=== PATIENT | female | born 1970 | race African-American/Black ===

== ENCOUNTER 2016-10-13 11:09 | Inpatient (IN) | payer MEDICAID ==
[~2016-10-13] VITALS: Ht 165.1 cm; Wt 95.3 kg
[~2016-10-13 11:09] MED LIST: ASPIRIN EC81 M1 PO; ASPIRIN EC81 MG; COREG6.25 MG PO; CYCLOBENZAPRINE10 MG PO; GABAPENTIN100 MG PO; HYDROCODONE-APA1 TAB PO; K-TAB10 MEQ PO; LANTUS INSULIN10 ML SC; LANTUS SOL100 UNIT/1 SC; LASIX20 MG PO; LOPRESSOR50 MG PO; MICRO-K10 MEQ; MIRALAX17 GM PO; NORCO 7.5/325 T1 TA1 PO; OMEPRAZOLE20 M1 PO; PAROXETINE HCL10 MG PO; PREVACID15 MG; PREVACID15 MG PO; ZESTORETIC 20/21 TAB PO
[2016-10-13 11:44] LABS: APPEARANCE TURBID (CLEAR); BACTERIA MODERATE /hpf (NONE SEEN); BILIRUBIN NEGATIVE (NEGATIVE); COLOR YELLOW (YELLOW); GLUCOSE NEGATIVE (NEGATIVE); KETONE NEGATIVE (NEGATIVE); LEUKOCYTE ESTERASE 2+ (NEGATIVE); MUCUS <1+ /lpf (NONE SEEN); NITRITE NEGATIVE (NEGATIVE); PROTEIN TRACE mg/dL (NEGATIVE); SPECIFIC GRAVITY 1.025 (1.005-1.020); UROBILINOGEN NORMAL (NORMAL); WHITE CELLS - URINE >50 /hpf (0-5)
[2016-10-13 11:49] LABS: UDS - AMPHET NEGATIVE QUAL (NEGATIVE); UDS - BARB NEGATIVE QUAL (NEGATIVE); UDS - BENZO NEGATIVE QUAL (NEGATIVE); UDS - COCAINE POSITIVE QUAL (NEGATIVE); UDS - METH NEGATIVE QUAL (NEGATIVE); UDS - OPIATE NEGATIVE QUAL (NEGATIVE); UDS - PCP NEGATIVE QUAL (NEGATIVE); UDS - THC NEGATIVE QUAL (NEGATIVE)
[2016-10-13 12:38] LABS: BASOPHILS 0.2 % (0.0-2.0); EOSINOPHILS 1.1 % (0-7); HEMATOCRIT 38.1 % (36.0-48.0); HEMOGLOBIN 12.8 g/dL (12-16); IMMATURE GRANULOCYTES 0.2 % (0-5); LYMPHOCYTES 15.3 % (15-50); MCH 27.8 pg (26.0-34.0); MCHC 33.6 g/dL (31.0-37.0); MCV 82.8 fL (80.0-100.0); MEAN PLATELET VOLUME 11.3 fL (7.4-10.4); MONOCYTES 6.7 % (2-11); NEUTROPHILS 76.5 % (40-80); PLATELET COUNT 250 10x3/uL (130-400); RDW 14.1 % (11.5-14.5); WBC 16.3 10x3/uL (4.8-10.8)
[2016-10-13 12:57] LABS: ALBUMIN 3.4 g/dL (3.4-5.0); BILIRUBIN - TOTAL 1.13 mg/dL (0.2-1.3); CALCIUM 9.4 mg/dL (8.5-10.1); CREATININE - SERUM 2.2 mg/dL (0.6-1.3); PROTEIN - SERUM 7.1 g/dL (6.4-8.2)
[2016-10-13 14:33] LABS: HEMOGLOBIN A1C 8.3 % (4.8-6.0)
[2016-10-13 16:27] VITALS: BP 122/76
--- NOTE | 2016-10-13 17:21 | NUR ---
PATIENT HAS RECIEVED MEDICATION ORDERED. PT IS RESTLESS IN THE BED. UNABLE TO PROVIDE ANSWERS FOR ADMISSION HISTORY FORM, WILL MONITOR. NO FAMILY OR FRIENDS IN ROOM. PT HAS A BLUE KAYE DRESS AND A BLACK FLIP PHONE IN ROOM WITH HER. LINDA ALARM PLACED UNDER PT FOR PRECAUTIONS. WILL CONTINUE TO MONITOR PT. NO SIGNS OF DISTRESS NOTED.
[2016-10-13 17:46] VITALS: BP 122/76; BMI 35.0
--- NOTE | 2016-10-13 18:17 | NUR ---
PATIENT IS IN BED, MOVING AROUND IN THE BED. WHEN SPEAKING PATIENT PURSES LIPS AND BLOWS BETWEEN ALMOST EVERY WORD. PATIENT IS NOT ABLE TO LAY STILL. PATIENT IS MOVING AROUND INVOLUNTARILY. LINDA MAT ALARM ON. PATIENT STATED "I AM HUNGERY. I HAVEN'T ATE IN 3 DAYS BECAUSE THE FLOORS WHERE I LIVE HAVE WHITE STUFF ON THEM THAT I AM ALLERGIC TO. THAT IS WHAT MADE MY FACE SWELL." CALLED DIETARY ASKED FOR A TRAY.
[2016-10-13 19:00] VITALS: BP 131/70
--- NOTE | 2016-10-13 20:22 | NUR ---
recieved pt sitting up in bed eating, no acute distress noted, sr's up x2, cl in reach, door open for easy viewing, will monitor
--- NOTE | 2016-10-13 21:58 | NUR ---
12 UNITS INSULIN GIVEN PER SLIDIING SCALE FOR BS OF 465, WILL CONTACT PAULA CHOI IN REACH
--- NOTE | 2016-10-13 22:10 | NUR ---
ORDERS TO RECHECK IN AN HOUR, NO DISTRESS NOTED FROM PATIENT
--- NOTE | 2016-10-13 23:49 | NUR ---
BS 209, DOWN FROM 465, NO DISTRESS NOTED, WILL CONTINUE TO MONITOR, CL IN REACH
--- NOTE | 2016-10-14 01:15 | NUR ---
PATIENT REQUESTING FOOD, SUGAR FREE JELLO PROVIDED, NO DISTRESS NOTED, CL IN REACH
[2016-10-14 04:00] VITALS: BP 142/86
[2016-10-14 04:38] LABS: BASOPHILS 0.1 % (0.0-2.0); HEMATOCRIT 37.4 % (36.0-48.0); HEMOGLOBIN 12.2 g/dL (12-16); IMMATURE GRANULOCYTES 0.3 % (0-5); LYMPHOCYTES 14.5 % (15-50); MCHC 32.6 g/dL (31.0-37.0); MCV 82.7 fL (80.0-100.0); MEAN PLATELET VOLUME 10.7 fL (7.4-10.4); MONOCYTES 7.6 % (2-11); NEUTROPHILS 76.5 % (40-80); PLATELET COUNT 242 10x3/uL (130-400); RBC 4.52 10x6/uL (4.00-5.40); RDW 14.4 % (11.5-14.5); WBC 11.6 10x3/uL (4.8-10.8)
[2016-10-14 04:47] LABS: ANION GAP 10.3 mmol/L (8-16); CALCIUM 8.6 mg/dL (8.5-10.1); CARBON DIOXIDE 31.3 mmol/L (21.0-32.0)
[2016-10-14 04:56] LABS: CREATININE - SERUM 1.4 mg/dL (0.6-1.3); POTASSIUM - SERUM 3.6 mmol/L (3.5-5.1)
--- NOTE | 2016-10-14 09:00 | NUR ---
ASSESSMENT PER FLOW SHEET.PT WITHUT DISTRESS.CALL LIGHT IN REACH
[2016-10-14 10:20] VITALS: BP 149/89
[2016-10-14 13:50] VITALS: BP 132/88
[2016-10-14 14:22] VITALS: Ht 165.1 cm; Wt 95.3 kg
--- NOTE | 2016-10-14 16:19 | NUR ---
Patient Name: CAROLYN GALICIA Admission Status: ER Accout number: [id number] Admission Date: 10-13-2016 : 1970 Admission Diagnosis: Attending: DARRELL Current LOS: 1 Anticipated DC Date: 10-17-2016 Planned Disposition: Home Primary Insurance: MEDICAID [place] Discharge Planning Comments: CM MET WITH PATIENT REGARDING D/C NEEDS AND PLANS. PATIENT STATES SHE LIVES WITH HER BOYFRIEND (ANGEL ORTIZ) AND HE WILL DRIVE HER HOME AT DISCHARGE. PATIENT IS INDEPENDENT WITH HER CARE AND HAS A CANE AT HOME IF NEEDED. PATIENT GOES TO [place] AND USES [facility]AC[facility]. PATIENT STATED THERE ARE 2 STEPS W/O RAILS AND NO STAIRS INSIDE AT HER HOME. PATIENT DENIES HOME HEALTH. CM WILL CONTINUE TO FOLLOW PATIENT WITH D/C NEEDS AND PLANS. [facility] [phone] ANGEL ORTIZ (ARTEMFRIEND) [phone] Quality Control Operator: Drea Figueroa Is the patient Alert and Oriented? Yes 0 * How many steps to enter\exit or inside your home? 2 W/O RAIL 0 * PCP [facility] 0 * Pharmacy [facility] * Preadmission Environment Home with Family 0 * ADLs Independent 0 * Equipment Cane 0 * List name and contact numbers for known caregivers / representatives who currently or will assist patient after discharge: ANGEL ORTIZ (BOYFRIEND) [phone] 0 * Community resources currently utilized None 0 * Additional services required to return to the preadmission environment? Yes 0 * Can the patient safely return to the preadmission environment? Yes 0 * Has this patient been hospitalized within the prior 30 days at any hospital? No 0 Grand Total: 0
[2016-10-14 16:58] VITALS: BP 185/89
--- NOTE | 2016-10-14 20:18 | NUR ---
IV SITED TO RIGHT HAND X1 STICK USING ASEPTIC TECH.IV SITE VERY TENDER TO TOUCH,DCD CATH INATCT LEFT HAND.PT REMAINS WITHOUT CHANGE.CONT PLAN OF CARE
--- NOTE | 2016-10-14 20:20 | NUR ---
PT UP TO RESTROOM WITH NO DISTRESS, BED CHANGED DUE TO MENSTRATION BLOOD, ASSESSMENT COMPLETED, NO ACUTE DISTRESS NOTED, CL IN REACH
[2016-10-14 21:00] VITALS: BP 132/56
[2016-10-14 21:18] LABS: HCG URINE NEGATIVE (NEGATIVE)
--- NOTE | 2016-10-14 22:19 | NUR ---
MEDS GIVEN PER MAR, KERRI WELL, CL IN REACH, WILL MONITOR
--- NOTE | 2016-10-14 23:53 | NUR ---
RESTING WITH EYES CLOSED, RESP WITH EASE, NO DISTRESS NOTED, SR'S UP X2, CL IN REACH
[2016-10-15 01:00] VITALS: BP 133/62
[2016-10-15 05:00] VITALS: BP 151/96
[2016-10-15 06:31] LABS: BASOPHILS 0.1 % (0.0-2.0); EOSINOPHILS 2.4 % (0-7); HEMATOCRIT 36.8 % (36.0-48.0); HEMOGLOBIN 11.9 g/dL (12-16); IMMATURE GRANULOCYTES 0.3 % (0-5); LYMPHOCYTES 32.3 % (15-50); MCH 27.5 pg (26.0-34.0); MCHC 32.3 g/dL (31.0-37.0); MEAN PLATELET VOLUME 10.8 fL (7.4-10.4); MONOCYTES 10.6 % (2-11); NEUTROPHILS 54.3 % (40-80); PLATELET COUNT 261 10x3/uL (130-400); RBC 4.33 10x6/uL (4.00-5.40); RDW 14.7 % (11.5-14.5)
[2016-10-15 06:53] LABS: ANION GAP 7.2 mmol/L (8-16); CALCIUM 8.3 mg/dL (8.5-10.1); CARBON DIOXIDE 31.9 mmol/L (21.0-32.0); CREATININE - SERUM 1.4 mg/dL (0.6-1.3); POTASSIUM - SERUM 4.1 mmol/L (3.5-5.1)
[2016-10-15 08:22] VITALS: BP 144/88
--- NOTE | 2016-10-15 09:00 | NUR ---
assessment per flow sheet.pt without distress.call light in reach
[2016-10-15 11:47] VITALS: BP 124/72
--- NOTE | 2016-10-15 12:20 | NUR ---
LEFT FLOOR VIA WHEELCHAIR FOR TRANSPORT HOME.
[2016-10-15] MEDS ORDERED: HYDROCODONE-APA1 TAB PO (12:33)
[2016-10-15] MEDS ORDERED: LEVAQUIN750 MG PO (12:34)
--- NOTE | 2016-10-15 13:00 | NUR ---
iv dcd cath intact.
--- NOTE | 2016-10-15 13:27 | NUR ---
CM REASSESSMENT NOTE: PATIENT IS DISCHARGING HOME TODAY. DENIES ANY NEEDS FOR DISCHARGE.
--- NOTE | 2016-10-18 16:40 | EC ---
PATIENT:CRAOLYN GALICIA DATE OF SERVICE: 10/13/16 SEX: F MEDICAL RECORD: [id number] DATE OF : [birth year] LOCATION:D.[facility] AGE OF PATIENT: 46 ADMISSION DATE: 10/13/16 REFERRING PHYSICIAN: INTERPRETING PHYSICIAN: ENID FARLEY MD ECHOCARDIOGRAM REPORT ECHO CHARGES 4 ECHO COMPLETE CLINICAL DIAGNOSIS: DRUG USE/ ASSESS VALVES ECHOCARDIOGRAPHIC MEASUREMENTS (adult normal given) AC root (d.<3.7cm) 3.2 LV Septum d (<1.2 cm> 1.9 Valve Excursion 1.8 LV Septum (systole) 2.1 Left Atria (s.<4.0cm> 3.0 LVPW d(<1.2cm) 1.7 RV (d.<2.3cm) 3.6 LVPW (sytole) 1.9 LV diastole(<5.6CM) 4.6 MV E-F(>70mm/sec) LV systole 3.3 LVOT Diameter 1.9 MV exc.(>10mm) 0.8 Est.ejection fraction (50-75%) Pericardial Effusion N DOPPLER: LVIT A 65.0 E 111 LA RVSP 40 LVOT 111 AOP1/2T 774 Asc. Ao 153 RVOT 99 RA PA 134 AV Gradient Peak 9.41 AV Mean 5.16 AV Area 1.9 MV Gradient Peak 5.7 MV Mean 2.4 MV Area COMMENTS: Backpackers Manager: Fely BOGGS Leadership Intern:Uyen Farley TAPE# PACS DATE OF SERVICE: 10/15/2016 Echocardiogram FINDINGS: 1. Left ventricle chamber size is within normal limits. Left ventricular systolic function is normal. Overall ejection fraction estimated at 55%. 2. Left atrium is within normal limits at 3.0 cm. Right atrium and right ventricular chamber sizes are wjya-wi-ozryizbuev dilated. 3. Valvular structures have normal structure and motion. ECHOCARDIOGRAM REPORT [id number] CAROLYN GALICIA 4. Doppler interrogation reveals moderate aortic insufficiency, hrvx-[id number] mitral regurgitation, mild tricuspid regurgitation, and no other valvular insufficiency or stenosis. 5. Pulmonary systolic pressure is normal estimated at 40 mmHg. 6. No evidence of pericardial effusion or left ventricular thrombus. TRANSINT:[id number] Voice Confirmation ID: [id number] DOCUMENT ID: [id number] ENID FARLEY MD at 1640 CC: [id number] DICTATION DATE: 10/15/16 1201 ELECTRICAL APPRENTICE: 10/15/16 1221 DIS IN 10/15/16 [id number] [place] [address]
== END 2016-10-15 14:21 | disposition home or self-care (01) | DRG 690 ==
LOC: D.ER 11:09 → D.MS 13:23
PROVIDERS: Emergency Medicine; Family Medicine; Nurse Practitioner Family; ADMIT Family Medicine
DX: N10 Acute pyelonephritis (principal); I42.9 Cardiomyopathy, unspecified; N17.9 Acute kidney failure, unspecified; E87.6 Hypokalemia; F14.10 Cocaine abuse, uncomplicated; E11.9 Type 2 diabetes mellitus without complications; Z79.4 Long term (current) use of insulin; I11.0 Hypertensive heart disease with heart failure; I50.9 Heart failure, unspecified; I25.2 Old myocardial infarction; E78.5 Hyperlipidemia, unspecified

== ENCOUNTER 2016-11-22 02:27 | Emergency (ER) | payer MEDICAID ==
[2016-10-14 14:22] VITALS: BMI 34.9
[~2016-11-22 02:27] MED LIST changes: +LEVAQUIN750 MG PO
== END 2016-11-22 03:10 | disposition left against medical advice (07) ==
LOC: D.ER 02:27
DX: F14.10 Cocaine abuse, uncomplicated (principal); F41.9 Anxiety disorder, unspecified; F17.200 Nicotine dependence, unspecified, uncomplicated; I50.9 Heart failure, unspecified; K21.9 Gastro-esophageal reflux disease without esophagitis; I10 Essential (primary) hypertension; J44.9 Chronic obstructive pulmonary disease, unspecified

== ENCOUNTER 2016-11-22 03:58 | Emergency (ER) | payer MEDICAID ==
[2016-10-14 14:22] VITALS: BMI 34.9
[2016-11-22 05:16] LABS: APPEARANCE CLOUDY (CLEAR); BILIRUBIN 1+ (NEGATIVE); COLOR YELLOW (YELLOW); GLUCOSE NEGATIVE (NEGATIVE); KETONE NEGATIVE (NEGATIVE); LEUKOCYTE ESTERASE 2+ (NEGATIVE); NITRITE NEGATIVE (NEGATIVE); PH 5.5 (5.0-6.0); PROTEIN 1+ mg/dL (NEGATIVE); UDS - AMPHET NEGATIVE QUAL (NEGATIVE); UDS - BARB NEGATIVE QUAL (NEGATIVE); UDS - BENZO NEGATIVE QUAL (NEGATIVE); UDS - COCAINE POSITIVE QUAL (NEGATIVE); UDS - METH NEGATIVE QUAL (NEGATIVE); UDS - OPIATE NEGATIVE QUAL (NEGATIVE); UDS - PCP NEGATIVE QUAL (NEGATIVE); UDS - THC NEGATIVE QUAL (NEGATIVE)
[2016-11-22 05:18] LABS: BASOPHILS 0.1 % (0.0-2.0); EOSINOPHILS 0.7 % (0-7); HEMATOCRIT 38.4 % (36.0-48.0); HEMOGLOBIN 12.6 g/dL (12-16); IMMATURE GRANULOCYTES 0.4 % (0-5); LYMPHOCYTES 17.8 % (15-50); MCH 27.8 pg (26.0-34.0); MCHC 32.8 g/dL (31.0-37.0); MCV 84.6 fL (80.0-100.0); MEAN PLATELET VOLUME 10.7 fL (7.4-10.4); MONOCYTES 5.2 % (2-11); NEUTROPHILS 75.8 % (40-80); PLATELET COUNT 233 10x3/uL (130-400); RBC 4.54 10x6/uL (4.00-5.40); RDW 15.6 % (11.5-14.5); WBC 13.7 10x3/uL (4.8-10.8)
[2016-11-22 05:22] LABS: BACTERIA MANY /hpf (NONE SEEN); RED CELLS - URINE >50 /hpf (0-5); WHITE CELLS - URINE >50 /hpf (0-5)
[2016-11-22 05:23] LABS: HYALINE CAST OCC /lpf (NONE SEEN)
[2016-11-22 05:44] LABS: ALBUMIN 3.2 g/dL (3.4-5.0); ANION GAP 13.1 mmol/L (8-16); BILIRUBIN - TOTAL 0.53 mg/dL (0.2-1.3); CALCIUM 9.3 mg/dL (8.5-10.1); CARBON DIOXIDE 28.3 mmol/L (21.0-32.0); CREATININE - SERUM 1.1 mg/dL (0.6-1.3); POTASSIUM - SERUM 3.4 mmol/L (3.5-5.1); PROTEIN - SERUM 7.5 g/dL (6.4-8.2)
== END 2016-11-22 06:20 | disposition home or self-care (01) ==
LOC: D.ER 03:58
PROVIDERS: Emergency Medicine
DX: N39.0 Urinary tract infection, site not specified (principal); A59.01 Trichomonal vulvovaginitis; F19.10 Other psychoactive substance abuse, uncomplicated; I50.9 Heart failure, unspecified; J44.9 Chronic obstructive pulmonary disease, unspecified; K21.9 Gastro-esophageal reflux disease without esophagitis; I10 Essential (primary) hypertension; F17.200 Nicotine dependence, unspecified, uncomplicated

== ENCOUNTER 2017-01-07 10:02 | Emergency (ER) | payer MEDICAID ==
[2016-10-14 14:22] VITALS: BMI 34.9
[2017-01-07 11:18] LABS: UDS - AMPHET NEGATIVE QUAL (NEGATIVE); UDS - BARB NEGATIVE QUAL (NEGATIVE); UDS - BENZO NEGATIVE QUAL (NEGATIVE); UDS - COCAINE POSITIVE QUAL (NEGATIVE); UDS - METH NEGATIVE QUAL (NEGATIVE); UDS - OPIATE NEGATIVE QUAL (NEGATIVE); UDS - PCP NEGATIVE QUAL (NEGATIVE); UDS - THC NEGATIVE QUAL (NEGATIVE)
[2017-01-07 11:23] LABS: ALBUMIN 3.4 g/dL (3.4-5.0); ANION GAP 13.3 mmol/L (8-16); BILIRUBIN - TOTAL 0.54 mg/dL (0.2-1.3); CALCIUM 9.3 mg/dL (8.5-10.1); CARBON DIOXIDE 28.3 mmol/L (21.0-32.0); CREATININE - SERUM 2.9 mg/dL (0.6-1.3); POTASSIUM - SERUM 3.6 mmol/L (3.5-5.1); PROTEIN - SERUM 8.1 g/dL (6.4-8.2)
[2017-01-07 11:26] LABS: APPEARANCE TURBID (CLEAR); COLOR YELLOW (YELLOW); GLUCOSE NEGATIVE (NEGATIVE); KETONE NEGATIVE (NEGATIVE); LEUKOCYTE ESTERASE 2+ (NEGATIVE); NITRITE NEGATIVE (NEGATIVE); PROTEIN NEGATIVE (NEGATIVE); UROBILINOGEN NORMAL (NORMAL)
[2017-01-07 11:27] LABS: BACTERIA MODERATE /hpf (NONE SEEN); BILIRUBIN NEGATIVE (NEGATIVE); EPITHELIAL CELLS 25-50 /hpf (0-5); RED CELLS - URINE 0-5 /hpf (0-5); WHITE CELLS - URINE >50 /hpf (0-5)
[2017-01-07 11:30] LABS: HEMATOCRIT 42.6 % (36.0-48.0); HEMOGLOBIN 14.4 g/dL (12-16); LYMPHOCYTES 14.8 % (15-50); MCH 28.1 pg (26.0-34.0); MCHC 33.8 g/dL (31.0-37.0); MEAN PLATELET VOLUME 10.6 fL (7.4-10.4); NEUTROPHILS 77.1 % (40-80); PLATELET COUNT 226 10x3/uL (130-400); RBC 5.13 10x6/uL (4.00-5.40); RDW 14.4 % (11.5-14.5); WBC 15.1 10x3/uL (4.8-10.8)
== END 2017-01-07 13:26 | disposition home or self-care (01) ==
LOC: D.ER 10:02
PROVIDERS: Emergency Medicine
DX: F43.20 Adjustment disorder, unspecified (principal); F14.10 Cocaine abuse, uncomplicated; E11.65 Type 2 diabetes mellitus with hyperglycemia; Z79.4 Long term (current) use of insulin; N28.9 Disorder of kidney and ureter, unspecified; Z91.19 Patient's noncompliance with other medical treatment and regimen; E87.1 Hypo-osmolality and hyponatremia; I10 Essential (primary) hypertension; K21.9 Gastro-esophageal reflux disease without esophagitis

== ENCOUNTER 2017-01-13 22:14 | Emergency (ER) | payer MEDICAID ==
[2016-10-14 14:22] VITALS: BMI 34.9
[2017-01-14 01:29] LABS: UDS - AMPHET NEGATIVE QUAL (NEGATIVE); UDS - BARB NEGATIVE QUAL (NEGATIVE); UDS - BENZO NEGATIVE QUAL (NEGATIVE); UDS - COCAINE POSITIVE QUAL (NEGATIVE); UDS - METH NEGATIVE QUAL (NEGATIVE); UDS - OPIATE NEGATIVE QUAL (NEGATIVE); UDS - PCP NEGATIVE QUAL (NEGATIVE); UDS - THC NEGATIVE QUAL (NEGATIVE)
== END 2017-01-14 01:50 | disposition home or self-care (01) ==
LOC: D.ER 22:14
PROVIDERS: Physician Assistant Medical
DX: F32.9 Major depressive disorder, single episode, unspecified (principal); F15.10 Other stimulant abuse, uncomplicated; F14.10 Cocaine abuse, uncomplicated; I50.9 Heart failure, unspecified; J44.9 Chronic obstructive pulmonary disease, unspecified; K21.9 Gastro-esophageal reflux disease without esophagitis; I10 Essential (primary) hypertension; E11.9 Type 2 diabetes mellitus without complications; Z79.4 Long term (current) use of insulin; F17.200 Nicotine dependence, unspecified, uncomplicated

== ENCOUNTER 2017-10-27 11:45 | Inpatient (IN) | payer MEDICAID ==
[~2017-10-27] VITALS: Ht 170.2 cm; Wt 95.9 kg
[2017-10-27 12:20] LABS: APPEARANCE CLEAR (CLEAR); BILIRUBIN NEGATIVE (NEGATIVE); COLOR YELLOW (YELLOW); GLUCOSE NEGATIVE (NEGATIVE); KETONE NEGATIVE (NEGATIVE); NITRITE NEGATIVE (NEGATIVE); PROTEIN NEGATIVE (NEGATIVE); SPECIFIC GRAVITY 1.015 (1.005-1.020); UROBILINOGEN NORMAL (NORMAL)
[2017-10-27 12:23] LABS: BACTERIA MODERATE /hpf (NONE SEEN); HYALINE CAST 0-5 /lpf (NONE SEEN); MUCUS <1+ /lpf (NONE SEEN)
[2017-10-27 12:28] LABS: BASOPHILS 0.2 % (0-2); EOSINOPHILS 0.7 % (0-7); HEMATOCRIT 50.4 % (36.0-48.0); HEMOGLOBIN 16.9 g/dL (12-16); IMMATURE GRANULOCYTES 0.3 % (0-5); LYMPHOCYTES 23.2 % (15-50); MCH 28.4 pg (26.0-34.0); MCHC 33.5 g/dL (31.0-37.0); MCV 84.6 fL (80.0-100.0); MEAN PLATELET VOLUME 10.8 fL (7.4-10.4); MONOCYTES 8.2 % (2-11); NEUTROPHILS 67.4 % (40-80); PLATELET COUNT 246 10x3/uL (130-400); RBC 5.96 10x6/uL (4.00-5.40); RDW 14.6 % (11.5-14.5); WBC 10.2 10x3/uL (4.8-10.8)
[2017-10-27 12:40] LABS: ALBUMIN 3.3 g/dL (3.4-5.0); ALKALINE PHOSPHATASE 74 U/L (46-116); ALT (SGPT) 23 U/L (10-68); BILIRUBIN - TOTAL 0.22 mg/dL (0.2-1.3); CALC OSMOLALITY 282 mosm/kg (275-300); CALCIUM 9.2 mg/dL (8.5-10.1); CARBON DIOXIDE 26.5 mmol/L (21.0-32.0); CHLORIDE - SERUM 96 mmol/L (98-107); CREATININE - SERUM 2.4 mg/dL (0.6-1.3); GLUCOSE 190 mg/dL (74-106); POTASSIUM - SERUM 3.9 mmol/L (3.5-5.1); PROTEIN - SERUM 8.1 g/dL (6.4-8.2); SODIUM 135 mmol/L (136-145); UREA NITROGEN 36 mg/dL (7-18); eGFR NON AFRICAN AMERICAN 23 mL/min (90-120)
[2017-10-27 12:52] LABS: CKMB 0.6 U/L (0.0-3.6); CREATINE KINASE 60 UL (21-215); TROPONIN-I 0.018 ng/mL (0.000-0.060)
[2017-10-27 13:18] LABS: AMYLASE - SERUM 97 U/L (25-115); LIPASE 724 U/L (73-393)
[2017-10-27 14:29] LABS: CHOL - HDL RATIO 3.5 ratio (2.3-4.1); LDL-HDL RATIO 1.6 ratio (1.5-3.5)
[2017-10-28 17:25] LABS: BASOPHILS 0.1 % (0-2); EOSINOPHILS 0.9 % (0-7); HEMATOCRIT 44.3 % (36.0-48.0); HEMOGLOBIN 14.6 g/dL (12-16); IMMATURE GRANULOCYTES 0.2 % (0-5); LYMPHOCYTES 28.2 % (15-50); MCH 28.2 pg (26.0-34.0); MCV 85.7 fL (80.0-100.0); MEAN PLATELET VOLUME 10.6 fL (7.4-10.4); MONOCYTES 8.9 % (2-11); NEUTROPHILS 61.7 % (40-80); PLATELET COUNT 211 10x3/uL (130-400); RBC 5.17 10x6/uL (4.00-5.40); RDW 14.8 % (11.5-14.5); WBC 8.5 10x3/uL (4.8-10.8)
[2017-10-28 18:06] LABS: BILIRUBIN - TOTAL 0.3 mg/dL (0.2-1.3); CALCIUM 8.3 mg/dL (8.5-10.1); CARBON DIOXIDE 27.6 mmol/L (21.0-32.0); POTASSIUM - SERUM 3.6 mmol/L (3.5-5.1); PROTEIN - SERUM 6.4 g/dL (6.4-8.2)
[2017-10-29] VITALS: BP 120/64
[2017-10-29 03:16] VITALS: BP 120/64; Ht 170.2 cm; Wt 95.9 kg
[2017-10-29 04:00] VITALS: BP 130/72
[2017-10-29 06:00] LABS: BASOPHILS 0.2 % (0-2); EOSINOPHILS 1.5 % (0-7); HEMATOCRIT 40.6 % (36.0-48.0); IMMATURE GRANULOCYTES 0.2 % (0-5); LYMPHOCYTES 32.7 % (15-50); MCH 27.5 pg (26.0-34.0); MCV 85.8 fL (80.0-100.0); MONOCYTES 9.4 % (2-11); PLATELET COUNT 252 10x3/uL (130-400); RBC 4.73 10x6/uL (4.00-5.40); RDW 14.7 % (11.5-14.5); WBC 8.4 10x3/uL (4.8-10.8)
[2017-10-29 06:21] LABS: INR 1.04 (0.85-1.17); PROTIME 13.2 SECONDS (11.6-15.0)
[2017-10-29 06:26] LABS: ALBUMIN 2.5 g/dL (3.4-5.0); ANION GAP 11.6 mmol/L (8-16); BILIRUBIN - TOTAL 0.38 mg/dL (0.2-1.3); POTASSIUM - SERUM 3.6 mmol/L (3.5-5.1); PROTEIN - SERUM 6.2 g/dL (6.4-8.2)
[2017-10-29 06:27] LABS: CREATININE - SERUM 1.3 mg/dL (0.6-1.3)
[2017-10-29 11:01] VITALS: BP 122/76
[2017-10-29] MEDS ORDERED: LEVAQUIN250 MG PO (12:11)
[2017-10-29] MEDS ORDERED: FLAGYL500 MG PO (12:11)
[2017-10-29 13:41] VITALS: BP 133/71
== END 2017-10-29 14:53 | disposition home or self-care (01) | DRG 439 ==
LOC: D.ER 11:45 → D.SDCHOLD 17:01 → D.WS 10-28 16:48 → D.M2 10-28 21:50
PROVIDERS: Family Medicine; Internal Medicine Gastroenterology; Internal Medicine Nephrology; Physician Assistant
DX: K85.90 Acute pancreatitis without necrosis or infection, unspecified (principal); N17.9 Acute kidney failure, unspecified; I42.9 Cardiomyopathy, unspecified; I13.0 Hypertensive heart and chronic kidney disease with heart failure and stage 1 through stage 4 chronic kidney disease, or unspecified chronic kidney disease; A59.03 Trichomonal cystitis and urethritis; I50.9 Heart failure, unspecified; I25.10 Atherosclerotic heart disease of native coronary artery without angina pectoris; E78.5 Hyperlipidemia, unspecified; F14.10 Cocaine abuse, uncomplicated; E11.22 Type 2 diabetes mellitus with diabetic chronic kidney disease; N18.9 Chronic kidney disease, unspecified; E11.40 Type 2 diabetes mellitus with diabetic neuropathy, unspecified; Z72.0 Tobacco use

== ENCOUNTER 2017-11-05 00:04 | Emergency (ER) | payer MEDICAID ==
[2017-10-29 03:16] VITALS: BMI 33.1
[~2017-11-05 00:04] MED LIST changes: +FLAGYL500 MG PO; +LEVAQUIN250 MG PO
[2017-11-05 00:49] LABS: APPEARANCE HAZY (CLEAR); BILIRUBIN NEGATIVE (NEGATIVE); COLOR YELLOW (YELLOW); GLUCOSE NEGATIVE (NEGATIVE); KETONE NEGATIVE (NEGATIVE); NITRITE NEGATIVE (NEGATIVE); PROTEIN NEGATIVE (NEGATIVE); UROBILINOGEN NORMAL (NORMAL)
[2017-11-05 00:50] LABS: BACTERIA FEW /hpf (NONE SEEN); EPITHELIAL CELLS 0-5 /hpf (0-5); RED CELLS - URINE 0-5 /hpf (0-5); WHITE CELLS - URINE 0-5 /hpf (0-5)
[2017-11-05 01:10] LABS: BASOPHILS 0.2 % (0-2); EOSINOPHILS 0.9 % (0-7); HEMOGLOBIN 15.4 g/dL (12-16); IMMATURE GRANULOCYTES 0.4 % (0-5); LYMPHOCYTES 28.1 % (15-50); MCH 28.1 pg (26.0-34.0); MCHC 33.5 g/dL (31.0-37.0); MCV 83.9 fL (80.0-100.0); MEAN PLATELET VOLUME 10.6 fL (7.4-10.4); NEUTROPHILS 59.4 % (40-80); PLATELET COUNT 291 10x3/uL (130-400); RBC 5.48 10x6/uL (4.00-5.40); RDW 14.8 % (11.5-14.5); WBC 12.9 10x3/uL (4.8-10.8)
[2017-11-05 01:26] LABS: ALBUMIN 3.2 g/dL (3.4-5.0); ANION GAP 9.8 mmol/L (8-16); BILIRUBIN - TOTAL 0.22 mg/dL (0.2-1.3); CALCIUM 9.1 mg/dL (8.5-10.1); CARBON DIOXIDE 32.1 mmol/L (21.0-32.0); CREATININE - SERUM 1.7 mg/dL (0.6-1.3); POTASSIUM - SERUM 3.9 mmol/L (3.5-5.1); PROTEIN - SERUM 7.6 g/dL (6.4-8.2)
== END 2017-11-05 05:22 | disposition home or self-care (01) ==
LOC: D.ER 00:04
PROVIDERS: Family Medicine
DX: R10.9 Unspecified abdominal pain (principal); I50.9 Heart failure, unspecified; J44.9 Chronic obstructive pulmonary disease, unspecified; K21.9 Gastro-esophageal reflux disease without esophagitis; I10 Essential (primary) hypertension

== ENCOUNTER 2018-04-09 20:56 | Emergency (ER) | payer MEDICAID ==
[~2018-04-09] VITALS: Ht 170.2 cm; Wt 90.9 kg
[2018-04-09 21:03] VITALS: Ht 170.2 cm; Wt 90.9 kg
[2018-04-09 21:54] LABS: APPEARANCE CLEAR (CLEAR); COLOR YELLOW (YELLOW); NITRITE NEGATIVE (NEGATIVE); PROTEIN 1+ mg/dL (NEGATIVE); SPECIFIC GRAVITY 1.015 (1.005-1.020)
[2018-04-09 21:55] LABS: BILIRUBIN NEGATIVE (NEGATIVE); GLUCOSE NEGATIVE (NEGATIVE); KETONE NEGATIVE (NEGATIVE); UROBILINOGEN NORMAL (NORMAL)
[2018-04-09 21:58] LABS: BACTERIA FEW /hpf (NONE SEEN)
[2018-04-09 21:59] LABS: RED CELLS - URINE 0-5 /hpf (0-5)
[2018-04-09 22:04] LABS: UDS - AMPHET NEGATIVE QUAL (NEGATIVE); UDS - BARB NEGATIVE QUAL (NEGATIVE); UDS - BENZO NEGATIVE QUAL (NEGATIVE); UDS - COCAINE POSITIVE QUAL (NEGATIVE); UDS - OPIATE NEGATIVE QUAL (NEGATIVE); UDS - PCP NEGATIVE QUAL (NEGATIVE); UDS - THC NEGATIVE QUAL (NEGATIVE)
[2018-04-09 22:06] LABS: BASOPHILS 0.2 % (0-2); EOSINOPHILS 1.2 % (0-7); HEMATOCRIT 36.5 % (36.0-48.0); IMMATURE GRANULOCYTES 0.2 % (0-5); LYMPHOCYTES 24.5 % (15-50); MCHC 32.9 g/dL (31.0-37.0); MCV 85.3 fL (80.0-100.0); MEAN PLATELET VOLUME 10.4 fL (7.4-10.4); MONOCYTES 8.2 % (2-11); NEUTROPHILS 65.7 % (40-80); PLATELET COUNT 249 10x3/uL (130-400); RBC 4.28 10x6/uL (4.00-5.40); RDW 14.9 % (11.5-14.5); WBC 10.6 10x3/uL (4.8-10.8)
[2018-04-09 22:17] LABS: ALBUMIN 2.7 g/dL (3.4-5.0); ANION GAP 10.7 mmol/L (8-16); BILIRUBIN - TOTAL 0.57 mg/dL (0.2-1.3); CALCIUM 8.6 mg/dL (8.5-10.1); CARBON DIOXIDE 25.5 mmol/L (21.0-32.0); CREATININE - SERUM 1.3 mg/dL (0.6-1.3); POTASSIUM - SERUM 3.2 mmol/L (3.5-5.1); PROTEIN - SERUM 6.7 g/dL (6.4-8.2)
[2018-04-09] MEDS ORDERED: ZOFRAN4 MG PO (22:35)
[2018-04-09] MEDS ORDERED: MACROBID100 MG PO (22:35)
[2018-04-09 23:14] VITALS: BP 160/102
== END 2018-04-09 23:18 | disposition home or self-care (01) ==
LOC: D.ER 20:56
PROVIDERS: Family Medicine
DX: N39.0 Urinary tract infection, site not specified (principal); R11.0 Nausea; E11.9 Type 2 diabetes mellitus without complications; I10 Essential (primary) hypertension; Z86.79 Personal history of other diseases of the circulatory system

== ENCOUNTER 2018-04-23 19:30 | Emergency (ER) | payer MEDICAID ==
[~2018-04-23] VITALS: Ht 170.2 cm; Wt 104.5 kg
[~2018-04-23 19:30] MED LIST changes: +MACROBID100 MG PO; +ZOFRAN4 MG PO
[2018-04-23 19:38] VITALS: Ht 170.2 cm; Wt 104.5 kg
[2018-04-23 20:41] LABS: HCG SERUM NEGATIVE (NEGATIVE)
[2018-04-23 21:14] LABS: BASOPHILS 0.2 % (0-2); EOSINOPHILS 1.6 % (0-7); IMMATURE GRANULOCYTES 0.3 % (0-5); LYMPHOCYTES 19.8 % (15-50); MCH 28.7 pg (26.0-34.0); MCHC 32.7 g/dL (31.0-37.0); MCV 87.7 fL (80.0-100.0); MEAN PLATELET VOLUME 10.3 fL (7.4-10.4); MONOCYTES 7.9 % (2-11); NEUTROPHILS 70.2 % (40-80); RDW 17.6 % (11.5-14.5)
[2018-04-23 21:17] LABS: HEMATOCRIT 37.9 % (36.0-48.0); HEMOGLOBIN 12.4 g/dL (12-16); PLATELET COUNT 180 10x3/uL (130-400); RBC 4.32 10x6/uL (4.00-5.40); WBC 11.3 10x3/uL (4.8-10.8)
[2018-04-23 21:24] LABS: ALBUMIN 2.6 g/dL (3.4-5.0); ANION GAP 11.9 mmol/L (8-16); BILIRUBIN - TOTAL 0.49 mg/dL (0.2-1.3); CALCIUM 7.8 mg/dL (8.5-10.1); CARBON DIOXIDE 26.2 mmol/L (21.0-32.0); CREATININE - SERUM 1.1 mg/dL (0.6-1.3); POTASSIUM - SERUM 3.1 mmol/L (3.5-5.1); PROTEIN - SERUM 6.3 g/dL (6.4-8.2)
[2018-04-23 21:30] LABS: MAGNESIUM - SERUM 1.8 mg/dL (1.8-2.4)
[2018-04-23 22:43] LABS: UDS - AMPHET NEGATIVE QUAL (NEGATIVE); UDS - BARB NEGATIVE QUAL (NEGATIVE); UDS - BENZO NEGATIVE QUAL (NEGATIVE); UDS - COCAINE POSITIVE QUAL (NEGATIVE); UDS - OPIATE POSITIVE QUAL (NEGATIVE); UDS - PCP NEGATIVE QUAL (NEGATIVE); UDS - THC NEGATIVE QUAL (NEGATIVE)
[2018-04-23 22:46] LABS: APPEARANCE HAZY (CLEAR); BACTERIA MODERATE /hpf (NONE SEEN); BILIRUBIN NEGATIVE (NEGATIVE); COLOR DK YELLOW (YELLOW); GLUCOSE NEGATIVE (NEGATIVE); KETONE NEGATIVE (NEGATIVE); NITRITE NEGATIVE (NEGATIVE); PROTEIN 2+ mg/dL (NEGATIVE); SPECIFIC GRAVITY 1.015 (1.005-1.020); UROBILINOGEN NORMAL (NORMAL); WHITE CELLS - URINE 25-50 /hpf (0-5)
[2018-04-23 22:52] LABS: YEAST RARE /hpf (NONE SEEN)
[2018-04-23] MEDS ORDERED: FUROSEMIDE20 MG PO (23:27)
[2018-04-23] MEDS ORDERED: KLOR-CON M2020 MEQ PO (23:27)
[2018-04-23 23:47] VITALS: BP 165/100
== END 2018-04-23 23:48 | disposition home or self-care (01) ==
LOC: D.ER 19:30
PROVIDERS: Emergency Medicine
DX: R10.9 Unspecified abdominal pain (principal); D64.9 Anemia, unspecified; E10.9 Type 1 diabetes mellitus without complications; Z79.4 Long term (current) use of insulin; I10 Essential (primary) hypertension; Z86.79 Personal history of other diseases of the circulatory system; F17.200 Nicotine dependence, unspecified, uncomplicated

== ENCOUNTER 2018-04-24 18:33 | Inpatient (IN) | payer MEDICAID ==
[~2018-04-24] VITALS: Ht 170.2 cm; Wt 99.3 kg
--- NOTE | ~2018-04-24 | EC ---
PATIENT:CAROLYN GALICIA DATE OF SERVICE: 04/24/18 SEX: F MEDICAL RECORD: [id number] DATE OF : [birth year] LOCATION:D. D.212 AGE OF PATIENT: 47 ADMISSION DATE: 04/24/18 REFERRING PHYSICIAN: INTERPRETING PHYSICIAN: ABDULKADIR NAZARIO MD ECHOCARDIOGRAM REPORT ECHO CHARGES 4 ECHO COMPLETE Date: 04/26 CLINICAL DIAGNOSIS: CHF ECHOCARDIOGRAPHIC MEASUREMENTS (adult normal given) AC root (d.<3.7cm) 2.7 cm LV Septum d (<1.2 cm> 1.2 cm Valve Excursion 1.8 cm LV Septum (systole) 1.7 cm Left Atria (s.<4.0cm> 3.7 cm LVPW d(<1.2cm) 1.1 cm RV (d.<2.3cm) 3.0 cm LVPW (sytole) 1.7 cm LV diastole(<5.6CM) 5.6 cm MV E-F(>70mm/sec) cm LV systole 4.2 cm LVOT Diameter 1.7 cm MV exc.(>10mm) cm Est.ejection fraction (50-75%) % DOPPLER: LVIT cm/sec A 80.0 cm/sec E 135 cm/sec LA cm/sec RVSP 57.0 mmHg LVOT 84.0 cm/sec AOP1/2T 400.0m/s Asc. Ao 209 cm/sec RVOT 62.0 cm/sec RA cm/sec PA 101 cm/sec AV Gradient Peak 18.0 mmHg AV Mean 8.3 mmHg AV Area 0.8 cm MV Gradient Peak 7.2 mmHg MV Mean 2.6 mmHg MV Area cm COMMENTS: Blow Moulding Machine Operator: Uyen OVIEDOOE Mainspring Torque Tester: 4 Dr. Nazario TAPE# PACS Pericardial Effusion N DATE OF SERVICE: FINDINGS: 1. The left ventricle is enlarged. There is global mild hypokinesis with more significant hypokinesis in the anterior wall. Overall, ejection fraction is 35% to 40%. 2. The left atrium is dilated. 3. The aortic valve shows normal structure; however, there is moderate to severe aortic insufficiency. There is no evidence of aortic stenosis. 4. The mitral valve has severe mitral regurgitation. ECHOCARDIOGRAM REPORT [id number] CAROLYN GALICIA 5. Tricuspid valve has severe tricuspid regurgitation, RVSP of 60 mmHg. 6. The right ventricle is dilated. 7. The right atrium is dilated. 8. The pericardium is normal. CONCLUSION: The patient has multi-valvular abnormalities and evidence of cardiomyopathy with ejection fraction that is moderately reduced at 35% to 40%. TRANSINT:[id number] Voice Confirmation ID: [id number] DOCUMENT ID: [id number] ABDULKADIR NAZARIO MD at 1702 CC: [id number] DICTATION DATE: 04/27/18 0754 C IRON WORKER: 04/27/18 1202 DIS IN 04/27/18 [facility] [address] [id number]
[~2018-04-24 18:33] MED LIST changes: +FUROSEMIDE20 MG PO; +KLOR-CON M2020 MEQ PO
[2018-04-24 20:03] LABS: BASOPHILS 0.2 % (0-2); EOSINOPHILS 1.7 % (0-7); HEMATOCRIT 40.1 % (36.0-48.0); HEMOGLOBIN 12.9 g/dL (12-16); IMMATURE GRANULOCYTES 0.2 % (0-5); LYMPHOCYTES 23.1 % (15-50); MCH 28.8 pg (26.0-34.0); MCHC 32.2 g/dL (31.0-37.0); MCV 89.5 fL (80.0-100.0); MEAN PLATELET VOLUME 10.6 fL (7.4-10.4); MONOCYTES 7.9 % (2-11); NEUTROPHILS 66.9 % (40-80); PLATELET COUNT 181 10x3/uL (130-400); RBC 4.48 10x6/uL (4.00-5.40); RDW 17.8 % (11.5-14.5); WBC 10.2 10x3/uL (4.8-10.8)
[2018-04-24 20:52] LABS: ALBUMIN 2.8 g/dL (3.4-5.0); ALKALINE PHOSPHATASE 95 U/L (46-116); ALT (SGPT) 122 U/L (10-68); BILIRUBIN - TOTAL 0.48 mg/dL (0.2-1.3); CALC OSMOLALITY 281 mosm/kg (275-300); CALCIUM 8.3 mg/dL (8.5-10.1); CARBON DIOXIDE 27.7 mmol/L (21.0-32.0); CHLORIDE - SERUM 103 mmol/L (98-107); CREATININE - SERUM 1.1 mg/dL (0.6-1.3); GLUCOSE 215 mg/dL (74-106); PROTEIN - SERUM 6.2 g/dL (6.4-8.2); SODIUM 138 mmol/L (136-145); UREA NITROGEN 13 mg/dL (7-18); eGFR NON AFRICAN AMERICAN 57 mL/min (90-120)
[2018-04-24 20:57] LABS: POTASSIUM - SERUM 3.9 mmol/L (3.5-5.1)
[2018-04-24 21:05] LABS: AMYLASE - SERUM 47 U/L (25-115); LIPASE 74 U/L (73-393)
[2018-04-24 21:29] LABS: CKMB 0.9 U/L (0.0-3.6); CREATINE KINASE 56 UL (21-215); PRO BNP 8802 pg/mL (0-125); TROPONIN-I 0.031 ng/mL (0.000-0.060)
[2018-04-24 21:36] VITALS: BP 165/99
[2018-04-24 23:45] LABS: CKMB 0.7 U/L (0.0-3.6); CREATINE KINASE 61 UL (21-215); TROPONIN-I 0.025 ng/mL (0.000-0.060)
[2018-04-25] VITALS: BP 169/102
[2018-04-25 04:00] VITALS: BP 156/87
[2018-04-25 04:07] VITALS: BP 169/102; BMI 36.9
[2018-04-25 05:47] LABS: BASOPHILS 0.2 % (0-2); EOSINOPHILS 1.8 % (0-7); HEMATOCRIT 39.1 % (36.0-48.0); HEMOGLOBIN 12.6 g/dL (12-16); IMMATURE GRANULOCYTES 0.3 % (0-5); LYMPHOCYTES 25.7 % (15-50); MCH 28.4 pg (26.0-34.0); MCHC 32.2 g/dL (31.0-37.0); MCV 88.3 fL (80.0-100.0); MEAN PLATELET VOLUME 10.7 fL (7.4-10.4); MONOCYTES 11.5 % (2-11); NEUTROPHILS 60.5 % (40-80); PLATELET COUNT 189 10x3/uL (130-400); RBC 4.43 10x6/uL (4.00-5.40); RDW 17.7 % (11.5-14.5); WBC 10.7 10x3/uL (4.8-10.8)
[2018-04-25 06:20] LABS: CALCIUM 8.6 mg/dL (8.5-10.1); CARBON DIOXIDE 30.5 mmol/L (21.0-32.0); CHLORIDE - SERUM 102 mmol/L (98-107); CREATINE KINASE 49 UL (21-215); CREATININE - SERUM 1.1 mg/dL (0.6-1.3); SODIUM 138 mmol/L (136-145); TROPONIN-I 0.042 ng/mL (0.000-0.060); UREA NITROGEN 11 mg/dL (7-18); eGFR NON AFRICAN AMERICAN 57 mL/min (90-120)
[2018-04-25 06:23] LABS: CALC OSMOLALITY 277 mosm/kg (275-300); GLUCOSE 154 mg/dL (74-106); POTASSIUM - SERUM 3.3 mmol/L (3.5-5.1)
[2018-04-25 08:00] VITALS: BP 123/76
[2018-04-25 12:32] VITALS: BP 173/109
[2018-04-25 14:38] VITALS: Ht 170.2 cm; Wt 99.3 kg
[2018-04-25 15:21] LABS: UDS - AMPHET NEGATIVE QUAL (NEGATIVE); UDS - BARB NEGATIVE QUAL (NEGATIVE); UDS - BENZO NEGATIVE QUAL (NEGATIVE); UDS - COCAINE POSITIVE QUAL (NEGATIVE); UDS - OPIATE POSITIVE QUAL (NEGATIVE); UDS - PCP NEGATIVE QUAL (NEGATIVE); UDS - THC NEGATIVE QUAL (NEGATIVE)
[2018-04-25 16:09] VITALS: BP 158/99
[2018-04-26 04:00] VITALS: BP 136/91
[2018-04-26 06:25] LABS: BASOPHILS 0.3 % (0-2); EOSINOPHILS 2.3 % (0-7); HEMATOCRIT 40.4 % (36.0-48.0); HEMOGLOBIN 12.8 g/dL (12-16); IMMATURE GRANULOCYTES 0.3 % (0-5); LYMPHOCYTES 16.3 % (15-50); MCH 28.3 pg (26.0-34.0); MCHC 31.7 g/dL (31.0-37.0); MCV 89.2 fL (80.0-100.0); MEAN PLATELET VOLUME 10.7 fL (7.4-10.4); MONOCYTES 9.9 % (2-11); NEUTROPHILS 70.9 % (40-80); PLATELET COUNT 189 10x3/uL (130-400); RBC 4.53 10x6/uL (4.00-5.40); RDW 17.4 % (11.5-14.5); WBC 11.9 10x3/uL (4.8-10.8)
[2018-04-26 07:01] LABS: ALBUMIN 2.5 g/dL (3.4-5.0); ANION GAP 4.5 mmol/L (8-16); BILIRUBIN - TOTAL 0.43 mg/dL (0.2-1.3); CALCIUM 8.2 mg/dL (8.5-10.1); CARBON DIOXIDE 37.4 mmol/L (21.0-32.0); CREATININE - SERUM 1.3 mg/dL (0.6-1.3); PROTEIN - SERUM 6.5 g/dL (6.4-8.2)
[2018-04-26 07:02] LABS: POTASSIUM - SERUM 3.9 mmol/L (3.5-5.1)
[2018-04-26 09:24] VITALS: BP 151/101
[2018-04-26 12:40] VITALS: BP 158/96
[2018-04-26 20:00] VITALS: BP 140/86
[2018-04-27] VITALS: BP 138/87
[2018-04-27 04:00] VITALS: BP 113/76; BP 130/79
[2018-04-27 04:40] LABS: BASOPHILS 0.2 % (0-2); EOSINOPHILS 2.5 % (0-7); HEMATOCRIT 40.9 % (36.0-48.0); HEMOGLOBIN 12.8 g/dL (12-16); IMMATURE GRANULOCYTES 0.2 % (0-5); LYMPHOCYTES 17.4 % (15-50); MCH 28.4 pg (26.0-34.0); MCHC 31.3 g/dL (31.0-37.0); MCV 90.7 fL (80.0-100.0); MEAN PLATELET VOLUME 10.9 fL (7.4-10.4); MONOCYTES 9.4 % (2-11); NEUTROPHILS 70.3 % (40-80); PLATELET COUNT 195 10x3/uL (130-400); RBC 4.51 10x6/uL (4.00-5.40); RDW 17.3 % (11.5-14.5)
[2018-04-27 05:08] LABS: ALBUMIN 2.5 g/dL (3.4-5.0); ANION GAP 4.6 mmol/L (8-16); BILIRUBIN - TOTAL 0.38 mg/dL (0.2-1.3); CALCIUM 8.6 mg/dL (8.5-10.1); CREATININE - SERUM 1.4 mg/dL (0.6-1.3); PROTEIN - SERUM 6.5 g/dL (6.4-8.2)
[2018-04-27 05:12] LABS: CARBON DIOXIDE 42.4 mmol/L (21.0-32.0)
[2018-04-27 08:55] VITALS: BP 145/95
[2018-04-27 12:26] VITALS: BP 147/92
[2018-04-27] MEDS ORDERED: LEVAQUIN500 MG PO (12:43)
[2018-04-27] MEDS ORDERED: K-DUR20 MEQ PO (12:44)
== END 2018-04-27 16:21 | disposition home or self-care (01) | DRG 292 ==
LOC: OBSVTIME → D.ER 18:33 → D.M2 22:13 → D.EDHOLD 22:21 → D.M2 22:21 → D.ER 22:21 → OBSVTIME 22:21 → D.EDHOLD 22:47 → D.M2 22:47
PROVIDERS: Family Medicine
DX: I50.33 Acute on chronic diastolic (congestive) heart failure (principal); N39.0 Urinary tract infection, site not specified; N17.9 Acute kidney failure, unspecified; E11.65 Type 2 diabetes mellitus with hyperglycemia; E11.40 Type 2 diabetes mellitus with diabetic neuropathy, unspecified; F32.9 Major depressive disorder, single episode, unspecified; I34.0 Nonrheumatic mitral (valve) insufficiency; K59.00 Constipation, unspecified; Z87.891 Personal history of nicotine dependence; F14.10 Cocaine abuse, uncomplicated; A59.9 Trichomoniasis, unspecified

== ENCOUNTER 2018-05-07 12:44 | Emergency (ER) | payer MEDICAID ==
[~2018-05-07] VITALS: Ht 170.2 cm; Wt 90.9 kg
[~2018-05-07 12:44] MED LIST changes: +K-DUR20 MEQ PO; +LEVAQUIN500 MG PO
[2018-05-07 12:48] VITALS: Ht 170.2 cm; Wt 90.9 kg
[2018-05-07 13:59] LABS: ALBUMIN 2.8 g/dL (3.4-5.0); ANION GAP 14.2 mmol/L (8-16); BILIRUBIN - TOTAL 0.57 mg/dL (0.2-1.3); CALCIUM 8.4 mg/dL (8.5-10.1); CARBON DIOXIDE 25.6 mmol/L (21.0-32.0); CREATININE - SERUM 1.3 mg/dL (0.6-1.3); POTASSIUM - SERUM 3.8 mmol/L (3.5-5.1); PROTEIN - SERUM 6.4 g/dL (6.4-8.2)
[2018-05-07 14:05] LABS: TROPONIN-I 0.039 ng/mL (0.000-0.060)
[2018-05-07 14:12] LABS: BASOPHILS 0.4 % (0-2); EOSINOPHILS 1.4 % (0-7); HEMATOCRIT 40.5 % (36.0-48.0); HEMOGLOBIN 13.2 g/dL (12-16); IMMATURE GRANULOCYTES 0.4 % (0-5); LYMPHOCYTES 20.6 % (15-50); MCH 28.3 pg (26.0-34.0); MCHC 32.6 g/dL (31.0-37.0); MCV 86.7 fL (80.0-100.0); MEAN PLATELET VOLUME 11.3 fL (7.4-10.4); MONOCYTES 6.7 % (2-11); NEUTROPHILS 70.5 % (40-80); RBC 4.67 10x6/uL (4.00-5.40); RDW 16.7 % (11.5-14.5); WBC 9.3 10x3/uL (4.8-10.8)
[2018-05-07 14:16] LABS: PLATELET COUNT 254 10x3/uL (130-400)
[2018-05-07] MEDS ORDERED: ZOFRAN ODT4 MG/UDTAB PO (16:55)
[2018-05-07 17:59] VITALS: BP 140/93
== END 2018-05-07 17:38 | disposition home or self-care (01) ==
LOC: D.ER 12:44
PROVIDERS: Family Medicine
DX: R11.2 Nausea with vomiting, unspecified (principal); R79.89 Other specified abnormal findings of blood chemistry; E11.9 Type 2 diabetes mellitus without complications; Z79.4 Long term (current) use of insulin; I50.9 Heart failure, unspecified; F17.200 Nicotine dependence, unspecified, uncomplicated

== ENCOUNTER 2018-05-21 01:49 | Inpatient (IN) | payer MEDICAID ==
[~2018-05-21] VITALS: Ht 170.2 cm; Wt 92.0 kg
--- NOTE | ~2018-05-21 | EC ---
PATIENT:CAROLYN GALICIA DATE OF SERVICE: 05/21/18 SEX: F MEDICAL RECORD: [id number] DATE OF : [birth year] LOCATION:D. D.211 AGE OF PATIENT: 47 ADMISSION DATE: 05/22/18 REFERRING PHYSICIAN: INTERPRETING PHYSICIAN: ENID KISER MD ECHOCARDIOGRAM REPORT ECHO CHARGES 4 ECHO COMPLETE Date: 05/21 CLINICAL DIAGNOSIS: CHF ECHOCARDIOGRAPHIC MEASUREMENTS (adult normal given) AC root (d.<3.7cm) 3.1 cm LV Septum d (<1.2 cm> 1.1 cm Valve Excursion 1.4 cm LV Septum (systole) 1.2 cm Left Atria (s.<4.0cm> 3.4 cm LVPW d(<1.2cm) 1.1 cm RV (d.<2.3cm) 3.0 cm LVPW (sytole) 1.8 cm LV diastole(<5.6CM) 5.4 cm MV E-F(>70mm/sec) cm LV systole 4.7 cm LVOT Diameter 1.9 cm MV exc.(>10mm) cm Est.ejection fraction (50-75%) % DOPPLER: LVIT cm/sec A 64 cm/sec E 91 cm/sec LA cm/sec RVSP 61.2 mmHg LVOT 137 cm/sec AOP1/2T m/s Asc. Ao 185 cm/sec RVOT 84 cm/sec RA cm/sec PA 78 cm/sec AV Gradient Peak 13.8 mmHg AV Mean 7.9 mmHg AV Area 2.2 cm MV Gradient Peak 18.6 mmHg MV Mean 9.0 mmHg MV Area cm COMMENTS: Patent Searcher: Axel ACOSTA Manager Gas: Bernice Oden TAPE# PACS Pericardial Effusion N DATE OF SERVICE: 05/21/2018 PROCEDURE: Echocardiogram. FINDINGS: 1. Left ventricular chamber size is mildly dilated. Left ventricular systolic function is moderately reduced, overall ejection fraction equals 30%. 2. Left atrium is within normal limits. Right atrium and right ventricular chamber sizes are mildly dilated. 3. Valvular structures have normal structure and motion. ECHOCARDIOGRAM REPORT [id number] CAROLYN GALICIA 4. Doppler interrogation reveals moderate aortic insufficiency, moderate mitral regurgitation, mild tricuspid regurgitation, no other valvular insufficiency or stenosis. Pulmonary systolic pressure is estimated 61 mmHg. 5. No evidence of pericardial effusion or left ventricular thrombus. TRANSINT:[id number] Voice Confirmation ID: [id number] DOCUMENT ID: [id number] ENID KISER MD at 1806 CC: [id number] DICTATION DATE: 05/22/18 1354 MEDICAL ORDERLY: 05/22/18 1412 DIS IN 05/23/18 [id number] [place] [id number]
[~2018-05-21 01:49] MED LIST changes: +ZOFRAN ODT4 MG/UDTAB PO
[2018-05-21 02:20] LABS: BASOPHILS 0.2 % (0-2); EOSINOPHILS 0.6 % (0-7); HEMATOCRIT 42.1 % (36.0-48.0); HEMOGLOBIN 14.1 g/dL (12-16); IMMATURE GRANULOCYTES 0.2 % (0-5); LYMPHOCYTES 21.2 % (15-50); MCHC 33.5 g/dL (31.0-37.0); MCV 86.6 fL (80.0-100.0); MEAN PLATELET VOLUME 11.1 fL (7.4-10.4); MONOCYTES 6.9 % (2-11); NEUTROPHILS 70.9 % (40-80); RBC 4.86 10x6/uL (4.00-5.40); RDW 16.1 % (11.5-14.5); WBC 12.6 10x3/uL (4.8-10.8)
[2018-05-21 02:22] LABS: PLATELET COUNT 185 10x3/uL (130-400)
[2018-05-21 02:28] LABS: INR 1.27 (0.85-1.17); PROTIME 15.4 SECONDS (11.6-15.0)
[2018-05-21 02:29] LABS: D-DIMER-QUANTITATIVE 2.42 ug/mLFEU (0.20-0.54)
[2018-05-21 02:32] LABS: ALBUMIN 2.8 g/dL (3.4-5.0); ALKALINE PHOSPHATASE 83 U/L (46-116); ALT (SGPT) 47 U/L (10-68); BILIRUBIN - TOTAL 1.36 mg/dL (0.2-1.3); CALC OSMOLALITY 285 mosm/kg (275-300); CALCIUM 8.3 mg/dL (8.5-10.1); CARBON DIOXIDE 28.3 mmol/L (21.0-32.0); CHLORIDE - SERUM 103 mmol/L (98-107); CREATININE - SERUM 1.5 mg/dL (0.6-1.3); GLUCOSE 170 mg/dL (74-106); POTASSIUM - SERUM 3.6 mmol/L (3.5-5.1); PROTEIN - SERUM 6.7 g/dL (6.4-8.2); SODIUM 139 mmol/L (136-145); UREA NITROGEN 23 mg/dL (7-18); eGFR NON AFRICAN AMERICAN 40 mL/min (90-120)
[2018-05-21 02:44] LABS: CKMB 0.6 U/L (0.0-3.6); CREATINE KINASE 62 UL (21-215); PRO BNP 7354 pg/mL (0-125); TROPONIN-I 0.038 ng/mL (0.000-0.060)
[2018-05-21 03:55] LABS: UDS - AMPHET NEGATIVE QUAL (NEGATIVE); UDS - BARB NEGATIVE QUAL (NEGATIVE); UDS - BENZO NEGATIVE QUAL (NEGATIVE); UDS - COCAINE POSITIVE QUAL (NEGATIVE); UDS - OPIATE NEGATIVE QUAL (NEGATIVE); UDS - PCP NEGATIVE QUAL (NEGATIVE); UDS - THC NEGATIVE QUAL (NEGATIVE)
[2018-05-21 03:56] LABS: APPEARANCE CLOUDY (CLEAR); BILIRUBIN NEGATIVE (NEGATIVE); COLOR YELLOW (YELLOW); GLUCOSE NEGATIVE (NEGATIVE); KETONE NEGATIVE (NEGATIVE); NITRITE NEGATIVE (NEGATIVE); PROTEIN 3+ mg/dL (NEGATIVE); SPECIFIC GRAVITY 1.015 (1.005-1.020)
[2018-05-21 03:57] LABS: BACTERIA MODERATE /hpf (NONE SEEN); EPITHELIAL CELLS 0-5 /hpf (0-5); MUCUS <1+ /lpf (NONE SEEN); RED CELLS - URINE 0-5 /hpf (0-5); WHITE CELLS - URINE 0-5 /hpf (0-5)
[2018-05-21 08:42] LABS: CKMB 1.1 U/L (0.0-3.6); CREATINE KINASE 88 UL (21-215); TROPONIN-I 0.032 ng/mL (0.000-0.060)
[2018-05-21 11:40] VITALS: BP 179/109
[2018-05-21 14:36] VITALS: BP 179/80; BMI 28.2
[2018-05-21 14:36] LABS: CKMB 1.1 U/L (0.0-3.6); CREATINE KINASE 59 UL (21-215); TROPONIN-I 0.047 ng/mL (0.000-0.060)
[2018-05-21 15:21] VITALS: BP 149/86
[2018-05-21 20:00] VITALS: BP 137/86
[2018-05-21 21:23] LABS: CKMB 0.9 U/L (0.0-3.6); CREATINE KINASE 44 UL (21-215); TROPONIN-I 0.032 ng/mL (0.000-0.060)
[2018-05-22] VITALS: BP 127/96
[2018-05-22 02:41] LABS: BASOPHILS 0.4 % (0-2); EOSINOPHILS 1.8 % (0-7); HEMATOCRIT 41.8 % (36.0-48.0); HEMOGLOBIN 13.7 g/dL (12-16); IMMATURE GRANULOCYTES 0.1 % (0-5); LYMPHOCYTES 20.5 % (15-50); MCH 28.6 pg (26.0-34.0); MCHC 32.8 g/dL (31.0-37.0); MCV 87.3 fL (80.0-100.0); MEAN PLATELET VOLUME 10.5 fL (7.4-10.4); MONOCYTES 10.1 % (2-11); NEUTROPHILS 67.1 % (40-80); PLATELET COUNT 192 10x3/uL (130-400); RBC 4.79 10x6/uL (4.00-5.40); WBC 10.5 10x3/uL (4.8-10.8)
[2018-05-22 03:06] LABS: ALBUMIN 2.5 g/dL (3.4-5.0); ALKALINE PHOSPHATASE 91 U/L (46-116); ALT (SGPT) 42 U/L (10-68); BILIRUBIN - TOTAL 0.56 mg/dL (0.2-1.3); CALC OSMOLALITY 287 mosm/kg (275-300); CALCIUM 7.9 mg/dL (8.5-10.1); CHLORIDE - SERUM 102 mmol/L (98-107); CKMB 0.9 U/L (0.0-3.6); CREATINE KINASE 45 UL (21-215); CREATININE - SERUM 1.8 mg/dL (0.6-1.3); GLUCOSE 214 mg/dL (74-106); MAGNESIUM - SERUM 1.5 mg/dL (1.8-2.4); POTASSIUM - SERUM 3.7 mmol/L (3.5-5.1); PROTEIN - SERUM 6.4 g/dL (6.4-8.2); SODIUM 139 mmol/L (136-145); UREA NITROGEN 25 mg/dL (7-18); eGFR NON AFRICAN AMERICAN 32 mL/min (90-120)
[2018-05-22 04:00] VITALS: BP 136/88
[2018-05-22 08:11] VITALS: BP 157/93
[2018-05-22 11:31] VITALS: BP 149/87
[2018-05-22 13:00] VITALS: Ht 170.2 cm; Wt 92.0 kg
[2018-05-22 15:29] VITALS: BP 148/87
[2018-05-22 20:00] VITALS: BP 146/88
[2018-05-23] VITALS: BP 151/91
[2018-05-23 04:00] VITALS: BP 141/74
[2018-05-23 04:09] LABS: BASOPHILS 0.2 % (0-2); EOSINOPHILS 1.4 % (0-7); HEMATOCRIT 41.1 % (36.0-48.0); HEMOGLOBIN 13.5 g/dL (12-16); IMMATURE GRANULOCYTES 0.2 % (0-5); LYMPHOCYTES 20.7 % (15-50); MCH 28.7 pg (26.0-34.0); MCHC 32.8 g/dL (31.0-37.0); MCV 87.3 fL (80.0-100.0); MEAN PLATELET VOLUME 10.4 fL (7.4-10.4); MONOCYTES 8.6 % (2-11); NEUTROPHILS 68.9 % (40-80); PLATELET COUNT 173 10x3/uL (130-400); RBC 4.71 10x6/uL (4.00-5.40); RDW 15.9 % (11.5-14.5); WBC 12.5 10x3/uL (4.8-10.8)
[2018-05-23 04:24] LABS: ALBUMIN 2.4 g/dL (3.4-5.0); ANION GAP 5.1 mmol/L (8-16); BILIRUBIN - TOTAL 0.45 mg/dL (0.2-1.3); CALCIUM 7.9 mg/dL (8.5-10.1); CARBON DIOXIDE 35.5 mmol/L (21.0-32.0); CREATININE - SERUM 1.6 mg/dL (0.6-1.3); MAGNESIUM - SERUM 1.4 mg/dL (1.8-2.4); POTASSIUM - SERUM 3.6 mmol/L (3.5-5.1); PROTEIN - SERUM 6.3 g/dL (6.4-8.2)
[2018-05-23 08:58] VITALS: BP 150/74
[2018-05-23] MEDS ORDERED: ENTRESTO 24 MG1 EACH PO (10:48)
== END 2018-05-23 16:45 | disposition home or self-care (01) | DRG 292 ==
LOC: D.ER 01:49 → D.EDHOLD 09:38 → OBSVTIME 09:38 → D.M2 09:38
PROVIDERS: Family Medicine; Internal Medicine Cardiovascular Disease
PROC: 05HC33Z Insertion of Infusion Device into Left Basilic Vein, Percutaneous Approach (ICD-10-PCS; principal; 2018-05-21)
PROC: B54NZZA Ultrasonography of Left Upper Extremity Veins, Guidance (ICD-10-PCS; 2018-05-21)
DX: I11.0 Hypertensive heart disease with heart failure (principal); N17.9 Acute kidney failure, unspecified; I50.23 Acute on chronic systolic (congestive) heart failure; E11.65 Type 2 diabetes mellitus with hyperglycemia; E11.40 Type 2 diabetes mellitus with diabetic neuropathy, unspecified; I43 Cardiomyopathy in diseases classified elsewhere; F32.9 Major depressive disorder, single episode, unspecified; R79.89 Other specified abnormal findings of blood chemistry; F14.10 Cocaine abuse, uncomplicated

== ENCOUNTER 2018-06-19 21:18 | Emergency (ER) | payer MEDICAID ==
[~2018-06-19] VITALS: Ht 170.2 cm; Wt 90.9 kg
[~2018-06-19 21:18] MED LIST changes: +ENTRESTO 24 MG1 EACH PO
[2018-06-19 21:19] VITALS: Ht 170.2 cm; Wt 90.9 kg
[2018-06-19 21:48] LABS: BASOPHILS 0.2 % (0-2); EOSINOPHILS 0.9 % (0-7); HEMATOCRIT 45.4 % (36.0-48.0); HEMOGLOBIN 15.2 g/dL (12-16); IMMATURE GRANULOCYTES 0.3 % (0-5); LYMPHOCYTES 23.7 % (15-50); MCHC 33.5 g/dL (31.0-37.0); MCV 83.6 fL (80.0-100.0); MEAN PLATELET VOLUME 11.3 fL (7.4-10.4); MONOCYTES 7.7 % (2-11); NEUTROPHILS 67.2 % (40-80); PLATELET COUNT 142 10x3/uL (130-400); RBC 5.43 10x6/uL (4.00-5.40); RDW 14.8 % (11.5-14.5); WBC 11.1 10x3/uL (4.8-10.8)
[2018-06-19 22:06] LABS: ALBUMIN 2.5 g/dL (3.4-5.0); ANION GAP 13.4 mmol/L (8-16); BILIRUBIN - TOTAL 1.04 mg/dL (0.2-1.3); CALCIUM 8.4 mg/dL (8.5-10.1); CREATININE - SERUM 1.6 mg/dL (0.6-1.3); POTASSIUM - SERUM 4.4 mmol/L (3.5-5.1); PROTEIN - SERUM 6.4 g/dL (6.4-8.2)
[2018-06-19 22:08] LABS: APPEARANCE HAZY (CLEAR); COLOR DK YELLOW (YELLOW)
[2018-06-19 22:09] LABS: BILIRUBIN 1+ (NEGATIVE); GLUCOSE NEGATIVE (NEGATIVE); KETONE NEGATIVE (NEGATIVE); NITRITE NEGATIVE (NEGATIVE); PROTEIN 2+ mg/dL (NEGATIVE)
[2018-06-19 22:15] LABS: BACTERIA MODERATE /hpf (NONE SEEN); EPITHELIAL CELLS 0-5 /hpf (0-5)
[2018-06-19 22:23] LABS: TROPONIN-I 0.077 ng/mL (0.000-0.060)
[2018-06-19 22:31] LABS: UDS - AMPHET NEGATIVE QUAL (NEGATIVE); UDS - BARB NEGATIVE QUAL (NEGATIVE); UDS - BENZO NEGATIVE QUAL (NEGATIVE); UDS - COCAINE POSITIVE QUAL (NEGATIVE); UDS - OPIATE NEGATIVE QUAL (NEGATIVE); UDS - PCP NEGATIVE QUAL (NEGATIVE); UDS - THC NEGATIVE QUAL (NEGATIVE)
[2018-06-20 01:34] VITALS: BP 132/102
== END 2018-06-20 01:35 | disposition home or self-care (01) ==
LOC: D.ER 21:18
PROVIDERS: Family Medicine
DX: R07.9 Chest pain, unspecified (principal); F14.10 Cocaine abuse, uncomplicated; E11.9 Type 2 diabetes mellitus without complications; I50.9 Heart failure, unspecified

== ENCOUNTER 2018-06-26 14:26 | Emergency (ER) | payer MEDICAID ==
[~2018-06-26] VITALS: Ht 170.2 cm; Wt 88.6 kg
[2018-06-26 14:27] VITALS: Ht 170.2 cm; Wt 88.6 kg
[2018-06-26 14:53] LABS: BASOPHILS 0.3 % (0-2); EOSINOPHILS 0.8 % (0-7); HEMATOCRIT 42.4 % (36.0-48.0); HEMOGLOBIN 14.2 g/dL (12-16); IMMATURE GRANULOCYTES 0.3 % (0-5); LYMPHOCYTES 21.6 % (15-50); MCHC 33.5 g/dL (31.0-37.0); MCV 83.5 fL (80.0-100.0); MEAN PLATELET VOLUME 11.2 fL (7.4-10.4); MONOCYTES 8.2 % (2-11); NEUTROPHILS 68.8 % (40-80); PLATELET COUNT 168 10x3/uL (130-400); RBC 5.08 10x6/uL (4.00-5.40); RDW 14.9 % (11.5-14.5); WBC 10.6 10x3/uL (4.8-10.8)
[2018-06-26 15:05] VITALS: BP 136/88
[2018-06-26 15:07] LABS: ALBUMIN 2.6 g/dL (3.4-5.0); ANION GAP 14.1 mmol/L (8-16); BILIRUBIN - TOTAL 0.49 mg/dL (0.2-1.3); CALCIUM 8.4 mg/dL (8.5-10.1); CARBON DIOXIDE 23.4 mmol/L (21.0-32.0); CREATININE - SERUM 1.5 mg/dL (0.6-1.3); POTASSIUM - SERUM 3.5 mmol/L (3.5-5.1); PROTEIN - SERUM 6.6 g/dL (6.4-8.2)
[2018-06-26 15:29] LABS: APPEARANCE CLEAR (CLEAR); BILIRUBIN NEGATIVE (NEGATIVE); COLOR YELLOW (YELLOW); GLUCOSE NEGATIVE (NEGATIVE); HCG URINE NEGATIVE (NEGATIVE); KETONE NEGATIVE (NEGATIVE); NITRITE NEGATIVE (NEGATIVE); PROTEIN 1+ mg/dL (NEGATIVE); UROBILINOGEN NORMAL (NORMAL)
[2018-06-26 15:31] LABS: BACTERIA MODERATE /hpf (NONE SEEN); RED CELLS - URINE 0-5 /hpf (0-5); WHITE CELLS - URINE 0-5 /hpf (0-5)
[2018-06-26 15:33] LABS: YEAST >1+ /hpf (NONE SEEN)
[2018-06-26 17:19] LABS: UDS - AMPHET NEGATIVE QUAL (NEGATIVE); UDS - BARB NEGATIVE QUAL (NEGATIVE); UDS - BENZO NEGATIVE QUAL (NEGATIVE); UDS - COCAINE POSITIVE QUAL (NEGATIVE); UDS - OPIATE NEGATIVE QUAL (NEGATIVE); UDS - PCP NEGATIVE QUAL (NEGATIVE); UDS - THC NEGATIVE QUAL (NEGATIVE)
== END 2018-06-26 18:15 | disposition home or self-care (01) ==
LOC: D.ER 14:26
PROVIDERS: Family Medicine
DX: F14.10 Cocaine abuse, uncomplicated (principal); I12.9 Hypertensive chronic kidney disease with stage 1 through stage 4 chronic kidney disease, or unspecified chronic kidney disease; N18.9 Chronic kidney disease, unspecified; E11.9 Type 2 diabetes mellitus without complications; K21.9 Gastro-esophageal reflux disease without esophagitis

== ENCOUNTER → 2018-11-09 18:51 | Outpatient (CLI) | payer MEDICAID ==
[2018-06-26 14:27] VITALS: BMI 30.6
[2018-11-09 19:34] LABS: BASOPHILS 0.6 % (0-2); EOSINOPHILS 0.8 % (0-7); HEMATOCRIT 41.4 % (36.0-48.0); HEMOGLOBIN 13.5 g/dL (12-16); LYMPHOCYTES 28.9 % (15-50); MCH 25.4 pg (26.0-34.0); MCHC 32.6 g/dL (31.0-37.0); MONOCYTES 8.7 % (2-11); PLATELET COUNT 194 10x3/uL (130-400); RBC 5.31 10x6/uL (4.00-5.40); RDW 21.9 % (11.5-14.5); WBC 6.4 10x3/uL (4.8-10.8)
[2018-11-09 19:46] LABS: ANION GAP 15.7 mmol/L (8-16); CALCIUM 8.8 mg/dL (8.5-10.1); CARBON DIOXIDE 26.7 mmol/L (21.0-32.0); CREATININE - SERUM 1.5 mg/dL (0.6-1.3); POTASSIUM - SERUM 3.4 mmol/L (3.5-5.1)
== END | disposition home or self-care (01) ==
LOC: D.LABREF 18:51
PROVIDERS: Internal Medicine Cardiovascular Disease
DX: R06.02 Shortness of breath (principal); I25.10 Atherosclerotic heart disease of native coronary artery without angina pectoris

== ENCOUNTER 2020-05-02 00:23 | Inpatient (IN) | payer MEDICAID ==
[~2020-05-02] VITALS: Ht 165.1 cm; Wt 135.2 kg
--- NOTE | 2020-05-02 00:49 | NUR ---
NURSE AT BEDSWIDE TO CLEAN PATIENT. NO ACUTE DISTRESS NOTED, BED IN LOWEST POSITION, CALL LIGHT WITHIN REACH, WILL CONTINUE TO MONITOR.
--- NOTE | 2020-05-02 03:58 | NUR ---
PLACED A PURE WICK EXTERNAL VICENTE CATHETER. PT TOELRATED WELL.
[2020-05-02 04:00] VITALS: BP 111/71
[2020-05-02 05:15] VITALS: BP 189/93; BMI 49.6
[2020-05-02 09:07] VITALS: BP 148/88
[2020-05-02 09:30] LABS: BASOPHILS 0.2 % (0-2); EOSINOPHILS 0.8 % (0-7); HEMATOCRIT 38.8 % (36.0-48.0); HEMOGLOBIN 11.6 g/dL (12-16); IMMATURE GRANULOCYTES 0.2 % (0-5); LYMPHOCYTES 13.3 % (15-50); MCH 26.4 pg (26.0-34.0); MCHC 29.9 g/dL (31.0-37.0); MCV 88.2 fL (80.0-100.0); MEAN PLATELET VOLUME 10.7 fL (7.4-10.4); NEUTROPHILS 80.5 % (40-80); PLATELET COUNT 233 10x3/uL (130-400); RDW 15.5 % (11.5-14.5); WBC 9.1 10x3/uL (4.8-10.8)
[2020-05-02 10:02] LABS: BILIRUBIN - TOTAL 0.88 mg/dL (0.2-1.3); CALCIUM 9.1 mg/dL (8.5-10.1); CARBON DIOXIDE 34.9 mmol/L (21.0-32.0); CREATININE - SERUM 1.1 mg/dL (0.6-1.3); POTASSIUM - SERUM 3.9 mmol/L (3.5-5.1)
--- NOTE | 2020-05-02 10:40 | NUR ---
22 G IV TO THE LEFT ARM. SHE IS UP AND DOWN TO VOID, HAS SOB. THE CALL LIGHT IS WITHIN REACH.
[2020-05-02 12:42] VITALS: BP 156/88
[2020-05-02 16:12] VITALS: BP 153/94
--- NOTE | 2020-05-02 17:47 | NUR ---
OT NOTE: PT COMPLETED BATHING TASKS WITH MAX AX2. PT COMPLETED TOILETING TASKS WITH MAX AX2. PT COMPLETED BSC TSF WITH CGA. PT COMPLETED SIT TO STAND WITH CGA. PT IS EASILY FATIGUED AND SOB. [phone] THANK YOU,TOMAS HOGUE
--- NOTE | 2020-05-02 19:51 | NUR ---
REC'D. WALKING ROUNDS CHGE OF SHIFT SITTING IN BEDSIDE CHAIR DR ACEVEDO HERE.TALKING WITH PATIENT AT BEDSIDE. WILL CONTINUE TO MONITOR FOR ANY CHGES AND FOLLOW CURRENT PLAN OF CARE.
[2020-05-02 20:00] VITALS: BP 123/75
[2020-05-03] VITALS: BP 136/69
--- NOTE | 2020-05-03 03:52 | NUR ---
I have reviewed this patient and I concur with the Shift Assessment completed by the Licensed Practical Nurse today this shift.
[2020-05-03 04:00] VITALS: BP 155/88
[2020-05-03 06:18] LABS: BASOPHILS 0 % (0-2); EOSINOPHILS 0 % (0-7); HEMOGLOBIN 13.1 g/dL (12-16); IMMATURE GRANULOCYTES 0.3 % (0-5); LYMPHOCYTES 8.4 % (15-50); MCH 25.9 pg (26.0-34.0); MCHC 29.8 g/dL (31.0-37.0); MEAN PLATELET VOLUME 11.4 fL (7.4-10.4); MONOCYTES 4.2 % (2-11); NEUTROPHILS 87.1 % (40-80); PLATELET COUNT 260 10x3/uL (130-400); RBC 5.06 10x6/uL (4.00-5.40); RDW 15.5 % (11.5-14.5)
[2020-05-03 06:27] LABS: WBC 11.5 10x3/uL (4.8-10.8)
[2020-05-03 06:55] LABS: ANION GAP 9.9 mmol/L (8-16); BILIRUBIN - TOTAL 0.42 mg/dL (0.2-1.3); CALCIUM 9.2 mg/dL (8.5-10.1); CARBON DIOXIDE 33.6 mmol/L (21.0-32.0); CREATININE - SERUM 1.3 mg/dL (0.6-1.3); POTASSIUM - SERUM 3.5 mmol/L (3.5-5.1); PROTEIN - SERUM 8.2 g/dL (6.4-8.2); THYROID STIMULATING HORMONE 2.27 uIU/mL (0.36-3.74); TROPONIN-I 0.022 ng/mL (0.000-0.060)
[2020-05-03 09:10] VITALS: BP 184/92
--- NOTE | 2020-05-03 11:16 | NUR ---
UP IN CHAIR IN ROOM, NO DISTRESS NOTED, SPEECH UNCLEAR, 02 PER NC AT 2L, IV STARTED PER RFA, CONT TO MONITOR
[2020-05-03 12:53] VITALS: BP 152/64
--- NOTE | 2020-05-03 14:04 | NUR ---
OT NOTE: PRACTICED SIT TO STAND ACT FROM CHAIR LEVEL WITH MIN ASSIST. SIMPLE GROOMING TASKS WITH SET UP.. REMAINS SOB WITH MIN TO NO EXERTION.. REQURES EXT REST BREAKS DURING ALL MOVEMENT RENALDO LOZOYA, OTR/L [phone]
--- NOTE | 2020-05-03 14:16 | NUR ---
Rehab Prescreening Consult recieved and the chart has been reviewed. She is [employer] [place] which the [facility] is not contracted with. Recommend a referral be made to [facility] which is contracted with [place] [employer]. Message left for the CM Cathy Mcdonald RN. Deisi Barrios RN Clinical liaison, Rehab
--- NOTE | 2020-05-03 16:48 | NUR ---
OT NOTE: PT COMPLETED SIT TO STAND WITH CGA. PT COMPLETED IN ROOM ADL MOB WITH CGA. PT IS EASILY FATIGUED. PT COMPLETED TAHIR GOWN WITH MIN/MOD A. PT REQUIRED FREQUENT REST BREAKS. PT COMPLETED HAND/FACE HYGIENE WITH SETUP IN CHAIR. PT CUED ON PURSUE LIP BREATHING TECHNIQUES. PT EDUCATED ON SAFE SITTING TECHNIQUES. PT CUED TO FEEL CHAIR AT BACK OF LEGS WHILE REACHING BACK WITH ONE HAND FOR ARMREST. [phone] THANK YOU,TOMAS HOGUE
[2020-05-03 17:05] VITALS: BP 152/94
[2020-05-03 20:00] VITALS: BP 133/79
[2020-05-04 04:00] VITALS: BP 148/78
--- NOTE | 2020-05-04 04:43 | NUR ---
I have reviewed this patient and I concur with the Shift Assessment completed by the Licensed Practical Nurse today this shift.
--- NOTE | 2020-05-04 08:52 | NUR ---
SHE DOES NOT HAVE AN IV, SHE HAS REMOVED THEM. SHE IS C/O NOT GETTING WATER AND HER OVERALL CARE HERE. CAN NOT GET AN IV THIS MORNING. THE CALL LIGHT IS WITHIN REACH.
[2020-05-04 09:36] VITALS: BP 158/102
--- NOTE | 2020-05-04 12:39 | NUR ---
OT NOTE: ASSISTED PT WITH AM ADLS. PT AMB TO SHOWER WITH WALKER AND MIN ASSIST; TRANSFERRED TO SHOWER CHAIR WITH WALKER AND MIN ASSIST; PT ABLE TO COMPLETE APPROX 50% OF BATHING WITH SPV, HOWEVER, REQUIRED ASSIST FOR WASHING HAIR, WASHING UNDER BREASTS, BACK, PERINEAL AND LES. EXTENDED TIME SPENT IN SHOWER AND PT REQURIED USE OF 02 WHILE IN THE SHOWER. REQUIRED EXT ASSIST TO DRY OFF BUT WAS ABLE TO STAND AND HOLD TO GRAB BAR WHILE THERAPIST COMPLETED DRYING HER. REQUIRED 3 SIT DOWN REST BREAKS TO COMPLETE THIS. AMB BACK TO EOB WITH MIN ASSIST AND WALKER..MOD ASSIST FOR UE DRESSING AND MAX ASSIST TO TAHIR PULL UPS.. MAX ASSIST WITH SOCKS..REQUIRED APPROX 5 MIN REST BREAK SITTING ON EOB PRIOR TO AMB AROUND ROOM TO CHAIR. RENALDO LOZOYA, OTR/L [phone]
[2020-05-04 12:51] VITALS: BP 119/75
--- NOTE | 2020-05-04 13:39 | NUR ---
NEW IV TO THE UPPER LEFT ARM. SHE IS UP IN THE CHAIR. THE CALL LIGHT IS WITHIN REACH AND THE BED ALARM IS ON.
--- NOTE | 2020-05-04 13:45 | NUR ---
SHE WILL NOT LET THE LAB STICK HER. THEY HAVE BEEN TRYING SINCE 630 THIS MORNING. ONE TIME SHE WAS ON THE PHONE, THEN SHE SAID THEY ARE RUDE. SHE IS UPSET, TALKING FAST. SHE IS UP IN THE CHAIR.
[2020-05-04 17:49] LABS: BASOPHILS 0.1 % (0-2); EOSINOPHILS 0.1 % (0-7); HEMATOCRIT 45.3 % (36.0-48.0); IMMATURE GRANULOCYTES 0.3 % (0-5); LYMPHOCYTES 5.4 % (15-50); MCH 26.4 pg (26.0-34.0); MCHC 30.9 g/dL (31.0-37.0); MCV 85.5 fL (80.0-100.0); MONOCYTES 2.9 % (2-11); NEUTROPHILS 91.2 % (40-80); PLATELET COUNT 268 10x3/uL (130-400); RDW 16.2 % (11.5-14.5); WBC 13.9 10x3/uL (4.8-10.8)
[2020-05-04 17:53] VITALS: BP 145/80
[2020-05-04 20:00] VITALS: BP 100/45
[2020-05-05 04:00] VITALS: BP 126/69
[2020-05-05 07:25] LABS: BASOPHILS 0 % (0-2); EOSINOPHILS 0 % (0-7); HEMATOCRIT 43.6 % (36.0-48.0); HEMOGLOBIN 13.3 g/dL (12-16); IMMATURE GRANULOCYTES 0.3 % (0-5); LYMPHOCYTES 5.8 % (15-50); MCH 26.1 pg (26.0-34.0); MCHC 30.5 g/dL (31.0-37.0); MCV 85.7 fL (80.0-100.0); MEAN PLATELET VOLUME 11.1 fL (7.4-10.4); MONOCYTES 1.8 % (2-11); NEUTROPHILS 92.1 % (40-80); PLATELET COUNT 248 10x3/uL (130-400); RBC 5.09 10x6/uL (4.00-5.40); RDW 15.6 % (11.5-14.5)
[2020-05-05 07:47] LABS: ALBUMIN 3.1 g/dL (3.4-5.0); BILIRUBIN - TOTAL 0.37 mg/dL (0.2-1.3); CALCIUM 8.4 mg/dL (8.5-10.1); CARBON DIOXIDE 39.9 mmol/L (21.0-32.0); CREATININE - SERUM 1.3 mg/dL (0.6-1.3); POTASSIUM - SERUM 3.9 mmol/L (3.5-5.1); PROTEIN - SERUM 7.4 g/dL (6.4-8.2)
[2020-05-05 09:43] VITALS: BP 151/88
--- NOTE | 2020-05-05 12:23 | NUR ---
PATIENT IN ROOM, EATING LUNCH. DENIES PAIN OR NEEDS. WILL CONTINUE TO MONITOR. BED LOW POSITION, CALL LIGHT IN REACH.
--- NOTE | 2020-05-05 12:43 | NUR ---
Nutrition follow-up: Diet: consistent CHO PO intkae 83% average of last 9 meals Labs reviewed; Glucsoe elevated; pt on prednisone Wt: 299# +BM PO intake good at this time RDN following.
[2020-05-05 12:45] VITALS: Ht 165.1 cm; Wt 135.2 kg
--- NOTE | 2020-05-05 13:20 | CN ---
PATIENT NAME:CAROLYN GALICIA MEDICAL RECORD: [id number] : 74 LOCATION:D.[facility] ADMIT DATE: 05/02/20 ACCOUNT: [id number] CONSULTING PHYSICIAN: MARY WHITTINGTON MD REFERRING PHYSICIAN: RAY MCCONNELL MD DATE OF CONSULTATION: 05/04/2020 IDENTIFYING DATA: The patient is 49 and she is admitted to the hospital on a voluntary basis. CHIEF COMPLAINT: None. HISTORY OF PRESENT ILLNESS: The patient is a morbidly obese woman who lives alone. She urinated on herself and called an ambulance. She says that she has been incontinent of bowel and bladder, feels weak, cannot get out of bed and cannot care for herself. She also said she was very short of breath. PAST MEDICAL HISTORY: Includes diabetes, COPD, asthma, myocardial infarction, and hypertension. She was diagnosed with acute respiratory failure and admitted to the hospital. She has been crying, difficult to redirect, labile in her mood and clearly displaying symptoms of generalized inability to handle even the most minor of situations. The patient was extensively interviewed and history was obtained with some difficulty based on her lack of ability to stay focused and answer questions. There was a fairly comprehensive medical mental status exam that took Place as well. She does have a history of alcohol and drug use, but it has been a long time since she has done those. SOCIAL HISTORY: She is single and she has 5 adult children who have some interaction with her. She has lived in a custodial for a year and a half, but I was unable to comprehend or understand why she was in a custodial. ASSESSMENT: 1. Borderline intellectual functioning. 2. Cluster C personality disorder. 3. Polysubstance abuse. 4. Major depression. PLAN: The patient is not capable of taking care of herself. She is a low functioning individual mentally and has no support system. She is morbidly obese and has a personality disorder that does not allow her to be able to do things for herself or to function completely independently. Not having full access or understanding of her social situation, particularly regard to her children. Adult protective services may be an appropriate avenue to pursue or if custodial placement can be arranged, I am sure that she would be willing to accept it. She is not suicidal, she is not psychotic, she is not homicidal and for these reasons, inpatient psychiatric care would not be an option for her. I do not view her as acutely dangerous. TRANSINT:[id number] Voice Confirmation ID: [id number] DOCUMENT ID: [id number] CONSULT REPORT [id number] CAROLYN GALICIA PETER MD at 1320 CC: [id number] DICTATION DATE: 05/04/20 1551 CHEF DE PARTIE: 05/04/20 1635 ADM IN [place] [id number] [place] [id number]
[2020-05-05 13:29] VITALS: BP 138/97
--- NOTE | 2020-05-05 15:19 | NUR ---
OT NOTE: (AM) PT COMPLETED BED MOB WITH SBA. PT COMPLETED EOB SITTING WITH SPV. PT COMPLETED BED TO CHAIR TSF WITH TOOLING SPECIALIST. PT COMPLETED TOILETING TASKS WITH MAX A FOR HYGIENE. PT COMPLETED HAND HYGIENE WITH SETUP. (PM) PT COMPLETED TAHIR/DOFF SOCKS WITH MAX A. PT COMPLETED FACE HYGIENE WITH SETUP. PT COMPLETED SIT TO STAND WITH CGA. PT COMPLETED ADL MOB WITH CGA. PT COMPLETED TOILETING WITH MIN A. PT COMPLETED UE AROM WITH FUNCTIONAL TASKS. [id number]; 2-178 THANK YOU,TOMAS HOGUE
[2020-05-05 17:17] VITALS: BP 142/54
--- NOTE | 2020-05-05 20:30 | NUR ---
UP IN CHAIR AT BEDSIDE. NO DISTRESS NOTED. RESP EVEN AND UNLABORED. O2 @ 3L PER NC ON.CONTINUES TO REFUSE SCD AND TELEMENTRY. CL IN REACH
[2020-05-05 22:06] VITALS: BP 110/61
[2020-05-06] VITALS (12 sets, daily range): BP systolic 100–159; BP diastolic 58–83
--- NOTE | 2020-05-06 04:35 | NUR ---
I have reviewed this patient and I concur with the Shift Assessment completed by the Licensed Practical Nurse today this shift.
[2020-05-06 06:35] LABS: BASOPHILS 0.1 % (0-2); EOSINOPHILS 0.1 % (0-7); HEMATOCRIT 47.7 % (36.0-48.0); HEMOGLOBIN 13.8 g/dL (12-16); IMMATURE GRANULOCYTES 0.3 % (0-5); LYMPHOCYTES 12.9 % (15-50); MCH 25.8 pg (26.0-34.0); MCHC 28.9 g/dL (31.0-37.0); MEAN PLATELET VOLUME 11.6 fL (7.4-10.4); NEUTROPHILS 78.6 % (40-80); PLATELET COUNT 238 10x3/uL (130-400); RBC 5.34 10x6/uL (4.00-5.40); RDW 15.9 % (11.5-14.5); WBC 13.8 10x3/uL (4.8-10.8)
[2020-05-06 06:48] LABS: MCV 89.3 fL (80.0-100.0)
[2020-05-06 07:06] LABS: ALBUMIN 3.1 g/dL (3.4-5.0); ANION GAP 3.6 mmol/L (8-16); BILIRUBIN - TOTAL 0.37 mg/dL (0.2-1.3); CALCIUM 8.5 mg/dL (8.5-10.1); CREATININE - SERUM 1.4 mg/dL (0.6-1.3); POTASSIUM - SERUM 4.2 mmol/L (3.5-5.1); PROTEIN - SERUM 7.5 g/dL (6.4-8.2)
[2020-05-06 07:11] LABS: CARBON DIOXIDE 43.6 mmol/L (21.0-32.0)
--- NOTE | 2020-05-06 09:30 | NUR ---
PT LAYING IN BED, SITTING UP IN BED A&O X4. AMBULATED WITH PT TO CHAIR, REFUSED TO WALK. C/O PAIN IN BACK WHILE SITTING. PT ON 4L O2 VIA NC. PT REFUSED SCDS. LAB CALLED WITH [facility], CALLED AND LEFT MESSAGE WITH . EDUCATED PT ON CL, VERBALIZED UNDERSTANDING. BED LOW, CL IN REACH.
--- NOTE | 2020-05-06 14:20 | NUR ---
TO ROOM, PATIENT IS LETHARGIC AND DOESNT RESPOND. RAPID RESPONSE CALLED SEE SHEET. ORDERS RECIEVED AND INITIATED.
--- NOTE | 2020-05-06 15:15 | NUR ---
RESPIRATORY REPORTED PT HAVING TROUBLE BREATHING. PT UNRESPONSIVE, CALLED RAPID RESPONSE. PT MOVED TO ICU.
--- NOTE | 2020-05-06 15:46 | NUR ---
JORDAN AQUINO, AT BEDSIDE. ORDERS RECIEVED.
--- NOTE | 2020-05-06 16:05 | NUR ---
PER JORDAN AQUINO DC ATIVAN AND CHANGE SCHEDULED [facility] FROM [facility] TO [facility] PRN.
[2020-05-06 16:56] LABS: INR 1.1 (0.85-1.17); PROTIME 14.2 SECONDS (11.6-15.0)
[2020-05-06 16:57] LABS: APTT 29.7 SECONDS (22.8-39.4)
[2020-05-06 16:58] LABS: BILIRUBIN NEGATIVE (NEGATIVE); D-DIMER-QUANTITATIVE 0.67 ug/mLFEU (0.20-0.54); GLUCOSE 500 mg/dL (NEGATIVE); KETONE NEGATIVE (NEGATIVE); NITRITE NEGATIVE (NEGATIVE); UROBILINOGEN NORMAL (NORMAL)
--- NOTE | 2020-05-06 17:00 | NUR ---
16F VICENTE PLACED AT THIS TIME VIA STERILE PROCEDURE. YELLOW URINE FLOWING INTO CLOSED CONTAINER.
[2020-05-06 17:01] LABS: BACTERIA FEW /hpf (NEGATIVE); EPITHELIAL CELLS 0-5 /hpf (0-5); RED CELLS - URINE NONE SEEN /hpf (0-5); WHITE CELLS - URINE 0-5 /hpf (NEGATIVE)
[2020-05-06 17:02] LABS: UDS - AMPHET NEGATIVE QUAL (NEGATIVE); UDS - BARB NEGATIVE QUAL (NEGATIVE); UDS - BENZO NEGATIVE QUAL (NEGATIVE); UDS - COCAINE NEGATIVE QUAL (NEGATIVE); UDS - OPIATE NEGATIVE QUAL (NEGATIVE); UDS - PCP NEGATIVE QUAL (NEGATIVE); UDS - THC NEGATIVE QUAL (NEGATIVE)
[2020-05-06 17:11] LABS: C-REACTIVE PROTEIN 0.2 mg/dL (0.0-0.9); CKMB 2.5 U/L (0.0-3.6); CREATINE KINASE 88 UL (21-215); LDH 257 U/L (81-234); PRO BNP 419 pg/mL (0-125); TROPONIN-I 0.019 ng/mL (0.000-0.060)
--- NOTE | 2020-05-06 17:47 | NUR ---
PT OBTUNDED ON BIPAP. AWAKENS TO PHYSICAL STIMULATION SUCH STERNAL RUB, ANSWERS QUICK QUESTIONS (1 WORDED) AND THEN GOES BACK TO SLEEP. VSS. PHYSICIANS ARE AWARE OF THIS. ALSO AWAKENS TO SOUNDS SUCH BEEPING IV PUMP. WILL CONTINUE PLAN OF CARE.
[2020-05-06 17:50] LABS: ERYTHROCYTE SEDIMENTATION RATE 12 mm/hr (0-20)
--- NOTE | 2020-05-06 18:05 | NUR ---
NOTED PT IS LESS RESPONSIVE/MORE OBTUNDED WITH APNIC ALONG WITH SHALLOW RESPIRATIONS. STERNAL RUB PERFORMED AND PT NOT AROUSED. CLAPPED AT PTS EAR AND SLIGHT MOVEMENT. CONTINUED TO STERNAL RUB AND PT EVENTUALLY WOKE UP ATTEMPTING TO GRAP STAFFS ARM WITH EYES OPEN FOLLOWED BY FALLING BACK TO SLEEP IMMEDIATELY. PT INCRESINGLY DIFFICULT TO AWAKE. HEART RATE TRENDED DOWN 45 SINUS. AFTER CONTINED TO ATTEMPT TO WAKE PT UP HEART RATE INCREASED TO 80S SINUS. ALSO OXYGEN SATURATION 86% ON 50% FIO2 BIPAP, FIO2 INCREASED TO 100%. DR CURTIS DELGADO. DR ENEDINA DELGADO.
--- NOTE | 2020-05-06 18:19 | NUR ---
SPOKE WITH PTS MOTHER. UPDATES PROVIDED.
--- NOTE | 2020-05-06 18:42 | NUR ---
DR ACEVEDO ON UNIT. UPDATED. STATED OKAY TO GIVE ROMAZICON UP TO 1.
--- NOTE | 2020-05-06 19:40 | NUR ---
REC'D PT RESTING EYES CLOSED ON BIPAP @ 60%, PT DIFFICULT TO AWAKEN WITHOUT DEEP STIMULI, LEFT UPPER CHEST SALINE LOCK, RSCL DRSG CDI WITH NS @ 10CC/HR, ABD SOFT, BS ACTIVE, VICENTE PATENT DRAINING YELLOW URINE, PPP, BED IN LOW POSIITION, SR UP X 2 , VISIBLE TO NURSES STATION.
[2020-05-07] VITALS (11 sets, daily range): BP systolic 104–143; BP diastolic 47–90
[2020-05-07 00:56] LABS: CREATINE KINASE 57 UL (21-215); TROPONIN-I 0.024 ng/mL (0.000-0.060)
[2020-05-07 06:31] LABS: BASOPHILS 0.1 % (0-2); EOSINOPHILS 0.2 % (0-7); IMMATURE GRANULOCYTES 0.2 % (0-5); LYMPHOCYTES 18.9 % (15-50); MCH 25.9 pg (26.0-34.0); MCHC 28.9 g/dL (31.0-37.0); MCV 89.8 fL (80.0-100.0); MEAN PLATELET VOLUME 11.5 fL (7.4-10.4); MONOCYTES 7.9 % (2-11); NEUTROPHILS 72.7 % (40-80); PLATELET COUNT 226 10x3/uL (130-400); RBC 5.01 10x6/uL (4.00-5.40); RDW 15.7 % (11.5-14.5); WBC 12.2 10x3/uL (4.8-10.8)
[2020-05-07 06:41] LABS: ALBUMIN 2.6 g/dL (3.4-5.0); ALKALINE PHOSPHATASE 91 U/L (30-120); ALT (SGPT) 32 U/L (10-68); BILIRUBIN - TOTAL 0.62 mg/dL (0.2-1.3); CALCIUM 8.9 mg/dL (8.5-10.1); CHLORIDE - SERUM 103 mmol/L (98-107); CKMB 1.2 U/L (0.0-3.6); CREATINE KINASE 41 UL (21-215); CREATININE - SERUM 1.1 mg/dL (0.6-1.3); POTASSIUM - SERUM 4.5 mmol/L (3.5-5.1); PROTEIN - SERUM 6.9 g/dL (6.4-8.2); SODIUM 143 mmol/L (136-145); TROPONIN-I 0.024 ng/mL (0.000-0.060); eGFR NON AFRICAN AMERICAN 56 mL/min (90-120)
[2020-05-07 06:42] LABS: CALC OSMOLALITY 292 mosm/kg (275-300); GLUCOSE 127 mg/dL (74-106); UREA NITROGEN 29 mg/dL (7-18)
--- NOTE | 2020-05-07 07:46 | NUR ---
PT NOTED WOKE UP YELLING, STATING, "WHY AM I IN ICU, I DON'T WANT TO BE HERE, I HAVE BEEN TRYING TO GET MYSELF BETTER SO THAT I CAN GET A HOUSE FOR MY SISTER TO LIVE WITH ME." PT REORIENTED TO WHY SHE IS IN ICU, PT CALMED DOWN AFTER A FEW MINUTES. PT THEN YELLING OUT LOUD TO STAFF STATING SHE NEEDS HER COFFEE, PT ENCOURAGED TO USE HER CALL LIGHT AND NOTIFIED THAT STAFF WILL BRING HER TRAY TO HER SHORTLY. VSS. WILL CONTINUE PLAN OF CARE.
--- NOTE | 2020-05-07 09:15 | NUR ---
PER DR WONG, OKAY TO TRANSFER PT TO FLOOR.
--- NOTE | 2020-05-07 09:28 | OP ---
PATIENT NAME: CAROLYN GALICIA MEDICAL RECORD: [id number] :74 LOCATION:D.[facility] D.2306 ADMISSION DATE:05/02/20 SURGEON: DON NUNEZ MD DATE OF OPERATION: 05/06/2020 PREOPERATIVE DIAGNOSES: 1. Need for IV access. 2. Acute respiratory failure, on BiPAP. 3. Morbid obesity. 4. Type 2 diabetes mellitus. 5. Hypertension. 6. GERD. 7. Coronary artery disease. POSTOPERATIVE DIAGNOSES: 1. Need for IV access. 2. Acute respiratory failure, on BiPAP. 3. Morbid obesity. 4. Type 2 diabetes mellitus. 5. Hypertension. 6. GERD. 7. Coronary artery disease. PROCEDURE: Right subclavian vein triple-lumen central venous line placement. SURGEON: Don Nunez MD REPORT OF PROCEDURE: The patient's right chest was prepped and draped in sterile fashion. A 5 mL of 1% lidocaine was infused into the subcutaneous tissues. A needle was used to cannulate the right subclavian vein and a guidewire was advanced with ease. Over this wire, a dilator was placed followed by the triple-lumen catheter. The catheter aspirated nonpulsatile dark blood and flushed easily in all 3 ports. This was sutured into place with 3-0 nylons and dressed appropriately. COMPLICATIONS: None. CONDITION: Stable. ANESTHESIA: Local. BLOOD LOSS: Minimal. Procedure done at the bedside. NTS:[id number] Voice Confirmation ID: [id number] DOCUMENT ID: [id number] OPERATIVE REPORT [id number] GRAYSONCAROLYN Robbie DON NUNEZ MD at 0928 CC: [id number] DICTATION DATE: 05/06/20 1710 [facility] CONTRACT REPRESENTATIVE: 05/07/20 0039 ADM IN [place] [id number] [place] [address]
--- NOTE | 2020-05-07 09:55 | NUR ---
PER DR ACEVEDO, TRANSFER PT TO FLOOR.
--- NOTE | 2020-05-07 10:07 | NUR ---
NOTED PT TO TRANSFER TO ROOM 2216, WILL CALL REPORT SHORTLY.
--- NOTE | 2020-05-07 10:14 | NUR ---
REPORT CALLED TO RECIEVING NURSE FOR PT TO TRANSFER TO ROOM 2216. WILL TRANSFER PT SHORTLY.
--- NOTE | 2020-05-07 10:30 | NUR ---
ARRIVES TO UNIT FROM ICU PER BED, VICENTE TO GRAVITY, NO DISTRESS NOTED, BED ALARM IN PLACE, CENTRAL LINE TO R CHEST
--- NOTE | 2020-05-07 10:34 | NUR ---
TRANSFERRED TO ROOM 2216 AT THIS TIME. NOTED BEFORE TRANSFERRING PT, SHE THREW HER TRAY INCLUDING DRINKS AT THE WALL STATING SHE WAS MAD BECAUSE SHE DID NOT WANT TO BE IN ICU ANYMORE, SHE WANTED TO GO TO A REGULAR ROOM. PT ASKED TO CALM DOWN AND NOTIFIED THAT SHE HAD ORDERS TO TRANSFER TO A REGULAR ROOM, AND PT THEN CALMED DOWN AND BECAME COOPERATIVE AT THAT POINT AND STATED "THAT IS ALL I WANTED." PT TRANSFERRED TO 2216 VIA BED WITH ALL PERSONAL ITEMS. NO ACUTE DISTRESS NOTED. NO FURTHER ACTIONS.
--- NOTE | 2020-05-07 21:45 | NUR ---
FSBS 443. RECHECKED 475. CALLED PLACED TO ENEDINA QUINTANA REGARDING FSBS. PATIENT IS EATING ICE CREAM AN STEPHANIE CRACKERS. INSULIN GIVEN PER SLIDING SCALE. MARIANO ALSO NOTIFIED OF PATIENT REFUSING BREATHING TREATMENTS AND BIPAP.
[2020-05-08 03:55] VITALS: BP 119/70
--- NOTE | 2020-05-08 04:00 | NUR ---
I have reviewed this patient and I concur with the Shift Assessment completed by the Licensed Practical Nurse today this shift.
[2020-05-08 05:37] LABS: ALBUMIN 2.9 g/dL (3.4-5.0); BILIRUBIN - TOTAL 0.45 mg/dL (0.2-1.3); CALCIUM 9.1 mg/dL (8.5-10.1); CREATININE - SERUM 1.3 mg/dL (0.6-1.3)
[2020-05-08 05:41] LABS: BASOPHILS 0 % (0-2); EOSINOPHILS 0.2 % (0-7); HEMATOCRIT 45.8 % (36.0-48.0); HEMOGLOBIN 13.9 g/dL (12-16); IMMATURE GRANULOCYTES 0.3 % (0-5); LYMPHOCYTES 18.9 % (15-50); MCH 25.9 pg (26.0-34.0); MCHC 30.3 g/dL (31.0-37.0); MEAN PLATELET VOLUME 10.8 fL (7.4-10.4); MONOCYTES 12.1 % (2-11); NEUTROPHILS 68.5 % (40-80); PLATELET COUNT 201 10x3/uL (130-400); RBC 5.37 10x6/uL (4.00-5.40); RDW 15.6 % (11.5-14.5); WBC 13.3 10x3/uL (4.8-10.8)
[2020-05-08 05:51] LABS: MCV 85.3 fL (80.0-100.0)
[2020-05-08 06:02] LABS: ANION GAP 4.2 mmol/L (8-16); POTASSIUM - SERUM 3.6 mmol/L (3.5-5.1)
[2020-05-08 06:03] LABS: CARBON DIOXIDE 44.4 mmol/L (21.0-32.0)
[2020-05-08 09:10] VITALS: BP 147/68
--- NOTE | 2020-05-08 11:05 | NUR ---
SLEEPY THIS AM, NO DISTRESS NOTED, REFUSING BIPAP, CONT TO MONITOR RESP STATUS AND MENTAL STATUS, COOPERTIVE WITH CARE
[2020-05-08 11:54] VITALS: BP 99/47
--- NOTE | 2020-05-08 12:49 | NUR ---
ENEDINA QUINTANA REVIEWED PT RECENT BLOOD SUGARS, AWARE THAT PT IS SNEAKING IN FOOD, CONT TO MONITOR
[2020-05-08 16:22] VITALS: BP 122/64
--- NOTE | 2020-05-08 19:30 | NUR ---
PT LYING IN BED WITHOUT DISTRESS, AOX4. RIGHT SUBCLAVIAN SL. O2 4L/NC. VICENTE IN PLACE. DENIES NEEDS AT THIS TIME. LINDA ON. CL IN REACH, WILL CTM
[2020-05-08 20:00] VITALS: BP 122/66
[2020-05-09] VITALS (7 sets, daily range): BP systolic 106–172; BP diastolic 61–104
--- NOTE | 2020-05-09 02:30 | NUR ---
PT ANXIOUS AND UPSET ABOUT HER CVL AND VICENTE. STATING BOTH ARE MAKING HER UNCOMFORTABLE AND SHE CANNOT SLEEP. STATES SHE KEEPS TOSSING AND TURNING. PT STARTED CRYING AND PULLING AT VICENTE AND CVL. GAVE PT RICKYDON. WILL CTM
--- NOTE | 2020-05-09 03:30 | NUR ---
PT LYING IN BED SLEEPING WITHOUT DISTRESS. WILL CTM
--- NOTE | 2020-05-09 08:22 | PN ---
PATIENT:CAROLYN GALICIA MEDICAL RECORD: [id number] LOCATION:D.[facility] ADMISSION DATE: 05/02/20 PROGRESS NOTE DATE OF SERVICE: 05/08/2020 SUBJECTIVE: The patient's case was discussed with staff. She has no new complaint. OBJECTIVE: The patient has not had significant disruptive behaviors today. On interview, she is quite impaired cognitively, but denies that she would seek to harm herself. She is tolerating her medicines well. ASSESSMENT: 1. Major depression. 2. Borderline intellectual functioning. PLAN: The patient is going to be here and receive IV antibiotics. Her long-term prognosis is guarded. I do think she is in need of significant assistance and supervision. I do not think she is acutely dangerous. TRANSINT:[id number] Voice Confirmation ID: [id number] DOCUMENT ID: [id number] MARY WHITTINGTON MD at 0822 CC: [id number] DICTATION DATE: 05/08/20 1710 COMMUNICATIONS CONSULTANT: 05/09/20 0125 ADM IN [place] [address] [place] [address]
--- NOTE | 2020-05-09 08:45 | NUR ---
PT SITTING UP IN BED A&O X4. C/O 5/10 PAIN IN HEAD, PLACED NC BACK ON PT AND EDUCATED ON DEEP BREATHS AND KEEPING NC IN PLACE. RIGHT SUBCLAV CVL, PATENT, NO REDNESS OR SWELLING. 02 SAT 94% ON 4L NC. BRUISES ON BILAT UPPPER EXTRMITIES. WEAKNESS IN BILAT LOWER EXTREMITIES. VICENTE IN PLACE, PATENT, PAULINA COLORED URINE. PT REFUSES SCDS. EDUCATED ON CL AND NEEDS. BED LOW, RAILS X2. CL IN REACH. WILL CONTINUE TO MONITOR.
--- NOTE | 2020-05-09 11:30 | NUR ---
ASSISTED PT TO BR. BM LARGE, BROWN, PT TOLERATED WELL. ASSISTED BACK TO BED, LOW, RAILS X2. CL IN REACH.
--- NOTE | 2020-05-09 14:03 | MORECARE ---
CASE MANAGEMENT DISCHARGE SUMMARY PATIENT: CAROLYN GALICIA UNIT: [id number] ADM DATE: 05/02/20 AGE: 49 : 74 SEX: F ROOM/BED: D.2216 AUTHOR: ANGEL LEE PHYSICIAN: REFERRING PHYSICIAN: RAY MCCONNELL MD DATE OF SERVICE: 05/09/20 Discharge Plan Patient Name: CAROLYN GALICIA [facility] [facility] 1970 Planned Disposition: Anticipated Discharge Date: Discharge Date: Expected LOS: Initial Reviewer: [email or web address] Initial Review Date: 05/02/2020 Generated: 05/09/20 3:02 pm Comments DCP- Discharge Planning Updated by [email or web address]: Citlaly Mcdonald on 05/09/20 12:[address] ATTEMPTED TO SEE THE PATIENT BUT SHE WAS SLEEPING (SNORING) WILL ATTEMPT TO SEE HER AGAIN AT A LATER TIME Patient Name: CAROLYN GALICIA Page [id number] at 1403 All edits/amendments must be made on the electronic document DICTATION DATE: 05/09/201401 STRAIGHT CUTTER MACHINE: CARLA 05/09/201401 RPT#: [id number] DC DATE: STATUS: ADM IN [facility] [address] [place] [address] END OF REPORT
[2020-05-09 14:39] LABS: BASOPHILS 0 % (0-2); EOSINOPHILS 0.1 % (0-7); HEMATOCRIT 46.5 % (36.0-48.0); HEMOGLOBIN 14.1 g/dL (12-16); IMMATURE GRANULOCYTES 0.1 % (0-5); LYMPHOCYTES 6.4 % (15-50); MCH 26.5 pg (26.0-34.0); MCHC 30.3 g/dL (31.0-37.0); MEAN PLATELET VOLUME 11.9 fL (7.4-10.4); MONOCYTES 1.5 % (2-11); NEUTROPHILS 91.9 % (40-80); PLATELET COUNT 198 10x3/uL (130-400); RBC 5.32 10x6/uL (4.00-5.40); RDW 15.7 % (11.5-14.5); WBC 13.6 10x3/uL (4.8-10.8)
[2020-05-09 14:52] LABS: CALCIUM 8.7 mg/dL (8.5-10.1); CREATININE - SERUM 1.6 mg/dL (0.6-1.3)
[2020-05-09 14:57] LABS: ANION GAP 4.6 mmol/L (8-16); POTASSIUM - SERUM 4.7 mmol/L (3.5-5.1)
--- NOTE | 2020-05-09 14:57 | NUR ---
Nutrition follow-up: Pt receiving a [facility] soft consistent CHO diet PO intake 50-100% of meals; pt with food from family also Labs reviewed; Glucose elevated WT: 297# Will continue to provide food choices with selective menus and honor food preferences within diet restrictions. RDN following.
[2020-05-09 15:00] LABS: CARBON DIOXIDE 41.1 mmol/L (21.0-32.0)
[2020-05-09 15:10] LABS: MCV 87.4 fL (80.0-100.0)
--- NOTE | 2020-05-09 21:30 | NUR ---
PT SITTING UP IN BED WITHOUT DISTRESS, AOX4. RIGHT SUBCLAVIAN SL. O2 4L/NC. REFUSES SCDS. VICENTE IN PLACE. REQUESTING MEDICATION FOR HEADACHE AND NAUSEA. CALLED [facility]AC[facility], RECIEVED ORDERS FOR ZOFRAN AND TYLENOL, GAVE ORDERED. SEE MAR. DENIES OTHER NEEDS AT THIS TIME. CL REACH, WILL CTM
[2020-05-10 04:00] VITALS: BP 125/70
--- NOTE | 2020-05-10 09:00 | NUR ---
ASSESMENT PER FLOW SHEET. WAS SLEEPING,AWAKENED FOR BREAKFAST.CALL LIGHT IN REACH
--- NOTE | 2020-05-10 09:07 | PN ---
PATIENT:CAROLYN GALICIA MEDICAL RECORD: [id number] LOCATION:D.[facility] ADMISSION DATE: 05/02/20 PROGRESS NOTE DATE OF SERVICE: 05/09/2020 SUBJECTIVE: The patient's case was discussed with staff. She has no complaint, no new complaint. OBJECTIVE: The patient is cooperative, but disorganized in her thought processes. She denies that she would seek to harm herself. ASSESSMENT: Major depression. PLAN: The patient is not acutely dangerous from a psychiatric standpoint. She does, however, need a great deal of supervision and assistance. I do not believe she could live alone. TRANSINT:[id number] Voice Confirmation ID: [id number] DOCUMENT ID: [id number] MARY WHITTINGTON MD at 0907 CC: [id number] DICTATION DATE: 05/09/20 1559 RESTAURANT BARTENDER: 05/10/20 0104 ADM IN [place] [address] [place] [address]
[2020-05-10 10:09] VITALS: BP 155/96
--- NOTE | 2020-05-10 13:01 | MORECARE ---
CASE MANAGEMENT DISCHARGE SUMMARY PATIENT: CAROLYN GALICIA UNIT: [id number] ADM DATE: 05/02/20 AGE: 49 : 74 SEX: F ROOM/BED: D.2216 AUTHOR: ANGEL LEE PHYSICIAN: REFERRING PHYSICIAN: RAY MCCONNELL MD DATE OF SERVICE: 05/10/20 Discharge Plan Patient Name: CAROLYN GALICIA Facility: [facility]:[place] : 1970 Planned Disposition: Home with Home Health Anticipated Discharge Date: Discharge Date: Expected LOS: Initial Reviewer: [email or web address] Initial Review Date: 05/02/2020 Generated: 05/10/20 2:01 pm Comments DCP- Discharge Planning Updated by [id number]: Citlaly Mcdonald on 05/09/20 12:[address] ATTEMPTED TO SEE THE PATIENT BUT SHE WAS SLEEPING (SNORING) WILL ATTEMPT TO SEE HER AGAIN AT A LATER TIME DCPIA - Discharge Planning Initial Assessment Updated by [email or web address]: Citlaly Mcdonald on 05/10/20 12:59 pm * Is the patient Alert and Oriented? Yes * PCP DR MORTENSEN * Pharmacy [facility] * Preadmission Environment Home with Family * ADLs Independent * Equipment Ostomy Supplies * List name and contact numbers for known caregivers / representatives who currently or will assist patient after discharge: ELIZABETH GALICIA ( MOTHER) [phone] * Verbal permission to speak to the caregivers and representatives has been obtained from the patient. N/A * Community resources currently utilized None * Additional services required to return to the preadmission environment? Yes * Has this patient been hospitalized within the prior 30 days at any hospital? No Last DP export: 05/09/20 1:03 p Patient Name: CAROLYN GALICIA Page 08275 at 1301 All edits/amendments must be made on the electronic document DICTATION DATE: 05/10/20 1301 LOT WORKER: CARLA 05/10/20 1301 RPT#: [id number] DC DATE: STATUS: ADM IN [facility] [address] [place] [address] END OF REPORT
--- NOTE | 2020-05-10 13:17 | MORECARE ---
CASE MANAGEMENT DISCHARGE SUMMARY PATIENT: CAROLYN GALICIA UNIT: [id number] ADM DATE: 05/02/20 AGE: 49 : 74 SEX: F ROOM/BED: D.2216 AUTHOR: JESUSDOC PHYSICIAN: REFERRING PHYSICIAN: RAY MCCONNELL MD DATE OF SERVICE: 05/10/20 Discharge Plan Patient Name: CAROLYN GALICIA Facility: [facility]:[place] : 1970 Planned Disposition: Home with Home Health Anticipated Discharge Date: Discharge Date: Expected LOS: Initial Reviewer: [email or web address] Initial Review Date: 05/02/2020 Generated: 05/10/20 2:16 pm Comments DCP- Discharge Planning Updated by [email or web address]: Citlaly Mcdonald on 05/10/20 12:[address] Patient Name: CAROLYN GALICIA Admission Status: ER Accout number: [id number] Admission Date: 05-02-2020 : 1970 Admission Diagnosis:HYPERTENSIVE HEART DISEASE WITH HEART FAILURE Attending: DA Current LOS: 8 Anticipated DC Date: Planned Disposition: Home with Home Health Primary Insurance: MEDICAID [place] Discharge Planning Comments: CM MET WITH PATIENT TO ASSESS DISCHARGE PLANNING NEEDS. SHE IS PLANS ON GETTING HER NEW HOME ([address] [place] [address] IN [facility]) SHE STATED THAT SHE WAS AT [facility] SHE LEFT THERE ON March. SHE SAID SHE SAVED UP HER MONEY AND WAS STAYING IN A HOTEL, BUT WAS GOING TO STAY WITH NAOMY ( HE HAS HER DOG) WHEN SHE IS DISCHARGED. SHE TOLD ME THAT JAE ROACH IS THE ONE WHO IS IN CONTROL OF HER MONEY NOW HIS NUMBER IS [phone]. SHE HAS A MOTHER ELIZABETH GALICIA. HER SISTER REMIGIO GALICAI IS IN [place], BUT SHOULD BE GETTING OUT. PATIENT HAS GIVEN ME PERMISSION TO CALL BOTH HER MOTHER AND HER FRIEND JAE. I ATTEMPTED TO CALL BOTH AND DID NOT GET AN ANSWER. SHE DOES NOT HAVE ANY DME. SHE DOES NOT WANT TO GO BACK TO A FCI. SHE SAID SHE HAS BEEN IN [facility] [place] [facility]. PATIENT ALSO REPORT THAT SHE HAS SSI. I HAVE CALLED [facility] WITH MED DATA TO VERIFY THIS, I LEFT MESSAGE WITH THEM. SHE ALSO GAVE ME A DIFFERENT CELL NUMBER FOR HERSELF THAT IS ON THE FACESHEET, I AM UNSURE IF WHAT SHE SAID IS ACCURATE [phone] JAE ROACH ([phone]) Sound Effects Person: Citlaly Mcdonald DCP- Discharge Planning Updated by [email or web address]: Citlaly Mcdonald on 05/09/20 12:[address] ATTEMPTED TO SEE THE PATIENT BUT SHE WAS SLEEPING (SNORING) WILL ATTEMPT TO SEE HER AGAIN AT A LATER TIME DCPIA - Discharge Planning Initial Assessment Updated by [email or web address]: Citlaly Mcdonald on 05/10/20 12:59 pm * Is the patient Alert and Oriented? Yes * PCP DR MORTENSEN * [facility] * Preadmission Environment Home with Family * ADLs Independent * Equipment Ostomy Supplies * List name and contact numbers for known caregivers / representatives who currently or will assist patient after discharge: ELIZABETH GALICIA ( MOTHER) [phone] * Verbal permission to speak to the caregivers and representatives has been obtained from the patient. N/A * Community resources currently utilized None * Additional services required to return to the preadmission environment? Yes * Has this patient been hospitalized within the prior 30 days at any hospital? No Last DP export: 05/10/20 12:02 p Patient Name: CAROLYN GALICIA Page 86413 at 1317 All edits/amendments must be made on the electronic document DICTATION DATE: 05/10/20 1316 CAMPUS SUPERVISOR: CARLA 05/10/20 1316 RPT#: [id number] DC DATE: STATUS: ADM IN [facility] [address] [place] [address] END OF REPORT
[2020-05-10 13:36] VITALS: BP 131/70
--- NOTE | 2020-05-10 15:03 | NUR ---
PATIENT IS UPSET AND TALKING ON PHONE. SHE WISHES TO SPEAK WITH TECHNICAL SERVICE SPECIALIST
[2020-05-10 18:41] VITALS: BP 103/67
[2020-05-10 20:00] VITALS: BP 122/58
--- NOTE | 2020-05-10 20:00 | NUR ---
PT SITTING UP IN BED WITHOUT DISTRESS, AOX4. DENIES NEEDS AT THIS TIME. CL IN REACH, WILL CTM
[2020-05-11 08:23] LABS: BASOPHILS 0.1 % (0-2); EOSINOPHILS 0.3 % (0-7); HEMATOCRIT 46.6 % (36.0-48.0); HEMOGLOBIN 13.5 g/dL (12-16); IMMATURE GRANULOCYTES 0.6 % (0-5); LYMPHOCYTES 15.3 % (15-50); MCH 25.9 pg (26.0-34.0); MEAN PLATELET VOLUME 11.8 fL (7.4-10.4); MONOCYTES 8.8 % (2-11); NEUTROPHILS 74.9 % (40-80); PLATELET COUNT 173 10x3/uL (130-400); RBC 5.21 10x6/uL (4.00-5.40); RDW 15.7 % (11.5-14.5); WBC 14.3 10x3/uL (4.8-10.8)
[2020-05-11 08:24] LABS: ANION GAP 7.5 mmol/L (8-16); CALCIUM 8.7 mg/dL (8.5-10.1); CARBON DIOXIDE 39.4 mmol/L (21.0-32.0); CREATININE - SERUM 1.3 mg/dL (0.6-1.3); MAGNESIUM - SERUM 2.1 mg/dL (1.8-2.4); MCV 89.4 fL (80.0-100.0); POTASSIUM - SERUM 4.9 mmol/L (3.5-5.1)
[2020-05-11 10:13] VITALS: BP 157/81
--- NOTE | 2020-05-11 11:50 | NUR ---
ASSESSMENT PER FLOW SHEET. PATIENT IS WITHOUT DISTRESS.UP IN CHAIR,MONITOR FOR NEEDS
--- NOTE | 2020-05-11 13:19 | PN ---
PATIENT:CAROLYN GALICIA MEDICAL RECORD: [id number] LOCATION:D.MS [facility] ADMISSION DATE: 05/02/20 PROGRESS NOTE DATE OF SERVICE: 05/10/2020 SUBJECTIVE: The patient's case was discussed with staff. She has no new complaint. OBJECTIVE: The patient has a depressed mood, but no psychotic symptoms and no thoughts of self-harm. She is impaired cognitively, but I think that is not related to any sort of brain injury or dementing illness, but rather to the fact that she is well below average intelligence. ASSESSMENT: Major depression. PLAN: I have reviewed the records on this patient. There is an entry regarding her going home with a man named Tello who is keeping her dog, that is fine with me. I think she cannot live on her own and she does not want to go back to the shelter, so certainly this would be the least restrictive environment assuming Tello is willing to help her. TRANSINT:[id number] Voice Confirmation ID: [id number] DOCUMENT ID: [id number] MARY WHITTINGTON MD at 1319 CC: [id number] DICTATION DATE: 05/10/20 1555 DEPILATORY PAINTER: 05/10/20 2306 ADM IN [facility] [address] [place] [address]
[2020-05-11 14:34] VITALS: BP 103/76
--- NOTE | 2020-05-11 15:47 | NUR ---
VICENTE DCD WITH CATH TIP INTACT. 200CC OF URINE EMPTIED FROM VICENTE BAG
--- NOTE | 2020-05-11 18:25 | MORECARE ---
CASE MANAGEMENT DISCHARGE SUMMARY PATIENT: CAROLYN GALICIA UNIT: [id number] ADM DATE: 05/02/20 AGE: 49 : 74 SEX: F ROOM/BED: D.2216 AUTHOR: ANGEL LEE PHYSICIAN: REFERRING PHYSICIAN: RAY MCCONNELL MD DATE OF SERVICE: 05/11/20 Discharge Plan Patient Name: CAROLYN GALICIA Facility: [facility]:[place] : 1970 Planned Disposition: Home with Home Health Anticipated Discharge Date: Discharge Date: Expected LOS: Initial Reviewer: [email or web address] Initial Review Date: 05/02/2020 Generated: 05/11/20 7:24 pm Comments DCP- Discharge Planning Updated by [email or web address]: Citlaly Mcdonald on 05/11/20 5:[address] I spoke with the patient today about her plan. She asked me to call Jae Carranzason again ) I spoke with Mr Mao about her being discharged tomorrow and he stated that she was staying with him at [address] and he will me the one to pick her up tomorrow. I asked him if it would be ok for home health to come to his home and he was fine with that . I will send the referral to [facility]. Patient's cell number is [phone] DCP- Discharge Planning Updated by [email or web address]: Citlaly Tamara on 05/10/20 12:[address] Patient Name: CAROLYN GALICIA Admission Status: ER Accout number: [id number] Admission Date: 05-02-2020 : 1970 Admission Diagnosis:HYPERTENSIVE HEART DISEASE WITH HEART FAILURE Attending: DA Current LOS: 8 Anticipated DC Date: Planned Disposition: Home with Home Health Primary Insurance: MEDICAID [place] Discharge Planning Comments: CM MET WITH PATIENT TO ASSESS DISCHARGE PLANNING NEEDS. SHE IS PLANS ON GETTING [place] NEW HOME ([address] [place]) SHE STATED THAT SHE WAS AT [facility] SHE LEFT THERE ON March. SHE SAID SHE SAVED UP HER MONEY AND WAS STAYING IN A HOTEL, BUT WAS GOING TO STAY WITH NAOMY ( HE HAS HER DOG) WHEN SHE IS DISCHARGED. SHE TOLD ME THAT JAE AMO IS THE ONE WHO IS IN CONTROL OF HER MONEY NOW HIS NUMBER IS [phone]. SHE HAS A MOTHER ELIZABETH GALICIA. HER SISTER REMIGIO GALICIA IS IN [place], BUT SHOULD BE GETTING OUT. PATIENT HAS GIVEN ME PERMISSION TO CALL BOTH HER MOTHER AND HER FRIEND JAE. I ATTEMPTED TO CALL BOTH AND DID NOT GET AN ANSWER. SHE DOES NOT HAVE ANY DME. SHE DOES NOT WANT TO GO BACK TO A [facility]. SHE SAID SHE HAS BEEN IN [facility] [place] [facility]. PATIENT ALSO REPORT THAT SHE HAS SSI. I HAVE CALLED [facility] WITH MED DATA TO VERIFY THIS, I LEFT MESSAGE WITH THEM. SHE ALSO GAVE ME A DIFFERENT CELL NUMBER FOR HERSELF THAT IS ON THE FACESHEET, I AM UNSURE IF WHAT SHE SAID IS ACCURATE [phone] JAE MAO ([phone]) Food And Beverage Checker: Citlaly Mcdonald DCP- Discharge Planning Updated by [email or web address]: Citlaly Mcdonald on 05/09/20 12:[address] ATTEMPTED TO SEE THE PATIENT BUT SHE WAS SLEEPING (SNORING) WILL ATTEMPT TO SEE HER AGAIN AT A LATER TIME DCPIA - Discharge Planning Initial Assessment Updated by [email or web address]: Citlaly Mcdonald on 05/10/20 12:59 pm * Is the patient Alert and Oriented? Yes * PCP DR MORTENSEN * Pharmacy [facility]? * Preadmission Environment Home with Family * ADLs Independent * Equipment Ostomy Supplies * List name and contact numbers for known caregivers / representatives who currently or will assist patient after discharge: ELIZABETH GALICIA ( MOTHER) [phone] * Verbal permission to speak to the caregivers and representatives has been obtained from the patient. N/A * Community resources currently utilized None * Additional services required to return to the preadmission environment? Yes * Has this patient been hospitalized within the prior 30 days at any hospital? No Last DP export: 05/10/20 12:17 p Patient Name: CAROLYN GALICIA Page 68719 at 0759 All edits/amendments must be made on the electronic document DICTATION DATE: 05/11/201823 PIPEFITTER: CARLA 05/11/201823 RPT#: [id number] DC DATE: STATUS: ADM IN [facility] [address] [place] [address] END OF REPORT
[2020-05-11 18:44] VITALS: BP 149/83
[2020-05-11 20:00] VITALS: BP 126/75
[2020-05-12 07:09] LABS: BASOPHILS 0.2 % (0-2); EOSINOPHILS 0.7 % (0-7); HEMATOCRIT 44.6 % (36.0-48.0); HEMOGLOBIN 13.1 g/dL (12-16); IMMATURE GRANULOCYTES 0.2 % (0-5); MCH 25.8 pg (26.0-34.0); MCHC 29.4 g/dL (31.0-37.0); MEAN PLATELET VOLUME 12.1 fL (7.4-10.4); MONOCYTES 7.8 % (2-11); NEUTROPHILS 64.1 % (40-80); RBC 5.07 10x6/uL (4.00-5.40); RDW 15.9 % (11.5-14.5); WBC 12.9 10x3/uL (4.8-10.8)
[2020-05-12 07:12] LABS: PLATELET COUNT 220 10x3/uL (130-400)
[2020-05-12 07:48] LABS: ANION GAP 10.3 mmol/L (8-16); CALCIUM 9.6 mg/dL (8.5-10.1); CREATININE - SERUM 1.3 mg/dL (0.6-1.3); MAGNESIUM - SERUM 2.2 mg/dL (1.8-2.4); POTASSIUM - SERUM 4.3 mmol/L (3.5-5.1)
--- NOTE | 2020-05-12 09:41 | NUR ---
PATIENT UP IN CHAIR ON RA WITH SP02 OF 86%. PLACED ON 3L/NC AND SP02 NOW 94%
[2020-05-12 11:02] VITALS: BP 131/72
[2020-05-12] MEDS ORDERED: VIBRAMYCIN 100100 MG PO (12:34)
[2020-05-12] MEDS ORDERED: OMNICEF300 MG PO (12:34)
[2020-05-12] MEDS ORDERED: PREDNISONE10 MG PO (12:35)
[2020-05-12] MEDS ORDERED: REMERON15 MG PO (12:37)
[2020-05-12] MEDS ORDERED: LEXAPRO10 MG PO (12:37)
[2020-05-12 13:02] VITALS: BP 115/72
--- NOTE | 2020-05-12 14:01 | MORECARE ---
CASE MANAGEMENT DISCHARGE SUMMARY PATIENT: CAROLYN GALICIA UNIT: [id number] ADM DATE: 05/02/20 AGE: 49 : 74 SEX: F ROOM/BED: D.2216 AUTHOR: ANGEL LEE PHYSICIAN: REFERRING PHYSICIAN: RAY MCCONNELL MD DATE OF SERVICE: 05/12/20 Discharge Plan Patient Name: CAROLYN GALICIA Facility: [facility]:[place] : 1970 Planned Disposition: Home with Home Health Anticipated Discharge Date: Discharge Date: Expected LOS: Initial Reviewer: [email or web address] Initial Review Date: 05/02/2020 Generated: 05/12/20 3:01 pm Comments DCP- Discharge Planning Updated by [email or web address]: Citlaly Tamara on 05/11/20 5:[address] I spoke with the patient today about her plan. She asked me to call Jae Carranzason again ) I spoke with Mr Mao about her being discharged tomorrow and he stated that she was staying with him at [address] and he will me the one to pick her up tomorrow. I asked him if it would be ok for home health to come to his home and he was fine with that . I will send the referral to [facility]. Patient's cell number is [phone] DCP- Discharge Planning Updated by [email or web address]: Citlaly Mcdonald on 05/10/20 12:[address] Patient Name: CAROLYN GALICIA Admission Status: ER Accout number: [id number] Admission Date: 05-02-2020 : 1970 Admission Diagnosis:HYPERTENSIVE HEART DISEASE WITH HEART FAILURE Attending: DA Current LOS: 8 Anticipated DC Date: Planned Disposition: Home with Home Health Primary Insurance: MEDICAID [place] Discharge Planning Comments: CM MET WITH PATIENT TO ASSESS DISCHARGE PLANNING NEEDS. SHE IS PLANS ON GETTING [place] NEW HOME ([address] [place]) SHE STATED THAT SHE WAS AT [facility] SHE LEFT THERE ON March. SHE SAID SHE SAVED UP HER MONEY AND WAS STAYING IN A HOTEL, BUT WAS GOING TO STAY WITH NAOMY ( HE HAS HER DOG) WHEN SHE IS DISCHARGED. SHE TOLD ME THAT JAE MAO IS THE ONE WHO IS IN CONTROL OF HER MONEY NOW HIS NUMBER IS [phone]. SHE HAS A MOTHER ELIZABETH GALICIA. HER SISTER REMIGIO GALICIA IS IN [place], BUT SHOULD BE GETTING OUT. PATIENT HAS GIVEN ME PERMISSION TO CALL BOTH HER MOTHER AND HER FRIEND JAE. I ATTEMPTED TO CALL BOTH AND DID NOT GET AN ANSWER. SHE DOES NOT HAVE ANY DME. SHE DOES NOT WANT TO GO BACK TO A ALF. SHE SAID SHE HAS BEEN IN [facility] [place] [facility]. PATIENT ALSO REPORT THAT SHE HAS SSI. I HAVE CALLED [facility] WITH MED DATA TO VERIFY THIS, I LEFT MESSAGE WITH THEM. SHE ALSO GAVE ME A DIFFERENT CELL NUMBER FOR HERSELF THAT IS ON THE FACESHEET, I AM UNSURE IF WHAT SHE SAID IS ACCURATE [phone] JAE MAO ([phone]) Gas Distribution And Emergency Clerk: Citlaly Mcdonald DCP- Discharge Planning Updated by [email or web address]: Citlaly Mcdonald on 05/09/20 12:[address] ATTEMPTED TO SEE THE PATIENT BUT SHE WAS SLEEPING (SNORING) WILL ATTEMPT TO SEE HER AGAIN AT A LATER TIME DCPIA - Discharge Planning Initial Assessment Updated by [email or web address]: Citlaly Mcdonald on 05/10/20 12:59 pm * Is the patient Alert and Oriented? Yes * PCP DR MORTENSEN * Pharmacy [facility]? * Preadmission Environment Home with Family * ADLs Independent * Equipment Ostomy Supplies * List name and contact numbers for known caregivers / representatives who currently or will assist patient after discharge: ELIZABETH GALICIA ( MOTHER) [phone] * Verbal permission to speak to the caregivers and representatives has been obtained from the patient. N/A * Community resources currently utilized None * Additional services required to return to the preadmission environment? Yes * Has this patient been hospitalized within the prior 30 days at any hospital? No External Providers External Provider: [facility] Next Contact Date: Service Request Date: Service Type: Resolution: Reviewer: Comments: External Provider: Monica Next Contact Date: Service Request Date: Service Type: Resolution: Reviewer: Comments: Last DP export: 05/11/20 5:25 p Patient Name: CAROLYN GALICIA Page 26350 at 1401 All edits/amendments must be made on the electronic document DICTATION DATE: 05/12/201400 MEDICAL RECORDS LIBRARY PROFESSOR: CARLA 05/12/201400 RPT#: [id number] DC DATE: STATUS: ADM IN [facility] [address] [place] [address] END OF REPORT
--- NOTE | 2020-05-12 15:50 | MORECARE ---
CASE MANAGEMENT DISCHARGE SUMMARY PATIENT: CAROLYN GALICIA UNIT: [id number] ADM DATE: 05/02/20 AGE: 49 : 74 SEX: F ROOM/BED: D.2216 AUTHOR: JESUSDOC PHYSICIAN: REFERRING PHYSICIAN: RAY MCCONNELL MD DATE OF SERVICE: 05/12/20 Discharge Plan Patient Name: CAROLYN GALICIA Facility: [facility]:[place] : 1970 Planned Disposition: Home with Home Health Anticipated Discharge Date: Discharge Date: Expected LOS: Initial Reviewer: [email or web address] Initial Review Date: 05/02/2020 Generated: 05/12/20 4:50 pm Comments DCP- Discharge Planning Updated by [email or web address]: Citlaly Mcdonald on 05/12/20 2:[address] [facility] TO [facility] WILL DELIVER A WALKER WITH A SEAT TO THE HOSPITAL DCP- Discharge Planning Updated by [id number]: Citlaly Mcdonald on 05/12/20 2:[address] I S[facility]ERR[facility] TO [facility] AND THEY STATED THAT THEY HAVE HAD HER BEFORE AND NOT TAKING HER BACK. I SENT THE REFERRAL TO [facility]. [facility] HAS DELIVERED HER A TANK TO THE HOSPITAL. DCP- Discharge Planning Updated by [email or web address]: Citlaly Mcdonald on 05/11/20 5:[address] I spoke with the patient today about her plan. She asked me to call Lucas Mao again ) I spoke with Mr Mao about her being discharged tomorrow and he stated that she was staying with him at [address] and he will me the one to pick her up tomorrow. I asked him if it would be ok for home health to come to his home and he was fine with that . I will send the referral to [facility]. Patient's cell number is [phone] DCP- Discharge Planning Updated by [email or web address]: Citlaly Mcdonald on 05/10/20 12:[address] Patient Name: CAROLYN GALICIA Admission Status: ER Accout number: [id number] Admission Date: 05-02-2020 : 1970 Admission Diagnosis:HYPERTENSIVE HEART DISEASE WITH HEART FAILURE Attending: DA Current LOS: 8 Anticipated DC Date: Planned Disposition: Home with Home Health Primary Insurance: MEDICAID [place] Discharge Planning Comments: CM MET WITH PATIENT TO ASSESS DISCHARGE PLANNING NEEDS. SHE IS PLANS ON GETTING HER NEW HOME ([address] [place]) SHE STATED THAT SHE WAS AT [facility] SHE LEFT THERE ON March. SHE SAID SHE SAVED UP HER MONEY AND WAS STAYING IN A HOTEL, BUT WAS GOING TO STAY WITH NAOMY ( HE HAS HER DOG) WHEN SHE IS DISCHARGED. SHE TOLD ME THAT LUCAS MAO IS THE ONE WHO IS IN CONTROL OF HER MONEY NOW HIS NUMBER IS [phone]. SHE HAS A MOTHER ELIZABETH GALICIA. HER SISTER REMIGIO GALICIA IS IN [place], BUT SHOULD BE GETTING OUT. PATIENT HAS GIVEN ME PERMISSION TO CALL BOTH HER MOTHER AND HER FRIEND LUCAS. I ATTEMPTED TO CALL BOTH AND DID NOT GET AN ANSWER. SHE DOES NOT HAVE ANY DME. SHE DOES NOT WANT TO GO BACK TO A USP. SHE SAID SHE HAS BEEN IN [facility] [place] AND [facility]. PATIENT ALSO REPORT THAT SHE HAS SSI. I HAVE CALLED [facility] WITH [employer] TO VERIFY THIS, I LEFT MESSAGE WITH THEM. SHE ALSO GAVE ME A DIFFERENT CELL NUMBER FOR HERSELF THAT IS ON THE FACESHEET, I AM UNSURE IF WHAT SHE SAID IS ACCURATE [phone] LUCAS MAO ([phone]) Scientific Informatics Leader: Citlaly Mcdonald DCP- Discharge Planning Updated by [id number]: Citlaly Mcdonald on 05/09/20 12:[address] ATTEMPTED TO SEE THE PATIENT BUT SHE WAS SLEEPING (SNORING) WILL ATTEMPT TO SEE HER AGAIN AT A LATER TIME DCPIA - Discharge Planning Initial Assessment Updated by [email or web address]: Citlaly Mcdonald on 05/10/20 12:59 pm * Is the patient Alert and Oriented? Yes * PCP DR MORTENSEN * Pharmacy [facility] * Preadmission Environment Home with Family * ADLs Independent * Equipment Ostomy Supplies * List name and contact numbers for known caregivers / representatives who currently or will assist patient after discharge: ELIZABETH GALICIA ( MOTHER) [phone] * Verbal permission to speak to the caregivers and representatives has been obtained from the patient. N/A * Community resources currently utilized None * Additional services required to return to the preadmission environment? Yes * Has this patient been hospitalized within the prior 30 days at any hospital? No External Providers External Provider: [facility] Next Contact Date: Service Request Date: Service Type: Resolution: Reviewer: Comments: External Provider: [facility] Next Contact Date: Service Request Date: Service Type: Resolution: Reviewer: Comments: Last DP export: 05/12/20 1:01 p Patient Name: CAROLYN GALICIA Page [phone] at 1550 All edits/amendments must be made on the electronic document DICTATION DATE: 05/12/20 155 MEDICAL SCIENTIFIC OFFICER: CARLA 05/12/20 1550 RPT#: [id number] DC DATE: STATUS: ADM IN [facility] [address] [place] [address] END OF REPORT
--- NOTE | 2020-05-12 16:18 | MORECARE ---
CASE MANAGEMENT DISCHARGE SUMMARY PATIENT: CAROLYN GALICIA UNIT: [id number] ADM DATE: 05/02/20 AGE: 49 : 74 SEX: F ROOM/BED: D.2216 AUTHOR: JESUSDOC PHYSICIAN: REFERRING PHYSICIAN: RAY MCCONNELL MD DATE OF SERVICE: 05/12/20 Discharge Plan Patient Name: CAROLYN GALICIA Facility: [facility]:[place] : 1970 Planned Disposition: Home with Home Health Anticipated Discharge Date: Discharge Date: Expected LOS: Initial Reviewer: [email or web address] Initial Review Date: 05/02/2020 Generated: 05/12/20 5:18 pm Comments DCP- Discharge Planning Updated by [email or web address]: Citlaly Mcdonald on 05/12/20 3:[address] I HAVE SPOKE WITH MARSHALL AT [facility] AND SENT A REFERRAL TO HER PER PATIENT'S REQUEST. BECK STATED HIS SON WILL BE THE ONE TO TAKE HER HOME AND THE WALKER WILL BE DELIVERED TO THE HOSPITAL CM TO FOLLOW NEEDED DCP- Discharge Planning Updated by [id number]: Citlaly Mcdonald on 05/12/20 2:[address] [facility] WILL DELIVER A WALKER WITH A SEAT TO THE HOSPITAL DCP- Discharge Planning Updated by [email or web address]: Citlaly Mcdonald on 05/12/20 2:[address] I SENT A [facility]ERRAL TO [facility] AND THEY STATED THAT THEY HAVE HAD HER BEFORE AND NOT TAKING HER BACK. I SENT THE REFERRAL TO [facility]. [facility] HAS DELIVERED HER A TANK TO THE HOSPITAL. DCP- Discharge Planning Updated by [id number]: Citlaly Mcdonald on 05/11/20 5:[address] I spoke with the patient today about her plan. She asked me to call Lucas Mao again ( [phone]) I spoke with Mr Mao about her being discharged tomorrow and he stated that she was staying with him at [address] and he will me the one to pick her up tomorrow. I asked him if it would be ok for home health to come to his home and he was fine with that . I will send the referral to [facility]. Patient's cell number is [phone] DCP- Discharge Planning Updated by [email or web address]: Citlaly Mcdonald on 05/10/20 12:[address] Patient Name: CAROLYN GALICIA Admission Status: ER Accout number: [id number] Admission Date: 05-02-2020 : 1970 Admission Diagnosis:HYPERTENSIVE HEART DISEASE WITH HEART FAILURE Attending: DA Current LOS: 8 Anticipated DC Date: Planned Disposition: Home with Home Health Primary Insurance: MEDICAID [place] Discharge Planning Comments: CM MET WITH PATIENT TO ASSESS DISCHARGE PLANNING NEEDS. SHE IS PLANS ON GETTING HER NEW HOME ([address] IN [facility]) SHE STATED THAT SHE WAS AT [facility] SHE LEFT THERE ON March. SHE SAID SHE SAVED UP HER MONEY AND WAS STAYING IN A HOTEL, BUT WAS GOING TO STAY WITH NAOMY ( HE HAS HER DOG) WHEN SHE IS DISCHARGED. SHE TOLD ME THAT LUCAS MAO IS THE ONE WHO IS IN CONTROL OF HER MONEY NOW HIS NUMBER IS [phone]. SHE HAS A MOTHER ELIZABETH GALICIA. HER SISTER REMIGIO GALICIA IS IN [place], BUT SHOULD BE GETTING OUT. PATIENT HAS GIVEN ME PERMISSION TO CALL BOTH HER MOTHER AND HER FRIEND LUCAS. I ATTEMPTED TO CALL BOTH AND DID NOT GET AN ANSWER. SHE DOES NOT HAVE ANY DME. SHE DOES NOT WANT TO GO BACK TO A USP. SHE SAID SHE HAS BEEN IN [facility] [place] AND [facility]. PATIENT ALSO REPORT THAT SHE HAS SSI. I HAVE CALLED [facility] WITH [employer] TO VERIFY THIS, I LEFT MESSAGE WITH THEM. SHE ALSO GAVE ME A DIFFERENT CELL NUMBER FOR HERSELF THAT IS ON THE FACESHEET, I AM UNSURE IF WHAT SHE SAID IS ACCURATE [phone] LUCAS MAO ([phone]) Retail Solar Advisor: Citlaly Mcdonald DCP- Discharge Planning Updated by [email or web address]: Citlaly Mcdonald on 05/09/20 12:[address] ATTEMPTED TO SEE THE PATIENT BUT SHE WAS SLEEPING (SNORING) WILL ATTEMPT TO SEE HER AGAIN AT A LATER TIME DCPIA - Discharge Planning Initial Assessment Updated by [email or web address]: Citlaly Mcdonald on 05/10/20 12:59 pm * Is the patient Alert and Oriented? Yes * PCP DR MORTENSEN * Pharmacy [facility] * Preadmission Environment Home with Family * ADLs Independent * Equipment Ostomy Supplies * List name and contact numbers for known caregivers / representatives who currently or will assist patient after discharge: ELIZABETH GALICIA ( MOTHER) [phone] * Verbal permission to speak to the caregivers and representatives has been obtained from the patient. N/A * Community resources currently utilized None * Additional services required to return to the preadmission environment? Yes * Has this patient been hospitalized within the prior 30 days at any hospital? No External Providers External Provider: OTHER-OTHER Next Contact Date: Service Request Date: Service Type: Resolution: Reviewer: Comments: Last DP export: 05/12/20 2:50 p Patient Name: CAROLYN GALICIA Page 65744 at 1618 All edits/amendments must be made on the electronic document DICTATION DATE: 05/12/201617 SPORTS PHYSICIAN: CARLA 05/12/201617 RPT#: [id number] DC DATE: STATUS: ADM IN [facility] [address] [place] [address] END OF REPORT
--- NOTE | 2020-05-12 16:45 | MORECARE ---
CASE MANAGEMENT DISCHARGE SUMMARY PATIENT: CAROLYN GALICIA UNIT: [id number] ADM DATE: 05/02/20 AGE: 49 : 74 SEX: F ROOM/BED: D.2216 AUTHOR: JESUSDOC PHYSICIAN: REFERRING PHYSICIAN: RAY MCCONNELL MD DATE OF SERVICE: 05/12/20 Discharge Plan Patient Name: CAROLYN GALICIA Facility: [facility]:[place] : 1970 Planned Disposition: Home with Home Health Anticipated Discharge Date: Discharge Date: Expected LOS: Initial Reviewer: [email or web address] Initial Review Date: 05/02/2020 Generated: 05/12/20 5:45 pm Comments DCP- Discharge Planning Updated by [email or web address]: Citlaly Mcdonald on 05/12/20 3:[address] nando with [facility] called and stated that she could not get a walker because she had one in aug 2018 so insurance would not pay [facility] also called and stated that they would not be able to take her as a patient due to her drug history DCP- Discharge Planning Updated by [email or web address]: Citlaly Mcdonald on 05/12/20 3:[address] I HAVE SPOKE WITH MARSHALL AT [facility] AND SENT A REFERRAL TO HER PER PATIENT'S REQUEST. BECK STATED HIS SON WILL BE THE ONE TO TAKE HER HOME AND THE WALKER WILL BE DELIVERED TO THE HOSPITAL CM TO FOLLOW NEEDED DCP- Discharge Planning Updated by [email or web address]: Citlaly Mcdonald on 05/12/20 2:[address] REFFERAL TO [facility] WILL DELIVER A WALKER WITH A SEAT TO THE HOSPITAL DCP- Discharge Planning Updated by [email or web address]: Citlaly Mcdonald on 05/12/20 2:[address] I SENT A REFERRAL TO [facility] AND THEY STATED THAT THEY HAVE HAD HER BEFORE AND NOT TAKING HER BACK. I SENT THE REFERRAL TO [facility]. [facility] HAS DELIVERED HER A TANK TO THE HOSPITAL. DCP- Discharge Planning Updated by [email or web address]: Citlaly Mcdonald on 05/11/20 5:[address] I spoke with the patient today about her plan. She asked me to call Lucas Mao again ( [phone]) I spoke with Mr Mao about her being discharged tomorrow and he stated that she was staying with him at [address] and he will me the one to pick her up tomorrow. I asked him if it would be ok for home health to come to his home and he was fine with that . I will send the referral to [facility] . Patient's cell number is [phone] DCP- Discharge Planning Updated by [id number]: Citlaly Mcdonald on 05/10/20 12:[address] Patient Name: CAROLYN GALICIA Admission Status: ER Accout number: [id number] Admission Date: 05-02-2020 : 1970 Admission Diagnosis:HYPERTENSIVE HEART DISEASE WITH HEART FAILURE Attending: DA Current LOS: 8 Anticipated DC Date: Planned Disposition: Home with Home Health Primary Insurance: MEDICAID [place] Discharge Planning Comments: CM MET WITH PATIENT TO ASSESS DISCHARGE PLANNING NEEDS. SHE IS PLANS ON GETTING HER NEW HOME ([address] IN [facility]) SHE STATED THAT SHE WAS AT [facility] SHE LEFT THERE ON March. SHE SAID SHE SAVED UP HER MONEY AND WAS STAYING IN A HOTEL, BUT WAS GOING TO STAY WITH NAOMY ( HE HAS HER DOG) WHEN SHE IS DISCHARGED. SHE TOLD ME THAT LUCAS MAO IS THE ONE WHO IS IN CONTROL OF HER MONEY NOW HIS NUMBER IS [phone]. SHE HAS A MOTHER ELIZABETH GALICIA. HER SISTER REMIGIO GALICIA IS IN [place], BUT SHOULD BE GETTING OUT. PATIENT HAS GIVEN ME PERMISSION TO CALL BOTH HER MOTHER AND HER FRIEND LUCAS. I ATTEMPTED TO CALL BOTH AND DID NOT GET AN ANSWER. SHE DOES NOT HAVE ANY DME. SHE DOES NOT WANT TO GO BACK TO A SHELTER. SHE SAID SHE HAS BEEN IN [place] AND [facility]. PATIENT ALSO REPORT THAT SHE HAS SSI. I HAVE CALLED [facility] WITH [employer] TO VERIFY THIS, I LEFT MESSAGE WITH THEM. SHE ALSO GAVE ME A DIFFERENT CELL NUMBER FOR HERSELF THAT IS ON THE FACESHEET, I AM UNSURE IF WHAT SHE SAID IS ACCURATE [phone] LUCAS MAO ([phone]) Cabin Furnishings Installer: Citlaly Mcdonald DCP- Discharge Planning Updated by [id number]: Citlaly Mcdonald on 05/09/20 12:[address] ATTEMPTED TO SEE THE PATIENT BUT SHE WAS SLEEPING (SNORING) WILL ATTEMPT TO SEE HER AGAIN AT A LATER TIME DCPIA - Discharge Planning Initial Assessment Updated by [email or web address]: Citlaly Mcdonald on 05/10/20 12:59 pm * Is the patient Alert and Oriented? Yes * PCP DR MORTENSEN * [facility] * Preadmission Environment Home with Family * ADLs Independent * Equipment Ostomy Supplies * List name and contact numbers for known caregivers / representatives who currently or will assist patient after discharge: ELIZABETH GALICIA ( MOTHER) [phone] * Verbal permission to speak to the caregivers and representatives has been obtained from the patient. N/A * Community resources currently utilized None * Additional services required to return to the preadmission environment? Yes * Has this patient been hospitalized within the prior 30 days at any hospital? No Last DP export: 05/12/20 3:18 p Patient Name: CAROLYN GALICIA Page 11529 at 1645 All edits/amendments must be made on the electronic document DICTATION DATE: 05/12/201644 FANCY WIRE DRAWER: CARLA 05/12/201644 RPT#: [id number] DC DATE: STATUS: ADM IN [facility] [address] [place] [address] END OF REPORT
--- NOTE | 2020-05-12 17:04 | MORECARE ---
CASE MANAGEMENT DISCHARGE SUMMARY PATIENT: CAROLYN GALICIA UNIT: [id number] ADM DATE: 05/02/20 AGE: 49 : 74 SEX: F ROOM/BED: D.2216 AUTHOR: JEUSS,DOC PHYSICIAN: REFERRING PHYSICIAN: RAY MCCONNELL MD DATE OF SERVICE: 05/12/20 Discharge Plan Patient Name: CAROLYN GALICIA Facility: [facility]:[place] : 1970 Planned Disposition: Home with Home Health Anticipated Discharge Date: Discharge Date: Expected LOS: Initial Reviewer: [id number] Initial Review Date: 05/02/2020 Generated: 05/12/20 6:03 pm Comments DCP- Discharge Planning Updated by [email or web address]: Citlaly Mcdonald on 05/12/20 4:[address] SPOKE WITH PATIENT ABOUT NOT GETTING WALKER AND HH WITH [facility] AND [facility] WITH [facility] HERE AND MET PATIENT AND REFERRAL GIVEN TO HIM DCP- Discharge Planning Updated by [email or web address]: Citlaly Mcdonald on 05/12/20 3:[address] nando with [facility] called and stated that she could not get a walker because she had one in aug 2018 so insurance would not pay [facility] also called and stated that they would not be able to take her as a patient due to her drug history DCP- Discharge Planning Updated by [email or web address]: Citlaly Mcdonald on 05/12/20 3:[address] I HAVE SPOKE WITH MARSHALL AT [facility] AND SENT A REFERRAL TO HER PER PATIENT'S REQUEST. BECK STATED HIS SON WILL BE THE ONE TO TAKE HER HOME AND THE WALKER WILL BE DELIVERED TO THE HOSPITAL CM TO FOLLOW NEEDED DCP- Discharge Planning Updated by [email or web address]: Citlaly Mcdonald on 05/12/20 2:[address] REFFERAL TO [facility] WILL DELIVER A WALKER WITH A SEAT TO THE HOSPITAL DCP- Discharge Planning Updated by [email or web address]: Citlaly Mcdonald on 05/12/20 2:[address] I SENT [facility] AND THEY STATED THAT THEY HAVE HAD HER BEFORE AND NOT TAKING HER BACK. I SENT THE REFERRAL TO [facility]. [facility] HAS DELIVERED HER A TANK TO THE HOSPITAL. DCP- Discharge Planning Updated by [id number]: Citlaly Mcdonald on 05/11/20 5:[address] I spoke with the patient today about her plan. She asked me to call Lucas Mao again ( [phone]) I spoke with Mr Mao about her being discharged tomorrow and he stated that she was staying with him at [address] and he will me the one to pick her up tomorrow. I asked him if it would be ok for home health to come to his home and he was fine with that . I will send the referral to [facility]. Patient's cell number is [phone] DCP- Discharge Planning Updated by [email or web address]: Citlaly Mcdonald on 05/10/20 12:[address] Patient Name: CAROLYN GALICIA Admission Status: ER Accout number: [id number] Admission Date: 05-02-2020 : 1970 Admission Diagnosis:HYPERTENSIVE HEART DISEASE WITH HEART FAILURE Attending: DA Current LOS: 8 Anticipated DC Date: Planned Disposition: Home with Home Health Primary Insurance: MEDICAID [place] Discharge Planning Comments: CM MET WITH PATIENT TO ASSESS DISCHARGE PLANNING NEEDS. SHE IS PLANS ON GETTING HER NEW HOME ([address] IN [facility]) SHE STATED THAT SHE WAS AT [facility] SHE LEFT THERE ON March. SHE SAID SHE SAVED UP HER MONEY AND WAS STAYING IN A HOTEL, BUT WAS GOING TO STAY WITH NAOMY ( HE HAS HER DOG) WHEN SHE IS DISCHARGED. SHE TOLD ME THAT LUCAS MAO IS THE ONE WHO IS IN CONTROL OF HER MONEY NOW HIS NUMBER IS [phone]. SHE HAS A MOTHER ELIZABETH GALICIA. HER SISTER REMIGIO GALICIA IS IN [place], BUT SHOULD BE GETTING OUT. PATIENT HAS GIVEN ME PERMISSION TO CALL BOTH HER MOTHER AND HER FRIEND LUCAS. I ATTEMPTED TO CALL BOTH AND DID NOT GET AN ANSWER. SHE DOES NOT HAVE ANY DME. SHE DOES NOT WANT TO GO BACK TO A RETIREMENT. SHE SAID SHE HAS BEEN IN [place] [facility] [place] [facility]. PATIENT ALSO REPORT THAT SHE HAS SSI. I HAVE CALLED [facility] WITH [employer] TO VERIFY THIS, I LEFT MESSAGE WITH THEM. SHE ALSO GAVE ME A DIFFERENT CELL NUMBER FOR HERSELF THAT IS ON THE FACESHEET, I AM UNSURE IF WHAT SHE SAID IS ACCURATE [phone] LUCAS MAO ([phone]) Pit Furnace Operator: Citlaly Mcdonald DCP- Discharge Planning Updated by [email or web address]: Citlaly Mcdonald on 05/09/20 12:[address] ATTEMPTED TO SEE THE PATIENT BUT SHE WAS SLEEPING (SNORING) WILL ATTEMPT TO SEE HER AGAIN AT A LATER TIME DCPIA - Discharge Planning Initial Assessment Updated by [id number]: Citlaly Mcdonald on 05/10/20 12:59 pm * Is the patient Alert and Oriented? Yes * PCP DR MORTENSEN * Pharmacy [facility] * Preadmission Environment Home with Family * ADLs Independent * Equipment Ostomy Supplies * List name and contact numbers for known caregivers / representatives who currently or will assist patient after discharge: ELIZABETH GALICIA ( MOTHER) [phone] * Verbal permission to speak to the caregivers and representatives has been obtained from the patient. N/A * Community resources currently utilized None * Additional services required to return to the preadmission environment? Yes * Has this patient been hospitalized within the prior 30 days at any hospital? No Last DP export: 05/12/20 3:45 p Patient Name: CAROLYN GALICIA Page 82804 at 1704 All edits/amendments must be made on the electronic document DICTATION DATE: 05/12/201702 CLASS B DRIVER: CARLA 05/12/201702 RPT#: [id number] DC DATE: STATUS: ADM IN [facility] [address] [place] [address] END OF REPORT
[2020-05-12 17:08] VITALS: BP 150/67
--- NOTE | 2020-05-12 17:40 | NUR ---
[facility] DCD WITH CATH TIP INTACT. DISCHARGE INSTRUCTIONS,STATES UDERSTANDING. WILL SALES AND LEASING AGENT MEDS FROM PHARMACY.RIDE TO COME AND PICK HER UP
--- NOTE | 2020-05-12 18:10 | NUR ---
RIDE HERE. LEFT UNIT VIA WHEELCHAIR FOR TRANSPORT HOME.
--- NOTE | 2020-05-15 14:28 | MORECARE ---
CASE MANAGEMENT DISCHARGE SUMMARY PATIENT: CAROLYN GALICIA UNIT: [id number] ADM DATE: 05/02/20 AGE: 49 : 74 SEX: F ROOM/BED: D.2216 AUTHOR: JESUS,DOC PHYSICIAN: REFERRING PHYSICIAN: RAY MCCONNELL MD DATE OF SERVICE: 05/15/20 Discharge Plan Patient Name: CAROLYN GALICIA Facility: [facility]:[place] : 1970 Planned Disposition: Home with Home Health Anticipated Discharge Date: Discharge Date: 05/12/2020 Expected LOS: Initial Reviewer: [id number] Initial Review Date: 05/02/2020 Generated: 05/15/20 3:27 pm Comments DCP- Discharge Planning Updated by [email or web address]: Citlaly Mcdonald on 05/12/20 4:[address] SPOKE WITH PATIENT ABOUT NOT GETTING WALKER AND HH WITH [facility]TONIO AND FLAKO ROGER RAY WITH [facility] HERE AND MET PATIENT AND REFERRAL GIVEN TO HIM DCP- Discharge Planning Updated by [id number]: Citlaly Mcdonald on 05/12/20 3:[address] nando with [facility] called and stated that she could not get a walker because she had one in aug 2018 so insurance would not pay [facility] also called and stated that they would not be able to take her as a patient due to her drug history DCP- Discharge Planning Updated by [id number]: Citlaly Mcdonald on 05/12/20 3:[address] I HAVE SPOKE WITH MARSHALL AT [facility] AND SENT A REFERRAL TO HER PER PATIENT'S REQUEST. BECK STATED HIS SON WILL BE THE ONE TO TAKE HER HOME AND THE WALKER WILL BE DELIVERED TO THE HOSPITAL CM TO FOLLOW NEEDED DCP- Discharge Planning Updated by [email or web address]: Citlaly Mcdonald on 05/12/20 2:[address] REFFERAL TO [facility] WILL DELIVER A WALKER WITH A SEAT TO THE HOSPITAL DCP- Discharge Planning Updated by [id number]: Citlaly Mcdonald on 05/12/20 2:[address] I SENT A REFERRAL TO [facility] AND THEY STATED THAT THEY HAVE HAD HER BEFORE AND NOT TAKING HER BACK. I SENT THE REFERRAL TO [facility]. LIZZETH HAS DELIVERED HER A TANK TO THE HOSPITAL. DCP- Discharge Planning Updated by [email or web address]: Citlaly Munizken on 05/11/20 5:[address] I spoke with the patient today about her plan. She asked me to call Lucas Mao again ) I spoke with Mr Mao about her being discharged tomorrow and he stated that she was staying with him at [address] and he will me the one to pick her up tomorrow. I asked him if it would be ok for home health to come to his home and he was fine with that . I will send the referral to Care . Patient's cell number is [phone] DCP- Discharge Planning Updated by [email or web address]: Citlaly Munizken on 05/10/20 12:[address] Patient Name: CAROLYN GALICIA Admission Status: ER Accout number: [id number] Admission Date: 05-02-2020 : 1970 Admission Diagnosis:HYPERTENSIVE HEART DISEASE WITH HEART FAILURE Attending: DA Current LOS: 8 Anticipated DC Date: Planned Disposition: Home with Home Health Primary Insurance: MEDICAID [place] Discharge Planning Comments: CM MET WITH PATIENT TO ASSESS DISCHARGE PLANNING NEEDS. SHE IS PLANS ON GETTING HER NEW HOME ([address] IN [facility]) SHE STATED THAT SHE WAS AT [facility] SHE LEFT THERE ON March. SHE SAID SHE SAVED UP HER MONEY AND WAS STAYING IN A HOTEL, BUT WAS GOING TO STAY WITH NAOMY ( HE HAS HER DOG) WHEN SHE IS DISCHARGED. SHE TOLD ME THAT LUCAS MAO IS THE ONE WHO IS IN CONTROL OF HER MONEY NOW HIS NUMBER IS [phone]. SHE HAS A MOTHER ELIZABETH GALICIA. HER SISTER REMIGOI GALICIA IS IN [place], BUT SHOULD BE GETTING OUT. PATIENT HAS GIVEN ME PERMISSION TO CALL BOTH HER MOTHER AND HER FRIEND LUCAS. I ATTEMPTED TO CALL BOTH AND DID NOT GET AN ANSWER. SHE DOES NOT HAVE ANY DME. SHE DOES NOT WANT TO GO BACK TO A CORRECTION. SHE SAID SHE HAS BEEN IN [facility]. PATIENT ALSO REPORT THAT SHE HAS SSI. I HAVE CALLED [facility] TO VERIFY THIS, I LEFT MESSAGE WITH THEM. SHE ALSO GAVE ME A DIFFERENT CELL NUMBER FOR HERSELF THAT IS ON THE FACESHEET, I AM UNSURE IF WHAT SHE SAID IS ACCURATE [phone] LUCAS MAO ([phone]) Education Technician: Citlaly Mcdonald DCP- Discharge Planning Updated by [id number]: Citlaly Mcdonald on 05/09/20 12:[address] ATTEMPTED TO SEE THE PATIENT BUT SHE WAS SLEEPING (SNORING) WILL ATTEMPT TO SEE HER AGAIN AT A LATER TIME DCPIA - Discharge Planning Initial Assessment Updated by [id number]: Citlaly Mcdonald on 05/10/20 12:59 pm * Is the patient Alert and Oriented? Yes * PCP DR MORTENSEN * Pharmacy [facility]? * Preadmission Environment Home with Family * ADLs Independent * Equipment Ost[employer] Supplies * List name and contact numbers for known caregivers / representatives who currently or will assist patient after discharge: ELIZABETH GALICIA ( MOTHER) [phone] * Verbal permission to speak to the caregivers and representatives has been obtained from the patient. N/A * Community resources currently utilized None * Additional services required to return to the preadmission environment? Yes * Has this patient been hospitalized within the prior 30 days at any hospital? No Last DP export: 05/12/20 4:04 p Patient Name: CAROLYN GALICIA Page 59032 at 1428 All edits/amendments must be made on the electronic document DICTATION DATE: 05/15/201426 TANKER DRIVER: CARLA 05/15/201426 RPT#: [id number] DC DATE:05/12/20 STATUS: DIS IN [facility] [address] [place] [address] END OF REPORT
== END 2020-05-12 18:11 | disposition home health service (06) | DRG 291 ==
LOC: D.ER 00:23 → D.MS 04:25 → D.ICU 05-06 15:34 → D.MS 05-07 10:32
PROVIDERS: Family Medicine; ADMIT Family Medicine; ATTEND Family Medicine
PROC: 05H533Z Insertion of Infusion Device into Right Subclavian Vein, Percutaneous Approach (ICD-10-PCS; principal; 2020-05-06)
DX: I11.0 Hypertensive heart disease with heart failure (principal); J96.01 Acute respiratory failure with hypoxia; J18.9 Pneumonia, unspecified organism; J44.1 Chronic obstructive pulmonary disease with (acute) exacerbation; Z68.42 Body mass index [BMI] 45.0-49.9, adult; B37.0 Candidal stomatitis; J98.11 Atelectasis; I50.23 Acute on chronic systolic (congestive) heart failure; R62.7 Adult failure to thrive; E11.65 Type 2 diabetes mellitus with hyperglycemia; K21.9 Gastro-esophageal reflux disease without esophagitis; Y95 Nosocomial condition; R15.9 Full incontinence of feces; R32 Unspecified urinary incontinence; Z87.891 Personal history of nicotine dependence; R21 Rash and other nonspecific skin eruption; E66.01 Morbid (severe) obesity due to excess calories; F32.9 Major depressive disorder, single episode, unspecified; I25.10 Atherosclerotic heart disease of native coronary artery without angina pectoris; J30.9 Allergic rhinitis, unspecified; E78.5 Hyperlipidemia, unspecified

== ENCOUNTER 2020-05-16 12:53 | Inpatient (IN) | payer MEDICAID ==
[~2020-05-16] VITALS: Ht 165.1 cm; Wt 135.2 kg
[~2020-05-16 12:53] MED LIST changes: +LEXAPRO10 MG PO; +OMNICEF300 MG PO; +PREDNISONE10 MG PO; +REMERON15 MG PO; +VIBRAMYCIN 100100 MG PO
[2020-05-16 14:02] LABS: BASOPHILS 0.2 % (0-2); EOSINOPHILS 1.1 % (0-7); HEMATOCRIT 38.8 % (36.0-48.0); HEMOGLOBIN 11.5 g/dL (12-16); IMMATURE GRANULOCYTES 0.5 % (0-5); LYMPHOCYTES 15.6 % (15-50); MCH 26.2 pg (26.0-34.0); MCHC 29.6 g/dL (31.0-37.0); MCV 88.4 fL (80.0-100.0); MONOCYTES 5.2 % (2-11); NEUTROPHILS 77.4 % (40-80); PLATELET COUNT 212 10x3/uL (130-400); RBC 4.39 10x6/uL (4.00-5.40); RDW 15.8 % (11.5-14.5)
[2020-05-16 14:05] VITALS: BP 171/98
[2020-05-16 14:09] LABS: CALC OSMOLALITY 292 mosm/kg (275-300); CALCIUM 9.1 mg/dL (8.5-10.1); CARBON DIOXIDE 34.7 mmol/L (21.0-32.0); CHLORIDE - SERUM 102 mmol/L (98-107); CREATININE - SERUM 1.2 mg/dL (0.6-1.3); POTASSIUM - SERUM 4.3 mmol/L (3.5-5.1); SODIUM 139 mmol/L (136-145); UREA NITROGEN 20 mg/dL (7-18); eGFR NON AFRICAN AMERICAN 51 mL/min (90-120)
[2020-05-16 14:10] LABS: GLUCOSE 311 mg/dL (74-106)
[2020-05-16 14:20] LABS: APTT 24.5 SECONDS (22.8-39.4); PROTIME 13.1 SECONDS (11.6-15.0)
[2020-05-16 14:26] LABS: ALKALINE PHOSPHATASE 102 U/L (30-120); ALT (SGPT) 32 U/L (10-68); BILIRUBIN - TOTAL 0.44 mg/dL (0.2-1.3); CKMB 0.8 U/L (0.0-3.6); CREATINE KINASE 44 UL (21-215); MAGNESIUM - SERUM 2.3 mg/dL (1.8-2.4); PRO BNP 347 pg/mL (0-125); PROTEIN - SERUM 7.5 g/dL (6.4-8.2); TROPONIN-I 0.022 ng/mL (0.000-0.060)
[2020-05-16 14:56] VITALS: BP 150/75
--- NOTE | 2020-05-16 15:17 | NUR ---
URINE SAMPLE OBATINED AND SENT TO LAB
[2020-05-16 15:32] VITALS: BP 142/77
[2020-05-16 15:36] LABS: BILIRUBIN NEGATIVE (NEGATIVE); KETONE NEGATIVE (NEGATIVE); NITRITE NEGATIVE (NEGATIVE); UROBILINOGEN NORMAL (NORMAL); WHITE CELLS - URINE 0-5 /hpf (NEGATIVE)
[2020-05-16 15:37] LABS: BACTERIA MANY /hpf (NEGATIVE); EPITHELIAL CELLS 0-5 /hpf (0-5)
[2020-05-16 19:30] VITALS: BP 141/87
[2020-05-16 21:17] VITALS: BP 154/84
--- NOTE | 2020-05-16 22:00 | NUR ---
RECEIVED TO FLOOR. A&O. AMBULATES WITH STAND-BY ASSIST. REPORTS A HEADACHE. 3L O2 IN USE. REQUESTS SHOWER AND SANDWHICH TRAY, NO FURTHER NEEDS AT THIS TIME, CPOC.
[2020-05-17] VITALS: BP 152/77
[2020-05-17 02:00] VITALS: BMI 50.0
[2020-05-17 04:00] VITALS: BP 156/64
--- NOTE | 2020-05-17 08:02 | NUR ---
PT ALERT AND ORIENTED IN BED UPON ENTERING. ADMINISTERED MORNING MEDICATION, NO DIFFICULTIES. INSTRUCTED PT TO DRINK ORAL CONTRAST FOR CT SCAN ORDERED FOR THIS AM. PT ARGUMENATIVE ABOUT DRINKING IT AND NOT BEING ABLE TO EAT BREAKFAST UNTIL AFTER THE SCAN. EDUCATED PT ON THE REASONING FOR NOT BEING ABLE TO EAT SOLIDS BEFORE SCAN. PT IS NOW DRINKING CONTRAST. UP RIGHT AT BEDSIDE. DENIES ANY OTHER NEEDS. WILL CONTINUE TO MONITOR.
--- NOTE | 2020-05-17 08:11 | NUR ---
ADMINISTERED PRN ZOFRAN FOR REPORTED NAUSEA.
[2020-05-17 08:50] VITALS: BP 172/94
[2020-05-17 09:29] LABS: BASOPHILS 0.2 % (0-2); EOSINOPHILS 1.6 % (0-7); HEMATOCRIT 38.6 % (36.0-48.0); HEMOGLOBIN 11.3 g/dL (12-16); IMMATURE GRANULOCYTES 0.3 % (0-5); LYMPHOCYTES 13.5 % (15-50); MCHC 29.3 g/dL (31.0-37.0); MCV 88.7 fL (80.0-100.0); MEAN PLATELET VOLUME 11.1 fL (7.4-10.4); MONOCYTES 5.8 % (2-11); NEUTROPHILS 78.6 % (40-80); PLATELET COUNT 215 10x3/uL (130-400); RBC 4.35 10x6/uL (4.00-5.40); RDW 15.7 % (11.5-14.5)
--- NOTE | 2020-05-17 09:44 | NUR ---
PT PULLED OUT IV FROM LEFT CHEST, CATHETER TIP INTACT, COVERED WITH GAUZE AND TAPE. VASCULAR ACCESS WAS ABLE TO START A 20 GA IV TO THE RIGHT FOREARM.
--- NOTE | 2020-05-17 09:58 | NUR ---
PT TO CAT SCAN.
--- NOTE | 2020-05-17 10:08 | NUR ---
Rehab Note- Acute Inpatient Rehab prescreen order received. THe patient has Medicaid and can not be accepted to [facility] Acute Inpatient REhab. Thank you for this referral! Shelley Isabel RN Clinical Liaison, [facility] Rehab
[2020-05-17 10:15] LABS: ALBUMIN 2.9 g/dL (3.4-5.0); ALKALINE PHOSPHATASE 97 U/L (30-120); ALT (SGPT) 34 U/L (10-68); BILIRUBIN - TOTAL 0.61 mg/dL (0.2-1.3); CALCIUM 8.9 mg/dL (8.5-10.1); CARBON DIOXIDE 36.6 mmol/L (21.0-32.0); CHLORIDE - SERUM 101 mmol/L (98-107); CKMB 1.4 U/L (0.0-3.6); CREATINE KINASE 54 UL (21-215); CREATININE - SERUM 0.9 mg/dL (0.6-1.3); MAGNESIUM - SERUM 2.1 mg/dL (1.8-2.4); PHOSPHOROUS 4.3 mg/dL (2.5-4.9); POTASSIUM - SERUM 3.9 mmol/L (3.5-5.1); PROTEIN - SERUM 6.6 g/dL (6.4-8.2); SODIUM 141 mmol/L (136-145); TROPONIN-I 0.039 ng/mL (0.000-0.060); UREA NITROGEN 15 mg/dL (7-18); eGFR NON AFRICAN AMERICAN 71 mL/min (90-120)
[2020-05-17 10:16] LABS: CALC OSMOLALITY 287 mosm/kg (275-300); GLUCOSE 203 mg/dL (74-106)
--- NOTE | 2020-05-17 11:12 | NUR ---
I have reviewed this patient and I concur with the Shift Assessment completed by the Licensed Practical Nurse today this shift.
--- NOTE | 2020-05-17 12:04 | NUR ---
GAVE 8 UNITS INSULIN PER SLIDING SCALE, SUGAR 229. ASSISTED PT TO BEDSIDE COMMODE AND BACK TO BED. PT DOES NOT REALLY REQUIRE ANY ASSISTANCE. JUST STAND BY REASSURANCE. RESTING COMFORTABLY IN BED, DENIES ANY NEEDS. WILL CONTINUE TO MONITOR.
[2020-05-17 13:31] VITALS: BP 176/87
[2020-05-17 14:32] VITALS: Ht 165.1 cm; Wt 135.2 kg
--- NOTE | 2020-05-17 14:59 | NUR ---
PT LAYING IN BED WITH EYES CLOSED UPON ENTERING. ADMINISTERED PRN MORPHINE FOR REPORTED 9/10 PAIN. PT SEEMS TO BE COMFORTABLE ENOUGH THOUGH, DENIES ANY NEEDS. WILL CONTINUE TO MONITOR.
--- NOTE | 2020-05-17 15:23 | NUR ---
ADMINISTERED ZOFRAN DUE TO PT COMPLAINING OF NAUSEA/VOMITTING. WILL REASSESS.
[2020-05-17 16:37] VITALS: BP 124/47
--- NOTE | 2020-05-17 16:50 | NUR ---
PT REFUSED TO TAKE PO MEDICATION DUE TO N/V. ASSESSED BLOOD SUGAR, READING OF 406. RECHECKED, READING OF 416. ADMNISTERED 20 UNITS INSULIN PER SLIDING SCALE AND WILL NOTIFY MD IMMEDIATELY. RESTING IN BED, DENIES ANY NEEDS. WILL CONTINUE TO MONITOR.
[2020-05-17 20:00] VITALS: BP 105/48
--- NOTE | 2020-05-17 21:00 | NUR ---
REPORTS N/V. 400ML LIGHT BROWN EMESIS. CTM.
[2020-05-18 04:00] VITALS: BP 110/59
--- NOTE | 2020-05-18 05:20 | NUR ---
I have reviewed this patient and I concur with the Shift Assessment completed by the Licensed Practical Nurse today this shift.
[2020-05-18 05:38] LABS: ANION GAP 4.1 mmol/L (8-16); CALCIUM 8.7 mg/dL (8.5-10.1); CARBON DIOXIDE 38.3 mmol/L (21.0-32.0); CREATININE - SERUM 1.1 mg/dL (0.6-1.3); MAGNESIUM - SERUM 2.1 mg/dL (1.8-2.4); PHOSPHOROUS 3.6 mg/dL (2.5-4.9); POTASSIUM - SERUM 4.4 mmol/L (3.5-5.1)
[2020-05-18 05:45] LABS: HEMATOCRIT 42.4 % (36.0-48.0); HEMOGLOBIN 12.1 g/dL (12-16); LYMPHOCYTES 12.9 % (15-50); MCHC 28.5 g/dL (31.0-37.0); MEAN PLATELET VOLUME 11.9 fL (7.4-10.4); PLATELET COUNT 214 10x3/uL (130-400); RBC 4.66 10x6/uL (4.00-5.40); RDW 15.4 % (11.5-14.5); WBC 12.1 10x3/uL (4.8-10.8)
[2020-05-18 08:00] VITALS: BP 121/72
[2020-05-18 12:00] VITALS: BP 129/74
--- NOTE | 2020-05-18 14:49 | MORECARE ---
CASE MANAGEMENT DISCHARGE SUMMARY PATIENT: CAROLYN GALICIA UNIT: [id number] ADM DATE: 05/16/20 AGE: 49 : 74 SEX: F ROOM/BED: D.2239 AUTHOR: ANGEL LEE PHYSICIAN: REFERRING PHYSICIAN: RUBEN MARIE MD DATE OF SERVICE: 05/18/20 Discharge Plan Patient Name: CAROLYN GALICIA Facility: [facility]:[place] : 1970 Planned Disposition: Anticipated Discharge Date: Discharge Date: Expected LOS: Initial Reviewer: [id number] Initial Review Date: 05/16/2020 Generated: 05/18/20 3:48 pm Comments DCP- Discharge Planning Updated by [id number]: Kelly Tran on 05/18/20 1:[address] Patient Name: CAROLYN GALICIA Admission Status: ER Accout number: [id number] Admission Date: 05-16-2020 : 1970 Admission Diagnosis: Attending: RUBEN MARIE Current LOS: 2 Anticipated DC Date: Planned Disposition: Primary Insurance: MEDICAID [place] Discharge Planning Comments: CM SPOKE WITH CHUN AT [facility] AND REPORTED PATIENT NOT CAPABLE OF CARING FOR HER SELF MENTALY. WAITING CALL BACK FROM [facility] WITH CASE NUMBER. [facility] PHONE NUMBER [phone]. Chemist Assistant: Kelly Tran Patient Name: CAROLYN GALICIA Page [phone] at 1449 All edits/amendments must be made on the electronic document DICTATION DATE: 05/18/20 1448 STUDENT SUCCESS ADVISOR: CARLA 05/18/20 1448 RPT#: [id number] DC DATE: STATUS: ADM IN [facility] [address] [place] [address] END OF REPORT
[2020-05-18 15:26] VITALS: BP 108/64
[2020-05-18 20:00] VITALS: BP 98/56
[2020-05-19 04:00] VITALS: BP 104/55
--- NOTE | 2020-05-19 04:02 | NUR ---
PT C/O LEFT UPPER ARM IV BURNING. REMOVED IV CATHETER INTACT. RESITED 22 G IV TO POSTERIOR LEFT FOREARM. RESUMED IV ANTIBIOTIC INFUSION. BROUGHT PT A DIET COLA. NO OTHER NEEDS. WILL REASSESS AND CONTINUE TO MONITOR.
[2020-05-19 06:57] LABS: BASOPHILS 0.2 % (0-2); EOSINOPHILS 1.5 % (0-7); HEMATOCRIT 40.9 % (36.0-48.0); HEMOGLOBIN 11.6 g/dL (12-16); IMMATURE GRANULOCYTES 0.4 % (0-5); LYMPHOCYTES 15.3 % (15-50); MCH 25.7 pg (26.0-34.0); MCHC 28.4 g/dL (31.0-37.0); MCV 90.5 fL (80.0-100.0); MEAN PLATELET VOLUME 11.3 fL (7.4-10.4); MONOCYTES 5.1 % (2-11); NEUTROPHILS 77.5 % (40-80); PLATELET COUNT 230 10x3/uL (130-400); RBC 4.52 10x6/uL (4.00-5.40); RDW 15.4 % (11.5-14.5)
[2020-05-19 06:58] LABS: ANION GAP 2.3 mmol/L (8-16); CALCIUM 8.2 mg/dL (8.5-10.1); CARBON DIOXIDE 39.6 mmol/L (21.0-32.0); PHOSPHOROUS 3.4 mg/dL (2.5-4.9); POTASSIUM - SERUM 3.9 mmol/L (3.5-5.1)
[2020-05-19 08:08] VITALS: BP 122/71
[2020-05-19 13:17] VITALS: BP 117/70
--- NOTE | 2020-05-19 14:25 | NUR ---
Nutrition follow-up: Diet: consistent CHO PO intake 75-100% of last 3 meals - nausea improved Labs reviewed Wt: 292# RDN following.
[2020-05-19 16:10] VITALS: BP 107/57
--- NOTE | 2020-05-19 16:34 | MORECARE ---
CASE MANAGEMENT DISCHARGE SUMMARY PATIENT: CAROLYN GALICIA UNIT: [id number] ADM DATE: 05/18/20 AGE: 49 : 74 SEX: F ROOM/BED: D.2239 AUTHOR: ANGEL LEE PHYSICIAN: REFERRING PHYSICIAN: RUBEN MARIE MD DATE OF SERVICE: 05/19/20 Discharge Plan Patient Name: CAROLYN GALICIA Facility: [facility]:[place] : 1970 Planned Disposition: Anticipated Discharge Date: Discharge Date: Expected LOS: Initial Reviewer: [id number] Initial Review Date: 05/16/2020 Generated: 05/19/20 5:33 pm Comments DCP- Discharge Planning Updated by [id number]: Kelly Tran on 05/18/20 1:[address] Patient Name: CAROLYN GALICIA Admission Status: ER Accout number: [id number] Admission Date: 05-16-2020 : 1970 Admission Diagnosis: Attending: RUBEN MARIE Current LOS: 2 Anticipated DC Date: Planned Disposition: Primary Insurance: MEDICAID [place] Discharge Planning Comments: CM SPOKE WITH CHUN AT [facility] AND REPORTED PATIENT NOT CAPABLE OF CARING FOR HER SELF MENTALY. WAITING CALL BACK FROM [facility] WITH CASE NUMBER. [facility] PHONE NUMBER [phone]. General Expeditor: Kelly Tran External Providers External Provider: OTHER-OTHER Next Contact Date: Service Request Date: Service Type: Resolution: Reviewer: Comments: Last DP export: 05/18/20 1:49 p Patient Name: CAROLYN GALICIA Page [phone] at 1634 All edits/amendments must be made on the electronic document DICTATION DATE: 05/19/20 163 BANK SALES AND SERVICE MANAGER: CARLA 05/19/20 163 RPT#: [id number] DC DATE: STATUS: ADM IN [place] [address] [place] [address] END OF REPORT
--- NOTE | 2020-05-19 16:42 | MORECARE ---
CASE MANAGEMENT DISCHARGE SUMMARY PATIENT: CAROLYN GALICIA UNIT: [id number] ADM DATE: 05/18/20 AGE: 49 : 74 SEX: F ROOM/BED: D.2239 AUTHOR: ANGEL LEE PHYSICIAN: REFERRING PHYSICIAN: RUBEN MARIE MD DATE OF SERVICE: 05/19/20 Discharge Plan Patient Name: CAROLYN GALICIA Facility: [facility]:[place] : 1970 Planned Disposition: Anticipated Discharge Date: Discharge Date: Expected LOS: Initial Reviewer: [id number] Initial Review Date: 05/16/2020 Generated: 05/19/20 5:41 pm Comments DCP- Discharge Planning Updated by [id number]: Kelly Tran on 05/19/20 3:[address] Patient Name: CAROLYN GALICIA Admission Status: ER Accout number: [id number] Admission Date: 05-18-2020 : 1970 Admission Diagnosis: Attending: RUBEN MARIE Current LOS: 1 Anticipated DC Date: Planned Disposition: Primary Insurance: MEDICAID [place] Discharge Planning Comments: SUKUMAR WITH [facility] WAS HERE TO VISIT WITH PATIENT. CM FAXED HIM REQUESTED DOCUMENTS. WAITING CALL BACK FROM [facility]. Repair Service Clerk: Kelly Tran DCP- Discharge Planning Updated by [id number]: Kelly Tran on 05/18/20 1:[address] Patient Name: CAROLYN GALICIA Admission Status: ER Accout number: [id number] Admission Date: 05-16-2020 : 1970 Admission Diagnosis: Attending: RUBEN MARIE Current LOS: 2 Anticipated DC Date: Planned Disposition: Primary Insurance: MEDICAID [place] Discharge Planning Comments: CM SPOKE WITH CHUN AT [facility] AND REPORTED PATIENT NOT CAPABLE OF CARING FOR HER SELF MENTALY. WAITING CALL BACK FROM [facility] WITH CASE NUMBER. [facility] PHONE NUMBER [phone]. Repair Service Clerk: Kelly Oakley DP export: 05/19/20 3:34 p Patient Name: CAROLYN GALICIA Page 92245 at 1642 All edits/amendments must be made on the electronic document DICTATION DATE: 05/19/201640 BURNER OPERATOR: CARLA 05/19/201640 RPT#: [id number] DC DATE: STATUS: ADM IN [facility] [address] [place] [address] END OF REPORT
[2020-05-20 04:00] VITALS: BP 134/85
[2020-05-20 06:50] LABS: BASOPHILS 0.2 % (0-2); EOSINOPHILS 1.3 % (0-7); HEMATOCRIT 41.3 % (36.0-48.0); HEMOGLOBIN 11.8 g/dL (12-16); IMMATURE GRANULOCYTES 0.3 % (0-5); LYMPHOCYTES 14.4 % (15-50); MCHC 28.6 g/dL (31.0-37.0); MCV 91.2 fL (80.0-100.0); MEAN PLATELET VOLUME 11.8 fL (7.4-10.4); MONOCYTES 3.5 % (2-11); NEUTROPHILS 80.3 % (40-80); PLATELET COUNT 231 10x3/uL (130-400); RBC 4.53 10x6/uL (4.00-5.40); RDW 15.6 % (11.5-14.5); WBC 10.3 10x3/uL (4.8-10.8)
[2020-05-20 06:55] LABS: ANION GAP 4.2 mmol/L (8-16); CALCIUM 8.5 mg/dL (8.5-10.1); CARBON DIOXIDE 38.1 mmol/L (21.0-32.0); CREATININE - SERUM 0.9 mg/dL (0.6-1.3); MAGNESIUM - SERUM 2.1 mg/dL (1.8-2.4); PHOSPHOROUS 3.8 mg/dL (2.5-4.9); POTASSIUM - SERUM 4.3 mmol/L (3.5-5.1)
[2020-05-20 09:42] VITALS: BP 119/72
[2020-05-20 12:12] VITALS: BP 117/47
[2020-05-20 17:08] VITALS: BP 127/74
[2020-05-20 20:00] VITALS: BP 106/62
[2020-05-21] VITALS: BP 126/81
[2020-05-21 04:00] VITALS: BP 142/88
[2020-05-21 07:38] LABS: ANION GAP 2.4 mmol/L (8-16); CALCIUM 8.8 mg/dL (8.5-10.1); CREATININE - SERUM 1.1 mg/dL (0.6-1.3); MAGNESIUM - SERUM 2.2 mg/dL (1.8-2.4); POTASSIUM - SERUM 4.3 mmol/L (3.5-5.1)
[2020-05-21 07:42] LABS: BASOPHILS 0.3 % (0-2); EOSINOPHILS 1.5 % (0-7); HEMATOCRIT 43.2 % (36.0-48.0); HEMOGLOBIN 12.1 g/dL (12-16); IMMATURE GRANULOCYTES 0.2 % (0-5); LYMPHOCYTES 16.2 % (15-50); MCH 25.7 pg (26.0-34.0); MCV 91.7 fL (80.0-100.0); MEAN PLATELET VOLUME 11.6 fL (7.4-10.4); MONOCYTES 6.7 % (2-11); NEUTROPHILS 75.1 % (40-80); PLATELET COUNT 220 10x3/uL (130-400); RBC 4.71 10x6/uL (4.00-5.40); RDW 15.6 % (11.5-14.5); WBC 9.5 10x3/uL (4.8-10.8)
[2020-05-21 08:16] LABS: CARBON DIOXIDE 42.9 mmol/L (21.0-32.0)
[2020-05-21 09:45] VITALS: BP 124/57
[2020-05-21 12:11] VITALS: BP 118/50
[2020-05-21 17:32] VITALS: BP 133/71
[2020-05-21 20:26] VITALS: BP 121/74
[2020-05-22 00:16] VITALS: BP 107/77
[2020-05-22 06:47] LABS: BASOPHILS 0.2 % (0-2); EOSINOPHILS 0.8 % (0-7); HEMATOCRIT 41.3 % (36.0-48.0); HEMOGLOBIN 11.6 g/dL (12-16); IMMATURE GRANULOCYTES 0.3 % (0-5); LYMPHOCYTES 10.6 % (15-50); MCH 25.7 pg (26.0-34.0); MCHC 28.1 g/dL (31.0-37.0); MCV 91.6 fL (80.0-100.0); MEAN PLATELET VOLUME 11.9 fL (7.4-10.4); MONOCYTES 2.6 % (2-11); NEUTROPHILS 85.5 % (40-80); PLATELET COUNT 216 10x3/uL (130-400); RBC 4.51 10x6/uL (4.00-5.40); RDW 15.7 % (11.5-14.5); WBC 9.6 10x3/uL (4.8-10.8)
[2020-05-22 07:38] LABS: ANION GAP 4.4 mmol/L (8-16); CALCIUM 8.7 mg/dL (8.5-10.1); CARBON DIOXIDE 38.4 mmol/L (21.0-32.0); CREATININE - SERUM 1.2 mg/dL (0.6-1.3); MAGNESIUM - SERUM 2.1 mg/dL (1.8-2.4); PHOSPHOROUS 2.9 mg/dL (2.5-4.9); POTASSIUM - SERUM 4.8 mmol/L (3.5-5.1)
[2020-05-22 08:54] VITALS: BP 155/93
--- NOTE | 2020-05-22 10:49 | NUR ---
PATIENT WALKED WITH PHYSICAL THERAPY, SITTING UP IN CHAIR WITH CHAIR ALARM ON. DENIES PAIN OR NEEDS. CALL LIGHT IN REACH, PERSONAL ITEMS IN REACH. WILL CONTINUE TO MONITOR.
[2020-05-22 13:05] VITALS: BP 121/78
[2020-05-22 17:37] VITALS: BP 136/79
[2020-05-22 22:03] VITALS: BP 149/73
--- NOTE | 2020-05-23 01:18 | NUR ---
PT WORE BIPAP FOR APPROX 30 MINUTES EARLIER THEN TOOK OFF AND STATES SHE CANNOT WEAR IT. I TOLD HER SHE WOULD NEED TO SPEAK WITH DR CAMARGO ABOUT IT HE EXPECTS HER TO WEAR IT FOR SLEEP
[2020-05-23 04:00] VITALS: BP 159/86
[2020-05-23 07:37] LABS: BASOPHILS 0.1 % (0-2); EOSINOPHILS 0.1 % (0-7); HEMATOCRIT 41.7 % (36.0-48.0); HEMOGLOBIN 12.3 g/dL (12-16); IMMATURE GRANULOCYTES 0.4 % (0-5); MCHC 29.5 g/dL (31.0-37.0); MEAN PLATELET VOLUME 11.3 fL (7.4-10.4); MONOCYTES 6.4 % (2-11); PLATELET COUNT 218 10x3/uL (130-400); RBC 4.73 10x6/uL (4.00-5.40); RDW 15.3 % (11.5-14.5)
[2020-05-23 07:44] LABS: ALBUMIN 2.9 g/dL (3.4-5.0); ANION GAP 0.2 mmol/L (8-16); BILIRUBIN - TOTAL 0.24 mg/dL (0.2-1.3); CALCIUM 9.2 mg/dL (8.5-10.1); CREATININE - SERUM 1.3 mg/dL (0.6-1.3); POTASSIUM - SERUM 4.5 mmol/L (3.5-5.1); PROTEIN - SERUM 7.4 g/dL (6.4-8.2)
[2020-05-23 07:47] LABS: MCV 88.2 fL (80.0-100.0); WBC 14.3 10x3/uL (4.8-10.8)
[2020-05-23 07:59] LABS: CARBON DIOXIDE 42.3 mmol/L (21.0-32.0)
[2020-05-23 11:03] VITALS: BP 187/100
--- NOTE | 2020-05-23 13:43 | NUR ---
Nutrition follow-up: RDN took pt tray and helped with meal set-up. Pt had 2 hamburgers, cheetos, grapes on tray. RDN reviewed CHO count of meal and asked pt to remove some. Pt took a hamburger bun off and only ate one bun with 2 patties. RDN advised pt that she is ordering too many CHO and her glucose is very high. RDN will place an order for only 3 servings of CHO per meal. Pt can have double meat, vegetable servings. RDN following.
[2020-05-23 15:00] VITALS: BP 116/68
[2020-05-23 15:15] VITALS: BP 118/74
[2020-05-23 20:00] VITALS: BP 130/74
--- NOTE | 2020-05-23 23:00 | NUR ---
REPORT GIVEN BY MERLY GUERRERO
--- NOTE | 2020-05-24 00:20 | NUR ---
PT IS SLEEPING ON AND OFF. SHE IS ON BIPAP NO WHEN NOT ON BIPAP SHE IS ON 3 l O2/NC. SHE HAS A SL IN THE LEFT FOREARM. IT IS USED FOR IV ANTIBIOTICS. PT HAS VRE IN HER URINE.
--- NOTE | 2020-05-24 02:00 | NUR ---
PT UNINATED IN HER BED B/C SHE SAID NO ONE WOULD HELP HER GET UP. AFTER THE BED WAS CHANGED I LET THE RAIL DOWN AND TOLD HER NOT TO PEE IN THE BED AGAIN. SHE GOT MAD BUT I REINFORCED THAT TO HER AGAIN. SHE CAN GET TO THE BSC ALONE.
--- NOTE | 2020-05-24 02:39 | NUR ---
EXPLAINED BENEFITS OF BIPAP COMPLIANCE HOWEVER PT REFUSES TO WEAR. NURSE NOTIFIED.
--- NOTE | 2020-05-24 03:00 | NUR ---
PT IS NOW GETTING UP TO THE BSC SINCE THE SIDERAIL IS DOWN. SHE IS SLEEPING AT THIS MOMENT
[2020-05-24 04:00] VITALS: BP 133/88
--- NOTE | 2020-05-24 04:00 | NUR ---
VT IS ASLEEP
--- NOTE | 2020-05-24 06:30 | NUR ---
BS 346
[2020-05-24 07:43] LABS: BASOPHILS 0 % (0-2); EOSINOPHILS 0 % (0-7); HEMATOCRIT 42.1 % (36.0-48.0); HEMOGLOBIN 12.1 g/dL (12-16); IMMATURE GRANULOCYTES 0.3 % (0-5); LYMPHOCYTES 4.6 % (15-50); MCH 25.5 pg (26.0-34.0); MCHC 28.7 g/dL (31.0-37.0); MCV 88.8 fL (80.0-100.0); MEAN PLATELET VOLUME 11.1 fL (7.4-10.4); MONOCYTES 1.5 % (2-11); NEUTROPHILS 93.6 % (40-80); PLATELET COUNT 207 10x3/uL (130-400); RBC 4.74 10x6/uL (4.00-5.40); RDW 15.7 % (11.5-14.5); WBC 11.6 10x3/uL (4.8-10.8)
[2020-05-24 08:43] LABS: ANION GAP 3.8 mmol/L (8-16); BILIRUBIN - TOTAL 0.22 mg/dL (0.2-1.3); CALCIUM 8.8 mg/dL (8.5-10.1); CARBON DIOXIDE 38.2 mmol/L (21.0-32.0); CREATININE - SERUM 1.2 mg/dL (0.6-1.3); PROTEIN - SERUM 7.5 g/dL (6.4-8.2)
--- NOTE | 2020-05-24 09:57 | NUR ---
ALERT AND ORIENTED. LUNGS DIMINISHED TO BLL. HEART SOUNDS S1 AND S2 HEARD IN ALL CUBA. BOWEL SOUNDS ACTIVE X 4. IV TO LFA PATENT WITHOUT REDNESS. DENIES NEEDS. BED LOW. CALL HANKINS AND PERSONAL ITEMS IN REACH. WILL CONTINUE TO MONITOR.
[2020-05-24 09:58] VITALS: BP 118/65
--- NOTE | 2020-05-24 10:07 | NUR ---
DR CAMARGO PAGED FOR CO2 96.6
--- NOTE | 2020-05-24 10:08 | NUR ---
DR CAMARGO NOTIFIED OF PATIENT'S CO2.
[2020-05-24 13:33] VITALS: BP 141/87
[2020-05-24 18:25] VITALS: BP 118/57
[2020-05-24 20:00] VITALS: BP 123/74
[2020-05-25 04:00] VITALS: BP 139/81
[2020-05-25 05:58] LABS: BASOPHILS 0 % (0-2); EOSINOPHILS 0 % (0-7); HEMATOCRIT 41.4 % (36.0-48.0); HEMOGLOBIN 12.4 g/dL (12-16); IMMATURE GRANULOCYTES 0.3 % (0-5); LYMPHOCYTES 4.9 % (15-50); MCH 25.9 pg (26.0-34.0); MEAN PLATELET VOLUME 12.7 fL (7.4-10.4); MONOCYTES 2.2 % (2-11); NEUTROPHILS 92.6 % (40-80); PLATELET COUNT 176 10x3/uL (130-400); RBC 4.79 10x6/uL (4.00-5.40); RDW 15.5 % (11.5-14.5)
[2020-05-25 06:00] LABS: MCV 86.4 fL (80.0-100.0); WBC 14.8 10x3/uL (4.8-10.8)
[2020-05-25 06:06] LABS: ALBUMIN 3.1 g/dL (3.4-5.0); BILIRUBIN - TOTAL 0.37 mg/dL (0.2-1.3); CALCIUM 8.8 mg/dL (8.5-10.1); CARBON DIOXIDE 39.8 mmol/L (21.0-32.0); CREATININE - SERUM 1.3 mg/dL (0.6-1.3); MAGNESIUM - SERUM 2.4 mg/dL (1.8-2.4); PROTEIN - SERUM 7.6 g/dL (6.4-8.2)
[2020-05-25 06:11] LABS: ANION GAP 2.3 mmol/L (8-16); POTASSIUM - SERUM 4.1 mmol/L (3.5-5.1)
[2020-05-25 08:40] VITALS: BP 145/66
[2020-05-25 12:25] VITALS: BP 154/84
[2020-05-25 16:38] VITALS: BP 146/76
[2020-05-25 20:00] VITALS: BP 110/57
--- NOTE | 2020-05-25 20:00 | NUR ---
PATIENT RESTING IN BED WATCHING TV. NO S/S OF ACUTE DISTRESS. NO C/O AT THIS TIME. PATIENT HAS REFUSED CPAP. PATIENT ON 3L OF O2 NASAL CANNULA. PATIENT HAS LEFT FOREARM, SALINE LOC. IV IS PATENT WITHOUT REDNESS, SWELLING, OR TENDERNESS. PATIENT USES BEDSIDE COMMODE. PATIENT IS ON CONTACT PRECAUTIONS. CALL LIGHT WITHIN REACH. WILL CONTINUE TO MONITOR.
--- NOTE | 2020-05-25 23:00 | NUR ---
PATIENT IS NON-COMPLIANT WITH HER DIABETIC DEIT. PATIENT ASKED FOR ICE CREAM EVEN AFTER HER BLOOD SUGAR WAS 372. I EXPLAINED TO PATIENT THAT IT WOULDN'T BE GOOD FOR HER BODY TO HAVE ICE CREAM WITH HOW HIGH HER BLOOD SUGAR IS. PATIENT REPLIED, "IT'S GONNA BE HIGH EITHER WAY. BESIDES YOU GAVE ME INSULIN." I EXPALINED TO THE PATIENT THAT INSULIN IS ONLY EFFECTIVE IF YOU HELP WITH CHANGING YOUR DIET AND PATIENT REFUSED TO LISTEN. PATIENT REQUESTED ICE CREAM AGIAN, KNOWING THAT IT WAS BAD FOR HER. CALL LIGHT WITHIN REACH. WILL CONTINUE TO MONITOR.
[2020-05-26] VITALS: BP 140/65
--- NOTE | 2020-05-26 03:29 | NUR ---
I have reviewed this patient and I concur with the Shift Assessment completed by the Licensed Practical Nurse today this shift.
[2020-05-26 04:00] VITALS: BP 151/90
[2020-05-26 07:09] LABS: BASOPHILS 0 % (0-2); EOSINOPHILS 0 % (0-7); HEMATOCRIT 44.5 % (36.0-48.0); HEMOGLOBIN 12.9 g/dL (12-16); IMMATURE GRANULOCYTES 0.2 % (0-5); LYMPHOCYTES 3.4 % (15-50); MCH 25.6 pg (26.0-34.0); MEAN PLATELET VOLUME 12.4 fL (7.4-10.4); MONOCYTES 1.9 % (2-11); NEUTROPHILS 94.5 % (40-80); RBC 5.03 10x6/uL (4.00-5.40); RDW 15.9 % (11.5-14.5); WBC 12.8 10x3/uL (4.8-10.8)
[2020-05-26 07:12] LABS: MCV 88.5 fL (80.0-100.0); PLATELET COUNT 232 10x3/uL (130-400)
[2020-05-26 07:13] LABS: ALBUMIN 3.1 g/dL (3.4-5.0); ANION GAP 8.8 mmol/L (8-16); BILIRUBIN - TOTAL 0.26 mg/dL (0.2-1.3); CARBON DIOXIDE 36.5 mmol/L (21.0-32.0); CREATININE - SERUM 1.3 mg/dL (0.6-1.3); MAGNESIUM - SERUM 2.7 mg/dL (1.8-2.4); PROTEIN - SERUM 7.6 g/dL (6.4-8.2)
[2020-05-26 07:15] LABS: POTASSIUM - SERUM 5.3 mmol/L (3.5-5.1)
--- NOTE | 2020-05-26 09:09 | NUR ---
SHE IS ALERT, TALKING. GETTING UP AND DOWN TO THE BEDSIDE COMMODE. ASKING FOR ZOFRAN AND TYLENOL. THE CALL LIGHT IS WITHIN REACH.
[2020-05-26 09:16] VITALS: BP 120/76
[2020-05-26 12:57] VITALS: BP 125/60
[2020-05-26 14:46] LABS: POTASSIUM - SERUM 4.9 mmol/L (3.5-5.1)
--- NOTE | 2020-05-26 15:25 | MORECARE ---
CASE MANAGEMENT DISCHARGE SUMMARY PATIENT: CAROLYN GALICIA UNIT: [id number] ADM DATE: 05/18/20 AGE: 49 : 74 SEX: F ROOM/BED: D.2239 AUTHOR: JESUSDOC PHYSICIAN: REFERRING PHYSICIAN: RUBEN MARIE MD DATE OF SERVICE: 05/26/20 Discharge Plan Patient Name: CAROLYN GALICIA Facility: [facility]:[place] : 1970 Planned Disposition: Anticipated Discharge Date: Discharge Date: Expected LOS: Initial Reviewer: [id number] Initial Review Date: 05/16/2020 Generated: 05/26/20 4:25 pm Comments DCP- Discharge Planning Updated by [id number]: Kelly Tran on 05/26/20 2:[address] Patient Name: CAROYLN GALICIA Admission Status: ER Accout number: [id number] Admission Date: 05-18-2020 : 1970 Admission Diagnosis:URINARY TRACT INFECTION, SITE NOT SPECIFIED Attending: RUBEN MARIE Current LOS: 8 Anticipated DC Date: Planned Disposition: Primary Insurance: MEDICAID [place] Discharge Planning Comments: SPOKE WITH PATIENT AND SUKUMAR JACOME AND PATIENT PLANS TO STAY AT [facility] [phone] OR [facility] [phone] ON WEEKLY BASIS. APS IS AWARE OF THIS. PATIENT HAS PHONE NUMBERS TO CALL. SHE HAS A LITTLE DOG AND DOES NOT WANT TO STAY WITH [facility] OR AT THE [facility]. WILL LET SUKUMAR WITH [facility]PS KNOW WHEN SHE IS DISCHARGED SO THEY CAN FOLLOW. Cooling Pipe Inspector: Kelly Tran DCP- Discharge Planning Updated by [id number]: Kelly Tran on 05/19/20 3:[address] Patient Name: CAROLYN GALICIA Admission Status: ER Accout number: [id number] Admission Date: 05-18-2020 : 1970 Admission Diagnosis: Attending: RUBEN MARIE Current LOS: 1 Anticipated DC Date: Planned Disposition: Primary Insurance: MEDICAID [place] Discharge Planning Comments: SUKUMAR WITH [facility] WAS HERE TO VISIT WITH PATIENT. CM FAXED HIM REQUESTED DOCUMENTS. WAITING CALL BACK FROM [facility]. Cooling Pipe Inspector: Kelly Tran DCP- Discharge Planning Updated by [id number]: Kelly Tran on 05/18/20 1:[address] Patient Name: CAROLYN GALICIA Admission Status: ER Accout number: [id number] Admission Date: 05-16-2020 : 1970 Admission Diagnosis: Attending: URBEN MARIE Current LOS: 2 Anticipated DC Date: Planned Disposition: Primary Insurance: MEDICAID [place] Discharge Planning Comments: CM SPOKE WITH CHUN AT [facility] AND REPORTED PATIENT NOT CAPABLE OF CARING FOR HER SELF MENTALY. WAITING CALL BACK FROM [facility] WITH CASE NUMBER. [facility] PHONE NUMBER [phone]. Cooling Pipe Inspector: Kelly Tran Last DP export: 05/19/20 3:42 p Patient Name: CAROLYN GALICIA Page 09611 at 1525 All edits/amendments must be made on the electronic document DICTATION DATE: 05/26/20 1525 INSULATION MACHINE OPERATOR: CARLA 05/26/20 1525 RPT#: [id number] DC DATE: STATUS: ADM IN [place] [address] [place] [address] END OF REPORT
[2020-05-26 17:06] VITALS: BP 123/56
[2020-05-26 20:00] VITALS: BP 140/76
--- NOTE | 2020-05-27 00:29 | NUR ---
RECIEVED REPORT FROM MED SURGE NURSE. ARRIVED TO UNIT IN BED. ALERT AND ORIENTED X4. UP WITH SBA. C/O BEING HUNGRY AND WANTING TYLENOL. SANDWICH BOX GIVEN AND TYLENOL ORDERED. REFUSING TO WEAR BIPAP. O2 IN PLACE. IV TO LT FA. DENIES ANY NEEDS.
[2020-05-27 04:00] VITALS: BP 121/70
[2020-05-27 05:26] LABS: BASOPHILS 0 % (0-2); EOSINOPHILS 0.1 % (0-7); HEMATOCRIT 44.4 % (36.0-48.0); HEMOGLOBIN 12.5 g/dL (12-16); IMMATURE GRANULOCYTES 0.2 % (0-5); LYMPHOCYTES 8.5 % (15-50); MCH 25.8 pg (26.0-34.0); MCHC 28.2 g/dL (31.0-37.0); MEAN PLATELET VOLUME 11.6 fL (7.4-10.4); MONOCYTES 3.7 % (2-11); NEUTROPHILS 87.5 % (40-80); PLATELET COUNT 219 10x3/uL (130-400); RBC 4.85 10x6/uL (4.00-5.40); RDW 16.1 % (11.5-14.5)
[2020-05-27 05:33] LABS: MCV 91.5 fL (80.0-100.0)
[2020-05-27 05:45] LABS: ALBUMIN 3.1 g/dL (3.4-5.0); ANION GAP 6.9 mmol/L (8-16); BILIRUBIN - TOTAL 0.23 mg/dL (0.2-1.3); CALCIUM 9.3 mg/dL (8.5-10.1); CARBON DIOXIDE 37.2 mmol/L (21.0-32.0); CREATININE - SERUM 1.4 mg/dL (0.6-1.3); MAGNESIUM - SERUM 2.6 mg/dL (1.8-2.4); POTASSIUM - SERUM 5.1 mmol/L (3.5-5.1); PROTEIN - SERUM 7.5 g/dL (6.4-8.2)
[2020-05-27 09:02] VITALS: BP 136/89
[2020-05-27 14:53] VITALS: BP 127/56
[2020-05-27 18:06] VITALS: BP 122/73
--- NOTE | 2020-05-27 19:26 | NUR ---
RECIEVED UP IN BED WITH EYES CLOSED. EASILY AROUSES TO VERBAL STIMULI. REMAINS ON 3 LITERS PER N/C. IV TO LT FA SL. UP TO BEDSIDE COMMODE WITH STANDBY ASSIST . DENIES ANY OTHER NEEDS.
[2020-05-27 20:00] VITALS: BP 129/66
[2020-05-28 04:00] VITALS: BP 157/94
[2020-05-28 08:00] VITALS: BP 139/85
[2020-05-28 10:33] LABS: BASOPHILS 0 % (0-2); EOSINOPHILS 0 % (0-7); HEMATOCRIT 42.7 % (36.0-48.0); HEMOGLOBIN 12.3 g/dL (12-16); IMMATURE GRANULOCYTES 0.2 % (0-5); LYMPHOCYTES 4.4 % (15-50); MCH 26.2 pg (26.0-34.0); MCHC 28.8 g/dL (31.0-37.0); MCV 90.9 fL (80.0-100.0); MONOCYTES 2.6 % (2-11); NEUTROPHILS 92.8 % (40-80); PLATELET COUNT 184 10x3/uL (130-400)
[2020-05-28 10:48] LABS: ANION GAP 1.1 mmol/L (8-16); CALCIUM 8.8 mg/dL (8.5-10.1); CREATININE - SERUM 1.3 mg/dL (0.6-1.3)
[2020-05-28 10:54] LABS: CARBON DIOXIDE 41.9 mmol/L (21.0-32.0)
[2020-05-28 12:00] VITALS: BP 120/59
[2020-05-28 16:00] VITALS: BP 128/61
--- NOTE | 2020-05-28 19:19 | NUR ---
RECIEVED LYING IN BED WITH EYES OPEN AND TV ON. ALERT AND ORIENTED X4. O2 @ 3 LITERS PER N/C IN PLACE. IV TO LT ARM SL. UP AD RENEE WITH SBA. DENIES ANY NEEDS AT THIS TIME.
[2020-05-28 20:00] VITALS: BP 136/64
[2020-05-29] VITALS: BP 135/76
[2020-05-29 04:00] VITALS: BP 135/84
--- NOTE | 2020-05-29 04:14 | NUR ---
FSBS 65 THIS AM. SNACK GIVEN AND SANDWICH BOX GIVEN. ASYMPTOMATIC AT THIS TIME. A/O X4. SITTING UP ON SIDE OF THE BED. WILL RECHECK FSBS.
--- NOTE | 2020-05-29 04:52 | NUR ---
FSBVS IS 140 AT THIS TIME. WILL REPORT TO ONCOMMING THE LOW BLOOD GLUCOSE WITH THE Q4 HR CHECKS.
[2020-05-29 06:40] LABS: BASOPHILS 0 % (0-2); EOSINOPHILS 0 % (0-7); HEMATOCRIT 43.7 % (36.0-48.0); HEMOGLOBIN 12.4 g/dL (12-16); IMMATURE GRANULOCYTES 0.2 % (0-5); LYMPHOCYTES 5.7 % (15-50); MCH 25.7 pg (26.0-34.0); MCHC 28.4 g/dL (31.0-37.0); MCV 90.7 fL (80.0-100.0); MEAN PLATELET VOLUME 11.1 fL (7.4-10.4); MONOCYTES 2.8 % (2-11); NEUTROPHILS 91.3 % (40-80); PLATELET COUNT 199 10x3/uL (130-400); RBC 4.82 10x6/uL (4.00-5.40); RDW 16.2 % (11.5-14.5); WBC 10.8 10x3/uL (4.8-10.8)
[2020-05-29 06:46] LABS: ANION GAP 1.6 mmol/L (8-16); CALCIUM 9.1 mg/dL (8.5-10.1); CREATININE - SERUM 1.2 mg/dL (0.6-1.3); MAGNESIUM - SERUM 2.7 mg/dL (1.8-2.4); POTASSIUM - SERUM 4.5 mmol/L (3.5-5.1)
[2020-05-29 07:12] LABS: CARBON DIOXIDE 43.9 mmol/L (21.0-32.0)
[2020-05-29 13:23] VITALS: BP 167/82
--- NOTE | 2020-05-29 16:05 | MORECARE ---
CASE MANAGEMENT DISCHARGE SUMMARY PATIENT: CAROLYN GALICIA UNIT: [id number] ADM DATE: 05/18/20 AGE: 49 : 74 SEX: F ROOM/BED: D.5284 AUTHOR: JESUS,DOC PHYSICIAN: REFERRING PHYSICIAN: RUBEN MARIE MD DATE OF SERVICE: 05/29/20 Discharge Plan Patient Name: CAROLYN GALICIA Facility: [facility]:[place] : 1970 Planned Disposition: Home Anticipated Discharge Date: Discharge Date: Expected LOS: Initial Reviewer: [id number] Initial Review Date: 05/16/2020 Generated: 05/29/20 5:04 pm DCP- Discharge Planning Updated by [email or web address]: Kelly Tran on 05/26/20 2:[address] Patient Name: CAROLYN GALICIA Admission Status: ER Accout number: [id number] Admission Date: 05-18-2020 : 1970 Admission Diagnosis:URINARY TRACT INFECTION, SITE NOT SPECIFIED Attending: RUBEN MARIE Current LOS: 8 Anticipated DC Date: Planned Disposition: Primary Insurance: MEDICAID [place] Discharge Planning Comments: SPOKE WITH PATIENT AND SUKUMAR JACOME AND PATIENT PLANS TO STAY AT [facility] [phone] OR [facility] [phone] ON WEEKLY BASIS. APS IS AWARE OF THIS. PATIENT HAS PHONE NUMBERS TO CALL. SHE HAS A LITTLE DOG AND DOES NOT WANT TO STAY WITH [facility] OR AT THE [facility]. WILL LET SUKUMAR WITH [facility]PS KNOW WHEN SHE IS DISCHARGED SO THEY CAN FOLLOW. Sap Bi Architect: Kelly Tran DCP- Discharge Planning Updated by [id number]: Kelly Tran on 05/19/20 3:[address] Patient Name: CAROLYN GALICIA Admission Status: ER Accout number: [id number] Admission Date: 05-18-2020 : 1970 Admission Diagnosis: Attending: RUBEN MARIE Current LOS: 1 Anticipated DC Date: Planned Disposition: Primary Insurance: MEDICAID [place] Discharge Planning Comments: SUKUMAR MONTO[facility] WAS HERE TO VISIT WITH PATIENT. CM FAXED HIM REQUESTED DOCUMENTS. WAITING CALL BACK FROM [facility]PS. Sap Bi Architect: Kelly Tran DCP- Discharge Planning Updated by [id number]: Kelly Tran on 05/18/20 1:[address] Patient Name: CAROLYN GALICIA Admission Status: ER Accout number: [id number] Admission Date: 05-16-2020 : 1970 Admission Diagnosis: Attending: RUBEN MARIE Current LOS: 2 Anticipated DC Date: Planned Disposition: Primary Insurance: MEDICAID [place] Discharge Planning Comments: CM SPOKE WITH CHUN AT [facility] AND REPORTED PATIENT NOT CAPABLE OF CARING FOR HER SELF MENTALY. WAITING CALL BACK FROM [facility] WITH CASE NUMBER. [facility] PHONE NUMBER [phone]. Sap Bi Architect: Kelly Tran Last DP export: 05/26/20 2:25 p Patient Name: CAROLYN GALICIA Page [phone] at 1605 All edits/amendments must be made on the electronic document DICTATION DATE: 05/29/20 160 MAINTENANCE JOB TITLES: CARLA 05/29/20 1605 RPT#: [id number] DC DATE: STATUS: ADM IN [place] [address] [place] [address] END OF REPORT
--- NOTE | 2020-05-29 16:21 | MORECARE ---
CASE MANAGEMENT DISCHARGE SUMMARY PATIENT: CAROLYN GALICIA UNIT: [id number] ADM DATE: 05/18/20 AGE: 49 : 74 SEX: F ROOM/BED: D.5657 AUTHOR: JESUS,DOC PHYSICIAN: REFERRING PHYSICIAN: RUBEN MARIE MD DATE OF SERVICE: 05/29/20 Discharge Plan Patient Name: CAROLYN GALICIA Facility: [facility]:[place] : 1970 Planned Disposition: Home Anticipated Discharge Date: Discharge Date: Expected LOS: Initial Reviewer: [id number] Initial Review Date: 05/16/2020 Generated: 05/29/20 5:20 pm DCP- Discharge Planning Updated by [email or web address]: Kelly Tran on 05/26/20 2:[address] Patient Name: CAROLYN GALICIA Admission Status: ER Accout number: [id number] Admission Date: 05-18-2020 : 1970 Admission Diagnosis:URINARY TRACT INFECTION, SITE NOT SPECIFIED Attending: RUBEN MARIE Current LOS: 8 Anticipated DC Date: Planned Disposition: Primary Insurance: MED[place]ID [place] Discharge Planning Comments: SPOKE WITH PATIENT AND SUKUMAR JACOME AND PATIENT PLANS TO STAY AT [facility] [phone] OR [facility] [phone] ON WEEKLY BASIS. APS IS AWARE OF THIS. PATIENT HAS PHONE NUMBERS TO CALL. SHE HAS A LITTLE DOG AND DOES NOT WANT TO STAY WITH [facility] OR AT THE [facility]. WILL LET SUKUMAR WITH APS KNOW WHEN SHE IS DISCHARGED SO THEY CAN FOLLOW. Coating Machine Helper: Kelly Tran DCP- Discharge Planning Updated by [email or web address]: Kelly Tran on 05/19/20 3:[address] Patient Name: CAROLYN GALICIA Admission Status: ER Accout number: [id number] Admission Date: 05-18-2020 : 1970 Admission Diagnosis: Attending: RUBEN MARIE Current LOS: 1 Anticipated DC Date: Planned Disposition: Primary Insurance: MED[place]ID [place] Discharge Planning Comments: SUKUMAR MONTOYA APS WAS HERE TO VISIT WITH PATIENT. CM FAXED HIM REQUESTED DOCUMENTS. WAITING CALL BACK FROM APS. Coating Machine Helper: Kelly Tran DCP- Discharge Planning Updated by [email or web address]: Kelly Tran on 05/18/20 1:[address] Patient Name: CAROLYN GALICIA Admission Status: ER Accout number: [id number] Admission Date: 05-16-2020 : 1970 Admission Diagnosis: Attending: RUBEN MARIE Current LOS: 2 Anticipated DC Date: Planned Disposition: Primary Insurance: MEDICAID [place] Discharge Planning Comments: CM SPOKE WITH CHUN AT [facility] AND REPORTED PATIENT NOT CAPABLE OF CARING FOR HER SELF MENTALY. WAITING CALL BACK FROM [facility] WITH CASE NUMBER. [facility] PHONE NUMBER [phone]. Coating Machine Helper: Kelly Tran DCPIA - Discharge Planning Initial Assessment Updated by [email or web address]: Elizabeth Medardo on 05/29/20 4:18 pm * Is the patient Alert and Oriented? Yes * PCP No PCP * Preadmission Environment Home with Family * ADLs Independent * Equipment None * List name and contact numbers for known caregivers / representatives who currently or will assist patient after discharge: Lucas Mao CONSTANTIN (may) - [phone] * Verbal permission to speak to the caregivers and representatives has been obtained from the patient. Yes * Community resources currently utilized None * Additional services required to return to the preadmission environment? Yes * Can the patient safely return to the preadmission environment? Yes * Has this patient been hospitalized within the prior 30 days at any hospital? Yes Last DP export: 05/29/20 3:05 p Patient Name: CAROLYN GALICIA Page [id number] at 1621 All edits/amendments must be made on the electronic document DICTATION DATE: 05/29/20 162 POOLROOM/POOLHALL MANAGER: CARLA 05/29/20 1620 RPT#: [id number] DC DATE: STATUS: ADM IN [facility] [address] [place] [address] END OF REPORT
--- NOTE | 2020-05-29 16:28 | MORECARE ---
CASE MANAGEMENT DISCHARGE SUMMARY PATIENT: CAROLYN GALICIA UNIT: [id number] ADM DATE: 05/18/20 AGE: 49 : 74 SEX: F ROOM/BED: D.2586 AUTHOR: JESUS,DOC PHYSICIAN: REFERRING PHYSICIAN: RUBEN MARIE MD DATE OF SERVICE: 05/29/20 Discharge Plan Patient Name: CAROLYN GALICIA Facility: [facility]:[place] : 1970 Planned Disposition: Home Anticipated Discharge Date: Discharge Date: Expected LOS: Initial Reviewer: [email or web address] Initial Review Date: 05/16/2020 Generated: 05/29/20 5:28 pm DCP- Discharge Planning Updated by [email or web address]: Kelly Tran on 05/26/20 2:[address] Patient Name: CAROLYN GALICIA Admission Status: ER Accout number: [id number] Admission Date: 05-18-2020 : 1970 Admission Diagnosis:URINARY TRACT INFECTION, SITE NOT SPECIFIED Attending: RUBEN MARIE Current LOS: 8 Anticipated DC Date: Planned Disposition: Primary Insurance: MEDICAID [place] Discharge Planning Comments: SPOKE WITH PATIENT AND SUKUMAR JACOME AND PATIENT PLANS TO STAY AT [facility] [phone] OR [facility] [phone] ON WEEKLY BASIS. APS IS AWARE OF THIS. PATIENT HAS PHONE NUMBERS TO CALL. SHE HAS A LITTLE DOG AND DOES NOT WANT TO STAY WITH [facility] OR AT THE [facility]. WILL LET SUKUMAR WITH APS KNOW WHEN SHE IS DISCHARGED SO THEY CAN FOLLOW. Certified Dietary Manager: Kelly Tran DCP- Discharge Planning Updated by [email or web address]: Kelly Tran on 05/19/20 3:[address] Patient Name: CAROLYN GALICIA Admission Status: ER Accout number: [id number] Admission Date: 05-18-2020 : 1970 Admission Diagnosis: Attending: RUBEN MARIE Current LOS: 1 Anticipated DC Date: Planned Disposition: Primary Insurance: [place]ID [place] Discharge Planning Comments: SUKUMAR MONTOYA APS WAS HERE TO VISIT WITH PATIENT. CM FAXED HIM REQUESTED DOCUMENTS. WAITING CALL BACK FROM APS. Certified Dietary Manager: Kelly Tran DCP- Discharge Planning Updated by [id number]: Kelly Tran on 05/18/20 1:[address] Patient Name: CAROLYN GALICIA Admission Status: ER Accout number: [id number] Admission Date: 05-16-2020 : 1970 Admission Diagnosis: Attending: RUBEN MARIE Current LOS: 2 Anticipated DC Date: Planned Disposition: Primary Insurance: MEDICAID [place] Discharge Planning Comments: CM SPOKE WITH CHUN AT [facility] AND REPORTED PATIENT NOT CAPABLE OF CARING FOR HER SELF MENTALY. WAITING CALL BACK FROM [facility] WITH CASE NUMBER. [facility] PHONE NUMBER [phone]. Certified Dietary Manager: Kelly Tran DCPIA - Discharge Planning Initial Assessment Updated by [email or web address]: Elizabeth Medardo on 05/29/20 4:21 pm * Is the patient Alert and Oriented? Yes * PCP No PCP * Pharmacy [facility] on [facility] and [place] * Preadmission Environment Home with Family * ADLs Independent * Equipment None * List name and contact numbers for known caregivers / representatives who currently or will assist patient after discharge: Lucas MCMANUS (friend) - [phone] * Verbal permission to speak to the caregivers and representatives has been obtained from the patient. Yes * Community resources currently utilized None * Additional services required to return to the preadmission environment? Yes * Can the patient safely return to the preadmission environment? Yes * Has this patient been hospitalized within the prior 30 days at any hospital? Yes Last DP export: 05/29/20 3:21 p Patient Name: CAROLYN GALICIA Page [id number] at 1628 All edits/amendments must be made on the electronic document DICTATION DATE: 05/29/201627 SOLUTIONS MANAGER: CARLA 05/29/208 RPT#: [id number] DC DATE: STATUS: ADM IN [address] [address] END OF REPORT
--- NOTE | 2020-05-29 16:50 | MORECARE ---
CASE MANAGEMENT DISCHARGE SUMMARY PATIENT: CAROLYN GALICIA UNIT: [id number] ADM DATE: 05/18/20 AGE: 49 : 74 SEX: F ROOM/BED: D.4901 AUTHOR: ANGEL LEE PHYSICIAN: REFERRING PHYSICIAN: RUBEN MARIE MD DATE OF SERVICE: 05/29/20 Discharge Plan Patient Name: CAROLYN GALICIA Facility: [facility]:[place] : 1970 Planned Disposition: Home Anticipated Discharge Date: Discharge Date: Expected LOS: Initial Reviewer: [email or web address] Initial Review Date: 05/16/2020 Generated: 05/29/20 5:49 pm Comments DCP- Discharge Planning Updated by [email or web address]: Elizabeth Batres on 05/29/20 3:[address] I met with patient today to discuss discharge plan. She plans to return to [address] [place] [address] with her POA (Lucas Mao). His phone number is [phone]. She gives me permission to call her POA. She declines custodial placement. I asked if she was able to set up her own medications her self and take care of herself and she said "yes." She states she had [facility], but they were unable to accept her per Ray because of "unsafe living conditions." I called Lucas Mao and he is in agreement to have her return to his home. He states he will pick her up on discharge. He states that she has oxygen, portable oxygen and CPAP from [facility]. CM will continue to follow and assist with discharge planning/needs. DCP- Discharge Planning Updated by [email or web address]: Kelly Tran on 05/26/20 2:[address] Patient Name: CAROLYN GALICIA Admission Status: ER Accout number: [id number] Admission Date: 05-18-2020 : 1970 Admission Diagnosis:URINARY TRACT INFECTION, SITE NOT SPECIFIED Attending: RUBEN MARIE Current LOS: 8 Anticipated DC Date: Planned Disposition: Primary Insurance: MEDICAID [place] Discharge Planning Comments: SPOKE WITH PATIENT AND SUKUMAR JACOME AND PATIENT PLANS TO STAY AT [facility] [phone] OR [facility] [phone] ON WEEKLY BASIS. APS IS AWARE OF THIS. PATIENT HAS PHONE NUMBERS TO CALL. SHE HAS A LITTLE DOG AND DOES NOT WANT TO STAY WITH [facility] OR AT THE [facility]. WILL LET SUKUMAR WITH APS KNOW WHEN SHE IS DISCHARGED SO THEY CAN FOLLOW. Sales Analytics Manager: Kelly Tran [facility]- Discharge Planning Updated by [email or web address]: Kelly Tran on 05/19/20 3:[address] Patient Name: CAROLYN GALICIA Admission Status: ER Accout number: [id number] Admission Date: 05-18-2020 : 1970 Admission Diagnosis: Attending: RUBEN MARIE Current LOS: 1 Anticipated DC Date: Planned Disposition: Primary Insurance: MEDICAID [place] Discharge Planning Comments: SUKUMAR WITH [facility] WAS HERE TO VISIT WITH PATIENT. CM FAXED HIM REQUESTED DOCUMENTS. WAITING CALL BACK FROM [facility]. Sales Analytics Manager: Kelly Tran [facility]- Discharge Planning Updated by [email or web address]: Kelly Tran on 05/18/20 1:[address] Patient Name: CAROLYN GALICIA Admission Status: ER Accout number: [id number] Admission Date: 05-16-2020 : 1970 Admission Diagnosis: Attending: RUBEN MARIE Current LOS: 2 Anticipated DC Date: Planned Disposition: Primary Insurance: MED[place]ID [place] Discharge Planning Comments: CM SPOKE WITH CHUN AT [facility] AND REPORTED PATIENT NOT CAPABLE OF CARING FOR HER SELF MENTALY. WAITING CALL BACK FROM [facility] WITH CASE NUMBER. [facility] PHONE NUMBER [phone]. Sales Analytics Manager: Kelly Tran [facility] - Discharge Planning Initial Assessment Updated by [email or web address]: Elizabeth Batres on 05/29/20 4:21 pm * Is the patient Alert and Oriented? Yes * PCP No PCP * Pharmacy [facility] on [facility] [place] * Preadmission Environment Home with Family * ADLs Independent * Equipment None * List name and contact numbers for known caregivers / representatives who currently or will assist patient after discharge: Lucas MCMANUS (friend) - [phone] * Verbal permission to speak to the caregivers and representatives has been obtained from the patient. Yes * Community resources currently utilized None * Additional services required to return to the preadmission environment? Yes * Can the patient safely return to the preadmission environment? Yes * Has this patient been hospitalized within the prior 30 days at any hospital? Yes Coverage Notice Reviewer: [id number] Marnie Elizabeth Batres Notice Issued Date-Time: 05/29/2020 16:42 Notice Type: Patient Choice Letter Notice Delivered To: Patient Relationship to Patient: Self Sugar Mixer Name: Delivery Method: HAND - Hand Delivered Kellie Days: Prior Verbal Notification: Recipient Understood Notice: Yes Recipient Signature: Yes Med Rec Note Co-signed by Attending: Coverage Notice Comment: cliff for [facility] and any home health agency that will accept her. Last DP export: 05/29/20 3:28 p Patient Name: CAROLYN GALICIA Page 97856 at 1650 All edits/amendments must be made on the electronic document DICTATION DATE: 05/29/201648 CNC MACHINIST: CARLA 05/29/201648 RPT#: [id number] DC DATE: STATUS: ADM IN [facility] [address] [place] [address] END OF REPORT
[2020-05-29 17:05] VITALS: BP 112/37
--- NOTE | 2020-05-29 19:00 | NUR ---
PT IS MAKING SEVERAL NEEDS KNOW IM HOLDING SNACKS DUE TO VERY HIGH GLUCOSE BED LOW AND LOCKED CALL LIGHT IS IN REACH
[2020-05-29 21:40] VITALS: BP 121/66
[2020-05-30] VITALS: BP 115/54
[2020-05-30 04:00] VITALS: BP 142/67
[2020-05-30 06:40] LABS: BASOPHILS 0 % (0-2); EOSINOPHILS 0 % (0-7); HEMATOCRIT 43.9 % (36.0-48.0); HEMOGLOBIN 12.9 g/dL (12-16); IMMATURE GRANULOCYTES 0.3 % (0-5); LYMPHOCYTES 10.7 % (15-50); MCH 26.1 pg (26.0-34.0); MCHC 29.4 g/dL (31.0-37.0); MEAN PLATELET VOLUME 11.5 fL (7.4-10.4); MONOCYTES 6.3 % (2-11); NEUTROPHILS 82.7 % (40-80); PLATELET COUNT 211 10x3/uL (130-400); RBC 4.95 10x6/uL (4.00-5.40); WBC 13.1 10x3/uL (4.8-10.8)
[2020-05-30 06:41] LABS: MCV 88.7 fL (80.0-100.0)
--- NOTE | 2020-05-30 06:43 | NUR ---
PT WILL NOT SIT UP TO DO BREATHING TREATMENT. PT WILL NOT PLACE ON HER BIPAP.
--- NOTE | 2020-05-30 07:30 | NUR ---
PT INITIALLY SLEEPING, POSITION PT UP FOR BREAKFAST, CALL LIGHT WITHIN REACH.
[2020-05-30 07:45] LABS: CALCIUM 9.1 mg/dL (8.5-10.1); CREATININE - SERUM 1.1 mg/dL (0.6-1.3); POTASSIUM - SERUM 4.7 mmol/L (3.5-5.1)
[2020-05-30 07:51] LABS: CARBON DIOXIDE 45.7 mmol/L (21.0-32.0)
[2020-05-30 08:00] VITALS: BP 130/59
--- NOTE | 2020-05-30 11:38 | NUR ---
Nutrition Follow-up: Eating well. Ate 100% of breakfast this AM. Has received diabetic education during this admit. Diet: Diabetic Wt: 297# (05/27) Labs noted: Glu 161 Meds noted: Prednisone, Humulin, Lantus, Remeron, Lasix, Protonix, Zofran -Need new wt; noted daily wts ordered. -RD following.
[2020-05-30 12:03] VITALS: BP 103/72
[2020-05-30 16:00] VITALS: BP 125/80
[2020-05-30 20:00] VITALS: BP 114/69
[2020-05-31] VITALS: BP 140/67
[2020-05-31 04:00] VITALS: BP 137/83
[2020-05-31 06:10] LABS: BASOPHILS 0 % (0-2); EOSINOPHILS 0.2 % (0-7); HEMATOCRIT 39.6 % (36.0-48.0); HEMOGLOBIN 11.7 g/dL (12-16); IMMATURE GRANULOCYTES 0.3 % (0-5); LYMPHOCYTES 19.7 % (15-50); MCHC 29.5 g/dL (31.0-37.0); MEAN PLATELET VOLUME 10.8 fL (7.4-10.4); MONOCYTES 9.1 % (2-11); NEUTROPHILS 70.7 % (40-80); PLATELET COUNT 172 10x3/uL (130-400); RDW 16.3 % (11.5-14.5); WBC 13.4 10x3/uL (4.8-10.8)
[2020-05-31 06:53] LABS: CALCIUM 8.7 mg/dL (8.5-10.1)
--- NOTE | 2020-05-31 07:20 | NUR ---
RECEIVE SHIFT REPORT. RESTING IN BED WITH EYES CLOSED. NO SIGNS OF DISTRESS. WILL CONTINUE PLAN OF CARE AND SAFETY PRECAUTIONS.
[2020-05-31 07:29] LABS: ANION GAP 4.8 mmol/L (8-16); POTASSIUM - SERUM 3.7 mmol/L (3.5-5.1)
[2020-05-31 07:31] LABS: CARBON DIOXIDE 42.9 mmol/L (21.0-32.0)
--- NOTE | 2020-05-31 08:13 | MORECARE ---
CASE MANAGEMENT DISCHARGE SUMMARY PATIENT: CAROLYN GALICIA UNIT: [id number] ADM DATE: 05/18/20 AGE: 49 : 74 SEX: F ROOM/BED: D.4739 AUTHOR: ANGEL LEE PHYSICIAN: REFERRING PHYSICIAN: RUBEN MARIE MD DATE OF SERVICE: 05/31/20 Discharge Plan Patient Name: CAROLYN GALICIA Facility: [facility]:[place] : 1970 Planned Disposition: Home Anticipated Discharge Date: Discharge Date: Expected LOS: Initial Reviewer: [id number] Initial Review Date: 05/16/2020 Generated: 05/31/20 9:12 am DCP- Discharge Planning Updated by [email or web address]: Elizabeth Medardo on 05/29/20 3:[address] I met with patient today to discuss discharge plan. She plans to return to [address] [place] [address] with her POA (Lucas Mao). His phone number is [phone]. She gives me permission to call her POA. She declines half-way placement. I asked if she was able to set up her own medications her self and take care of herself and she said "yes." She states she had [facility], but they were unable to accept her per Ray because of "unsafe living conditions." I called Lucas Mao and he is in agreement to have her return to his home. He states he will pick her up on discharge. He states that she has oxygen, portable oxygen and CPAP from [facility]. CM will continue to follow and assist with discharge planning/needs. DCP- Discharge Planning Updated by [email or web address]: Kelly Tran on 05/26/20 2:[address] Patient Name: CAROLYN GALICIA Admission Status: ER Accout number: [id number] Admission Date: 05-18-2020 : 1970 Admission Diagnosis:URINARY TRACT INFECTION, SITE NOT SPECIFIED Attending: RUBEN MARIE Current LOS: 8 Anticipated DC Date: Planned Disposition: Primary Insurance: MEDICAID [place] Discharge Planning Comments: SPOKE WITH PATIENT AND SUKUMAR JACOME AND PATIENT PLANS TO STAY AT [facility] [phone] OR [facility] [phone] ON WEEKLY BASIS. APS IS AWARE OF THIS. PATIENT HAS PHONE NUMBERS TO CALL. SHE HAS A LITTLE DOG AND DOES NOT WANT TO STAY WITH [facility] OR AT THE [facility]. WILL LET SUKUMAR WITH APS KNOW WHEN SHE IS DISCHARGED SO THEY CAN FOLLOW. Tableau Developer: Kelly Tran [facility]- Discharge Planning Updated by [id number]: Kelly Tran on 05/19/20 3:[address] Patient Name: CAROLYN GALICIA Admission Status: ER Accout number: [id number] Admission Date: 05-18-2020 : 1970 Admission Diagnosis: Attending: RUBEN MARIE Current LOS: 1 Anticipated DC Date: Planned Disposition: Primary Insurance: [place]ID [place] Discharge Planning Comments: SUKUMAR WITH [facility] WAS HERE TO VISIT WITH PATIENT. CM FAXED HIM REQUESTED DOCUMENTS. WAITING CALL BACK FROM [facility]. Tableau Developer: Kelly Tran [facility]- Discharge Planning Updated by [email or web address]: Kelly Tran on 05/18/20 1:[address] Patient Name: CAROLYN GALICIA Admission Status: ER Accout number: [id number] Admission Date: 05-16-2020 : 1970 Admission Diagnosis: Attending: RUBEN MARIE Current LOS: 2 Anticipated DC Date: Planned Disposition: Primary Insurance: MEDICAID [place] Discharge Planning Comments: CM SPOKE WITH CHUN AT [facility] AND REPORTED PATIENT NOT CAPABLE OF CARING FOR HER SELF MENTALY. WAITING CALL BACK FROM [facility] WITH CASE NUMBER. [facility] PHONE NUMBER [phone]. Tableau Developer: Kelly Tran [facility] - Discharge Planning Initial Assessment Updated by [email or web address]: Elizabeth Batres on 05/29/20 4:21 pm * Is the patient Alert and Oriented? Yes * PCP No PCP * Pharmacy [facility] * Preadmission Environment Home with Family * ADLs Independent * Equipment None * List name and contact numbers for known caregivers / representatives who currently or will assist patient after discharge: Lucas MCMANUS (friend) - [phone] * Verbal permission to speak to the caregivers and representatives has been obtained from the patient. Yes * Community resources currently utilized None * Additional services required to return to the preadmission environment? Yes * Can the patient safely return to the preadmission environment? Yes * Has this patient been hospitalized within the prior 30 days at any hospital? Yes External Providers [facility] Contact Date: Service Request Date: Service Type: Resolution: Reviewer: Comments: Coverage Notice Reviewer: [id number] Marnie Elizabeth Batres Notice Issued Date-Time: 05/29/2020 16:42 Notice Type: Patient Choice Letter Notice Delivered To: Patient Relationship to Patient: Self Able Bodied Tankerman Name: Delivery Method: HAND - Hand Delivered Kellie Days: Prior Verbal Notification: Recipient Understood Notice: Yes Recipient Signature: Yes Med Rec Note Co-signed by Attending: Coverage Notice Comment: cliff for [facility] and any home health agency that will accept her. Last DP export: 05/29/20 3:50 p Patient Name: CAROLYN GALICIA Page [id number] at 0813 All edits/amendments must be made on the electronic document DICTATION DATE: 05/31/20811 FELL CUTTER: CARLA 05/31/20811 RPT#: [id number] DC DATE: STATUS: ADM IN [facility] [address] [place] [address] END OF REPORT
--- NOTE | 2020-05-31 08:41 | MORECARE ---
CASE MANAGEMENT DISCHARGE SUMMARY PATIENT: CAROLYN GALICIA UNIT: [id number] ADM DATE: 05/18/20 AGE: 49 : 74 SEX: F ROOM/BED: D.6029 AUTHOR: ANGEL LEE PHYSICIAN: REFERRING PHYSICIAN: RUBEN MARIE MD DATE OF SERVICE: 05/31/20 Discharge Plan Patient Name: CAROLYN GALICIA Facility: [facility]:[place] : 1970 Planned Disposition: Home Anticipated Discharge Date: Discharge Date: Expected LOS: Initial Reviewer: [email or web address] Initial Review Date: 05/16/2020 Generated: 05/31/20 9:40 am Comments DCP- Discharge Planning Updated by [id number]: Elizabeth Batres on 05/31/20 7:[address] Noted CM consult for Trilogy. I have called [facility] and spoke with Belen and clinical faxed for Trilogy. I informed the patient and she will notify Mabel that she will need to wait until Trilogy is approved prior to discharge. CM called [facility] and will fax clinical. DCP- Discharge Planning Updated by [id number]: Elizabeth Batres on 05/29/20 3:[address] I met with patient today to discuss discharge plan. She plans to return to [address] [place] [address] with her POA (Lucas Mao). His phone number is [phone]. She gives me permission to call her POA. She declines penitentiary placement. I asked if she was able to set up her own medications her self and take care of herself and she said "yes." She states she had [facility], but they were unable to accept her per Ray because of "unsafe living conditions." I called Lucas Mao and he is in agreement to have her return to his home. He states he will pick her up on discharge. He states that she has oxygen, portable oxygen and CPAP from [facility]. CM will continue to follow and assist with discharge planning/needs. DCP- Discharge Planning Updated by [id number]: Kelly Tran on 05/26/20 2:[address] Patient Name: CAROLYN GALICIA Admission Status: ER Accout number: [id number] Admission Date: 05-18-2020 : 1970 Admission Diagnosis:URINARY TRACT INFECTION, SITE NOT SPECIFIED Attending: RUBEN MARIE Current LOS: 8 Anticipated DC Date: Planned Disposition: Primary Insurance: [place] Discharge Planning Comments: SPOKE WITH PATIENT AND SUKUMAR JACOME AND PATIENT PLANS TO STAY AT [facility] [phone] OR DAYS INN [phone] ON WEEKLY BASIS. APS IS AWARE OF THIS. PATIENT HAS PHONE NUMBERS TO CALL. SHE HAS A LITTLE DOG AND DOES NOT WANT TO STAY WITH MABEL OR AT THE [facility]. WILL LET SUKUMAR WITH APS KNOW WHEN SHE IS DISCHARGED SO THEY CAN FOLLOW. Stretcher Leveler Operator: Kelly Tran DCP- Discharge Planning Updated by [id number]: Kelly Tran on 05/19/20 3:[address] Patient Name: CARLOYN GALICIA Admission Status: ER Accout number: [id number] Admission Date: 05-18-2020 : 1970 Admission Diagnosis: Attending: RUBEN MARIE Current LOS: 1 Anticipated DC Date: Planned Disposition: Primary Insurance: [place] Discharge Planning Comments: SUKUMAR WITH APS WAS HERE TO VISIT WITH PATIENT. CM FAXED HIM REQUESTED DOCUMENTS. WAITING CALL BACK FROM [facility]. Stretcher Leveler Operator: Kelly Tran [facility]- Discharge Planning Updated by [id number]: Kelly Tran on 05/18/20 1:[address] Patient Name: CAROLYN GALICIA Admission Status: ER Accout number: [id number] Admission Date: 05-16-2020 : 1970 Admission Diagnosis: Attending: RUBEN MARIE Current LOS: 2 Anticipated DC Date: Planned Disposition: Primary Insurance: [place] Discharge Planning Comments: CM SPOKE WITH CHUN AT [facility] AND REPORTED PATIENT NOT CAPABLE OF CARING FOR HER SELF MENTALY. WAITING CALL BACK FROM [facility] WITH CASE NUMBER. [facility] PHONE NUMBER [phone]. Stretcher Leveler Operator: Kelly Tran [facility] Planning Initial Assessment Updated by [id number]: Elizabeth Batres on 05/29/20 4:21 pm * Is the patient Alert and Oriented? Yes * PCP No PCP * Pharmacy [facility] [address] * Preadmission Environment Home with Family * ADLs Independent * Equipment None * List name and contact numbers for known caregivers / representatives who currently or will assist patient after discharge: Lucas MCMANUS (friend) - [phone] * Verbal permission to speak to the caregivers and representatives has been obtained from the patient. Yes * Community resources currently utilized None * Additional services required to return to the preadmission environment? Yes * Can the patient safely return to the preadmission environment? Yes * Has this patient been hospitalized within the prior 30 days at any hospital? Yes External Providers External Provider: [facility] Next Contact Date: Service Request Date: Service Type: Resolution: Reviewer: Comments: Coverage Notice Reviewer: [id number] - Elizabeth Batres Notice Issued Date-Time: 05/29/2020 16:42 Notice Type: Patient Choice Letter Notice Delivered To: Patient Relationship to Patient: Self Rotary Drum Tanner Name: Delivery Method: HAND - Hand Delivered Kellie Days: Prior Verbal Notification: Recipient Understood Notice: Yes Recipient Signature: Yes Med Rec Note Co-signed by Attending: Coverage Notice Comment[facility] any [facility] health agency that will accept her. Last DP export: 05/31/20 7:13 am Patient Name: CAROLYN GALICIA Page [phone] at 0841 All edits/amendments must be made on the electronic document DICTATION DATE: 05/31/20839 ACCOUNTS PAYABLE TECHNICIAN: CARLA 05/31/20839 RPT#: [id number] DC DATE: STATUS: ADM IN [facility] [address] [place] [address] END OF REPORT
[2020-05-31 09:39] VITALS: BP 170/100
--- NOTE | 2020-05-31 10:33 | MORECARE ---
CASE MANAGEMENT DISCHARGE SUMMARY PATIENT: CAROLYN GALICIA UNIT: [id number] ADM DATE: 05/18/20 AGE: 49 : 74 SEX: F ROOM/BED: D.4294 AUTHOR: ANGEL LEE PHYSICIAN: REFERRING PHYSICIAN: RUBEN MARIE MD DATE OF SERVICE: 05/31/20 Discharge Plan Patient Name: CAROLYN GALICIA Facility: [facility]:[place] : 1970 Planned Disposition: Home Anticipated Discharge Date: Discharge Date: Expected LOS: Initial Reviewer: [id number] Initial Review Date: 05/16/2020 Generated: 05/31/20 11:32 am Comments DCP- Discharge Planning Updated by [email or web address]: Elizabeth Batres on 05/31/20 7:[address] Noted CM consult for Trilogy. I have called [facility] and spoke with Belen and clinical faxed for Trilogy. I informed the patient and she will notify Mabel that she will need to wait until Trilogy is approved prior to discharge. CM called [facility] and will fax clinical. DCP- Discharge Planning Updated by [email or web address]: Elizabeth Batres on 05/29/20 3:[address] I met with patient today to discuss discharge plan. She plans to return to [address] [place] [address] with her POA (Lucas Mao). His phone number is [phone]. She gives me permission to call her POA. She declines intermediate placement. I asked if she was able to set up her own medications her self and take care of herself and she said "yes." She states she had [facility], but they were unable to accept her per Ray because of "unsafe living conditions." I called Lucas Mao and he is in agreement to have her return to his home. He states he will pick her up on discharge. He states that she has oxygen, portable oxygen and CPAP from [facility]. CM will continue to follow and assist with discharge planning/needs. DCP- Discharge Planning Updated by [id number]: Kelly Tran on 05/26/20 2:[address] Patient Name: CAROLYN GALICIA Admission Status: ER Accout number: [id number] Admission Date: 05-18-2020 : 1970 Admission Diagnosis:URINARY TRACT INFECTION, SITE NOT SPECIFIED Attending: RUBEN MARIE Current LOS: 8 Anticipated DC Date: Planned Disposition: Primary Insurance: [place] Discharge Planning Comments: SPOKE WITH PATIENT AND SUKUMAR JACOME AND PATIENT PLANS TO STAY AT [facility] [facility] [phone] OR DAYS INN [phone] ON WEEKLY BASIS. APS IS AWARE OF THIS. PATIENT HAS PHONE NUMBERS TO CALL. SHE HAS A LITTLE DOG AND DOES NOT WANT TO STAY WITH MABEL OR AT THE [facility]. WILL LET SUKUMAR WITH APS KNOW WHEN SHE IS DISCHARGED SO THEY CAN FOLLOW. Engineering Laboratory Technician: Kelly Tran DCP- Discharge Planning Updated by [id number]: Kelly Tran on 05/19/20 3:[address] Patient Name: CAROLYN GALICIA Admission Status: ER Accout number: [id number] Admission Date: 05-18-2020 : 1970 Admission Diagnosis: Attending: RUBEN MARIE Current LOS: 1 Anticipated DC Date: Planned Disposition: Primary Insurance: [place] Discharge Planning Comments: SUKUMAR WITH APS WAS HERE TO VISIT WITH PATIENT. CM FAXED HIM REQUESTED DOCUMENTS. WAITING CALL BACK FROM [facility]. Engineering Laboratory Technician: Kelly Tran [facility]- Discharge Planning Updated by [id number]: Kelly Tran on 05/18/20 1:[address] Patient Name: CAROLYN GALICIA Admission Status: ER Accout number: [id number] Admission Date: 05-16-2020 : 1970 Admission Diagnosis: Attending: RUBEN MARIE Current LOS: 2 Anticipated DC Date: Planned Disposition: Primary Insurance: [place] Discharge Planning Comments: CM SPOKE WITH CHUN AT [facility] AND REPORTED PATIENT NOT CAPABLE OF CARING FOR HER SELF MENTALY. WAITING CALL BACK FROM [facility] WITH CASE NUMBER. [facility] PHONE NUMBER [phone]. Engineering Laboratory Technician: Kelly Tran [facility] - Discharge Planning Initial Assessment Updated by [email or web address]: Elizabeth Batres on 05/29/20 4:21 pm * Is the patient Alert and Oriented? Yes * PCP No PCP * [facility]acy [facility] [address] * Preadmission Environment Home with Family * ADLs Independent * Equipment None * List name and contact numbers for known caregivers / representatives who currently or will assist patient after discharge: Lucas MCMANUS (friend) - [phone] * Verbal permission to speak to the caregivers and representatives has been obtained from the patient. Yes * Community resources currently utilized None * Additional services required to return to the preadmission environment? Yes * Can the patient safely return to the preadmission environment? Yes * Has this patient been hospitalized within the prior 30 days at any hospital? Yes External Providers [facility] Contact Date: Service Request Date: Service Type: Resolution: Reviewer: Comments: Coverage Notice Reviewer: [id number] - Elizabeth Batres Notice Issued Date-Time: 05/29/2020 16:42 Notice Type: Patient Choice Letter Notice Delivered To: Patient Relationship to Patient: Self Optical Assistant Name: Delivery Method: HAND - Hand Delivered Kellie Days: Prior Verbal Notification: Recipient Understood Notice: Yes Recipient Signature: Yes Med Rec Note Co-signed by Attending: Coverage Notice Comment: cliff for [facility] and any home health agency that will accept her. Last DP export: 05/31/20 7:41 am Patient Name: CAROLYN GALICIA Page [phone] at 1033 All edits/amendments must be made on the electronic document DICTATION DATE: 05/31/20 1032 THERMAL MOLDER: CARLA 05/31/20 1032 RPT#: [id number] DC DATE: STATUS: ADM IN [facility] [address] [place] [address] END OF REPORT
--- NOTE | 2020-05-31 10:40 | MORECARE ---
CASE MANAGEMENT DISCHARGE SUMMARY PATIENT: CAROLYN GALICIA UNIT: [id number] ADM DATE: 05/18/20 AGE: 49 : 74 SEX: F ROOM/BED: D.0763 AUTHOR: JESUS,DOC PHYSICIAN: REFERRING PHYSICIAN: RUBEN MARIE MD DATE OF SERVICE: 05/31/20 Discharge Plan Patient Name: CAROLYN GALICIA Facility: [facility]:[place] : 1970 Planned Disposition: Home Anticipated Discharge Date: Discharge Date: Expected LOS: Initial Reviewer: [email or web address] Initial Review Date: 05/16/2020 Generated: 05/31/20 11:39 am Comments DCP- Discharge Planning Updated by [id number]: Elizabeth Medardo on 05/31/20 9:[address] I have faxed clinical for Home health to [facility] and received a call that she is on their "do not accept list." I have been declined by [facility] and [facility] . I sent a referral to [facility] in [place] and clinical faxed to their referral fax number [phone]. Referral phone number is [phone]. I beeped Dr. Leonardo to sign O for Trilogy. DCP- Discharge Planning Updated by [id number]: Elizabeth Medardo on 05/31/20 7:[address] Noted CM consult for Trilogy. I have called [facility] and spoke with Belen and clinical faxed for Trilogy. I informed the patient and she will notify Servando that she will need to wait until Trilogy is approved prior to discharge. CM called [facility] and will fax clinical. DCP- Discharge Planning Updated by [id number]: Elizabeth Medardo on 05/29/20 3:[address] I met with patient today to discuss discharge plan. She plans to return to [address] [place] [address] with her POA (Lucas Mao). His phone number is [phone]. She gives me permission to call her POA. She declines senior living placement. I asked if she was able to set up her own medications her self and take care of herself and she said "yes." She states she had [facility], but they were unable to accept her per Ray because of "unsafe living conditions." I called Lucas Mao and he is in agreement to have her return to his home. He states he will pick her up on discharge. He states that she has oxygen, portable oxygen and CPAP from [facility]. CM will continue to follow and assist with discharge planning/needs. DCP- Discharge Planning Updated by [id number]: Kelly Tran on 05/26/20 2:[address] Patient Name: CAROLYN GALICIA Admission Status: ER Accout number: [id number] Admission Date: 05-18-2020 : 1970 Admission Diagnosis:URINARY TRACT INFECTION, SITE NOT SPECIFIED Attending: RUBEN MARIE Current LOS: 8 Anticipated DC Date: Planned Disposition: Primary Insurance: [place] Discharge Planning Comments: SPOKE WITH PATIENT AND SUKUMAR JACOME AND PATIENT PLANS TO STAY AT [facility] [phone] OR DAYS INN [phone] ON WEEKLY BASIS. APS IS AWARE OF THIS. PATIENT HAS PHONE NUMBERS TO CALL. SHE HAS A LITTLE DOG AND DOES NOT [facility] TO [facility] OR AT THE [facility]. WILL LET SUKUMAR WITH APS KNOW WHEN SHE IS DISCHARGED SO THEY CAN FOLLOW. Slitter And Rewinder: Kelly Tran DCP- Discharge Planning Updated by [id number]: Kelly Tran on 05/19/20 3:[address] Patient Name: CAROLYN GALICIA Admission Status: ER Accout number: [id number] Admission Date: 05-18-2020 : 1970 Admission Diagnosis: Attending: RUBEN MARIE Current LOS: 1 Anticipated DC Date: Planned Disposition: Primary Insurance: [place] Discharge Planning Comments: SUKUMAR WITH APS WAS HERE TO VISIT WITH PATIENT. CM FAXED HIM REQUESTED DOCUMENTS. WAITING CALL BACK FROM APS. Slitter And Rewinder: Kelly Tran DCP- Discharge Planning Updated by [id number]: Kelly Tran on 05/18/20 1:[address] Patient Name: CAROLYN GALICIA Admission Status: ER Accout number: [id number] Admission Date: 05-16-2020 : 1970 Admission Diagnosis: Attending: RUBEN MARIE Current LOS: 2 Anticipated DC Date: Planned Disposition: Primary Insurance: [place] Discharge Planning Comments: CM SPOKE WITH CHUN AT [facility] AND REPORTED PATIENT NOT CAPABLE OF CARING FOR HER SELF MENTALY. WAITING CALL BACK FROM [facility] WITH CASE NUMBER. [facility] PHONE NUMBER [phone]. Slitter And Rewinder: Kelly Tran DCPIA - Discharge Planning Initial Assessment Updated by [id number]: Elizabeth Batres on 05/29/20 4:21 pm * Is the patient Alert and Oriented? Yes * PCP No PCP * [facility] [address] [place] * Preadmission Environment Home with Family * ADLs Independent * Equipment None * List name and contact numbers for known caregivers / representatives who currently or will assist patient after discharge: Lucas MCMANUS (friend) - [phone] * Verbal permission to speak to the caregivers and representatives has been obtained from the patient. Yes * Community resources currently utilized None * Additional services required to return to the preadmission environment? Yes * Can the patient safely return to the preadmission environment? Yes * Has this patient been hospitalized within the prior 30 days at any hospital? Yes Coverage Notice Reviewer: [id number] - Elizabeth Batres Notice Issued Date-Time: 05/29/2020 16:42 Notice Type: Patient Choice Letter Notice Delivered To: Patient Relationship to Patient: Self Senior Radiation Protection Technician Name: Delivery Method: HAND - Hand Delivered Kellie Days: Prior Verbal Notification: Recipient Understood Notice: Yes Recipient Signature: Yes Med Rec Note Co-signed by Attending: Coverage Notice Comment: cliff for [facility] and any home health agency that will accept her. Last DP export: 05/31/20 9:33 am Patient Name: CAROLYN GALICIA Page [phone] at 1040 All edits/amendments must be made on the electronic document DICTATION DATE: 05/31/20 1039 DIRECTOR OF GUIDANCE IN PUBLIC SCHOOLS: CARLA 05/31/20 1039 RPT#: [id number] DC DATE: STATUS: ADM IN [facility] [address] [place] [address] END OF REPORT
--- NOTE | 2020-05-31 11:49 | MORECARE ---
CASE MANAGEMENT DISCHARGE SUMMARY PATIENT: CAROLYN GALICIA UNIT: [id number] ADM DATE: 05/18/20 AGE: 49 : 74 SEX: F ROOM/BED: D.5754 AUTHOR: JESUS,DOC PHYSICIAN: REFERRING PHYSICIAN: RUBEN MARIE MD DATE OF SERVICE: 05/31/20 Discharge Plan Patient Name: CAROLYN GALICIA Facility: [facility]:[place] : 1970 Planned Disposition: Home Anticipated Discharge Date: Discharge Date: Expected LOS: Initial Reviewer: [id number] Initial Review Date: 05/16/2020 Generated: 05/31/20 12:49 pm Comments DCP- Discharge Planning Updated by [id number]: Elizabeth Batres on 05/31/20 10:[address] SIGNED TRILOGY ORDER FAXED TO [facility]. DCP- Discharge Planning Updated by [id number]: Elizabeth Batres on 05/31/20 9:[address] I have faxed clinical for Home health to [facility] and received a call that she is on their "do not accept list." I have been declined by [facility] and [facility]. I sent a referral to [facility] in [place] and clinical faxed to their referral fax number [phone]. Referral phone number is [phone]. I beeped Dr[address] Leonardo to sign O for Trilogy. DCP- Discharge Planning Updated by [email or web address]: Elizabeth Batres on 05/31/20 7:[address] Noted CM consult for Trilogy. I have called [facility] and spoke with Belen and clinical faxed for Trilogy. I informed the patient and she will notify Servando that she will need to wait until Trilogy is approved prior to discharge. CM called [facility] and will fax clinical. DCP- Discharge Planning Updated by [email or web address]: Elizabeth Batres on 05/29/20 3:[address] I met with patient today to discuss discharge plan. She plans to return to [address] [place] [address] with her POA (Lucas Mao). His phone number is [phone]. She gives me permission to call her POA. She declines [facility] placement. I asked if she was able to set up her own medications her self and take care of herself and she said "yes." She states she had [facility], but they were unable to accept her per Ray because of "unsafe living conditions." I called Lucas Mao and he is in agreement to have her return to his home. He states he will pick her up on discharge. He states that she has oxygen, portable oxygen and CPAP from [facility]. CM will continue to follow and assist with discharge planning/needs. DCP- Discharge Planning Updated by [id number]: Kelly Tran on 05/26/20 2:[address] Patient Name: CAROLYN GALICIA Admission Status: ER Accout number: [id number] Admission Date: 05-18-2020 : 1970 Admission Diagnosis:URINARY TRACT INFECTION, SITE NOT SPECIFIED Attending: RUBEN MARIE Current LOS: 8 Anticipated DC Date: Planned Disposition: Primary Insurance: [place] Discharge Planning Comments: SPOKE WITH PATIENT AND SUKUMAR JACOME AND PATIENT PLANS TO STAY AT [facility] [phone] OR [facility] [phone] ON WEEKLY BASIS. APS IS AWARE OF THIS. PATIENT HAS PHONE NUMBERS TO CALL. SHE HAS A LITTLE DOG AND DOES NOT WANT TO STAY WITH [facility] OR AT THE [facility]. WILL LET SUKUMAR WITH APS KNOW WHEN SHE IS DISCHARGED SO THEY CAN FOLLOW. Geoscience Technician: Kelly Tran DCP- Discharge Planning Updated by [id number]: Kelly Tran on 05/19/20 3:[address] Patient Name: CAROLYN GALICIA Admission Status: ER Accout number: [id number] Admission Date: 05-18-2020 : 1970 Admission Diagnosis: Attending: RUBEN MARIE Current LOS: 1 Anticipated DC Date: Planned Disposition: Primary Insurance: [place] Discharge Planning Comments: SUKUMAR WITH APS WAS HERE TO VISIT WITH PATIENT. CM FAXED HIM REQUESTED DOCUMENTS. WAITING CALL BACK FROM APS. Geoscience Technician: Kelly Tran DCP- Discharge Planning Updated by [id number]: Kelly Tran on 05/18/20 1:[address] Patient Name: CAROLYN GALICIA Admission Status: ER Accout number: [id number] Admission Date: 05-16-2020 : 1970 Admission Diagnosis: Attending: RUBEN MARIE Current LOS: 2 Anticipated DC Date: Planned Disposition: Primary Insurance: [place] Discharge Planning Comments: CM SPOKE WITH CHUN AT [facility] AND REPORTED PATIENT NOT CAPABLE OF CARING FOR HER SELF MENTALY. WAITING CALL BACK FROM [facility] WITH CASE NUMBER. [facility] PHONE NUMBER [phone]. Geoscience Technician: Kelly Tran DCPIA - Discharge Planning Initial Assessment Updated by [id number]: Elizabeth Batres on 05/29/20 4:21 pm * Is the patient Alert and Oriented? Yes * PCP No PCP * [facility] and [place] * Preadmission Environment Home with Family * ADLs Independent * Equipment None * List name and contact numbers for known caregivers / representatives who currently or will assist patient after discharge: Lucas MCMANUS (friend) - [phone] * Verbal permission to speak to the caregivers and representatives has been obtained from the patient. Yes * Community resources currently utilized None * Additional services required to return to the preadmission environment? Yes * Can the patient safely return to the preadmission environment? Yes * Has this patient been hospitalized within the prior 30 days at any hospital? Yes Coverage Notice Reviewer: [id number] - Elizabeth Medardo Notice Issued Date-Time: 05/29/2020 16:42 Notice Type: Patient Choice Letter Notice Delivered To: Patient Relationship to Patient: Self Marina Sales And Service Supervisor Name: Delivery Method: HAND - Hand Delivered Kellie Days: Prior Verbal Notification: Recipient Understood Notice: Yes Recipient Signature: Yes Med Rec Note Co-signed by Attending: Coverage Notice Comment: cliff for [facility] and any home health agency that will accept her. Last DP export: 05/31/20 9:40 am Patient Name: CAROLYN GALICIA Page 79911 at 1149 All edits/amendments must be made on the electronic document DICTATION DATE: 05/31/20 1149 PUMP SERVICER SUPERVISOR: CARLA 05/31/20 1149 RPT#: [id number] DC DATE: STATUS: ADM IN [facility] [address] [place] [address] END OF REPORT
--- NOTE | 2020-05-31 13:10 | MORECARE ---
CASE MANAGEMENT DISCHARGE SUMMARY PATIENT: CAROLYN GALICIA UNIT: [id number] ADM DATE: 05/18/20 AGE: 49 : 74 SEX: F ROOM/BED: D.7645 AUTHOR: JESUS,DOC PHYSICIAN: REFERRING PHYSICIAN: RUBEN MARIE MD DATE OF SERVICE: 05/31/20 Discharge Plan Patient Name: CAROLYN GALICIA Facility: [facility]:[place] : 1970 Planned Disposition: Home Anticipated Discharge Date: Discharge Date: Expected LOS: Initial Reviewer: [email or web address] Initial Review Date: 05/16/2020 Generated: 05/31/20 2:10 pm Comments DCP- Discharge Planning Updated by [email or web address]: Elizabeth Batres on 05/31/20 12:[address] [facility] has declined to accept patient. I will send patient to the last home health available in [facility] is delivering her Trilogy today. DCP- Discharge Planning Updated by [email or web address]: Elizabeth Batres on 05/31/20 10:[address] SIGNED TRILOGY ORDER FAXED TO [facility]. DCP- Discharge Planning Updated by [id number]: Elizabeth Batres on 05/31/20 9:[address] I have faxed clinical for Home health to [facility] and received a call that she is on their "do not accept list." I have been declined by [facility]ice[facility] and [facility]. I sent a referral to [facility] in [place] and clinical faxed to their referral fax number [phone]. Referral phone number is [phone]. I beeped Dr. Leonardo to sign [facility] for Trilogy. DCP- Discharge Planning Updated by [email or web address]: Elizabeth Batres on 05/31/20 7:[address] Noted CM consult for Trilogy. I have called [facility] and spoke with Belen and clinical faxed for Trilogy. I informed the patient and she will notify Servando that she will need to wait until Trilogy is approved prior to discharge. CM called [facility] and will fax clinical. DCP- Discharge Planning Updated by [id number]: Elizabeth Batres on 05/29/20 3:[address] I met with patient today to discuss discharge plan. She plans to return to [address] [place] [address] with her POA (Lucas Mao). His phone number is [phone]. She gives me permission to call her POA. She declines correction placement. I asked if she was able to set up her own medications her self and take care of herself and she said "yes." She states she had [facility], but they were unable to accept her per Ray because of "unsafe living conditions." I called Lucas Mao and he is in agreement to have her return to his home. He states he will pick her up on discharge. He states that she has oxygen, portable oxygen and CPAP from [facility]. CM will continue to follow and assist with discharge planning/needs. DCP- Discharge Planning Updated by [id number]: Kelly Tran on 05/26/20 2:[address] Patient Name: CAROLYN GALICIA Admission Status: ER Accout number: [id number] Admission Date: 05-18-2020 : 1970 Admission Diagnosis:URINARY TRACT INFECTION, SITE NOT SPECIFIED Attending: RUBEN MARIE Current LOS: 8 Anticipated DC Date: Planned Disposition: Primary Insurance: [place]ID [place] Discharge Planning Comments: SPOKE WITH PATIENT AND SUKUMAR JACOME AND PATIENT PLANS TO STAY AT [address] [facility] [phone] OR DAYS INN [phone] ON WEEKLY BASIS. APS IS AWARE OF THIS. PATIENT HAS PHONE NUMBERS TO CALL. SHE HAS A LITTLE DOG AND DOES NOT WANT TO STAY WITH [facility] OR AT THE [facility]. WILL LET SUKUMAR WITH APS KNOW WHEN SHE IS DISCHARGED SO THEY CAN FOLLOW. Meat Department Manager: Kelly Tran DCP- Discharge Planning Updated by [email or web address]: Kelly Tran on 05/19/20 3:[address] Patient Name: CAROLYN GALICIA Admission Status: ER Accout number: [id number] Admission Date: 05-18-2020 : 1970 Admission Diagnosis: Attending: RUBEN MARIE Current LOS: 1 Anticipated DC Date: Planned Disposition: Primary Insurance: [place]ID [place] Discharge Planning Comments: SUKUMAR JACOME WAS HERE TO VISIT WITH PATIENT. CM FAXED HIM REQUESTED DOCUMENTS. WAITING CALL BACK FROM APS. Meat Department Manager: Kelly Chelsea DCP- Discharge Planning Updated by [id number]: Kelly Tran on 05/18/20 1:[address] Patient Name: CAROLYN GALICIA Admission Status: ER Accout number: [id number] Admission Date: 05-16-2020 : 1970 Admission Diagnosis: Attending: RUBEN MARIE Current LOS: 2 Anticipated DC Date: Planned Disposition: Primary Insurance: MED[place]ID [place] Discharge Planning Comments: CM SPOKE WITH CHUN AT [facility] AND REPORTED PATIENT NOT CAPABLE OF CARING FOR HER SELF MENTALY. WAITING CALL BACK FROM [facility] WITH CASE NUMBER. [facility] PHONE NUMBER [phone]. Meat Department Manager: Kelly Tran DCPIA - Discharge Planning Initial Assessment Updated by [email or web address]: Elizabeth Batres on 05/29/20 4:21 pm * Is the patient Alert and Oriented? Yes * PCP No PCP * Pharmacy [facility] on [address] * Preadmission Environment Home with Family * ADLs Independent * Equipment None * List name and contact numbers for known caregivers / representatives who currently or will assist patient after discharge: Lucas MCMANUS ([place]) - [phone] * Verbal permission to speak to the caregivers and representatives has been obtained from the patient. Yes * Community resources currently utilized None * Additional services required to return to the preadmission environment? Yes * Can the patient safely return to the preadmission environment? Yes * Has this patient been hospitalized within the prior 30 days at any hospital? Yes Coverage Notice Reviewer: [id number] - Elizabeth Batres Notice Issued Date-Time: 05/29/2020 16:42 Notice Type: Patient Choice Letter Notice Delivered To: Patient Relationship to Patient: Self Embedded Systems Software Developer Name: Delivery Method: HAND - Hand Delivered Kellie Days: Prior Verbal Notification: Recipient Understood Notice: Yes Recipient Signature: Yes Med Rec Note Co-signed by Attending: Coverage Notice Comment: cliff for [facility] and any home health agency that will accept her. Last DP export: 05/31/20 10:49 am Patient Name: CAROLYN GALICIA Page [id number] at 1310 All edits/amendments must be made on the electronic document DICTATION DATE: 05/31/20 1310 HOTEL AND DINING ROOM CASHIER: CARLA 05/31/20 1310 RPT#: [id number] DC DATE: STATUS: ADM IN [facility] [address] [place] [address] END OF REPORT
--- NOTE | 2020-05-31 13:18 | MORECARE ---
CASE MANAGEMENT DISCHARGE SUMMARY PATIENT: CAROLYN GALICIA UNIT: [id number] ADM DATE: 05/18/20 AGE: 49 : 74 SEX: F ROOM/BED: D.7473 AUTHOR: JESUS,DOC PHYSICIAN: REFERRING PHYSICIAN: RUBEN MARIE MD DATE OF SERVICE: 05/31/20 Discharge Plan Patient Name: CAROLYN GALICIA Facility: [facility]:[place] : 1970 Planned Disposition: Home Anticipated Discharge Date: Discharge Date: Expected LOS: Initial Reviewer: [email or web address] Initial Review Date: 05/16/2020 Generated: 05/31/20 2:17 pm Comments DCP- Discharge Planning Updated by [id number]: Elizabeth Batres on 05/31/20 12:[address] [facility] has declined to accept patient. I will send patient to the last home health available in [facility] is delivering her Trilogy today. DCP- Discharge Planning Updated by [id number]: Elizabeth Batres on 05/31/20 10:[address] SIGNED TRILOGY ORDER FAXED TO [facility]. DCP- Discharge Planning Updated by [id number]: Elizabeth Batres on 05/31/20 9:[address] I have faxed clinical for Home health to [facility] and received a call that she is on their "do not accept list." I have been declined by [facility]ice[facility] and [facility]. I sent a referral to [facility] in [place] and clinical faxed to their referral fax number [phone]. Referral phone number is [phone]. I beeped Dr. Leonardo to sign [facility] for Trilogy. DCP- Discharge Planning Updated by [id number]: Elizabeth Batres on 05/31/20 7:[address] Noted CM consult for Trilogy. I have called [facility] and spoke with Belen and clinical faxed for Trilogy. I informed the patient and she will notify Servando that she will need to wait until Trilogy is approved prior to discharge. CM called [facility] and will fax clinical. DCP- Discharge Planning Updated by [email or web address]: Elizabeth Batres on 05/29/20 3:[address] I met with patient today to discuss discharge plan. She plans to return to [address] [place] [address] with her POA (Lucas Mao). His phone number is [phone]. She gives me permission to call her POA. She declines [facility] placement. I asked if she was able to set up her own medications her self and take care of herself and she said "yes." She states she had [facility], but they were unable to accept her per Ray because of "unsafe living conditions." I called Lucas Mao and he is in agreement to have her return to his home. He states he will pick her up on discharge. He states that she has oxygen, portable oxygen and CPAP from [facility]. CM will continue to follow and assist with discharge planning/needs. DCP- Discharge Planning Updated by [id number]: Kelly Tran on 05/26/20 2:[address] Patient Name: CAROLYN GALICIA Admission Status: ER Accout number: [id number] Admission Date: 05-18-2020 : 1970 Admission Diagnosis:URINARY TRACT INFECTION, SITE NOT SPECIFIED Attending: RUBEN MARIE Current LOS: 8 Anticipated DC Date: Planned Disposition: Primary Insurance: MED[place]ID [place] Discharge Planning Comments: SPOKE WITH PATIENT AND SUKUMAR JACOME AND PATIENT PLANS TO STAY AT [address] [facility] [phone] OR DAYS INN [phone] ON WEEKLY BASIS. APS IS AWARE OF THIS. PATIENT HAS PHONE NUMBERS TO CALL. SHE HAS A LITTLE DOG AND DOES NOT WANT TO STAY WITH [facility] OR AT [facility]. WILL LET SUKUMAR WITH APS KNOW WHEN SHE IS DISCHARGED SO THEY CAN FOLLOW. Spice Room Worker: Kelly Tran DCP- Discharge Planning Updated by [id number]: Kelly Tran on 05/19/20 3:[address] Patient Name: CAROLYN GALICIA Admission Status: ER Accout number: [id number] Admission Date: 05-18-2020 : 1970 Admission Diagnosis: Attending: RUBEN MARIE Current LOS: 1 Anticipated DC Date: Planned Disposition: Primary Insurance: [place]ID [place] Discharge Planning Comments: SUKUMAR JACOME WAS HERE TO VISIT WITH PATIENT. CM FAXED HIM REQUESTED DOCUMENTS. WAITING CALL BACK FROM APS. Spice Room Worker: Kelly Chelsea DCP- Discharge Planning Updated by [email or web address]: Kelly Tran on 05/18/20 1:[address] Patient Name: CAROLYN GALICIA Admission Status: ER Accout number: [id number] Admission Date: 05-16-2020 : 1970 Admission Diagnosis: Attending: RUBEN MARIE Current LOS: 2 Anticipated DC Date: Planned Disposition: Primary Insurance: MEDICAID [place] Discharge Planning Comments: CM SPOKE WITH CHUN AT [facility] AND REPORTED PATIENT NOT CAPABLE OF CARING FOR HER SELF MENTALY. WAITING CALL BACK FROM [facility] WITH CASE NUMBER. [facility] PHONE NUMBER [phone]. Spice Room Worker: Kelly rTan DCPIA - Discharge Planning Initial Assessment Updated by [id number]: Elizabeth Batres on 05/29/20 4:21 pm * Is the patient Alert and Oriented? Yes * PCP No PCP * Pharmacy [facility] on [address] [place] [address] * Preadmission Environment Home with Family * ADLs Independent * Equipment None * List name and contact numbers for known caregivers / representatives who currently or will assist patient after discharge: Lucas MCMANUS ([place]) - [phone] * Verbal permission to speak to the caregivers and representatives has been obtained from the patient. Yes * Community resources currently utilized None * Additional services required to return to the preadmission environment? Yes * Can the patient safely return to the preadmission environment? Yes * Has this patient been hospitalized within the prior 30 days at any hospital? Yes External Providers External Provider: [facility] Next Contact Date: Service Request Date: Service Type: Resolution: Reviewer: Comments: Coverage Notice Reviewer: [id number] - Elizabeth Batres Notice Issued Date-Time: 05/29/2020 16:42 Notice Type: Patient Choice Letter Notice Delivered To: Patient Relationship to Patient: Self Instructional Developer Name: Delivery Method: HAND - Hand Delivered Kellie Days: Prior Verbal Notification: Recipient Understood Notice: Yes Recipient Signature: Yes Med Rec Note Co-signed by Attending: Coverage Notice Comment: cliff for [facility] and any home health agency that will accept her. Last DP export: 05/31/20 12:10 pm Patient Name: CAROLYN GALICIA Page [id number] at 1318 All edits/amendments must be made on the electronic document DICTATION DATE: 05/31/201316 SLASHER MACHINE OPERATOR: CARLA 05/31/201316 RPT#: [id number] DC DATE: STATUS: ADM IN [facility] [address] [place] [address] END OF REPORT
--- NOTE | 2020-05-31 13:25 | MORECARE ---
CASE MANAGEMENT DISCHARGE SUMMARY PATIENT: CAROLYN GALICIA UNIT: [id number] ADM DATE: 05/18/20 AGE: 49 : 74 SEX: F ROOM/BED: D.2996 AUTHOR: JESUS,DOC PHYSICIAN: REFERRING PHYSICIAN: RUBEN MARIE MD DATE OF SERVICE: 05/31/20 Discharge Plan Patient Name: CAROLYN GALICIA Facility: [facility]:[place] : 1970 Planned Disposition: Home Anticipated Discharge Date: Discharge Date: Expected LOS: Initial Reviewer: [id number] Initial Review Date: 05/16/2020 Generated: 05/31/20 2:25 pm Comments DCP- Discharge Planning Updated by [email or web address]: Elizabeth Batres on 05/31/20 12:[address] I spoke with Fabiola at [facility] ([phone]) and faxed clinical to [phone]. She will review clinical and call me if they can accept. DCP- Discharge Planning Updated by [email or web address]: Elizabeth Batres on 05/31/20 12:[address] [facility] has declined to accept patient. I will send patient to the last home health available in [facility] is delivering her Trilogy today. DCP- Discharge Planning Updated by [email or web address]: Elizabeth Batres on 05/31/20 10:[address] SIGNED TRILOGY ORDER FAXED TO [facility]. DCP- Discharge Planning Updated by [email or web address]: Elizabeth Batres on 05/31/20 9:[address] I have faxed clinical for Home health to [facility] and received a call that she is on their "do not accept list." I have been declined by [facility] and [facility] 4. I sent a referral to [facility] in [place] and clinical faxed to their referral fax number [phone]. Referral phone number is [phone]. I beeped Dr. Leonardo to sign [facility] for Trilogy. DCP- Discharge Planning Updated by [email or web address]: Elizabeth Batres on 05/31/20 7:[address] Noted CM consult for Trilogy. I have called [facility] and spoke with Belen and clinical faxed for Trilogy. I informed the patient and she will notify Mabel that she will need to wait until Trilogy is approved prior to discharge. CM called [facility] and will fax clinical. DCP- Discharge Planning Updated by [id number]: Elizabeth Batres on 05/29/20 3:[address] I met with patient today to discuss discharge plan. She plans to return to [address] [place] [address] with her POA (Lucas Mao). His phone number is [phone]. She gives me permission to call her POA. She declines group home placement. I asked if she was able to set up her own medications her self and take care of herself and she said "yes." She states she had [facility], but they were unable to accept her per Ray because of "unsafe living conditions." I called Lucas Mao and he is in agreement to have her return to his home. He states he will pick her up on discharge. He states that she has oxygen, portable oxygen and CPAP from [facility]. CM will continue to follow and assist with discharge planning/needs. DCP- Discharge Planning Updated by [id number]: Kelly Tran on 05/26/20 2:[address] Patient Name: CAROLYN GALICIA Admission Status: ER Accout number: [id number] Admission Date: 05-18-2020 : 1970 Admission Diagnosis:URINARY TRACT INFECTION, SITE NOT SPECIFIED Attending: RUBEN MARIE Current LOS: 8 Anticipated DC Date: Planned Disposition: Primary Insurance: MEDICAID [place] Discharge Planning Comments: SPOKE WITH PATIENT AND SUKUMAR JACOME AND PATIENT PLANS TO STAY AT [facility] [facility] [phone] OR DAYS INN [phone] ON WEEKLY BASIS. APS IS AWARE OF THIS. PATIENT HAS PHONE NUMBERS TO CALL. SHE HAS A LITTLE DOG AND DOES NOT WANT TO STAY WITH [facility] OR [facility]. WILL LET SUKUMAR WITH APS KNOW WHEN SHE IS DISCHARGED SO THEY CAN FOLLOW. Light Rail Operator: Kelly Tran DCP- Discharge Planning Updated by [id number]: Kelly Tran on 05/19/20 3:[address] Patient Name: CAROLYN GALICIA Admission Status: ER Accout number: [id number] Admission Date: 05-18-2020 : 1970 Admission Diagnosis: Attending: RUBEN MARIE Current LOS: 1 Anticipated DC Date: Planned Disposition: Primary Insurance: MED[place]ID [place] Discharge Planning Comments: SUKUMAR WITH [facility] WAS HERE TO VISIT WITH PATIENT. CM FAXED HIM REQUESTED DOCUMENTS. WAITING CALL BACK FROM [facility]. Light Rail Operator: Kelly Tran DCP- Discharge Planning Updated by [id number]: Kelly Tran on 05/18/20 1:[address] Patient Name: CAROLYN GALICIA Admission Status: ER Accout number: [id number] Admission Date: 05-16-2020 : 1970 Admission Diagnosis: Attending: RUBEN MARIE Current LOS: 2 Anticipated DC Date: Planned Disposition: Primary Insurance: [place]ID [place] Discharge Planning Comments: CM SPOKE WITH CHUN AT [facility] AND REPORTED PATIENT NOT CAPABLE OF CARING FOR HER SELF MENTALY. WAITING CALL BACK FROM [facility] WITH CASE NUMBER. [facility] PHONE NUMBER [phone]. Light Rail Operator: Kelly Tran DCPIA - Discharge Planning Initial Assessment Updated by [id number]: Elizabeth Batres on 05/29/20 4:21 pm * Is the patient Alert and Oriented? Yes * PCP No PCP * Pharmacy [facility] [address] * Preadmission Environment Home with Family * ADLs Independent * Equipment None * List name and contact numbers for known caregivers / representatives who currently or will assist patient after discharge: Lucasdesi KILLIANAnali (pdodmd) - [phone] * Verbal permission to speak to the caregivers and representatives has been obtained from the patient. Yes * Community resources currently utilized None * Additional services required to return to the preadmission environment? Yes * Can the patient safely return to the preadmission environment? Yes * Has this patient been hospitalized within the prior 30 days at any hospital? Yes Coverage Notice Reviewer: [id number] - Elizabeth Batres Notice Issued Date-Time: 05/29/2020 16:42 Notice Type: Patient Choice Letter Notice Delivered To: Patient Relationship to Patient: Self Iron Molder Helper Name: Delivery Method: HAND - Hand Delivered Kellie Days: Prior Verbal Notification: Recipient Understood Notice: Yes Recipient Signature: Yes Med Rec Note Co-signed by Attending: Coverage Notice Comment: cliff for [facility] and any home health agency that will accept her. Last DP export: 05/31/20 12:18 pm Patient Name: CAROLYN GALICIA Page [phone] at 1325 All edits/amendments must be made on the electronic document DICTATION DATE: 05/31/20 1325 BUDGET DIRECTOR: CARLA 05/31/20 1325 RPT#: [id number] DC DATE: STATUS: ADM IN [facility] [address] [place] [address] END OF REPORT
--- NOTE | 2020-05-31 15:52 | MORECARE ---
CASE MANAGEMENT DISCHARGE SUMMARY PATIENT: CAROLYN GALICIA UNIT: [id number] ADM DATE: 05/18/20 AGE: 49 : 74 SEX: F ROOM/BED: D.4337 AUTHOR: JESUS,DOC PHYSICIAN: REFERRING PHYSICIAN: RUBEN MARIE MD DATE OF SERVICE: 05/31/20 Discharge Plan Patient Name: CAROLYN GALICIA Facility: [facility]:[place] : 1970 Planned Disposition: Home Anticipated Discharge Date: Discharge Date: Expected LOS: Initial Reviewer: [id number] Initial Review Date: 05/16/2020 Generated: 05/31/20 4:52 pm Comments DCP- Discharge Planning Updated by [id number]: Elizabeth Medardo on 05/31/20 2:[address] [facility] will see patient on Friday if discharged tomorrow. She has her trilogy in the room. She plans on going to [facility] at discharge and getting her a room at [facility]. I informed her that if she went to [facility] she would need to notify home health where she was. I informed her that [facility] was the only home health that services the [facility] that would accept her and she needed to be compliant with them. She states she will call them when she gets moved. I again encouraged to go to a chcf for her care and she refuses. CM will continue to follow and assist with discharge planning/needs. DCP- Discharge Planning Updated by [id number]: Elizabeth Batres on 05/31/20 12:[address] I spoke with Fabiola at [facility] ([phone]) and faxed clinical to [phone]. She will review clinical and call me if they can accept. DCP- Discharge Planning Updated by [email or web address]: Elizabeth Batres on 05/31/20 12:[address] [facility] has declined to accept patient. I will send patient to the last home health available in [facility] ([facility] is delivering her Trilogy today. DCP- Discharge Planning Updated by [email or web address]: Elizabeth Batres on 05/31/20 10:[address] SIGNED TRILOGY ORDER FAXED TO [facility]. DCP- Discharge Planning Updated by [email or web address]: Elizabeth Batres on 05/31/20 9:[address] I have faxed clinical for Home health to [facility] and received a call that she is on their "do not accept list." I have been declined by [facility]ice[facility] and [facility] . I sent a referral to [facility] in [place] and clinical faxed to their referral fax number [phone]. Referral phone number is [phone]. I beeped Dr. Leonardo to sign DWO for Trilogy. DCP- Discharge Planning Updated by [id number]: Elizabeth Batres on 05/31/20 7:[address] Noted CM consult for Trilogy. I have called [facility] and spoke with Belen and clinical faxed for Trilogy. I informed the patient and she will notify [facility] that she will need to wait until Trilogy is approved prior to discharge. called [facility] and will fax clinical. DCP- Discharge Planning Updated by [email or web address]: Elizabeth Batres on 05/29/20 3:[address] I met with patient today to discuss discharge plan. She plans to return to [address] [place] [address] with her POA (Lucas Mao). His phone number is [phone]. She gives me permission to call her POA. She declines chcf placement. I asked if she was able to set up her own medications her self and take care of herself and she said "yes." She states she had [facility], but they were unable to accept her per Ray because of "unsafe living conditions." I called Lucas Mao and he is in agreement to have her return to his home. He states he will pick her up on discharge. He states that she has oxygen, portable oxygen and CPAP from [facility]. CM will continue to follow and assist with discharge planning/needs. DCP- Discharge Planning Updated by [id number]: Kelly Tran on 05/26/20 2:[address] Patient Name: CAROLYN GALICIA Admission Status: ER Accout number: [id number] Admission Date: 05-18-2020 : 1970 Admission Diagnosis:URINARY TRACT INFECTION, SITE NOT SPECIFIED Attending: RUBEN MARIE Current LOS: 8 Anticipated DC Date: Planned Disposition: Primary Insurance: [place] Discharge Planning Comments: SPOKE WITH PATIENT AND SUKUMAR APS AND PATIENT PLANS TO STAY AT [facility] [phone] OR DAYS INN [phone] ON WEEKLY BASIS. APS IS AWARE OF THIS. PATIENT HAS PHONE NUMBERS TO CALL. SHE HAS A LITTLE DOG AND DOES NOT WANT TO STAY WITH [facility] OR AT THE [facility]. WILL LET SUKUMAR WITH APS KNOW WHEN SHE IS DISCHARGED SO THEY CAN FOLLOW. Assistant Professor Of Forestry: Kelly Tran DCP- Discharge Planning Updated by [id number]: Kelly Tran on 05/19/20 3:[address] Patient Name: CAROLYN GALICIA Admission Status: ER Accout number: [id number] Admission Date: 05-18-2020 : 1970 Admission Diagnosis: Attending: RUBEN MARIE Current LOS: 1 Anticipated DC Date: Planned Disposition: Primary Insurance: [place] Discharge Planning Comments: SUKUMAR WITH APS WAS HERE TO VISIT WITH PATIENT. CM FAXED HIM REQUESTED DOCUMENTS. WAITING CALL BACK FROM [facility]. Assistant Professor Of Forestry: Kelly Tran [facility]- Discharge Planning Updated by [id number]: Kelly Tran on 05/18/20 1:[address] Patient Name: CAROLYN GALICIA Admission Status: ER Accout number: [id number] Admission Date: 05-16-2020 : 1970 Admission Diagnosis: Attending: RUBEN MARIE Current LOS: 2 Anticipated DC Date: Planned Disposition: Primary Insurance: [place] Discharge Planning Comments: CM SPOKE WITH CHUN AT [facility] AND REPORTED PATIENT NOT CAPABLE OF CARING FOR HER SELF MENTALY. WAITING CALL BACK FROM [facility] WITH CASE NUMBER. [facility] PHONE NUMBER [phone]. Assistant Professor Of Forestry: Kelly Tran [facility] - Discharge Planning Initial Assessment Updated by [id number]: Elizabeth Batres on 05/29/20 4:21 pm * Is the patient Alert and Oriented? Yes * PCP No PCP * Pharmacy [facility] [address] * Preadmission Environment Home with Family * ADLs Independent * Equipment None * List name and contact numbers for known caregivers / representatives who currently or will assist patient after discharge: Lucas MCMANUS (friend) - [phone] * Verbal permission to speak to the caregivers and representatives has been obtained from the patient. Yes * Community resources currently utilized None * Additional services required to return to the preadmission environment? Yes * Can the patient safely return to the preadmission environment? Yes * Has this patient been hospitalized within the prior 30 days at any hospital? Yes Coverage Notice Reviewer: [id number] Marnie Elizabethjean-paul Batres Notice Issued Date-Time: 05/29/2020 16:42 Notice Type: Patient Choice Letter Notice Delivered To: Patient Relationship to Patient: Self Assessment Nurse Name: Delivery Method: HAND - Hand Delivered Kellie Days: Prior Verbal Notification: Recipient Understood Notice: Yes Recipient Signature: Yes Med Rec Note Co-signed by Attending: Coverage Notice Comment: cliff for [facility] and any home health agency that will accept her. Last DP export: 05/31/20 12:25 pm Patient Name: CAROLYN GALICIA Page [id number] at 1552 All edits/amendments must be made on the electronic document DICTATION DATE: 05/31/20 1552 VISUAL BASIC .NET DEVELOPER: CARLA 05/31/20 155 RPT#: [id number] DC DATE: STATUS: ADM IN [facility] [address] [place] [address] END OF REPORT
[2020-05-31 16:00] VITALS: BP 164/99
--- NOTE | 2020-05-31 19:36 | NUR ---
RPEORT RECIEVED AND ROUNDING COMPLETE. PATIENT SITTING ON THE SIDE OF HER BED TALKING ON HER CELLPHONE. PATIENT IS WEARNING NASAL CANNULA WITH O2 AT 3L, LEFT FOREARM PIV SALINE LOCKED AT THIS TIME. HAS A BSC FOR USE. NO NEEDS VOICED AT THIS TIME. PATIENT TALKS LIKE A CHILD. NO DISTRESS NOTED. CALL LIGHT WITHIN REACH AND BED IN LOWEST LOCKED POSITION.
[2020-05-31 20:00] VITALS: BP 103/40
--- NOTE | 2020-05-31 20:47 | NUR ---
TALKED WITH RACHEL LOPEZ AND INFORMED HIM OF PATIENT'S FSBS, NO NEW ORDERS TREATED PER MAR.
[2020-06-01 06:18] LABS: CARBON DIOXIDE 37.8 mmol/L (21.0-32.0); CREATININE - SERUM 1.2 mg/dL (0.6-1.3); POTASSIUM - SERUM 3.8 mmol/L (3.5-5.1)
[2020-06-01 06:33] LABS: HEMOGLOBIN 12.2 g/dL (12-16); LYMPHOCYTES 16.4 % (15-50); MCH 26.5 pg (26.0-34.0); MEAN PLATELET VOLUME 11.6 fL (7.4-10.4); NEUTROPHILS 77.3 % (40-80); PLATELET COUNT 148 10x3/uL (130-400); RBC 4.61 10x6/uL (4.00-5.40); RDW 16.1 % (11.5-14.5); WBC 14.6 10x3/uL (4.8-10.8)
[2020-06-01 06:34] LABS: MCV 91.1 fL (80.0-100.0)
--- NOTE | 2020-06-01 07:44 | NUR ---
ALERT AND ORIENTED. LUNGS DIMINISHED BILATERALLY. HEART SOUNDS S1 AND S2 HEARD IN ALL CUBA. BOWEL SOUNDS ACTIVE X 4. IV TO RFA PATENT WITHOUT REDNESS. DENEIS NEEDS. BED LOW. CALL HANKINS AND PERSONAL ITEMS IN REACH. WILL CONTINUE TO MONITOR.
--- NOTE | 2020-06-01 08:20 | NUR ---
Late entry from 05/25/20: Diabetic diet education RDN visited with pt re: consistent CHO diet Reviewed CHO containing foods and the affect too many CHO have on glucose. Reviewed portion sizes of common CHO foods. Advised pt that we will only send 3 CHO choices with meals no matter how many choices she requests to keep her glucose under better control. Pt will be able to have double meat and unlimited nonstarchy vegetables. Pt wants Cheetos with every meal. Pt can have if counted into the 45 gm CHO for the meal. Pt with poor to fair understanding of information provided. Pt is still not making good food choices and glucose still running high. Will continue to education pt on diet; however, RDN feels pt is not able to manage her diabetes at this time. CHERYLN following.
[2020-06-01 09:00] VITALS: BP 100/49
--- NOTE | 2020-06-01 12:15 | NUR ---
CALLED PHARMACY FOR NEW SALINE MIST NOSE SPRAY. WAITING TO RECEIVE.
[2020-06-01 13:13] VITALS: BP 108/55
--- NOTE | 2020-06-01 13:14 | NUR ---
CALLED PHARMACY FOR SALINE MIST NOSE SPRAY. WAITING TO RECEIVE.
--- NOTE | 2020-06-01 14:45 | NUR ---
MARIANO HARTMANN MADE AWARE OF GLUCOSE 532. STATES TREAT PER SS AND CHECK AGAIN IN AN HOUR.
[2020-06-01 17:17] VITALS: BP 140/88
--- NOTE | 2020-06-01 18:14 | NUR ---
MARIANO RAMOS MADE AWARE OF GLUCOSE 545. LAB DRAW ORDERED PER MACHINE ASSEMBLER FOR GLUCOSE CHECK.
--- NOTE | 2020-06-01 19:06 | NUR ---
MARIANO RAMOS MADE AWARE OF GLUCOSE 544 PER LAB. STATES ORDER STAT BMP.
[2020-06-01 19:48] LABS: ANION GAP 8.1 mmol/L (8-16); CALCIUM 8.4 mg/dL (8.5-10.1); CARBON DIOXIDE 34.3 mmol/L (21.0-32.0)
[2020-06-01 19:54] LABS: CREATININE - SERUM 1.7 mg/dL (0.6-1.3); POTASSIUM - SERUM 4.4 mmol/L (3.5-5.1)
[2020-06-01 20:00] VITALS: BP 111/54
--- NOTE | 2020-06-01 20:00 | NUR ---
PATIENT RESTING IN BED WITH BIPAP ON. NO S/S OF ACUTE DISTRESS. NO C/O AT THIS TIME. PATIENT IS ON 3L NASAL CANNULA WHEN NOT ON BIPAP. PATIENT IS UP ADLIB TO THE BATHROOM. PATIENT'S BLOOD SUGAR WAS IN THE 500S AND DAY-SHIFT LET JORDAN RAMOS, KNOW BEFORE LEAVING. NEW ORDERS WERE GIVEN. CALL LIGHT GLENNY MORENO. WILL CONTINUE TO MONITOR.
[2020-06-02] VITALS: BP 112/50
[2020-06-02 04:00] VITALS: BP 119/63
--- NOTE | 2020-06-02 04:00 | NUR ---
PATIENT RESTING IN BED WITH BIPAP ON. NO S/S OF ACUTE DISRTRESS. NO C/O AT THIS TIME. PATIENT HAS 3L OF O2 WHEN NOT ON BIPAP. PATIENT HAS LEFT FOREARM, SALINE LOC. IV IS PATENT WITHOUT REDNESS, SWELLING, OR TENDERNESS. PATEINT IS UP AD RENEE TO THE BATHROOM. PATIENT BLOOD SUGARS HAVE BEEN ELEVATED AND DAY-SHIFT HAD TOLD JORDAN RAMOS, AND HE PLACED NEW ORDERS. CALL LIGHT WITHIN REACH. WILL CONTINUE TO MONITOR.
--- NOTE | 2020-06-02 04:37 | NUR ---
PATIENT UNCOOPERATIVE THIS MORNING. HER GLUCOSE WAS 132 AND PATIENT WANTED ICE CREAM. I TOLD HER THAT SHE CAN'T HAVE ANY OR HER SUGAR WILL SPIKE AGAIN LIKE IT DID THE NIGHT BEFORE. PATIENT WAS STILL ARGUEMENTATIVE AND REFUSED HER PROTONIX AND HER BLOOD DRAW. CALL LIGHT WITHIN REACH. WILL CONTINUE TO MONITOR.
--- NOTE | 2020-06-02 04:39 | NUR ---
I have reviewed this patient and I concur with the Shift Assessment completed by the Licensed Practical Nurse today this shift.
--- NOTE | 2020-06-02 07:45 | NUR ---
RECEIVED BEDSIDE REPORT. PT LAYING IN BED, EYES CLOSED, LOUD SHALLOW RESPIRATIONS. PIV IN LEFT HAND, PATENT, INFUSING 1/2 NS, NO REDNESS OR SWELLING. WOKE PT TO APPLY BIPAP WHILE PT IS RESTING, PT TOLERATED WELL. PT ABLE TO AMBULATE WITH ONE PERSON ASSIST. EDUCATED PT ON CL, NEEDS, AND USING BIPAP WHEN SLEEPING, VERBALIZED UNDERSTANDING. BED LOW, RAILS X2. CL IN REACH, WILL CONTINUE TO MONITOR.
[2020-06-02 09:45] VITALS: BP 116/48
[2020-06-02 10:38] LABS: HEMATOCRIT 40.2 % (36.0-48.0); HEMOGLOBIN 11.3 g/dL (12-16); LYMPHOCYTES 16.5 % (15-50); MCH 25.6 pg (26.0-34.0); MCHC 28.1 g/dL (31.0-37.0); MCV 91.2 fL (80.0-100.0); MEAN PLATELET VOLUME 11.3 fL (7.4-10.4); NEUTROPHILS 77.7 % (40-80); PLATELET COUNT 134 10x3/uL (130-400); RBC 4.41 10x6/uL (4.00-5.40); RDW 15.9 % (11.5-14.5); WBC 13.9 10x3/uL (4.8-10.8)
[2020-06-02 10:46] LABS: ALBUMIN 2.8 g/dL (3.4-5.0); ANION GAP 8.1 mmol/L (8-16); BILIRUBIN - TOTAL 0.3 mg/dL (0.2-1.3); CALCIUM 8.3 mg/dL (8.5-10.1); CARBON DIOXIDE 31.6 mmol/L (21.0-32.0); PROTEIN - SERUM 6.2 g/dL (6.4-8.2)
[2020-06-02 10:47] LABS: CREATININE - SERUM 1.2 mg/dL (0.6-1.3); POTASSIUM - SERUM 3.7 mmol/L (3.5-5.1)
[2020-06-02 12:54] VITALS: BP 118/55
--- NOTE | 2020-06-02 13:34 | NUR ---
ASSISSTED PT TO BR, URINATED 200ML, URINE DARK YELLOW. FULL LINEN CHANGE AND GOWN CHANGE. BED LOW, RAILS X2. CL IN REACH.
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
[2020-06-02 17:35] VITALS: BP 115/50
--- NOTE | 2020-06-02 20:00 | NUR ---
PATIENT RESTING IN BED WITH TRIOLOGY ON AND EYES CLOSED. NO S/S OF ACUTE DISTRESS. NO C/O AT THIS TIME. PATIENT HAS LEFT FOREARM IV. CALL LIGHT WITHIN REACH. WILL CONTINUE TO MONITOR.
[2020-06-02 22:04] VITALS: BP 116/68
[2020-06-03 03:09] VITALS: BP 106/61
--- NOTE | 2020-06-03 05:10 | NUR ---
PATIENT FSBS THIS MORNING WAS 63. PATIENT ASKED FOR ICE CREAM, AND I GAVE HER THE SUGAR FREE ICE CREAM WE HAD. CALL LIGHT WITHIN REACH. WILL CONTINUE TO MONITOR.
--- NOTE | 2020-06-03 05:42 | NUR ---
I have reviewed this patient and I concur with the Shift Assessment completed by the Licensed Practical Nurse today this shift.
[2020-06-03 09:13] LABS: BASOPHILS 0.1 % (0-2); EOSINOPHILS 0.9 % (0-7); HEMATOCRIT 41.5 % (36.0-48.0); HEMOGLOBIN 12.1 g/dL (12-16); IMMATURE GRANULOCYTES 0.3 % (0-5); LYMPHOCYTES 20.7 % (15-50); MCH 25.7 pg (26.0-34.0); MCHC 29.2 g/dL (31.0-37.0); MEAN PLATELET VOLUME 10.7 fL (7.4-10.4); MONOCYTES 8.7 % (2-11); NEUTROPHILS 69.3 % (40-80); PLATELET COUNT 140 10x3/uL (130-400); RDW 15.9 % (11.5-14.5); WBC 13.5 10x3/uL (4.8-10.8)
[2020-06-03 09:18] LABS: MCV 88.3 fL (80.0-100.0)
[2020-06-03 09:33] LABS: ALBUMIN 2.8 g/dL (3.4-5.0); ANION GAP 10.3 mmol/L (8-16); BILIRUBIN - TOTAL 0.21 mg/dL (0.2-1.3); CALCIUM 8.6 mg/dL (8.5-10.1); CARBON DIOXIDE 30.5 mmol/L (21.0-32.0); CREATININE - SERUM 1.2 mg/dL (0.6-1.3); POTASSIUM - SERUM 3.8 mmol/L (3.5-5.1); PROTEIN - SERUM 6.3 g/dL (6.4-8.2)
[2020-06-03 10:26] VITALS: BP 112/55
[2020-06-03 14:48] VITALS: BP 126/42
--- NOTE | 2020-06-03 16:11 | NUR ---
PATIENT IS WITHOUT SIGNS OF DISTRESS.CALL LIGHT IN REACH
[2020-06-03 22:21] VITALS: BP 112/60
[2020-06-04 01:07] VITALS: BP 121/64
[2020-06-04 06:49] VITALS: BP 124/65
--- NOTE | 2020-06-04 07:20 | NUR ---
PT RESTING IN BED WITH EYES CLOSED, EASILY AROUSED TO TOUCH. IV LOCATED TO LEFT FOREARM RUNNING NS @ 50ML. DENIES CURRENT NEEDS, WILL CONT TO MONITOR.
[2020-06-04 07:48] LABS: BASOPHILS 0.1 % (0-2); EOSINOPHILS 0.2 % (0-7); HEMOGLOBIN 11.7 g/dL (12-16); IMMATURE GRANULOCYTES 0.3 % (0-5); LYMPHOCYTES 15.5 % (15-50); MCH 25.9 pg (26.0-34.0); MCHC 29.3 g/dL (31.0-37.0); MCV 88.5 fL (80.0-100.0); MEAN PLATELET VOLUME 10.5 fL (7.4-10.4); MONOCYTES 9.3 % (2-11); NEUTROPHILS 74.6 % (40-80); PLATELET COUNT 126 10x3/uL (130-400); RBC 4.52 10x6/uL (4.00-5.40); RDW 16.2 % (11.5-14.5); WBC 15.1 10x3/uL (4.8-10.8)
[2020-06-04 08:34] LABS: ALBUMIN 2.7 g/dL (3.4-5.0); ANION GAP 10.3 mmol/L (8-16); BILIRUBIN - TOTAL 0.22 mg/dL (0.2-1.3); CALCIUM 8.7 mg/dL (8.5-10.1); CARBON DIOXIDE 29.5 mmol/L (21.0-32.0); CREATININE - SERUM 1.1 mg/dL (0.6-1.3); POTASSIUM - SERUM 3.8 mmol/L (3.5-5.1); PROTEIN - SERUM 6.1 g/dL (6.4-8.2)
--- NOTE | 2020-06-04 08:45 | NUR ---
FSBS 129.
[2020-06-04 09:03] VITALS: BP 122/74
[2020-06-04 12:53] VITALS: BP 131/74
[2020-06-04 17:31] VITALS: BP 120/76
--- NOTE | 2020-06-04 19:15 | NUR ---
RECEIVED REPORT, ASSUMED CARE, DENIES PAIN, BREATHING EVEN UNLABRORED, CALL LIGHT IN REACH, BED LOWEST POSITION, NO S/S OF DISTRESS NOTED, IV PATENT, TRILOGY ON
[2020-06-04 23:19] VITALS: BP 122/59
[2020-06-05 03:24] VITALS: BP 122/72
[2020-06-05 04:59] LABS: ALBUMIN 2.6 g/dL (3.4-5.0); ANION GAP 11.9 mmol/L (8-16); BILIRUBIN - TOTAL 0.2 mg/dL (0.2-1.3); CALCIUM 8.5 mg/dL (8.5-10.1); CARBON DIOXIDE 28.9 mmol/L (21.0-32.0); CREATININE - SERUM 1.3 mg/dL (0.6-1.3); POTASSIUM - SERUM 3.8 mmol/L (3.5-5.1); PROTEIN - SERUM 6.1 g/dL (6.4-8.2)
[2020-06-05 06:40] VITALS: BP 100/42
[2020-06-05 07:02] LABS: BASOPHILS 0.1 % (0-2); EOSINOPHILS 0.4 % (0-7); HEMATOCRIT 38.1 % (36.0-48.0); HEMOGLOBIN 11.4 g/dL (12-16); IMMATURE GRANULOCYTES 0.5 % (0-5); LYMPHOCYTES 19.5 % (15-50); MCH 26.1 pg (26.0-34.0); MCHC 29.9 g/dL (31.0-37.0); MCV 87.2 fL (80.0-100.0); MEAN PLATELET VOLUME 11.1 fL (7.4-10.4); MONOCYTES 10.1 % (2-11); NEUTROPHILS 69.4 % (40-80); PLATELET COUNT 119 10x3/uL (130-400); RBC 4.37 10x6/uL (4.00-5.40); RDW 16.1 % (11.5-14.5)
--- NOTE | 2020-06-05 07:45 | NUR ---
PT LAYING IN BED, LOUD RESPIRATIONS, EASY TO AROUSE, ORIENTATED X4. PIV IN LEFT FOREARM, S/L, PATENT, NO REDNESS OR SWELLING. PT ABLE TO AMBULATE WITH ONE PERSON ASSIST. PT WEARING TRIOLOGY MASK 4 HOURS ON, 4 HOURS OFF. EDUCATED PT ON CL AND NEEDS, VERBALIZED UNDERSTANDING. BED LOW, RAILS X2. CL IN REACH. WILL CONTINUE TO MONITOR.
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
--- NOTE | 2020-06-05 09:15 | NUR ---
ASSISTED PT TO BR, URINATED, TOLERATED WELL. ASSISTED BACK TO BED. REPLACED TRILOGY MASK. WILL CONTINUE TO MONITOR.
[2020-06-05 09:22] VITALS: BP 112/71
[2020-06-05 13:05] VITALS: BP 108/57
--- NOTE | 2020-06-05 13:57 | NUR ---
FULL LINEN CHANGE AND GOWN CHANGE, PT TOLERATED WELL. BED LOW, RAILS X2. CL IN REACH.
[2020-06-05 17:54] VITALS: BP 125/58
[2020-06-05 20:00] VITALS: BP 125/72
--- NOTE | 2020-06-05 23:37 | NUR ---
CONTINUALLY REFUSES IVF.
[2020-06-06] VITALS: BP 117/59
[2020-06-06 04:00] VITALS: BP 124/77
[2020-06-06 06:43] LABS: BASOPHILS 0.1 % (0-2); EOSINOPHILS 0.4 % (0-7); HEMATOCRIT 38.5 % (36.0-48.0); HEMOGLOBIN 11.7 g/dL (12-16); IMMATURE GRANULOCYTES 0.7 % (0-5); LYMPHOCYTES 21.3 % (15-50); MCH 26.1 pg (26.0-34.0); MCHC 30.4 g/dL (31.0-37.0); MCV 85.9 fL (80.0-100.0); MONOCYTES 11.2 % (2-11); NEUTROPHILS 66.3 % (40-80); PLATELET COUNT 116 10x3/uL (130-400); RBC 4.48 10x6/uL (4.00-5.40); RDW 16.2 % (11.5-14.5); WBC 16.1 10x3/uL (4.8-10.8)
[2020-06-06 07:03] LABS: ANION GAP 10.6 mmol/L (8-16); BILIRUBIN - TOTAL 0.24 mg/dL (0.2-1.3); CALCIUM 8.5 mg/dL (8.5-10.1); CREATININE - SERUM 1.1 mg/dL (0.6-1.3); POTASSIUM - SERUM 3.6 mmol/L (3.5-5.1); PROTEIN - SERUM 6.4 g/dL (6.4-8.2)
[2020-06-06 08:55] VITALS: BP 142/84
[2020-06-06 13:19] VITALS: BP 126/83
[2020-06-06 17:06] VITALS: BP 138/77
[2020-06-06 20:00] VITALS: BP 125/68
--- NOTE | 2020-06-07 03:59 | NUR ---
I have reviewed this patient and I concur with the Shift Assessment completed by the Licensed Practical Nurse today this shift.
[2020-06-07 04:00] VITALS: BP 122/59
--- NOTE | 2020-06-07 07:05 | NUR ---
A&O RESTING IN BED WITH EYES OPEN. NO C/O PAIN. NO S/S OF ACUTE DISTRESS NOTED. REFUSED AM BLOOD DRAW. ON 4L O2, NC. IV TO LEFT FOREARM, SL. SITE PATENT WITHOUT REDNESS OR SWELLING. DENIES ANY NEEDS AT THIS TIME. CALL LIGHT IN REACH. WILL CONTINUE TO MONITOR.
[2020-06-07 09:18] VITALS: BP 122/71
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
[2020-06-07 12:27] VITALS: BP 118/75
--- NOTE | 2020-06-07 12:40 | NUR ---
I have reviewed this patient and I concur with the Shift Assessment completed by the Licensed Practical Nurse today this shift.
--- NOTE | 2020-06-07 13:26 | NUR ---
Nutrition follow-up: Diet: Consistent CHO PO Intake 100% of all meals Labs; Glucose under much better control most of the time Wt: 297# +BM RDN following.
[2020-06-07 18:01] VITALS: BP 142/79
--- NOTE | 2020-06-07 18:41 | NUR ---
RESTING IN BED WITH EYES CLOSED. RESPIRATIONS EVEN AND UNLABORED. NO S/S OF ACUTE DISTRESS NOTED. CALL LIGHT IN REACH. WILL CONTINUE TO MONITOR.
[2020-06-07 20:00] VITALS: BP 119/77
[2020-06-08] VITALS: BP 110/68
--- NOTE | 2020-06-08 02:34 | NUR ---
I have reviewed this patient and I concur with the Shift Assessment completed by the Licensed Practical Nurse today this shift.
[2020-06-08 04:00] VITALS: BP 143/81
--- NOTE | 2020-06-08 06:55 | NUR ---
RESTING IN BED WITH EYES CLOSED. RESPIRATIONS EVEN AND UNLABORED. NO S/S OF ACUTE DISTRESS NOTED. ON 4L O2, NC. IV TO LEFT FOREARM, SL. SITE PATENT WITHOUT REDNESS OR SWELLING. AWAITING PLACEMENT. CALL LIGHT IN REACH. WILL CONTINUE TO MONITOR.
[2020-06-08 07:17] LABS: HEMATOCRIT 39.4 % (36.0-48.0); HEMOGLOBIN 11.7 g/dL (12-16); IMMATURE GRANULOCYTES 1.9 % (0-5); MCH 25.6 pg (26.0-34.0); MCHC 29.7 g/dL (31.0-37.0); MCV 86.2 fL (80.0-100.0); MEAN PLATELET VOLUME 11.5 fL (7.4-10.4); PLATELET COUNT 129 10x3/uL (130-400); RBC 4.57 10x6/uL (4.00-5.40); RDW 16.1 % (11.5-14.5); WBC 19.9 10x3/uL (4.8-10.8)
[2020-06-08 07:43] LABS: ALBUMIN 2.9 g/dL (3.4-5.0); ANION GAP 11.7 mmol/L (8-16); BILIRUBIN - TOTAL 0.25 mg/dL (0.2-1.3); CALCIUM 8.5 mg/dL (8.5-10.1); POTASSIUM - SERUM 3.7 mmol/L (3.5-5.1); PROTEIN - SERUM 7.1 g/dL (6.4-8.2)
[2020-06-08 07:53] LABS: LYMPHOCYTES 29 % (15-50); MONOCYTES 2 % (2-11); NEUTROPHILS 67 % (40-80); PLATELET ESTIMATE NORMAL
[2020-06-08 08:41] VITALS: BP 142/84
--- NOTE | 2020-06-08 10:55 | NUR ---
I have reviewed this patient and I concur with the Shift Assessment completed by the Licensed Practical Nurse today this shift.
[2020-06-08] MEDS ORDERED: IPRAT-ALBUT 0.5-3 ML UPD (11:23)
[2020-06-08] MEDS ORDERED: LANTUS INS100 UNITS/ SC ×2 (11:25→11:26)
[2020-06-08] MEDS ORDERED: PREDNISONE10 MG PO (11:26)
[2020-06-08] MEDS ORDERED: SINGULAIR10 MG PO (11:27)
[2020-06-08] MEDS ORDERED: MUCINEX600 MG PO (11:27)
[2020-06-08] MEDS ORDERED: PULMICORT0.5 MG/21 UPD (11:27)
[2020-06-08 12:27] VITALS: BP 129/80
--- NOTE | 2020-06-08 12:52 | MORECARE ---
CASE MANAGEMENT DISCHARGE SUMMARY PATIENT: CAROLYN GALICIA UNIT: [id number] ADM DATE: 05/18/20 AGE: 49 : 74 SEX: F ROOM/BED: D.2218 AUTHOR: JESUS,DOC PHYSICIAN: REFERRING PHYSICIAN: RUBEN MARIE MD DATE OF SERVICE: 06/08/20 Discharge Plan Patient Name: CAROLYN GALICIA Facility: [facility]:[place] : 1970 Planned Disposition: Home Anticipated Discharge Date: Discharge Date: Expected LOS: Initial Reviewer: [id number] Initial Review Date: 05/16/2020 Generated: 06/08/20 1:51 pm Comments DCP- Discharge Planning Updated by [email or web address]: Citlaly Mcdonald on 06/08/20 11:[address] CM SPOKE WITH SUKUMAR, HE STATED THAT HE SPOKE WITH MABEL AND MABEL KNOWS THAT HE WILL BE DISCHARGED. I SPOKE WITH MABEL IN [facility] ROOM ON THE PHONE AND HE WAS SUPPOSE TO BE HERE AT 1300 TODAY, I EXPLAINED TO HIM THAT SHE WILL NEED A CHANGE OF CLOTHES AND HER PORTABLE O2. MS GALICIA IS UNSURE ABOUT GOING TO HIS HOME AND JUST WANTS TO BE ON HER OWN I ASKED HER IF I COULD CALL HER MOTHER AND SHE GAVE ME PERMISSION TO CALL I CALLED HER MOTHER AND LEFT A MESSAGE WITH HER TO CALL ME EVERY OPTION I HAVE GIVEN MS GALICIA SHE DOES NOT AGREE SHE WOULD LOVE TO LIVE BY HERSELF BUT AT THIS TIME I DO NOT THINK THAT IS THE SAFEST. PER SUKUMAR WITH APS HE WILL FOLLOW UP WITH HER AND MABEL AND IS NOT TAKING CUSTODY OF HER. CM WILL CONTINUE TO FOLLOW AND ASSIST NEEDED DCP- Discharge Planning Updated by [id number]: Citlaly Mcdonald on 06/07/20 9:[address] ATTEMPTED TO CALL SUKUMAR WITH APS, LEFT MESSAGE FOR HIM TO CALL ME BACK I WENT TO SEE PATIENT AND SHE WAS ASLEEP WILL TRYA AGAIN AT A LATER TIME DCP- Discharge Planning Updated by [id number]: Citlaly Mcdonald on 06/02/20 3:[address] Jazz with [facility] call and stated that they will not be able to take her due to availability and unknown dc date. DCP- Discharge Planning Updated by [id number]: Elizabeth Batres on 05/31/20 2:[address] [facility] will see patient on Friday if discharged tomorrow. She has her trilogy in the room. She plans on going to Mabel's house at discharge and getting her a room at [facility]. I informed her that if she went to [facility] she would need to notify home health where she was. I informed her that [facility] was the only home health that services the [facility] that would accept her and she needed to be compliant with them. She states she will call them when she gets moved. I again encouraged to go to a jail for her care and she refuses. CM will continue to follow and assist with discharge planning/needs. DCP- Discharge Planning Updated by [id number]: Elizabeth Batres on 05/31/20 12:[address] I spoke with Fabiola at [facility] ([phone]) and faxed clinical to [phone]. She will review clinical and call me if they can accept. DCP- Discharge Planning Updated by [id number]: Elizabeth Batres on 05/31/20 12:[address] [facility] has declined to accept patient. I will send patient to the last home health available in [facility] ([facility] is delivering her Trilogy today. DCP- Discharge Planning Updated by [id number]: Elizabeth Paniaguajim on 05/31/20 10:[address] SIGNED TRILOGY ORDER FAXED TO [facility]. DCP- Discharge Planning Updated by [id number]: Elizabeth Paniaguajim on 05/31/20 9:[address] I have faxed clinical for Home health to [facility] and received a call that she is on their "do not accept list." I have been declined by [facility] and [facility] 4. I sent a referral to [facility] in [place] and clinical faxed to their referral fax number [phone]. Referral phone number is [phone]. I be[address] Leonardo to sign O for Trilogy. DCP- Discharge Planning Updated by [id number]: Elizabeth Medardo on 05/31/20 7:[address] Noted CM consult for Trilogy. I have called [facility] and spoke with Belen and clinical faxed for Trilogy. I informed the patient and she will notify Mabel that she will need to wait until Trilogy is approved prior to discharge. CM called [facility] and will fax clinical. DCP- Discharge Planning Updated by [id number]: Elizabeth Batres on 05/29/20 3:[address] I met with patient today to discuss discharge plan. She plans to return to [address] [place] [address] with her POA (Lucas Mao). His phone number is [phone]. She gives me permission to call her POA. She declines jail placement. I asked if she was able to set up her own medications her self and take care of herself and she said "yes." She states she had [facility], but they were unable to accept her per Ray because of "unsafe living conditions." I called Lucas Mao and he is in agreement to have her return to his home. He states he will pick her up on discharge. He states that she has oxygen, portable oxygen and CPAP from [facility]. CM will continue to follow and assist with discharge planning/needs. DCP- Discharge Planning Updated by [id number]: Kelly Tran on 05/26/20 2:[address] Patient Name: CAROLYN GALICIA Admission Status: ER Accout number: [id number] Admission Date: 05-18-2020 : 1970 Admission Diagnosis:URINARY TRACT INFECTION, SITE NOT SPECIFIED Attending: RUBEN MARIE Current LOS: 8 Anticipated DC Date: Planned Disposition: Primary Insurance: MEDICAID [place] Discharge Planning Comments: SPOKE WITH PATIENT AND SUKUMAR JACOME AND PATIENT PLANS TO STAY AT [facility] [phone] OR DAYS INN [phone] ON WEEKLY BASIS. APS IS AWARE OF THIS. PATIENT HAS PHONE NUMBERS TO CALL. SHE HAS A LITTLE DOG AND DOES NOT WANT TO STAY WITH MABEL OR AT THE [facility]. WILL LET SUKUMAR WITH APS KNOW WHEN SHE IS DISCHARGED SO THEY CAN FOLLOW. Shell Sorter: Kelly Tran DCP- Discharge Planning Updated by [id number]: Kelly Tran on 05/19/20 3:[address] Patient Name: CAROLYN GALICIA Admission Status: ER Accout number: [id number] Admission Date: 05-18-2020 : 1970 Admission Diagnosis: Attending: RUBEN MARIE Current LOS: 1 Anticipated DC Date: Planned Disposition: Primary Insurance: [place] Discharge Planning Comments: SUKUMAR WITH [facility] WAS HERE TO VISIT WITH PATIENT. CM FAXED HIM REQUESTED DOCUMENTS. WAITING CALL BACK FROM [facility]. Shell Sorter: Kelly Tran DCP- Discharge Planning Updated by [email or web address]: Kelly Tran on 05/18/20 1:[address] Patient Name: CAROLYN GALICIA Admission Status: ER Accout number: [id number] Admission Date: 05-16-2020 : 1970 Admission Diagnosis: Attending: RUBEN MARIE Current LOS: 2 Anticipated DC Date: Planned Disposition: Primary Insurance: [place] Discharge Planning Comments: CM SPOKE WITH CHUN AT [facility] AND REPORTED PATIENT NOT CAPABLE OF CARING FOR HER SELF MENTALY. WAITING CALL BACK FROM [facility] WITH CASE NUMBER. [facility] PHONE NUMBER [phone]. Shell Sorter: Kelly Tran DCPIA - Discharge Planning Initial Assessment Updated by [email or web address]: Elizabeth Batres on 05/29/20 4:21 pm * Is the patient Alert and Oriented? Yes * PCP No PCP * Pharmacy [facility] on [address] * Preadmission Environment Home with Family * ADLs Independent * Equipment None * List name and contact numbers for known caregivers / representatives who currently or will assist patient after discharge: Lucas MCMANUS (friend) - [phone] * Verbal permission to speak to the caregivers and representatives has been obtained from the patient. Yes * Community resources currently utilized None * Additional services required to return to the preadmission environment? Yes * Can the patient safely return to the preadmission environment? Yes * Has this patient been hospitalized within the prior 30 days at any hospital? Yes Coverage Notice Reviewer: [id number] - Elizabeth Batres Notice Issued Date-Time: 05/29/2020 16:42 Notice Type: Patient Choice Letter Notice Delivered To: Patient Relationship to Patient: Self Anthropologist Physical Name: Delivery Method: HAND - Hand Delivered Kellie Days: Prior Verbal Notification: Recipient Understood Notice: Yes Recipient Signature: Yes Med Rec Note Co-signed by Attending: Coverage Notice Comment: cliff for [facility] and any home health agency that will accept her. Last DP export: 06/07/20 9:53 am Patient Name: GALICIA, CAROLYN Page 80670 at 1252 All edits/amendments must be made on the electronic document DICTATION DATE: 06/08/20 125 HEATER HELPER: CARLA 06/08/20 125 RPT#: [id number] DC DATE: STATUS: ADM IN [facility] [address] [place] [address] END OF REPORT
--- NOTE | 2020-06-08 13:42 | MORECARE ---
CASE MANAGEMENT DISCHARGE SUMMARY PATIENT: CAROLYN GALICIA UNIT: [id number] ADM DATE: 05/18/20 AGE: 49 : 74 SEX: F ROOM/BED: D.2218 AUTHOR: JESUS,DOC PHYSICIAN: REFERRING PHYSICIAN: RUBEN MARIE MD DATE OF SERVICE: 06/08/20 Discharge Plan Patient Name: CAROLYN GALICIA Facility: [facility]:[place] : 1970 Planned Disposition: Home Anticipated Discharge Date: Discharge Date: Expected LOS: Initial Reviewer: [email or web address] Initial Review Date: 05/16/2020 Generated: 06/08/20 2:41 pm Comments DCP- Discharge Planning Updated by [email or web address]: Citlaly Mcdonald on 06/08/20 11:[address] CM SPOKE WITH SUKUMAR, HE STATED THAT HE SPOKE WITH MABEL AND MABEL KNOWS THAT HE WILL BE DISCHARGED. I SPOKE WITH MABEL IN [facility] ROOM ON THE PHONE AND HE WAS SUPPOSE TO BE HERE AT 1300 TODAY, I EXPLAINED TO HIM THAT SHE WILL NEED A CHANGE OF CLOTHES AND HER PORTABLE O2. MS GALICIA IS UNSURE ABOUT GOING TO HIS HOME AND JUST WANTS TO BE ON HER OWN I ASKED HER IF I COULD CALL HER MOTHER AND SHE GAVE ME PERMISSION TO CALL I CALLED HER MOTHER AND LEFT A MESSAGE WITH HER TO CALL ME EVERY OPTION I HAVE GIVEN MS GALICIA SHE DOES NOT AGREE SHE WOULD LOVE TO LIVE BY HERSELF BUT AT THIS TIME I DO NOT THINK THAT IS THE SAFEST. PER SUKUMAR WITH APS HE WILL FOLLOW UP WITH HER AND MABEL AND IS NOT TAKING CUSTODY OF HER. CM WILL CONTINUE TO FOLLOW AND ASSIST NEEDED DCP- Discharge Planning Updated by [id number]: Citlaly Mcdonald on 06/07/20 9:[address] ATTEMPTED TO CALL SUKUMAR WITH APS, LEFT MESSAGE FOR HIM TO CALL ME BACK I WENT TO SEE PATIENT AND SHE WAS ASLEEP WILL TRYA AGAIN AT A LATER TIME DCP- Discharge Planning Updated by [id number]: Citlaly Mcdonald on 06/02/20 3:[address] Jazz with [facility] call and stated that they will not be able to take her due to availability and unknown dc date. DCP- Discharge Planning Updated by [id number]: Elizabeth Batres on 05/31/20 2:[address] [facility] will see patient on Friday if discharged tomorrow. She has her trilogy in the room. She plans on going to Mabel's house at discharge and getting her a room at [facility]. I informed her that if she went to [facility] she would need to notify home health where she was. I informed her that [place] was the only home health that services the [facility] that would accept her and she needed to be compliant with them. She states she will call them when she gets moved. I again encouraged to go to a mcfp for her care and she refuses. CM will continue to follow and assist with discharge planning/needs. DCP- Discharge Planning Updated by [id number]: Elizabeth Batres on 05/31/20 12:[address] I spoke with Fabiola at [facility] ([phone]) and faxed clinical to [phone]. She will review clinical and call me if they can accept. DCP- Discharge Planning Updated by [email or web address]: Elizabeth Batres on 05/31/20 12:[address] [facility] has declined to accept patient. I will send patient to the last home health available in [facility] ([facility]). [facility] is delivering her Trilogy today. DCP- Discharge Planning Updated by [id number]: Elizabeth Paniaguajim on 05/31/20 10:[address] SIGNED TRILOGY ORDER FAXED TO [facility]. DCP- Discharge Planning Updated by [email or web address]: Elizabeth Paniaguajim on 05/31/20 9:[address] I have faxed clinical for Home health to [facility] and received a call that she is on their "do not accept list." I have been declined by [facility] and [facility] 4. I sent a referral to [facility] in [place] and clinical faxed to their referral fax number [phone]. Referral phone number is [phone]. I beeped Dr. Leonardo to sign O for Trilogy. DCP- Discharge Planning Updated by [id number]: Elizabeth Medardo on 05/31/20 7:[address] Noted CM consult for Trilogy. I have called [facility] and spoke with Belen and clinical faxed for Trilogy. I informed the patient and she will notify Mabel that she will need to wait until Trilogy is approved prior to discharge. CM called [facility] and will fax clinical. DCP- Discharge Planning Updated by [id number]: Elizabeth Batres on 05/29/20 3:[address] I met with patient today to discuss discharge plan. She plans to return to [address] [place] [address] with her POA (Lucas Mao). His phone number is [phone]. She gives me permission to call her POA. She declines mcfp placement. I asked if she was able to set up her own medications her self and take care of herself and she said "yes." She states she had [facility], but they were unable to accept her per Ray because of "unsafe living conditions." I called Lucas Mao and he is in agreement to have her return to his home. He states he will pick her up on discharge. He states that she has oxygen, portable oxygen and CPAP from [facility]. CM will continue to follow and assist with discharge planning/needs. DCP- Discharge Planning Updated by [id number]: Kelly Tran on 05/26/20 2:[address] Patient Name: CAROLYN GALICIA Admission Status: ER Accout number: [id number] Admission Date: 05-18-2020 : 1970 Admission Diagnosis:URINARY TRACT INFECTION, SITE NOT SPECIFIED Attending: RUBEN MARIE Current LOS: 8 Anticipated DC Date: Planned Disposition: Primary Insurance: [place]ID [place] Discharge Planning Comments: SPOKE WITH PATIENT AND SUKUMAR JACOME AND PATIENT PLANS TO STAY AT [facility] [phone] OR DAYS INN [phone] ON WEEKLY BASIS. APS IS AWARE OF THIS. PATIENT HAS PHONE NUMBERS TO CALL. SHE HAS A LITTLE DOG AND DOES NOT WANT TO STAY WITH MABEL OR AT THE [facility]. WILL LET SUKUMAR WITH APS KNOW WHEN SHE IS DISCHARGED SO THEY CAN FOLLOW. Domain Architect: Kelly Tran DCP- Discharge Planning Updated by [id number]: Kelly Tran on 05/19/20 3:[address] Patient Name: CAROLYN GALICIA Admission Status: ER Accout number: [id number] Admission Date: 05-18-2020 : 1970 Admission Diagnosis: Attending: RUBEN MARIE Current LOS: 1 Anticipated DC Date: Planned Disposition: Primary Insurance: [place]ID [place] Discharge Planning Comments: SUKUMAR WITH [facility] WAS HERE TO VISIT WITH PATIENT. CM FAXED HIM REQUESTED DOCUMENTS. WAITING CALL BACK FROM [facility]. Domain Architect: Kelly Tran DCP- Discharge Planning Updated by [id number]: Kelly Tran on 05/18/20 1:[address] Patient Name: CAROLYN GALICIA Admission Status: ER Accout number: [id number] Admission Date: 05-16-2020 : 1970 Admission Diagnosis: Attending: RUBEN MARIE Current LOS: 2 Anticipated DC Date: Planned Disposition: Primary Insurance: [place]ID [place] Discharge Planning Comments: CM SPOKE WITH CHUN AT [facility] AND REPORTED PATIENT NOT CAPABLE OF CARING FOR HER SELF MENTALY. WAITING CALL BACK FROM [facility] WITH CASE NUMBER. [facility] PHONE NUMBER [phone]. Domain Architect: Kelly Tran DCPIA - Discharge Planning Initial Assessment Updated by [id number]: Elizabeth Batres on 05/29/20 4:21 pm * Is the patient Alert and Oriented? Yes * PCP No PCP * Pharmacy [facility] [address] * Preadmission Environment Home with Family * ADLs Independent * Equipment None * List name and contact numbers for known caregivers / representatives who currently or will assist patient after discharge: Lucas MCMANUS (friend) - [phone] * Verbal permission to speak to the caregivers and representatives has been obtained from the patient. Yes * Community resources currently utilized None * Additional services required to return to the preadmission environment? Yes * Can the patient safely return to the preadmission environment? Yes * Has this patient been hospitalized within the prior 30 days at any hospital? Yes External Providers External Provider: [facility] Next Contact Date: Service Request Date: Service Type: Resolution: Reviewer: Comments: Coverage Notice Reviewer: [id number] - Elizabeth Batres Notice Issued Date-Time: 05/29/2020 16:42 Notice Type: Patient Choice Letter Notice Delivered To: Patient Relationship to Patient: Self Signal Maintainer Helper Name: Delivery Method: HAND - Hand Delivered Kellie Days: Prior Verbal Notification: Recipient Understood Notice: Yes Recipient Signature: Yes Med Rec Note Co-signed by Attending: Coverage Notice Comment: cliff for [facility] and any home health agency that will accept her. Last DP export: 06/08/20 11:52 a Patient Name: CAROLYN GALICIA Page [id number] at 1342 All edits/amendments must be made on the electronic document DICTATION DATE: 06/08/20 1341 CONTINUITY EDITOR: CARLA 06/08/20 1341 RPT#: [id number] DC DATE: STATUS: ADM IN [facility] [address] [place] [address] END OF REPORT
--- NOTE | 2020-06-08 13:51 | MORECARE ---
CASE MANAGEMENT DISCHARGE SUMMARY PATIENT: CAROLYN GALICIA UNIT: [id number] ADM DATE: 05/18/20 AGE: 49 : 74 SEX: F ROOM/BED: D.2218 AUTHOR: JESUSDOC PHYSICIAN: REFERRING PHYSICIAN: RUBEN MARIE MD DATE OF SERVICE: 06/08/20 Discharge Plan Patient Name: CAROLYN GALICIA Facility: [facility]:[place] : 1970 Planned Disposition: Home Anticipated Discharge Date: Discharge Date: Expected LOS: Initial Reviewer: [email or web address] Initial Review Date: 05/16/2020 Generated: 06/08/20 2:50 pm Comments DCP- Discharge Planning Updated by [id number]: Citlaly Mcdonald on 06/08/20 12:[address] PATIENT IS VERY CONCERNED ABOUT DISCHARGING. I CALLED TIANNA JAKI WITH [facility] TO SEE IF SHE WOULD QUALIFY FOR HER SERVICES. SHE ADVISED ME TO CALL [employer] [facility] TO START THE PROCESS TO SEE WHAT LEVEL SHE IS I CALLED THEM AND THEY STATED THAT THE ASSESSMENT WAS COMPLETED December. I CALLED TIANNA TO LET HER KNOW AND SHE ASKED FOR HER CLINCIAL INFORMATION AND MAYBE SHE COULD RUN IT AND FIND OUT. I THINK THAT THIS WOULD BE THE PERFECT PLACE FOR HER IF SHE IS AGREEABLE AND CAN HAVE HER DOG AND O2. CM IS CONTINUING TO WORK WITH THE PROPER PLACE FOR HER TO BE DISCHARGED. I SPOKE WITH SUKUMAR (APS) ABOUT THIS AND HE THOUGHT IT WAS A GOOD IDEA ALSO. DCP- Discharge Planning Updated by [id number]: Citlaly Mcdonald on 06/08/20 11:[address] CM SPOKE WITH SUKUMAR, HE STATED THAT HE SPOKE WITH MABEL AND MABEL KNOWS THAT HE WILL BE DISCHARGED. I SPOKE WITH MABEL IN [facility] ROOM ON THE PHONE AND HE WAS SUPPOSE TO BE HERE AT 1300 TODAY, I EXPLAINED TO HIM THAT SHE WILL NEED A CHANGE OF CLOTHES AND HER PORTABLE O2. MS GALICIA IS UNSURE ABOUT GOING TO HIS HOME AND JUST WANTS TO BE ON HER OWN I ASKED HER IF I COULD CALL HER MOTHER AND SHE GAVE ME PERMISSION TO CALL I CALLED HER MOTHER AND LEFT A MESSAGE WITH HER TO CALL ME EVERY OPTION I HAVE GIVEN MS GALICIA SHE DOES NOT AGREE SHE WOULD LOVE TO LIVE BY HERSELF BUT AT THIS TIME I DO NOT THINK THAT IS THE SAFEST. PER SUKUMAR WITH APS HE WILL FOLLOW UP WITH HER AND MABEL AND IS NOT TAKING CUSTODY OF HER. CM WILL CONTINUE TO FOLLOW AND ASSIST NEEDED DCP- Discharge Planning Updated by [id number]: Citlaly Tamara on 06/07/20 9:[address] ATTEMPTED TO CALL SUKUMAR WITH APS, LEFT MESSAGE FOR HIM TO CALL ME BACK I WENT TO SEE PATIENT AND SHE WAS ASLEEP WILL TRYA AGAIN AT A LATER TIME DCP- Discharge Planning Updated by [id number]: Citlaly Munizken on 06/02/20 3:[address] Jazz with [facility] call and stated that they will not be able to take her due to availability and unknown dc date. DCP- Discharge Planning Updated by [id number]: Elizabeth Medardo on 05/31/20 2:[address] [facility] will see patient on Friday if discharged tomorrow. She has her trilogy in the room. She plans on going to Mabel's house at discharge and getting her a room at [facility]. I informed her that if she went to [facility] she would need to notify home health where she was. I informed her that [facility] was the only home health that services the [facility] that would accept her and she needed to be compliant with them. She states she will call them when she gets moved. I again encouraged to go to a usp for her care and she refuses. CM will continue to follow and assist with discharge planning/needs. DCP- Discharge Planning Updated by [email or web address]: Elizabeth Batres on 05/31/20 12:[address] I spoke with Fabiola at [facility] ([phone]) and faxed clinical to [phone]. She will review clinical and call me if they can accept. DCP- Discharge Planning Updated by [email or web address]: Elizabeth Batres on 05/31/20 12:[address] [facility] has declined to accept patient. I will send patient to the last home health available in [facility] ([facility] is delivering her Trilogy today. DCP- Discharge Planning Updated by [id number]: Elizabeth Batres on 05/31/20 10:[address] SIGNED TRILOGY ORDER FAXED TO [facility]. DCP- Discharge Planning Updated by [id number]: Elizabeth Batres on 05/31/20 9:[address] I have faxed clinical for Home health to [facility] and received a call that she is on their "do not accept list." I have been declined by [facility] and [facility] . I sent a referral to [facility] in [place] and clinical faxed to their referral fax number [phone]. Referral phone number is [phone]. I beeped Dr. Leonardo to sign DWO for Trilogy. DCP- Discharge Planning Updated by [email or web address]: Elizabeth Batres on 05/31/20 7:[address] Noted CM consult for Trilogy. I have called [facility] and spoke with Belen and clinical faxed for Trilogy. I informed the patient and she will notify Mabel that she will need to wait until Trilogy is approved prior to discharge. called [facility] and will fax clinical. DCP- Discharge Planning Updated by [id number]: Elizabeth Batres on 05/29/20 3:[address] I met with patient today to discuss discharge plan. She plans to return to [address] [place] [address] with her POA (Lucas Mao). His phone number is [phone]. She gives me permission to call her POA. She declines usp placement. I asked if she was able to set up her own medications her self and take care of herself and she said "yes." She states she had [facility], but they were unable to accept her per Ray because of "unsafe living conditions." I called Lucas Mao and he is in agreement to have her return to his home. He states he will pick her up on discharge. He states that she has oxygen, portable oxygen and CPAP from [facility]. CM will continue to follow and assist with discharge planning/needs. DCP- Discharge Planning Updated by [id number]: Kelly Tran on 05/26/20 2:[address] Patient Name: CAROLYN GALICIA Admission Status: ER Accout number: [id number] Admission Date: 05-18-2020 : 1970 Admission Diagnosis:URINARY TRACT INFECTION, SITE NOT SPECIFIED Attending: RUBEN MARIE Current LOS: 8 Anticipated DC Date: Planned Disposition: Primary Insurance: [place]ID [place] Discharge Planning Comments: SPOKE WITH PATIENT AND SUKUMAR APS AND PATIENT PLANS TO STAY AT [facility] [phone] OR DAYS INN [phone] ON WEEKLY BASIS. APS IS AWARE OF THIS. PATIENT HAS PHONE NUMBERS TO CALL. SHE HAS A LITTLE DOG AND DOES NOT WANT TO STAY WITH MABEL OR AT [facility]. WILL LET SUKUMAR WITH APS KNOW WHEN SHE IS DISCHARGED SO THEY CAN FOLLOW. Tire Assembler: Kelly Tran DCP- Discharge Planning Updated by [id number]: Kelly Tran on 05/19/20 3:[address] Patient Name: CAROLYN GALICIA Admission Status: ER Accout number: [id number] Admission Date: 05-18-2020 : 1970 Admission Diagnosis: Attending: RUBEN MARIE Current LOS: 1 Anticipated DC Date: Planned Disposition: Primary Insurance: [place]ID [place] Discharge Planning Comments: SUKUMAR WITH APS WAS HERE TO VISIT WITH PATIENT. CM FAXED HIM REQUESTED DOCUMENTS. WAITING CALL BACK FROM [facility]. Tire Assembler: Kelly Tran [facility]- Discharge Planning Updated by [id number]: Kelly Tran on 05/18/20 1:[address] Patient Name: CAROLYN GALICIA Admission Status: ER Accout number: [id number] Admission Date: 05-16-2020 : 1970 Admission Diagnosis: Attending: RUBEN MARIE Current LOS: 2 Anticipated DC Date: Planned Disposition: Primary Insurance: [place]ID [place] Discharge Planning Comments: CM SPOKE WITH CHUN AT [facility] AND REPORTED PATIENT NOT CAPABLE OF CARING FOR HER SELF MENTALY. WAITING CALL BACK FROM [facility] WITH CASE NUMBER. [facility] PHONE NUMBER [phone]. Tire Assembler: Kelly Tran [facility] - Discharge Planning Initial Assessment Updated by [id number]: Elizabeth Batres on 05/29/20 4:21 pm * Is the patient Alert and Oriented? Yes * PCP No PCP * Pharmacy [facility] [address] * Preadmission Environment Home with Family * ADLs Independent * Equipment None * List name and contact numbers for known caregivers / representatives who currently or will assist patient after discharge: Lucas MCMANUS (friend) - [phone] * Verbal permission to speak to the caregivers and representatives has been obtained from the patient. Yes * Community resources currently utilized None * Additional services required to return to the preadmission environment? Yes * Can the patient safely return to the preadmission environment? Yes * Has this patient been hospitalized within the prior 30 days at any hospital? Yes Coverage Notice Reviewer: [id number] Marnie Batres Notice Issued Date-Time: 05/29/2020 16:42 Notice Type: Patient Choice Letter Notice Delivered To: Patient Relationship to Patient: Self [place] Attorney Name: Delivery Method: HAND - Hand Delivered Kellie Days: Prior Verbal Notification: Recipient Understood Notice: Yes Recipient Signature: Yes Med Rec Note Co-signed by Attending: Coverage Notice Comment: cliff for [facility] and any home health agency that will accept her. Last DP export: 06/08/20 12:42 p Patient Name: CAROLYN GALICIA Page 03450 at 1351 All edits/amendments must be made on the electronic document DICTATION DATE: 06/08/20 1350 DIAGNOSTIC TECHNOLOGIST: CARLA 06/08/20 1350 RPT#: [id number] DC DATE: STATUS: ADM IN [facility] [address] [place] [address] END OF REPORT
--- NOTE | 2020-06-08 15:31 | MORECARE ---
CASE MANAGEMENT DISCHARGE SUMMARY PATIENT: CAROLYN GALICIA UNIT: [id number] ADM DATE: 05/18/20 AGE: 49 : 74 SEX: F ROOM/BED: D.7248 AUTHOR: ANGEL LEE PHYSICIAN: REFERRING PHYSICIAN: RUBEN MARIE MD DATE OF SERVICE: 06/08/20 Discharge Plan Patient Name: CAROLYN GALICIA Facility: [facility]:[place] : 1970 Planned Disposition: Home Anticipated Discharge Date: Discharge Date: Expected LOS: Initial Reviewer: [id number] Initial Review Date: 05/16/2020 Generated: 06/08/20 4:31 pm Comments DCP- Discharge Planning Updated by [id number]: Citlaly Mcdonald on 06/08/20 2:[address] I MET MABEL WITH THE PATIENT AND HE ASSURED ME THAT HER MONEY IS SAFE AND HE WILL MAKE SURE THAT ANYTHING HAPPENS TO HER. SUKUMAR WITH APS WILL FOLLOW HER I SHOWED MABEL HOW TO SET UP HER TRILIOGY PATIENT IS SAYING NOW SHE IS SAFE TO GO WITH HIMAND FEELS OK I EXPLAINED TO MABEL THAT SHE CAN NOT HAVE HOME HEALTH HE SAID HE WAS GOING TO PAY HER CELL PHONE BILL TODAY AND GET HER MEDICINE AND ANYTHING HER SHE MAY NEED. SHE WILL BE GOING HOME WITH HIM AND HE WILL BE GETTING HER A PLACE WHEN IT IS READY [facility]" TIANNA ARIANNA WILL ALSO BE GETTING INTOUCH WITH HER TO SEE ABOUT GETTING HER WITH THEM [phone] IS CAROLYN'S CELL PHONE NUMBER SHE HAS HER PORTABLE O2 HERE AT THE HOSPITAL DCP- Discharge Planning Updated by [id number]: Citlaly Mcdonald on 06/08/20 12:[address] PATIENT IS VERY CONCERNED ABOUT DISCHARGING. I CALLED TIANNA POLLACK WITH [employer] TO SEE IF SHE WOULD QUALIFY FOR HER SERVICES. SHE ADVISED ME TO CALL [employer] ASSESSMENT TO START THE PROCESS TO SEE WHAT LEVEL SHE IS I CALLED THEM AND THEY STATED THAT THE ASSESSMENT WAS COMPLETED December. I CALLED TIANNA TO LET HER KNOW AND SHE ASKED FOR HER CLINCIAL INFORMATION AND MAYBE SHE COULD RUN IT AND FIND OUT. I THINK THAT THIS WOULD BE THE PERFECT PLACE FOR HER IF SHE IS AGREEABLE AND CAN HAVE HER DOG AND O2. CM IS CONTINUING TO WORK WITH THE PROPER PLACE FOR HER TO BE DISCHARGED. I SPOKE WITH SUKUMAR (AYAZ) ABOUT THIS AND HE THOUGHT IT WAS A GOOD IDEA ALSO. DCP- Discharge Planning Updated by [id number]: Citlaly Mcdonald on 06/08/20 11:[address] CM SPOKE WITH SUKUMAR, HE STATED THAT HE SPOKE WITH MABEL AND MABEL KNOWS THAT HE WILL BE DISCHARGED. I SPOKE WITH MABEL IN [facility] ROOM ON THE PHONE AND HE WAS SUPPOSE TO BE HERE AT 1300 TODAY, I EXPLAINED TO HIM THAT SHE WILL NEED A CHANGE OF CLOTHES AND HER PORTABLE O2. MS GALICIA IS UNSURE ABOUT GOING TO HIS HOME AND JUST WANTS TO BE ON HER OWN I ASKED HER IF I COULD CALL HER MOTHER AND SHE GAVE ME PERMISSION TO CALL I CALLED HER MOTHER AND LEFT A MESSAGE WITH HER TO CALL ME EVERY OPTION I HAVE GIVEN MS GALICIA SHE DOES NOT AGREE SHE WOULD LOVE TO LIVE BY HERSELF BUT AT THIS TIME I DO NOT THINK THAT IS THE SAFEST. PER SUKUMAR WITH APS HE WILL FOLLOW UP WITH HER AND MABEL AND IS NOT TAKING CUSTODY OF HER. CM WILL CONTINUE TO FOLLOW AND ASSIST NEEDED DCP- Discharge Planning Updated by [email or web address]: Citlaly Mcdonald on 06/07/20 9:[address] ATTEMPTED TO CALL SUKUMAR WITH APS, LEFT MESSAGE FOR HIM TO CALL ME BACK I WENT TO SEE PATIENT AND SHE WAS ASLEEP WILL TRYA AGAIN AT A LATER TIME DCP- Discharge Planning Updated by [id number]: Citlaly Mcdonald on 06/02/20 3:[address] Jazz with [facility] call and stated that they will not be able to take her due to availability and unknown dc date. DCP- Discharge Planning Updated by [email or web address]: Elizabeth Medardo on 05/31/20 2:48 pm [place] Angy [facility] will see patient on Friday if discharged tomorrow. She has her trilogy in the room. She plans on going to Mabel's house at discharge and getting her a room at [facility]. I informed her that if she went to [facility] she would need to notify home health where she was. I informed her that [facility] was the only home health that services the [facility] that would accept her and she needed to be compliant with them. She states she will call them when she gets moved. I again encouraged to go to a long term for her care and she refuses. CM will continue to follow and assist with discharge planning/needs. DCP- Discharge Planning Updated by [id number]: Elizabeth Medardo on 05/31/20 12:[address] I spoke with Fabiola at [facility] ([phone]) and faxed clinical to [phone]. She will review clinical and call me if they can accept. DCP- Discharge Planning Updated by [id number]: Elizabeth Medardo on 05/31/20 12:[address] [facility] has declined to accept patient. I will send patient to the last home health available in [facility] ([facility] is delivering her Trilogy today. DCP- Discharge Planning Updated by [id number]: Leizabeth Medardo on 05/31/20 10:[address] SIGNED TRILOGY ORDER FAXED TO [facility]. DCP- Discharge Planning Updated by [id number]: Elizabeth Batres on 05/31/20 9:[address] I have faxed clinical for Home health to [facility] and received a call that she is on their "do not accept list." I have been declined by [facility] and [facility]. I sent a referral to [facility] in [place] and clinical faxed to their referral fax number [phone]. Referral phone number is [phone]. I beeped Dr. Leonardo to sign DWO for Trilogy. DCP- Discharge Planning Updated by [id number]: Elizabeth Batres on 05/31/20 7:[address] Noted CM consult for Trilogy. I have called [facility] and spoke with Belen and clinical faxed for Trilogy. I informed the patient and she will notify Mabel that she will need to wait until Trilogy is approved prior to discharge. CM called [facility] and will fax clinical. DCP- Discharge Planning Updated by [id number]: Elizabeth Batres on 05/29/20 3:[address] I met with patient today to discuss discharge plan. She plans to return to [address] [place] [address] with her POA (Lucas Mao). His phone number is [phone]. She gives me permission to call her POA. She declines long term placement. I asked if she was able to set up her own medications her self and take care of herself and she said "yes." She states she had [facility], but they were unable to accept her per Ray because of "unsafe living conditions." I called Lucas Mao and he is in agreement to have her return to his home. He states he will pick her up on discharge. He states that she has oxygen, portable oxygen and CPAP from [facility]. CM will continue to follow and assist with discharge planning/needs. DCP- Discharge Planning Updated by [id number]: Kelly Tran on 05/26/20 2:[address] Patient Name: CAROLYN GALICIA Admission Status: ER Accout number: [id number] Admission Date: 05-18-2020 : 1970 Admission Diagnosis:URINARY TRACT INFECTION, SITE NOT SPECIFIED Attending: RUBEN MARIE Current LOS: 8 Anticipated DC Date: Planned Disposition: Primary Insurance: [place] Discharge Planning Comments: SPOKE WITH PATIENT AND SUKUMAR JACOME AND PATIENT PLANS TO STAY AT [facility] [phone] OR [facility] [phone] ON WEEKLY BASIS. APS IS AWARE OF THIS. PATIENT HAS PHONE NUMBERS TO CALL. SHE HAS A LITTLE DOG AND DOES NOT WANT TO STAY WITH [facility] OR AT THE [facility]. WILL LET SUKUMAR WITH APS KNOW WHEN SHE IS DISCHARGED SO THEY CAN FOLLOW. Curator Of Photography And Prints: Kelly Tran DCP- Discharge Planning Updated by [email or web address]: Kelly Tran on 05/19/20 3:[address] Patient Name: CAROLYN GALICIA Admission Status: ER Accout number: [id number] Admission Date: 05-18-2020 : 1970 Admission Diagnosis: Attending: RUBEN MARIE Current LOS: 1 Anticipated DC Date: Planned Disposition: Primary Insurance: [place] Discharge Planning Comments: SUKUMAR MONTOYA APS WAS HERE TO VISIT WITH PATIENT. CM FAXED HIM REQUESTED DOCUMENTS. WAITING CALL BACK FROM APS. Curator Of Photography And Prints: Kelly Tran DCP- Discharge Planning Updated by [id number]: Kelly Tran on 05/18/20 1:[address] Patient Name: CAROLYN GALICIA Admission Status: ER Accout number: [id number] Admission Date: 05-16-2020 : 1970 Admission Diagnosis: Attending: RUBEN MARIE Current LOS: 2 Anticipated DC Date: Planned Disposition: Primary Insurance: [place]ID [place] Discharge Planning Comments: CM SPOKE WITH CHUN AT [facility] AND REPORTED PATIENT NOT CAPABLE OF CARING FOR HER SELF MENTALY. WAITING CALL BACK FROM [facility] WITH CASE NUMBER. [facility] PHONE NUMBER [phone]. Curator Of Photography And Prints: Kelly Tran DCPIA - Discharge Planning Initial Assessment Updated by [id number]: Elizabeth Batres on 05/29/20 4:21 pm * Is the patient Alert and Oriented? Yes * PCP No PCP * Pharmacy [facility] [address] and [place] * Preadmission Environment Home with Family * ADLs Independent * Equipment None * List name and contact numbers for known caregivers / representatives who currently or will assist patient after discharge: Lucas MCMANUS (friend) - [phone] * Verbal permission to speak to the caregivers and representatives has been obtained from the patient. Yes * Community resources currently utilized None * Additional services required to return to the preadmission environment? Yes * Can the patient safely return to the preadmission environment? Yes * Has this patient been hospitalized within the prior 30 days at any hospital? Yes Coverage Notice Reviewer: [id number] - Elizabeth Paniaguajim Notice Issued Date-Time: 05/29/2020 16:42 Notice Type: Patient Choice Letter Notice Delivered To: Patient Relationship to Patient: Self Oceanography Professor Name: Delivery Method: HAND - Hand Delivered Kellie Days: Prior Verbal Notification: Recipient Understood Notice: Yes Recipient Signature: Yes Med Rec Note Co-signed by Attending: Coverage Notice Comment: cliff for [facility] and any home health agency that will accept her. Last DP export: 06/08/20 12:51 p Patient Name: CAROLYN GALICIA Page [id number] at 1531 All edits/amendments must be made on the electronic document DICTATION DATE: 06/08/20 1531 KITCHEN LEAD: CARLA 06/08/20 1531 RPT#: [id number] DC DATE: STATUS: ADM IN [facility] [address] [place] [address] END OF REPORT
--- NOTE | 2020-06-08 15:45 | NUR ---
PATIENT DISCHARGED HOME WITH FAMILY VIA WHEELCHAIR. IV DISCONTINUED BY KYARA REDD LPN WITH CATHETER INTACT. KYARA ALSO WENT OVER DISCHARGE INSTRUCTIONS WITH PATIENT AND FAMILY, VERBALZIED UNDERSTANDING. DENIES ANY NEEDS.
--- NOTE | 2020-06-09 09:37 | MORECARE ---
CASE MANAGEMENT DISCHARGE SUMMARY PATIENT: CAROLYN GALICIA UNIT: [id number] ADM DATE: 05/18/20 AGE: 49 : 74 SEX: F ROOM/BED: D.2218 AUTHOR: ANGEL LEE PHYSICIAN: REFERRING PHYSICIAN: RUBEN MARIE MD DATE OF SERVICE: 06/09/20 Discharge Plan Patient Name: CAROLYN GALICIA Facility: [facility]:[place] : 1970 Planned Disposition: Home Anticipated Discharge Date: Discharge Date: 06/08/2020 Expected LOS: Initial Reviewer: [id number] Initial Review Date: 05/16/2020 Generated: 06/09/20 10:36 am Comments DCP- Discharge Planning Updated by [id number]: Citlaly Mcdonald on 06/08/20 2:[address] I MET MABEL WITH THE PATIENT AND HE ASSURED ME THAT HER MONEY IS SAFE AND HE WILL MAKE SURE THAT ANYTHING HAPPENS TO HER. SUKUMAR WITH APS WILL FOLLOW HER I SHOWED MABEL HOW TO SET UP HER TRILIOGY PATIENT IS SAYING NOW SHE IS SAFE TO GO WITH HIM[facility] FEELS OK I EXPLAINED TO MABEL THAT SHE CAN NOT HAVE HOME HEALTH HE SAID HE WAS GOING TO PAY HER CELL PHONE BILL TODAY AND GET HER MEDICINE AND ANYTHING HER SHE MAY NEED. SHE WILL BE GOING HOME WITH HIM AND HE WILL BE GETTING HER A PLACE WHEN IT IS READY [facility]" TIANNA KELLER WILL ALSO BE GETTING INTOUCH WITH HER TO SEE ABOUT GETTING HER WITH THEM [phone] IS CAROLYN'S CELL PHONE NUMBER SHE HAS HER PORTABLE O2 HERE AT THE HOSPITAL DCP- Discharge Planning Updated by [id number]: Citlaly Mcdonald on 06/08/20 12:[address] PATIENT IS VERY CONCERNED ABOUT DISCHARGING. I CALLED TIANNA POLLACK WITH [employer] TO SEE IF SHE WOULD QUALIFY FOR HER SERVICES. SHE ADVISED ME TO CALL [employer] ASSESS[facility] TO START THE PROCESS TO SEE WHAT LEVEL SHE IS I CALLED THEM AND THEY STATED THAT THE ASSESSMENT WAS COMPLETED December. I CALLED TIANNA TO LET HER KNOW AND SHE ASKED FOR HER CLINCIAL INFORMATION AND MAYBE SHE COULD RUN IT AND FIND OUT. I THINK THAT THIS WOULD BE THE PERFECT PLACE FOR HER IF SHE IS AGREEABLE AND CAN HAVE HER DOG AND O2. CM IS CONTINUING TO WORK WITH THE PROPER PLACE FOR HER TO BE DISCHARGED. I SPOKE WITH SUKUMAR (AYAZ) ABOUT THIS AND HE THOUGHT IT WAS A GOOD IDEA ALSO. DCP- Discharge Planning Updated by [id number]: Citlaly Mcdonald on 06/08/20 11:[address] CM SPOKE WITH SUKUMAR, HE STATED THAT HE SPOKE WITH MABEL AND MABEL KNOWS THAT HE WILL BE DISCHARGED. I SPOKE WITH MABEL IN [place] ROOM ON THE PHONE AND HE WAS SUPPOSE TO BE HERE AT 1300 TODAY, I EXPLAINED TO HIM THAT SHE WILL NEED A CHANGE OF CLOTHES AND HER PORTABLE O2. MS GALICIA IS UNSURE ABOUT GOING TO HIS HOME AND JUST WANTS TO BE ON HER OWN I ASKED HER IF I COULD CALL HER MOTHER AND SHE GAVE ME PERMISSION TO CALL I CALLED HER MOTHER AND LEFT A MESSAGE WITH HER TO CALL ME EVERY OPTION I HAVE GIVEN MS GALICIA SHE DOES NOT AGREE SHE WOULD LOVE TO LIVE BY HERSELF BUT AT THIS TIME I DO NOT THINK THAT IS THE SAFEST. PER SUKUMAR WITH APS HE WILL FOLLOW UP WITH HER AND MABEL AND IS NOT TAKING CUSTODY OF HER. CM WILL CONTINUE TO FOLLOW AND ASSIST NEEDED DCP- Discharge Planning Updated by [id number]: Citlaly Tamara on 06/07/20 9:[address] ATTEMPTED TO CALL SUKUMAR WITH APS, LEFT MESSAGE FOR HIM TO CALL ME BACK I WENT TO SEE PATIENT AND SHE WAS ASLEEP WILL TRYA AGAIN AT A LATER TIME DCP- Discharge Planning Updated by [id number]: Citlaly Mcdonald on 06/02/20 3:[address] Jazz with Angy [facility] call and stated that they will not be able to take her due to availability and unknown dc date. DCP- Discharge Planning Updated by [email or web address]: Elizabeth Medardo on 05/31/20 2:48 pm [place] Angy [facility] will see patient on Friday if discharged tomorrow. She has her trilogy in the room. She plans on going to Mabel's house at discharge and getting her a room at [facility]. I informed her that if she went to [facility] she would need to notify home health where she was. I informed her that [facility] was the only home health that services the [facility] that would accept her and she needed to be compliant with them. She states she will call them when she gets moved. I again encouraged to go to a senior care for her care and she refuses. CM will continue to follow and assist with discharge planning/needs. DCP- Discharge Planning Updated by [id number]: Elizabeth Medardo on 05/31/20 12:[address] I spoke with Fabiola at [facility] ([phone]) and faxed clinical to [phone]. She will review clinical and call me if they can accept. DCP- Discharge Planning Updated by [id number]: Elizabeth Medardo on 05/31/20 12:[address] [facility] has declined to accept patient. I will send patient to the [facility] health [facility] is delivering her Trilogy today. DCP- Discharge Planning Updated by [id number]: Elizabeth Batres on 05/31/20 10:[address] SIGNED TRILOGY ORDER FAXED TO [facility]. DCP- Discharge Planning Updated by [id number]: Elizabeth Batres on 05/31/20 9:[address] I have faxed clinical for Home health to [facility] and received a call that she is on their "do not accept list." I have been declined by [facility] and [facility]. I sent a referral to [facility] in [place] and clinical faxed to their referral fax number [phone]. Referral phone number is [phone]. I beeped Dr. Leonardo to sign O for Trilogy. DCP- Discharge Planning Updated by [id number]: Elizabeth Batres on 05/31/20 7:[address] Noted CM consult for Trilogy. I have called [facility] and spoke with Belen and clinical faxed for Trilogy. I informed the patient and she will notify Mabel that she will need to wait until Trilogy is approved prior to discharge. CM called [facility] and will fax clinical. DCP- Discharge Planning Updated by [id number]: Elizabeth Batres on 05/29/20 3:[address] I met with patient today to discuss discharge plan. She plans to return to [address] [place] [address] with her POA (Lucas Mao). His phone number is [phone]. She gives me permission to call her POA. She declines senior care placement. I asked if she was able to set up her own medications her self and take care of herself and she said "yes." She states she had [facility], but they were unable to accept her per Ray because of "unsafe living conditions." I called Lucas Mao and he is in agreement to have her return to his home. He states he will pick her up on discharge. He states that she has oxygen, portable oxygen and CPAP from [facility]. CM will continue to follow and assist with discharge planning/needs. DCP- Discharge Planning Updated by [id number]: Kelly Tran on 05/26/20 2:[address] Patient Name: CAROLYN GALICIA Admission Status: ER Accout number: [id number] Admission Date: 05-18-2020 : 1970 Admission Diagnosis:URINARY TRACT INFECTION, SITE NOT SPECIFIED Attending: RUBEN MARIE Current LOS: 8 Anticipated DC Date: Planned Disposition: Primary Insurance: [place]ID [place] Discharge Planning Comments: SPOKE WITH PATIENT AND SUKUMAR JACOME AND PATIENT PLANS TO STAY AT [facility] [phone] OR [facility] [phone] ON WEEKLY BASIS. APS IS AWARE OF THIS. PATIENT HAS PHONE NUMBERS TO CALL. SHE HAS A LITTLE DOG AND DOES NOT WANT TO STAY WITH [facility] OR AT THE [facility]. WILL LET SUKUMAR WITH APS KNOW WHEN SHE IS DISCHARGED SO THEY CAN FOLLOW. Telemetry Rn: Kelly Tran DCP- Discharge Planning Updated by [id number]: Kelly Tran on 05/19/20 3:[address] Patient Name: CAROLYN GALICIA Admission Status: ER Accout number: [id number] Admission Date: 05-18-2020 : 1970 Admission Diagnosis: Attending: RUBEN MARIE Current LOS: 1 Anticipated DC Date: Planned Disposition: Primary Insurance: [place]ID [place] Discharge Planning Comments: SUKUMAR MONTOYA APS WAS HERE TO VISIT WITH PATIENT. CM FAXED HIM REQUESTED DOCUMENTS. WAITING CALL BACK FROM APS. Telemetry Rn: Kelly Tran DCP- Discharge Planning Updated by [id number]: Kelly Tran on 05/18/20 1:[address] Patient Name: CAROLYN GALICIA Admission Status: ER Accout number: [id number] Admission Date: 05-16-2020 : 1970 Admission Diagnosis: Attending: RUBEN MARIE Current LOS: 2 Anticipated DC Date: Planned Disposition: Primary Insurance: [place]ID [place] Discharge Planning Comments: CM SPOKE WITH CHUN AT [facility] AND REPORTED PATIENT NOT CAPABLE OF CARING FOR HER SELF MENTALY. WAITING CALL BACK FROM [facility] WITH CASE NUMBER. [facility] PHONE NUMBER [phone]. Telemetry Rn: Kelly Tran DCPIA - Discharge Planning Initial Assessment Updated by [email or web address]: Elizabeth Batres on 05/29/20 4:21 pm * Is the patient Alert and Oriented? Yes * PCP No PCP * Pharmacy [facility] on [address] * Preadmission Environment Home with Family * ADLs Independent * Equipment None * List name and contact numbers for known caregivers / representatives who currently or will assist patient after discharge: Lucas KILLIANAnali (friend) - [phone] * Verbal permission to speak to the caregivers and representatives has been obtained from the patient. Yes * Community resources currently utilized None * Additional services required to return to the preadmission environment? Yes * Can the patient safely return to the preadmission environment? Yes * Has this patient been hospitalized within the prior 30 days at any hospital? Yes Coverage Notice Reviewer: [id number] - Elizabeth Paniaguajim Notice Issued Date-Time: 05/29/2020 16:42 Notice Type: Patient Choice Letter Notice Delivered To: Patient Relationship to Patient: Self Airport Maintenance Chief Name: Delivery Method: HAND - Hand Delivered Kellie Days: Prior Verbal Notification: Recipient Understood Notice: Yes Recipient Signature: Yes Med Rec Note Co-signed by Attending: Coverage Notice Comment: cliff for [facility] and any home health agency that will accept her. Last DP export: 06/08/20 2:31 p Patient Name: CAROLYN GALICIA Page [id number] at 0937 All edits/amendments must be made on the electronic document DICTATION DATE: 06/09/20935 [facility] RN: CARLA 06/09/20935 RPT#: [id number] DC DATE:06/08/20 STATUS: DIS IN [facility] [address] [place] [address] END OF REPORT
== END 2020-06-08 15:46 | disposition home or self-care (01) | DRG 291 ==
LOC: D.ER 12:53 → D.MS 19:49 → OBSVTIME 19:50 → D.MS 05-18 16:15 → D.M2 05-26 23:28 → D.MS 06-01 05:13
PROVIDERS: Emergency Medicine; Family Medicine; Family Medicine Adult Medicine; ADMIT Family Medicine; ATTEND Family Medicine
DX: I11.0 Hypertensive heart disease with heart failure (principal); J96.21 Acute and chronic respiratory failure with hypoxia; J96.22 Acute and chronic respiratory failure with hypercapnia; N39.0 Urinary tract infection, site not specified; Z68.43 Body mass index [BMI] 50.0-59.9, adult; J98.11 Atelectasis; I50.23 Acute on chronic systolic (congestive) heart failure; I42.9 Cardiomyopathy, unspecified; E11.65 Type 2 diabetes mellitus with hyperglycemia; I10 Essential (primary) hypertension; E78.5 Hyperlipidemia, unspecified; F41.8 Other specified anxiety disorders; E66.01 Morbid (severe) obesity due to excess calories; K21.9 Gastro-esophageal reflux disease without esophagitis; M19.90 Unspecified osteoarthritis, unspecified site; F31.9 Bipolar disorder, unspecified; G47.33 Obstructive sleep apnea (adult) (pediatric); F60.89 Other specific personality disorders; F19.10 Other psychoactive substance abuse, uncomplicated; J30.9 Allergic rhinitis, unspecified; N63.32 Unspecified lump in axillary tail of the left breast

== ENCOUNTER 2020-09-01 01:41 | Inpatient (IN) | payer MEDICAID ==
[2020-09-01] VITALS (11 sets, daily range): BP systolic 96–177; BP diastolic 66–101; BMI 46.5
[~2020-09-01] VITALS: Ht 165.1 cm; Wt 125.1 kg
[~2020-09-01 01:41] MED LIST changes: +IPRAT-ALBUT 0.5-3 ML UPD; +LANTUS INS100 UNITS/ SC; +MUCINEX600 MG PO; +PHENERGAN IM; +PROTONIX40 MG PO; +PULMICORT0.5 MG/21 UPD; +SINGULAIR10 MG PO
[2020-09-01 02:19] LABS: BASOPHILS 0.1 % (0-2); EOSINOPHILS 0.4 % (0-7); HEMATOCRIT 39.6 % (36.0-48.0); HEMOGLOBIN 11.1 g/dL (12-16); IMMATURE GRANULOCYTES 0.4 % (0-5); LYMPHOCYTE ABS# 1.31 10x3/uL (1.18-3.74); LYMPHOCYTES 9.6 % (15-50); MCH 25.8 pg (26.0-34.0); MCV 92.1 fL (80.0-100.0); NEUTROPHIL ABS# 11.15 10x3/uL (1.56-6.13); NEUTROPHILS 81.5 % (40-80); RDW 15.3 % (11.5-14.5); WBC 13.7 10x3/uL (4.8-10.8)
[2020-09-01 02:20] LABS: PLATELET COUNT 149 10x3/uL (130-400)
[2020-09-01 02:22] LABS: APTT 34.5 SECONDS (22.8-39.4); INR 1.12 (0.85-1.17); PROTIME 14.3 SECONDS (11.6-15.0)
[2020-09-01 02:25] LABS: CALC OSMOLALITY 285 mosm/kg (275-300); CALCIUM 9.3 mg/dL (8.5-10.1); CARBON DIOXIDE 39.2 mmol/L (21.0-32.0); CHLORIDE - SERUM 99 mmol/L (98-107); CREATININE - SERUM 0.9 mg/dL (0.6-1.3); POTASSIUM - SERUM 3.3 mmol/L (3.5-5.1); SODIUM 141 mmol/L (136-145); UREA NITROGEN 7 mg/dL (7-18); eGFR NON AFRICAN AMERICAN 71 mL/min (90-120)
[2020-09-01 02:30] LABS: GLUCOSE 221 mg/dL (74-106)
--- NOTE | 2020-09-01 02:39 | NUR ---
0145 PATIENT ARRIVED FROM HOME BY EMS, PATIENT GROSSLY OBESE, CHALKYITSIK APPEARS UNKEMPT, BODY ODOR NOTED, FUNGAL RASHED UNDER BL BREASTS, BETWEEN LEGS , PT STATES "I CAN'T TAKE CARE OF MYSELF NO MORE", WILL REQUEST SW CONSULT, PLACED PUREWICK AT VAGINAL FOLDS WITH 3 NURSE ASSIST, PATIENT VERBABLIZED UNDERSTANDING
[2020-09-01 02:41] LABS: ALBUMIN 2.9 g/dL (3.4-5.0); ALKALINE PHOSPHATASE 93 U/L (30-120); ALT (SGPT) 16 U/L (10-68); BILIRUBIN - TOTAL 1.18 mg/dL (0.2-1.3); CKMB 3.2 U/L (0.0-3.6); CREATINE KINASE 95 UL (21-215); MAGNESIUM - SERUM 1.8 mg/dL (1.8-2.4); PRO BNP 1154 pg/mL (0-125); PROTEIN - SERUM 7.5 g/dL (6.4-8.2); TROPONIN-I 0.047 ng/mL (0.000-0.060)
--- NOTE | 2020-09-01 06:40 | NUR ---
CHANGED PATIENT POSITION FREQUENTLY, PATIENT RETURNS TO SIDE LYING POSITION, OCCLUDING AIRWAY, NON REBREATHER PUT ON, RT TO BEDSIDE FOR RESP TREATMENT
--- NOTE | 2020-09-01 08:35 | NUR ---
NOTIFIED DR. SOLARES AT 0800 REGARDING ABGS--ORDERED FOR PT. TO BE PUT ON BIPAP AND FOR PULMONOLOGY TO BE CONSULTED.
--- NOTE | 2020-09-01 13:31 | NUR ---
YANELI GUERRIER CRNA AT BEDSIDE FOR INTUBATION. PT INTUBATED WITH ETT 7.5. 24 AT THE LIP. BREATH SOUND AUSCULTATED BILATERALLY. CXR ORDERED FOR TUBE PLACEMENT CONFIRMATION.
--- NOTE | 2020-09-01 13:41 | NUR ---
PT. INTUBATED BY CHEY PIZZA CHEF. ET TUBE (7.5) AND IS 24 @ THE LIP.
--- NOTE | 2020-09-01 16:07 | NUR ---
PT RECIEVED FROM ER. VSS. PT RESTING COMFORTABLY WILL CONTINUE OT MONITOR
--- NOTE | 2020-09-01 16:10 | NUR ---
PT ARRIVED IN THE UNIT. PT HOOKED TO ICU MONITORS. PT HAS NO FAMILY AT THE PTS BEDSIDE. VSS AT THIS TIME. SEE ASSESSMENT IN THE PTS FLOW SHEET. PT DEEMED PICC LINE MEDICALLY EMERGENT. VA NURSE AT THE PTS BEDSIDE. CALL LIGHT IN REACH. WILL CONT POC.
--- NOTE | 2020-09-01 17:32 | NUR ---
PICC LINE PLACED IN THE RIGHT ARM. OK TO USE PER JUSTINE MORELAND.
--- NOTE | 2020-09-01 17:39 | NUR ---
ORDER FOR PICC PLACEMENT RECEIVED. MULTIPLE ATTEMPTS TO CONTACT FAMILY THAT WAS LISTED ON CHART, UNSUCCESSFUL, DEEMED EMERGENT PER DR CAMARGO. USING SITE RITE ULTRASOUND, RIGHT UPPER ARM BASILIC VEIN IDENTIFIED. TIMEOUT USING ARMBANDS AND EMILY: NAME DATE OF AND ALLERGIES VERIFIED. PREP,DRAPE AND 1% XYLOCAINE TO AREA. VEIN ACESSED AND DOUBLE LUMEN PICC INSERTED TO 43 CM. PLACEMENT VERIFIED USING 3CG WITH DOCUMENTED STRIP ON CHART. SITE DRESSED WITH STATLOCK, CHG DISC AND TEGADERM DRESSING. PATIENT TOLERATED PROCEDURE WELL WITH LESS THAN 10 ML BLOOD LOSS.
[2020-09-02] VITALS (24 sets, daily range): BP systolic 93–163; BP diastolic 45–82; Ht 165.1 cm; Wt 125.1 kg
[2020-09-02 09:05] LABS: HEMOGLOBIN 10.5 g/dL (12-16); LYMPHOCYTES 11.6 % (15-50); MCHC 27.6 g/dL (31.0-37.0); MEAN PLATELET VOLUME 11.9 fL (7.4-10.4); NEUTROPHILS 80.3 % (40-80); PLATELET COUNT 137 10x3/uL (130-400); RBC 4.04 10x6/uL (4.00-5.40); WBC 13.5 10x3/uL (4.8-10.8)
[2020-09-02 09:08] LABS: MCV 94.1 fL (80.0-100.0)
[2020-09-02 09:19] LABS: ANION GAP 7.3 mmol/L (8-16); CALCIUM 8.9 mg/dL (8.5-10.1); CARBON DIOXIDE 38.1 mmol/L (21.0-32.0); MAGNESIUM - SERUM 1.6 mg/dL (1.8-2.4)
[2020-09-02 09:21] LABS: POTASSIUM - SERUM 2.4 mmol/L (3.5-5.1)
--- NOTE | 2020-09-02 14:42 | NUR ---
0700 REPORT RECEIVED AND CARE ASSUMED OF PATIENT.. SEE FLOW SEHET FOR SHIFT ASSESMENT FINDINGS.. 0800 DR CAMARGO IN TO SEE PATIENT UPDATE GIVEN.. 0900 COPIOUS AMOUNTS OF ORAL SECRETIONS.. SUCTIONING 1200 WITHOUT CHANGES
[2020-09-03] VITALS (23 sets, daily range): BP systolic 80–141; BP diastolic 49–89
--- NOTE | 2020-09-03 11:35 | NUR ---
PT FAILED PS TRIAL 09/05, O2 DROPPED AND PATIENT WENT APNEIC
[2020-09-03 12:18] LABS: BASOPHILS 0.1 % (0-2); EOSINOPHILS 0.6 % (0-7); HEMATOCRIT 38.5 % (36.0-48.0); IMMATURE GRANULOCYTES 0.8 % (0-5); LYMPHOCYTE ABS# 1.27 10x3/uL (1.18-3.74); MCH 25.8 pg (26.0-34.0); MCHC 28.6 g/dL (31.0-37.0); MEAN PLATELET VOLUME 11.9 fL (7.4-10.4); MONOCYTES 8.1 % (2-11); NEUTROPHIL ABS# 13.12 10x3/uL (1.56-6.13); NEUTROPHILS 82.4 % (40-80); PLATELET COUNT 157 10x3/uL (130-400); RBC 4.26 10x6/uL (4.00-5.40); RDW 16.1 % (11.5-14.5); WBC 15.9 10x3/uL (4.8-10.8)
[2020-09-03 12:29] LABS: ALBUMIN 2.1 g/dL (3.4-5.0); ANION GAP 13.9 mmol/L (8-16); BILIRUBIN - TOTAL 1.1 mg/dL (0.2-1.3); CALCIUM 8.7 mg/dL (8.5-10.1); CARBON DIOXIDE 37.3 mmol/L (21.0-32.0); POTASSIUM - SERUM 3.2 mmol/L (3.5-5.1); PROTEIN - SERUM 6.5 g/dL (6.4-8.2)
[2020-09-03 12:31] LABS: CREATININE - SERUM 1.3 mg/dL (0.6-1.3)
[2020-09-03 12:35] LABS: MCV 90.4 fL (80.0-100.0)
[2020-09-04] VITALS (24 sets, daily range): BP systolic 95–143; BP diastolic 64–102
--- NOTE | 2020-09-04 10:51 | NUR ---
Nutrition follow-up: Pt intubated, sedated with propofol @ 18 ml/hr Wt: 273# OGT in place Dr. Dumont note states TF to start; however, there is no order Recommend Pulmocare @ 20 ml/hr with gradual increase to goal rate of 50 ml/hr RDN will follow-up: 09/06
--- NOTE | 2020-09-04 16:52 | NUR ---
PT INCOINTENET OF BOWEL. FULL CHD BATH GIVEN AND LINEN CHANGED. PT TOLERATED WELL.
[2020-09-05] VITALS (39 sets, daily range): BP systolic 81–142; BP diastolic 57–697
[2020-09-05 08:16] LABS: BASOPHILS 0.1 % (0-2); EOSINOPHILS 1.6 % (0-7); HEMATOCRIT 40.2 % (36.0-48.0); HEMOGLOBIN 11.8 g/dL (12-16); IMMATURE GRANULOCYTES 0.4 % (0-5); LYMPHOCYTE ABS# 1.65 10x3/uL (1.18-3.74); LYMPHOCYTES 8.7 % (15-50); MCH 25.8 pg (26.0-34.0); MCHC 29.4 g/dL (31.0-37.0); MCV 87.8 fL (80.0-100.0); MEAN PLATELET VOLUME 11.5 fL (7.4-10.4); MONOCYTES 5.8 % (2-11); NEUTROPHIL ABS# 15.91 10x3/uL (1.56-6.13); NEUTROPHILS 83.4 % (40-80); PLATELET COUNT 116 10x3/uL (130-400); RBC 4.58 10x6/uL (4.00-5.40); RDW 16.2 % (11.5-14.5); WBC 19.1 10x3/uL (4.8-10.8)
--- NOTE | 2020-09-05 10:59 | NUR ---
0700 REPORT RECIEVED AND CARE ASSUMED OF PATIENT .. SEE FLOW SHEET FOR ASSESMENT FINDINGS..
[2020-09-05 13:56] LABS: ALBUMIN 1.8 g/dL (3.4-5.0); ANION GAP 11.3 mmol/L (8-16); BILIRUBIN - TOTAL 0.4 mg/dL (0.2-1.3); CALCIUM 7.5 mg/dL (8.5-10.1); CREATININE - SERUM 1.1 mg/dL (0.6-1.3); POTASSIUM - SERUM 3.3 mmol/L (3.5-5.1); PROTEIN - SERUM 5.7 g/dL (6.4-8.2)
[2020-09-05 18:42] LABS: SARS-CoV-2 ANTIGEN NEGATIVE- SARS-COV-2 (NEGATIVE)
--- NOTE | 2020-09-05 19:15 | NUR ---
BEDSIDE REPORT RECEIVED AND RESUMED CARE. PT IS SEDATED BUT AROUSABLE TO PAINFUL STUMULI. RESPIRATIONS SHALLOW, EVEN AND UNLABORED. VSS. PT HAS THICK ANDRE DRAINAGE COMING FROM NOSTRILS WELL THICK ANDRE ORAL SECRETIONS. PT SUCTIONED. O2 SAT 98%.
[2020-09-06] VITALS (23 sets, daily range): BP systolic 72–120; BP diastolic 42–84
--- NOTE | 2020-09-06 00:13 | NUR ---
TUBE FEEDING PLACED ON HOLD. CURRENTLY TUBE FEEDING IS GOING AT 20ML/HR. RESIDUAL IS 180ML AT THIS TIME. WILL CONTINUE TO MONITOR.
--- NOTE | 2020-09-06 05:56 | NUR ---
TUBE FEEDING RESTARTED AT 30ML/HR. NO RESIDUAL AT THIS TIME.
[2020-09-06 06:09] LABS: ANION GAP 15.6 mmol/L (8-16); CALCIUM 7.9 mg/dL (8.5-10.1); CARBON DIOXIDE 31.3 mmol/L (21.0-32.0); CREATININE - SERUM 1.1 mg/dL (0.6-1.3)
[2020-09-06 06:15] LABS: BASOPHILS 0.1 % (0-2); EOSINOPHILS 2.1 % (0-7); HEMATOCRIT 36.1 % (36.0-48.0); HEMOGLOBIN 10.9 g/dL (12-16); IMMATURE GRANULOCYTES 0.5 % (0-5); LYMPHOCYTE ABS# 1.68 10x3/uL (1.18-3.74); LYMPHOCYTES 10.9 % (15-50); MCH 25.7 pg (26.0-34.0); MCHC 30.2 g/dL (31.0-37.0); MEAN PLATELET VOLUME 11.3 fL (7.4-10.4); MONOCYTES 5.2 % (2-11); NEUTROPHIL ABS# 12.59 10x3/uL (1.56-6.13); NEUTROPHILS 81.2 % (40-80); RBC 4.24 10x6/uL (4.00-5.40); RDW 16.2 % (11.5-14.5); WBC 15.5 10x3/uL (4.8-10.8)
[2020-09-06 06:16] LABS: MCV 85.1 fL (80.0-100.0); PLATELET COUNT 160 10x3/uL (130-400)
[2020-09-06 06:28] LABS: POTASSIUM - SERUM 2.9 mmol/L (3.5-5.1)
--- NOTE | 2020-09-06 10:52 | NUR ---
RESPIRATORY CULTURE COLLECTED BY RTTIFFANY
--- NOTE | 2020-09-06 11:02 | NUR ---
Nutrition follow-up: Pt intubated, sedated with propofol @ 24 ml/hr Pulmocare infusing @ 30 ml/hr; had been off due to increased residuals Wt: 273# Recommend Pulmocare increase to goal rate of 50 ml/hr RDN will follow-up: 09/08
[2020-09-06 13:06] LABS: POTASSIUM - SERUM 3.5 mmol/L (3.5-5.1)
[2020-09-07] VITALS (25 sets, daily range): BP systolic 74–125; BP diastolic 43–85
[2020-09-07 05:20] LABS: BASOPHILS 0.1 % (0-2); EOSINOPHILS 2.7 % (0-7); HEMATOCRIT 31.9 % (36.0-48.0); HEMOGLOBIN 9.7 g/dL (12-16); IMMATURE GRANULOCYTES 0.6 % (0-5); LYMPHOCYTES 12.8 % (15-50); MCHC 30.4 g/dL (31.0-37.0); MCV 85.5 fL (80.0-100.0); MEAN PLATELET VOLUME 11.4 fL (7.4-10.4); MONOCYTES 7.7 % (2-11); NEUTROPHIL ABS# 8.35 10x3/uL (1.56-6.13); NEUTROPHILS 76.1 % (40-80); PLATELET COUNT 179 10x3/uL (130-400); RBC 3.73 10x6/uL (4.00-5.40); RDW 16.1 % (11.5-14.5)
[2020-09-07 05:29] LABS: ANION GAP 9.8 mmol/L (8-16); CALCIUM 7.6 mg/dL (8.5-10.1); CARBON DIOXIDE 30.2 mmol/L (21.0-32.0); CREATININE - SERUM 1.1 mg/dL (0.6-1.3); MAGNESIUM - SERUM 2.1 mg/dL (1.8-2.4); PHOSPHOROUS 4.2 mg/dL (2.5-4.9)
--- NOTE | 2020-09-07 14:21 | NUR ---
PC FROM ROOMMATE NAOMY DIXON, STATED THAT PATIENT RESIDES WITH HIM, BUT HE DID NOT HAVE A SECURITY CODE FOR AN UPDATE, STATED HE DID NOT KNOW HER FAMILY. HE LEFT HIS PHONE NUMBER [phone] A CONTACT IF NEEDED
[2020-09-08] VITALS (26 sets, daily range): BP systolic 86–120; BP diastolic 57–96
[2020-09-08 04:48] LABS: BASOPHILS 0.1 % (0-2); EOSINOPHILS 2.5 % (0-7); HEMATOCRIT 35.2 % (36.0-48.0); HEMOGLOBIN 10.1 g/dL (12-16); IMMATURE GRANULOCYTES 0.6 % (0-5); LYMPHOCYTE ABS# 1.55 10x3/uL (1.18-3.74); LYMPHOCYTES 13.8 % (15-50); MCH 24.9 pg (26.0-34.0); MCHC 28.7 g/dL (31.0-37.0); MCV 86.7 fL (80.0-100.0); MEAN PLATELET VOLUME 10.9 fL (7.4-10.4); MONOCYTES 8.5 % (2-11); NEUTROPHIL ABS# 8.36 10x3/uL (1.56-6.13); NEUTROPHILS 74.5 % (40-80); RBC 4.06 10x6/uL (4.00-5.40); RDW 16.2 % (11.5-14.5); WBC 11.2 10x3/uL (4.8-10.8)
[2020-09-08 05:06] LABS: PLATELET COUNT 227 10x3/uL (130-400)
[2020-09-08 05:17] LABS: ALBUMIN 1.7 g/dL (3.4-5.0); ANION GAP 9.3 mmol/L (8-16); BILIRUBIN - TOTAL 0.31 mg/dL (0.2-1.3); CALCIUM 8.3 mg/dL (8.5-10.1); CARBON DIOXIDE 31.3 mmol/L (21.0-32.0); CREATININE - SERUM 1.1 mg/dL (0.6-1.3); PROTEIN - SERUM 6.8 g/dL (6.4-8.2)
[2020-09-08 05:40] LABS: POTASSIUM - SERUM 3.6 mmol/L (3.5-5.1)
--- NOTE | 2020-09-08 07:43 | NUR ---
Nutrition follow-up: Pt remains intubated, sedated with propofol @ 25 ml/hr Pulmocare infusing @ 40 ml/hr via NGT; pt currently tolerating Labs reviewed WT: 270# Pulmocare at 40 ml/hr with propofol @ 25 ml/hr providin kcal, 60 gm protein Pt is meeting 91% of estimated kcal needs; 50% of estimated protein needs Recommend increasing Pulmocare to goal rate of 50 ml/hr to better meet pts estimated protein needs. RDN will follow-up: 09/11
[2020-09-09] VITALS (23 sets, daily range): BP systolic 84–143; BP diastolic 51–99
[2020-09-09 06:38] LABS: HEMATOCRIT 35.4 % (36.0-48.0); HEMOGLOBIN 10.4 g/dL (12-16); LYMPHOCYTES 10.5 % (15-50); MCH 25.9 pg (26.0-34.0); MCHC 29.4 g/dL (31.0-37.0); MCV 88.3 fL (80.0-100.0); MEAN PLATELET VOLUME 10.7 fL (7.4-10.4); NEUTROPHILS 79.5 % (40-80); PLATELET COUNT 211 10x3/uL (130-400); RBC 4.01 10x6/uL (4.00-5.40); RDW 15.7 % (11.5-14.5); WBC 10.8 10x3/uL (4.8-10.8)
[2020-09-09 06:54] LABS: CALCIUM 8.5 mg/dL (8.5-10.1); CARBON DIOXIDE 28.5 mmol/L (21.0-32.0); CHLORIDE - SERUM 103 mmol/L (98-107); CREATININE - SERUM 0.9 mg/dL (0.6-1.3); POTASSIUM - SERUM 3.9 mmol/L (3.5-5.1); SODIUM 138 mmol/L (136-145); UREA NITROGEN 18 mg/dL (7-18); eGFR NON AFRICAN AMERICAN 71 mL/min (90-120)
[2020-09-09 06:59] LABS: CALC OSMOLALITY 283 mosm/kg (275-300); GLUCOSE 203 mg/dL (74-106); TROPONIN-I < 0.017 ng/mL (0.000-0.060)
[2020-09-09 18:08] LABS: AFB SPECIMEN PROCESSING Concentration (())
[2020-09-10] VITALS (24 sets, daily range): BP systolic 89–135; BP diastolic 48–86
[2020-09-10 06:12] LABS: HEMATOCRIT 31.5 % (36.0-48.0); HEMOGLOBIN 9.3 g/dL (12-16); LYMPHOCYTES 15.4 % (15-50); MCH 25.9 pg (26.0-34.0); MCHC 29.5 g/dL (31.0-37.0); MCV 87.7 fL (80.0-100.0); MEAN PLATELET VOLUME 10.4 fL (7.4-10.4); NEUTROPHILS 72.9 % (40-80); PLATELET COUNT 225 10x3/uL (130-400); RBC 3.59 10x6/uL (4.00-5.40); RDW 15.6 % (11.5-14.5); WBC 8.3 10x3/uL (4.8-10.8)
[2020-09-10 07:03] LABS: ALBUMIN 1.6 g/dL (3.4-5.0); ANION GAP 7.8 mmol/L (8-16); BILIRUBIN - TOTAL 0.24 mg/dL (0.2-1.3); CALCIUM 8.3 mg/dL (8.5-10.1); CARBON DIOXIDE 30.7 mmol/L (21.0-32.0); CREATININE - SERUM 0.9 mg/dL (0.6-1.3); POTASSIUM - SERUM 3.5 mmol/L (3.5-5.1); PROTEIN - SERUM 6.3 g/dL (6.4-8.2)
[2020-09-10 08:13] LABS: MAGNESIUM - SERUM 2.3 mg/dL (1.8-2.4); PHOSPHOROUS 3.6 mg/dL (2.5-4.9)
[2020-09-11] VITALS (24 sets, daily range): BP systolic 87–127; BP diastolic 54–83
[2020-09-11 05:47] LABS: BASOPHILS 0.2 % (0-2); EOSINOPHILS 2.5 % (0-7); HEMATOCRIT 34.3 % (36.0-48.0); IMMATURE GRANULOCYTES 0.3 % (0-5); LYMPHOCYTE ABS# 1.31 10x3/uL (1.18-3.74); LYMPHOCYTES 12.8 % (15-50); MCH 25.4 pg (26.0-34.0); MCHC 29.2 g/dL (31.0-37.0); MCV 87.3 fL (80.0-100.0); MEAN PLATELET VOLUME 10.5 fL (7.4-10.4); MONOCYTES 9.1 % (2-11); NEUTROPHIL ABS# 7.68 10x3/uL (1.56-6.13); NEUTROPHILS 75.1 % (40-80); RBC 3.93 10x6/uL (4.00-5.40); WBC 10.2 10x3/uL (4.8-10.8)
[2020-09-11 05:57] LABS: ALBUMIN 1.8 g/dL (3.4-5.0); ANION GAP 11.3 mmol/L (8-16); BILIRUBIN - TOTAL 0.27 mg/dL (0.2-1.3); CALCIUM 8.7 mg/dL (8.5-10.1); CARBON DIOXIDE 29.3 mmol/L (21.0-32.0); CREATININE - SERUM 0.9 mg/dL (0.6-1.3); PLATELET COUNT 307 10x3/uL (130-400); PROTEIN - SERUM 6.9 g/dL (6.4-8.2)
[2020-09-11 05:59] LABS: POTASSIUM - SERUM 3.6 mmol/L (3.5-5.1)
--- NOTE | 2020-09-11 10:59 | NUR ---
Nutrition follow-up: Pt remains intubated, sedated with propofol @ 24 ml/hr Pulmocare infusing @ 40 ml/hr Labs reviewed Possible trach/PEG soon TF + propofol providin kcal ( 90% estimated kcal needs) 60 gm protein (50% of estimated proteing needs) Recommend increasing TF to goal rate of 50 ml/hr to increase protein intake to 75 gm/ day (62% of estimated protein needs) RDN will follow-up: 09/13
[2020-09-11 13:10] LABS: FUNGUS STAIN Final report (())
[2020-09-12] VITALS (24 sets, daily range): BP systolic 81–121; BP diastolic 56–78
[2020-09-12 05:21] LABS: BASOPHILS 0.2 % (0-2); EOSINOPHILS 2.7 % (0-7); HEMATOCRIT 33.2 % (36.0-48.0); HEMOGLOBIN 9.8 g/dL (12-16); IMMATURE GRANULOCYTES 0.2 % (0-5); LYMPHOCYTE ABS# 1.52 10x3/uL (1.18-3.74); LYMPHOCYTES 15.8 % (15-50); MCH 25.8 pg (26.0-34.0); MCHC 29.5 g/dL (31.0-37.0); MCV 87.4 fL (80.0-100.0); MEAN PLATELET VOLUME 10.2 fL (7.4-10.4); MONOCYTES 8.5 % (2-11); NEUTROPHIL ABS# 6.98 10x3/uL (1.56-6.13); NEUTROPHILS 72.6 % (40-80); PLATELET COUNT 306 10x3/uL (130-400); WBC 9.6 10x3/uL (4.8-10.8)
[2020-09-12 05:24] LABS: ALBUMIN 1.8 g/dL (3.4-5.0); ANION GAP 10.4 mmol/L (8-16); BILIRUBIN - TOTAL 0.23 mg/dL (0.2-1.3); CALCIUM 8.6 mg/dL (8.5-10.1); CREATININE - SERUM 0.9 mg/dL (0.6-1.3); POTASSIUM - SERUM 3.4 mmol/L (3.5-5.1); PROTEIN - SERUM 6.9 g/dL (6.4-8.2)
[2020-09-13] VITALS (24 sets, daily range): BP systolic 83–148; BP diastolic 53–105
[2020-09-13 04:45] LABS: BASOPHILS 0.2 % (0-2); EOSINOPHILS 2.8 % (0-7); HEMATOCRIT 33.1 % (36.0-48.0); HEMOGLOBIN 9.8 g/dL (12-16); IMMATURE GRANULOCYTES 0.2 % (0-5); LYMPHOCYTE ABS# 1.68 10x3/uL (1.18-3.74); LYMPHOCYTES 19.8 % (15-50); MCH 25.3 pg (26.0-34.0); MCHC 29.6 g/dL (31.0-37.0); MCV 85.5 fL (80.0-100.0); MEAN PLATELET VOLUME 10.1 fL (7.4-10.4); PLATELET COUNT 342 10x3/uL (130-400); RBC 3.87 10x6/uL (4.00-5.40); RDW 16.1 % (11.5-14.5); WBC 8.5 10x3/uL (4.8-10.8)
[2020-09-13 05:04] LABS: ALBUMIN 1.9 g/dL (3.4-5.0)
[2020-09-13 05:05] LABS: ANION GAP 8.5 mmol/L (8-16); BILIRUBIN - TOTAL 0.17 mg/dL (0.2-1.3); CALCIUM 9.1 mg/dL (8.5-10.1); CREATININE - SERUM 0.9 mg/dL (0.6-1.3); POTASSIUM - SERUM 3.5 mmol/L (3.5-5.1); PROTEIN - SERUM 7.2 g/dL (6.4-8.2)
--- NOTE | 2020-09-13 09:30 | NUR ---
PT SWITCHED OVER TO CPAP MODE ON VENT. WILL CONTINUE TO MONITOR
--- NOTE | 2020-09-13 10:39 | NUR ---
Nutrition follow-up: CPAP trials in progress TF, sedation off Labs reviewed Wt: 226# RDN will follow-up: 09/15
--- NOTE | 2020-09-13 12:29 | NUR ---
pt extubated to bipap. tolerating well. will continue to monitor
--- NOTE | 2020-09-13 16:51 | MORECARE ---
CASE MANAGEMENT DISCHARGE SUMMARY PATIENT: CAROLYN HO UNIT: [id number] ADM DATE: 09/01/20 AGE: 49 : 74 SEX: F ROOM/BED: D.2302 AUTHOR: JESUS,DOC PHYSICIAN: REFERRING PHYSICIAN: FATIH MORTENSEN MD DATE OF SERVICE: 09/13/20 Discharge Plan Patient Name: CAROLYN HO Facility: [facility]:[place] : 1970 Planned Disposition: Anticipated Discharge Date: Discharge Date: Expected LOS: Initial Reviewer: [email or web address] Initial Review Date: 09/01/2020 Generated: 09/13/20 5:50 pm Comments DCP- Discharge Planning Updated by [id number]: Lakeisha Alves on 09/13/20 3:[address] CM called Fernando with APS to see if he had any contact information on patient's mother. Fernando looked back through his records and could not find a contact number. He suggested CM call Dr. Mortensen office to see if she had a contact number. DCP- Discharge Planning Updated by [id number]: Lakeisha Alves on 09/13/20 1:[address] CM has called Carmen Ho (Mother) [phone] several times today and has got a busy signal each time today. CM will continue to reach out to family. DCP- Discharge Planning Updated by [id number]: Lakeisha Alves on 09/13/20 1:[address] Late Entry 09/12/20 CM still unable to get in touch with patient's mother. Nursing stated that the patient's roommate Thomas Roger [phone] had called and stated that the patient's dog was sick and he could not take care of it so he was going to take it to the pound. He also stated that he was going to put her stuff out in the yard with a tarp over it. He stated that he doesn't know how to get in touch with any of her family members. CM will continue to try to contact family. DCP- Discharge Planning Updated by [id number]: Lakeisha Alves on 09/13/20 1:[address] Late Entry 09/11/20 CM attempted to call Carmen Ho [phone] patients mother for discharge planning. CM was not able to get anyone to answer and no voicemail set up. CM will attempt to call back later. DCP- Discharge Planning Updated by [email or web address]: Lakeisha Alves on 09/13/20 1:[address] LATE ENTRY 09/08/20 CM attempted to call Carmen Ho [phone] patients mother for discharge planning. CM was not able to get anyone to answer and no voicemail set up. CM will attempt to call back later. Patient Name: CAROLYN HO Page [phone] at 1651 All edits/amendments must be made on the electronic document DICTATION DATE: 09/13/201649 DEVELOPMENTAL SPECIALIST: CARLA 09/13/201649 RPT#: [id number] DC DATE: STATUS: ADM IN [facility] [address] [place] [address] END OF REPORT
[2020-09-14] VITALS (19 sets, daily range): BP systolic 96–150; BP diastolic 58–89
[2020-09-14 04:43] LABS: BASOPHILS 0.5 % (0-2); EOSINOPHILS 2.2 % (0-7); HEMATOCRIT 34.2 % (36.0-48.0); HEMOGLOBIN 9.9 g/dL (12-16); IMMATURE GRANULOCYTES 0.1 % (0-5); LYMPHOCYTE ABS# 1.84 10x3/uL (1.18-3.74); LYMPHOCYTES 22.5 % (15-50); MCH 25.6 pg (26.0-34.0); MCHC 28.9 g/dL (31.0-37.0); MEAN PLATELET VOLUME 9.6 fL (7.4-10.4); MONOCYTES 9.2 % (2-11); NEUTROPHIL ABS# 5.35 10x3/uL (1.56-6.13); NEUTROPHILS 65.5 % (40-80); PLATELET COUNT 379 10x3/uL (130-400); RBC 3.86 10x6/uL (4.00-5.40); RDW 16.1 % (11.5-14.5); WBC 8.2 10x3/uL (4.8-10.8)
[2020-09-14 04:53] LABS: MCV 88.6 fL (80.0-100.0)
[2020-09-14 05:03] LABS: ALBUMIN 2.1 g/dL (3.4-5.0); ALKALINE PHOSPHATASE 99 U/L (30-120); ALT (SGPT) 25 U/L (10-68); BILIRUBIN - TOTAL 0.38 mg/dL (0.2-1.3); CALC OSMOLALITY 280 mosm/kg (275-300); CALCIUM 8.9 mg/dL (8.5-10.1); CARBON DIOXIDE 33.4 mmol/L (21.0-32.0); CHLORIDE - SERUM 104 mmol/L (98-107); CREATININE - SERUM 0.8 mg/dL (0.6-1.3); GLUCOSE 133 mg/dL (74-106); POTASSIUM - SERUM 3.5 mmol/L (3.5-5.1); PROTEIN - SERUM 7.3 g/dL (6.4-8.2); SODIUM 140 mmol/L (136-145); UREA NITROGEN 12 mg/dL (7-18); eGFR NON AFRICAN AMERICAN 81 mL/min (90-120)
--- NOTE | 2020-09-14 07:10 | NUR ---
REPORT RECEIVED FROM OFF GOING NURSE AND PATIENT CARE ASSUMED. PATIENT LAYING IN BED ON BACK WITH ON EYES CLOSED AND BREATHING EVENLY.BIPAP IN PLACE 40%. VSS. WILL CONTINUE WITH PLAN OF CARE. SR UP X 2 BED IN LOW POSITION AND CALL LIGHT IN REACH.
--- NOTE | 2020-09-14 07:30 | NUR ---
DR CAMARGO ON UNIT. INSTRUCTED THIS NURSE AND RT TO TRY TRIAL ON 02 PER NC.
--- NOTE | 2020-09-14 08:00 | NUR ---
PATIENT SWITCHED TO 02NC @ 5L. WILL CONTINUE TO MONITOR PATIENT.
--- NOTE | 2020-09-14 08:50 | NUR ---
PATIENT AGITATED . TALKING OUT SAYING PLEASE PULLING AT HER 02 CANNULA. 02 SAT 96%. VSS. MEDICATED PER NOV WITH ATIVAN 1MG IV. WILL CONTINUE TO MONITOR. SR UP X 2 BED IN LOW POSITION AND CALL LIGHT IN REACH.
--- NOTE | 2020-09-14 09:05 | NUR ---
PATIENT CONTINUES WITH AGITATION. SHAKING HEAD BACK AND FORTH. TALIKING OUT SAYING GO BACK OUT OF WINDOW. RAISING HANDS UP IN AIR AND WAVING. WHILE IN ROOM, HR TO 120'S 130'S WHILE O2 IN PLACE, O2 SAT DROPPED TO 70'S 80'S. PATIENT TRYING TO PULL OUT NC. PATIENT RESTARTED ON BIPAP @ 40% . CALLED DR MARIE. RECEIVED NEW ORDER FOR ORION WRIST RESTRAINTS.
--- NOTE | 2020-09-14 09:09 | NUR ---
PATIENT REPOSITIONED FOR COMFORT . O2 SAT 96%. VSS. WILL CONTINUE TO MONTIOR. SR UP X 2 BED IN LOW POSITION AND CALL LIGHT IN REACH.
--- NOTE | 2020-09-14 09:52 | NUR ---
PT ON 5L NC
--- NOTE | 2020-09-14 10:30 | NUR ---
PATIENT BP 90/47 MAP 58. REPOSITIONED PATIENT REPOSITIONED BP CUFF. NO IMPROVEMENT. CALLED DR MORTENSEN. RECEIVED NEW ORDER. CHANGE LASIX 40 MG IV TO 20 MG IV AND GIVE 500 CC BOLUS. ORDERS COMPLETED.
--- NOTE | 2020-09-14 21:46 | MORECARE ---
CASE MANAGEMENT DISCHARGE SUMMARY PATIENT: CAROLYN HO UNIT: [id number] ADM DATE: 09/01/20 AGE: 49 : 74 SEX: F ROOM/BED: D.2302 AUTHOR: JESUS,DOC PHYSICIAN: REFERRING PHYSICIAN: FAITH MORTENSEN MD DATE OF SERVICE: 09/14/20 Discharge Plan Patient Name: CAROLYN HO Facility: [facility]:[place] : 1970 Planned Disposition: Anticipated Discharge Date: Discharge Date: Expected LOS: Initial Reviewer: [email or web address] Initial Review Date: 09/01/2020 Generated: 09/14/20 10:45 pm DCP- Discharge Planning Updated by [email or web address]: Lakeisha Alves on 09/14/20 8:[address] CM will assess patient for discharge plan now that she is off vent. CM will continue to follow and assist as needed with discharge planning / needs. DCP- Discharge Planning Updated by [id number]: Lakeisha Alves on 09/13/20 3:[address] CM called Fernando with APS to see if he had any contact information on patient's mother. Fernando looked back through his records and could not find a contact number. He suggested CM call Dr. Mortensen office to see if she had a contact number. DCP- Discharge Planning Updated by [id number]: Lakeisha Alves on 09/13/20 1:[address] CM has called Carmen Ho (Mother) [phone] several times today and has got a busy signal each time today. CM will continue to reach out to family. DCP- Discharge Planning Updated by [id number]: Lakeisha Alves on 09/13/20 1:[address] Late Entry 09/12/20 CM still unable to get in touch with patient's mother. Nursing stated that the patient's roommate Thomas Roger [phone] had called and stated that the patient's dog was sick and he could not take care of it so he was going to take it to the pound. He also stated that he was going to put her stuff out in the yard with a tarp over it. He stated that he doesn't know how to get in touch with any of her family members. CM will continue to try to contact family. DCP- Discharge Planning Updated by [email or web address]: Lakeisha Alves on 09/13/20 1:[address] Late Entry 09/11/20 CM attempted to call Carmen Ho [phone] patients mother for discharge planning. CM was not able to get anyone to answer and no voicemail set up. CM will attempt to call back later. DCP- Discharge Planning Updated by [id number]: Lakeishamegan Alves on 09/13/20 1:[address] LATE ENTRY 09/08/20 CM attempted to call Carmen Ho [phone] patients mother for discharge planning. CM was not able to get anyone to answer and no voicemail set up. CM will attempt to call back later. Last DP export: 09/13/20 3:51 Patient Name: CAROLYN HO Page [phone] at 2146 All edits/amendments must be made on the electronic document DICTATION DATE: 09/14/202144 DATABASE SPECIALIST: CARLA 09/14/202144 RPT#: [id number] DC DATE: STATUS: ADM IN [facility] [address] [place] [address] END OF REPORT
[2020-09-15] VITALS (18 sets, daily range): BP systolic 117–168; BP diastolic 63–92
[2020-09-15 05:05] LABS: BASOPHILS 0.5 % (0-2); EOSINOPHILS 1.9 % (0-7); HEMATOCRIT 33.8 % (36.0-48.0); HEMOGLOBIN 9.5 g/dL (12-16); IMMATURE GRANULOCYTES 0.1 % (0-5); LYMPHOCYTES 24.1 % (15-50); MCH 25.4 pg (26.0-34.0); MCHC 28.1 g/dL (31.0-37.0); MCV 90.4 fL (80.0-100.0); MEAN PLATELET VOLUME 10.1 fL (7.4-10.4); MONOCYTES 7.8 % (2-11); NEUTROPHIL ABS# 5.18 10x3/uL (1.56-6.13); NEUTROPHILS 65.6 % (40-80); PLATELET COUNT 386 10x3/uL (130-400); RBC 3.74 10x6/uL (4.00-5.40); RDW 16.1 % (11.5-14.5); WBC 7.9 10x3/uL (4.8-10.8)
[2020-09-15 05:37] LABS: ALBUMIN 2.1 g/dL (3.4-5.0); ALKALINE PHOSPHATASE 93 U/L (30-120); ALT (SGPT) 22 U/L (10-68); BILIRUBIN - TOTAL 0.31 mg/dL (0.2-1.3); CALC OSMOLALITY 279 mosm/kg (275-300); CALCIUM 9.2 mg/dL (8.5-10.1); CARBON DIOXIDE 29.4 mmol/L (21.0-32.0); CHLORIDE - SERUM 107 mmol/L (98-107); CREATININE - SERUM 0.8 mg/dL (0.6-1.3); GLUCOSE 111 mg/dL (74-106); POTASSIUM - SERUM 3.5 mmol/L (3.5-5.1); PROTEIN - SERUM 7.2 g/dL (6.4-8.2); SODIUM 141 mmol/L (136-145); eGFR NON AFRICAN AMERICAN 81 mL/min (90-120)
[2020-09-15 05:41] LABS: UREA NITROGEN 8 mg/dL (7-18)
--- NOTE | 2020-09-15 10:33 | NUR ---
Nutrition follow-up: Pt extubated; refusing BIPAP and NGT placement Continues NPO due to failed swallow eval Wt: 275# Pt refusing to have NGT place for continued TF at this time Recomend ProcalAmine PPN @ 100 ml/hr for short-term nutrition support RDN will follow-up: 09/18
--- NOTE | 2020-09-15 11:15 | NUR ---
RT NOTIFIED ME THAT PATIENT PATIENT SATS WERE DROPPING AND SHE HAD TO MOVE HER UP TO 7 LITERS HFC. CHECKED PATIENT. PATIENT STATED SHE IS MORE SOB AND CANT HARDLY MOVE WITHOUT HAVING LABORED BREATHING. SPOKE WITH DR. WILLOUGHBY ABOUT PATIENT. STATED SHE WOULD ORDER A CT CHEST. PATIENT IN BED WITH IV INTACT. CALL LIGHT WITHIN REACH.
--- NOTE | 2020-09-15 12:00 | NUR ---
PATIENT SATS IN 80'S MOVED UP O2 TO 15L HFC BY RT TO KEEP SATS AT 93%. RT DID BLOOD GASES. CALLED DR. SOLARES. ORDERED CHEST XRAY AND NOTIFIED SUJATHA OF BLOOD GAS RESULTS.
--- NOTE | 2020-09-15 12:45 | NUR ---
PATIENT RECIEVED XRAY. NO PNEUMOTHORAX SEEN. SAYS NO CHANGE REALLY FROM YESTERDAYS CHEST XRAY AFTER THORACENTESIS. GAVE LASIX ORDERED. STARTED PURE WICK FOR PATIENT. NOTED SMALL AMOUNT OF BLOOD IN DEPENDS. STATED IT WAS NOT KNEW THAT SHE WASNT SURE IF IT WAS FROM HER RECTUM OR VAGINA BUT THAT IT STARTED AFTER SHE HAD TAKEN RADIATION AWHILE AGO. CONSULTED PULMONOLOGY. WAITING FOR DR. CAMARGO. PATIENT STATES SHE IS FEELING BETTER OFF AND ON. SATS WNL. CALL LIGHT WITHIN REACH.
--- NOTE | 2020-09-15 15:09 | NUR ---
REPORT GIVEN TO MS MERLY NERI. TRANSFERRED TO 2[address] W/ BELONGINGS.
--- NOTE | 2020-09-15 15:23 | NUR ---
PT STATES SOMEONE STOLE THIRTY DOLLARS FROM HER PURSE. HOWEVER, SHE HAS NOT BEEN OOB AND HER PURSE HAS BEEN ON THE FLOOR, OUT OF HER REACH.
--- NOTE | 2020-09-15 18:45 | NUR ---
PATIENT IN BED WITH EYES CLOSED RESTING QUIETLY. NO COMPLAINTS OR SIGNS OF DISTRESS. PICC LINE INTACT. CALL LIGHT WITHIN REACH. O2 ON 5 LNC
--- NOTE | 2020-09-15 19:22 | NUR ---
RECIEVED UP IN BED WITH HOB ELEVATED. ALERT AND CONFUSED. WISPERS WHEN SHE SPEAKS AND VERY HARD TO UNDERSTAND. REMAINS BEDFAST. NPO AT THIS TIME. O2@ 5 LITER PER N/C IN PLACE. PICC LINE TO RT UPPER ARM SL. F/C INTACT WITH STRAW CO;ORED URINE IN BEDSIDE DRAINAGE BAG. DENIES ANY NEEDS AT THIS TIME.
--- NOTE | 2020-09-15 21:32 | NUR ---
DR. SOLARES NOTIFIED OF NPO STATUS AND UNABLE TO GIVE MEDICATIONS. ALSO, NOTIFIES PT REFUSED NG TUBE. SAID HE WILL REVIEW HER MEDICATIONS IN A.M.
[2020-09-16 03:45] VITALS: BP 135/85
[2020-09-16 05:52] LABS: BASOPHILS 0.4 % (0-2); EOSINOPHILS 2.4 % (0-7); HEMATOCRIT 33.8 % (36.0-48.0); HEMOGLOBIN 9.7 g/dL (12-16); IMMATURE GRANULOCYTES 0.1 % (0-5); LYMPHOCYTE ABS# 2.04 10x3/uL (1.18-3.74); LYMPHOCYTES 27.1 % (15-50); MCH 25.5 pg (26.0-34.0); MCHC 28.7 g/dL (31.0-37.0); MCV 88.7 fL (80.0-100.0); MEAN PLATELET VOLUME 10.3 fL (7.4-10.4); MONOCYTES 8.4 % (2-11); NEUTROPHIL ABS# 4.65 10x3/uL (1.56-6.13); NEUTROPHILS 61.6 % (40-80); PLATELET COUNT 362 10x3/uL (130-400); RBC 3.81 10x6/uL (4.00-5.40); RDW 15.6 % (11.5-14.5); WBC 7.5 10x3/uL (4.8-10.8)
[2020-09-16 06:14] LABS: ALBUMIN 2.1 g/dL (3.4-5.0); ALKALINE PHOSPHATASE 82 U/L (30-120); ALT (SGPT) 24 U/L (10-68); BILIRUBIN - TOTAL 0.35 mg/dL (0.2-1.3); CALC OSMOLALITY 279 mosm/kg (275-300); CALCIUM 9.2 mg/dL (8.5-10.1); CARBON DIOXIDE 30.7 mmol/L (21.0-32.0); CHLORIDE - SERUM 104 mmol/L (98-107); CREATININE - SERUM 0.7 mg/dL (0.6-1.3); GLUCOSE 100 mg/dL (74-106); POTASSIUM - SERUM 3.6 mmol/L (3.5-5.1); SODIUM 142 mmol/L (136-145); eGFR NON AFRICAN AMERICAN > 90 mL/min (90-120)
[2020-09-16 06:17] LABS: UREA NITROGEN 4 mg/dL (7-18)
--- NOTE | 2020-09-16 07:58 | NUR ---
0700 BEDSIDE REPORT RECEIVED ASSISTED ON BEDPAN INSTRUCTED TO USE CALL LIGHT
--- NOTE | 2020-09-16 08:41 | NUR ---
0700 ALL CHARTING DONE AFTER 0700 09/16 WAS DONE BY Marta BONILLA RN
--- NOTE | 2020-09-16 08:42 | NUR ---
0700 BEDSIDE REPORT RECEIVED ASSISTED ON BED JOHNSON NO BM NOTED FLATUSE NOTED
[2020-09-16 09:03] VITALS: BP 122/84
[2020-09-16 13:36] VITALS: BP 135/84
[2020-09-16 17:42] VITALS: BP 147/78
--- NOTE | 2020-09-16 19:00 | NUR ---
BEDSIDE REPORTING PERFORMED. LOOKING THROUGH CHART, DAY SHIFT RN ADMINISTERED SEVERAL 0900 MEDICATIONS AT [phone] STATING SHE CAN NOW SWALLOW REGARDLESS OF NPO STATUS. UNABLE TO GIVE SEVERAL 2100 MEDS DUE TO TIME CONFLICTS SUCH HEPARIN. WILL PROCEED WITH NEXT AVAILABLE DOSE.
[2020-09-16 19:48] VITALS: BP 135/91
--- NOTE | 2020-09-16 20:00 | NUR ---
PATIENT UPSET ABOUT NPO STATUS. CUSSING, IRRITABLE, AND UNCOOPERATIVE AT THIS TIME. PATIENT HAS ORDERS FOR NGT AND TUBE FEEDINGS, BUT REFUSES NGT, DR. SOLARES AWARE OF THIS. PATIENT HAS FLUIDS GOING. PATIENT ABLE TO TAKE MEDS WITH SIPS OF WATER AND NO CHOKING WHEN DOING SO. REFUSES COUGH MEDICINE. CPOC.
[2020-09-16 23:55] VITALS: BP 114/68
[2020-09-17 04:20] VITALS: BP 112/60
[2020-09-17 08:41] VITALS: BP 113/74
--- NOTE | 2020-09-17 10:04 | NUR ---
0800 STARTED PROCALAMINE INFUSION AT 50ML/HOUR
--- NOTE | 2020-09-17 10:04 | NUR ---
0900 REFUSED TO TAKE HER MEDS TRIED TO PULL OUT PICC LINE AND PHYSICALLY REFUSED TO ALLOW NURSE TO INJECT PROTONIX INTO HER IV VERBALLY ABLUSIVE TO STAFF DR LOPEZ AT BEDSIDE AND COULDNT TALK PATIENT INTO COOPERATION
[2020-09-17 12:31] VITALS: BP 118/67
[2020-09-17 17:46] VITALS: BP 135/77
--- NOTE | 2020-09-17 19:10 | NUR ---
PATIENT ALERT WHEN ENTERING THE ROOM. PATIENT IMMEDIATELY ASKING FOR FOOD AND CONFUSED AT TO WHAT TIME OF DAY IT IS. EXPLAINED TO PATIENT KITCHEN IS NOT OPEN AT THIS TIME THAT IT IS THE EVENING AND PATIENT IS STILL NPO STATUS. PATIENT BECOMES UPSET. SUPPORT PROVIDED. PATIENT AGREES TO BE COMPLIANT WITH HS MEDICATIONS. CPOC.
[2020-09-17 20:00] VITALS: BP 159/81
--- NOTE | 2020-09-17 20:25 | NUR ---
ADMINISTERED HS MEDICATIONS WITH HOB ELEVATED TO 40 DEGREE ANGLE AND SIPS OF WATER. PATIENT TOLERATED WELL. REMAINS ON NASAL CANNULA. BED ALARM ON AND ACTIVE. PATIENT REFUSING SCD'S WHEN THIS NURSE ASKED IF PATIENT WOULD WEAR. DENIES FURTHER NEEDS AT THIS TIME. DOOR OPEN FOR MONITORING. CPOC.
[2020-09-18] VITALS: BP 148/79
--- NOTE | 2020-09-18 02:11 | NUR ---
PATIENT REMAINS ON BIPAP. RESTING WITH NO SIGNS OF DISTRESS. CALL LIGHT CLOSE. CPOC.
[2020-09-18 04:00] VITALS: BP 155/82
[2020-09-18 06:39] LABS: BASOPHILS 0.9 % (0-2); EOSINOPHILS 3.7 % (0-7); HEMATOCRIT 36.2 % (36.0-48.0); HEMOGLOBIN 10.4 g/dL (12-16); IMMATURE GRANULOCYTES 0.1 % (0-5); LYMPHOCYTE ABS# 2.07 10x3/uL (1.18-3.74); LYMPHOCYTES 27.2 % (15-50); MCH 25.6 pg (26.0-34.0); MCHC 28.7 g/dL (31.0-37.0); MCV 89.2 fL (80.0-100.0); MEAN PLATELET VOLUME 10.6 fL (7.4-10.4); MONOCYTES 10.4 % (2-11); NEUTROPHILS 57.7 % (40-80); PLATELET COUNT 357 10x3/uL (130-400); RBC 4.06 10x6/uL (4.00-5.40); RDW 16.2 % (11.5-14.5); WBC 7.6 10x3/uL (4.8-10.8)
[2020-09-18 06:53] LABS: ALBUMIN 2.2 g/dL (3.4-5.0); ALKALINE PHOSPHATASE 75 U/L (30-120); ALT (SGPT) 20 U/L (10-68); BILIRUBIN - TOTAL 0.31 mg/dL (0.2-1.3); CALC OSMOLALITY 278 mosm/kg (275-300); CALCIUM 9.2 mg/dL (8.5-10.1); CARBON DIOXIDE 36.7 mmol/L (21.0-32.0); CHLORIDE - SERUM 102 mmol/L (98-107); CREATININE - SERUM 0.8 mg/dL (0.6-1.3); GLUCOSE 129 mg/dL (74-106); MAGNESIUM - SERUM 2.1 mg/dL (1.8-2.4); PHOSPHOROUS 3.5 mg/dL (2.5-4.9); POTASSIUM - SERUM 3.2 mmol/L (3.5-5.1); PROTEIN - SERUM 7.2 g/dL (6.4-8.2); SODIUM 140 mmol/L (136-145); eGFR NON AFRICAN AMERICAN 81 mL/min (90-120)
[2020-09-18 07:08] LABS: UREA NITROGEN 7 mg/dL (7-18)
--- NOTE | 2020-09-18 07:15 | NUR ---
RECEIVED BEDSIDE REPORT. PT LAYING IN BED, A&O X4. PICC LINE TO UPPER RIGHT ARM, PATENT AND INFUSING, TEGADERM ADHERED TO SKIN, SWAB CAPS IN USE. PT 95% ON 7L VIA HFNC. EXCORIATION UNDER BILAT ABD FOLDS, THIGHS AND BUTTOCKS. DRY SCALY SKIN GENERALIZED. VICENTE IN PLACE, DRAINING TO GRAVITY, STATLOCK IN PLACE. CONTACT ISOLATION IN PLACE FOR VRE IN URINE. PT IS NPO UNTIL SWALLOW STUDY. BEDFAST AND TOTAL CARE. VOICE HOARSE AND THROAT SORE. EDUCATED PT ON CL AND NEEDS, VERBALIZED UNDERSTANDING. BED LOW, CL IN REACH.
[2020-09-18 08:41] VITALS: BP 125/82
--- NOTE | 2020-09-18 09:30 | NUR ---
ASSISTED PT WITH BEDPAN, BM SOFT AND BROWN-ORANGE. TOLERATED WELL. BED LOW, CL IN REACH.
--- NOTE | 2020-09-18 12:37 | NUR ---
Nutrition reassessment: Pt is out of ICU; continues NPO due to failed speech evaluation ProcalAmine PPN infusing @ 50 ml/hr Order for NGT placement and continued TF; however, pt refusing NGT at this time. Pt very unhappy with NPO order; being abusive to staff. Reassed nutritional needs: 2454-0747 kcal (28-32 kcal/kg of AdjBW of 74 kg) 75-96 gm protein (1.0-1.4 gms/kg AdjBW) 9314-7439 ml fluid Inadequate energy intake R/T failed swallow evaluation, refusing NGT placement for TF AEB pt remains NPO at this time. ProcalAmine PPN @ 50 ml/hr is the only nutrition at this time. ProcalAmine PPN providin-14% of estimated kcal needs 38-48% of estimated protein needs Recommend reconsulting speech pathologist for repeat swallow evaluation. RDN will follow-up: 09/20
[2020-09-18 12:39] VITALS: BP 109/71
--- NOTE | 2020-09-18 13:00 | NUR ---
PUT IN DIET TRAY ORDER FOR PT STAT.
--- NOTE | 2020-09-18 14:18 | NUR ---
PATIENT IS REFUSING TO DO HER BREATHING TREATMENT.
--- NOTE | 2020-09-18 15:30 | NUR ---
ASSISTED PT ON BED JOHNSON, SOFT BM, BROWN-RUST COLORED. BED LOW, CL IN REACH.
[2020-09-18 16:40] VITALS: BP 105/68
--- NOTE | 2020-09-18 19:20 | NUR ---
PATIENT LAYING IN BED WITH BIPAP ON AT THIS TIME. RESPONDS TO NAME BEING CALLED, SHAKES HEAD TO ANSWER "YES OR NO" QUESTIONS. DENIES NEEDS WHEN ASKED. PATENT PICC LINE IN THE RIGHT UPPER ARM. VICENTE DRAINING TO GRAVITY. ASSESSMENT PERFORMED AND COMPELTED, SEE CHARTING. BED ALARM ON. CALL LIGHT CLOSE. CPOC.
[2020-09-18 20:13] VITALS: BP 103/60
[2020-09-19] VITALS (7 sets, daily range): BP systolic 88–144; BP diastolic 54–78
--- NOTE | 2020-09-19 07:45 | NUR ---
RECEIVED BEDSIDE REPORT. PT LAYING IN BED, A &O X2, DISORIENTATED TO TIME AND SITUATION. PICC TO UPPER RIGHT ARM, PATENT AND INFUSING, NO REDNESS OR SWELLING, BIOPATCH IN PLACE, DRSG C/D/I, SWAB CAPS IN USE. VICENTE IN PLACE, DRAINING TO GRAVITY, STATLOCK IN PLACE. O2 SAT 95% ON 7L VIA HFNC. ABD FOLDS HAVE EXORIATION AND DRY-CRACKING. PT BEDFAST AND TOTAL CARE. EDUCATED ON CL AND NEEDS, VERBALIZED UNDERSTANDING. BED LOW, CL IN REACH, WCTM.
--- NOTE | 2020-09-19 09:00 | NUR ---
ASSISTED PT ON TO BEDPAN, BM SOFT AND RUST COLORED. PT TOLERATED WELL. BED LOW, CL IN REACH.
--- NOTE | 2020-09-19 10:43 | NUR ---
PHONE NUMBER FOR MOTHER [phone]
--- NOTE | 2020-09-20 00:15 | NUR ---
PT REFUSED TO WEAR BIPAP APPEARS AGGITATED EXPLAINED BENIFETS OF COMPLIANCE HOWEVER STATED TO "LEAVE HER ALONE"
[2020-09-20 04:34] VITALS: BP 86/41
[2020-09-20 08:19] VITALS: BP 92/50
[2020-09-20 11:31] VITALS: BP 115/71
--- NOTE | 2020-09-20 11:54 | NUR ---
PATIENT IS REFUSING BREATHING TREATMENTS AND BIPAP. PATIENT IS VERY UNPLEASANT TO DEAL WITH AND VERY RUDE.
--- NOTE | 2020-09-20 12:13 | NUR ---
Nutrition follow-up: Pts diet has advanced to consistent CHO mechanical soft with honey thick liquids w/ extra sauces, gravies and condiments Pt usually has a good appetite Refusing BIPAP and breathing treatments today Labs reviewed; K elevated Wt: 275# Will provide food choices with selective menus and honor food preferences within diet restrictions, modifications. RDN will follow-up: 09/23
[2020-09-20 18:22] VITALS: BP 98/53
[2020-09-20 20:21] VITALS: BP 103/53
[2020-09-20 23:15] LABS: BASOPHILS 0.6 % (0-2); EOSINOPHILS 3.7 % (0-7); HEMATOCRIT 34.7 % (36.0-48.0); HEMOGLOBIN 9.8 g/dL (12-16); IMMATURE GRANULOCYTES 0.1 % (0-5); LYMPHOCYTE ABS# 1.91 10x3/uL (1.18-3.74); LYMPHOCYTES 24.1 % (15-50); MCH 25.9 pg (26.0-34.0); MCHC 28.2 g/dL (31.0-37.0); MCV 91.8 fL (80.0-100.0); MONOCYTES 8.8 % (2-11); NEUTROPHIL ABS# 4.95 10x3/uL (1.56-6.13); NEUTROPHILS 62.7 % (40-80); RBC 3.78 10x6/uL (4.00-5.40); RDW 16.9 % (11.5-14.5); WBC 7.9 10x3/uL (4.8-10.8)
[2020-09-20 23:20] LABS: PLATELET COUNT 265 10x3/uL (130-400)
[2020-09-20 23:34] LABS: ALBUMIN 2.3 g/dL (3.4-5.0); ANION GAP 3.4 mmol/L (8-16); BILIRUBIN - TOTAL 0.19 mg/dL (0.2-1.3); CARBON DIOXIDE 33.8 mmol/L (21.0-32.0); CREATININE - SERUM 1.2 mg/dL (0.6-1.3); POTASSIUM - SERUM 4.2 mmol/L (3.5-5.1); PROTEIN - SERUM 7.2 g/dL (6.4-8.2)
[2020-09-21 00:55] VITALS: BP 102/60
[2020-09-21 05:17] VITALS: BP 99/55
--- NOTE | 2020-09-21 07:57 | NUR ---
I have reviewed this patient and I concur with the Shift Assessment completed by the Licensed Practical Nurse today this shift.
[2020-09-21 08:19] VITALS: BP 96/77
[2020-09-21 12:29] VITALS: BP 112/61
[2020-09-21 16:51] VITALS: BP 134/63
[2020-09-21 20:00] VITALS: BP 123/63
--- NOTE | 2020-09-22 03:30 | NUR ---
I have reviewed this patient and I concur with the Shift Assessment completed by the Licensed Practical Nurse today this shift.
[2020-09-22 04:00] VITALS: BP 97/63
[2020-09-22 08:39] LABS: BASOPHILS 0.8 % (0-2); EOSINOPHILS 4.1 % (0-7); HEMATOCRIT 35.4 % (36.0-48.0); HEMOGLOBIN 10.3 g/dL (12-16); IMMATURE GRANULOCYTES 0.2 % (0-5); LYMPHOCYTE ABS# 1.55 10x3/uL (1.18-3.74); LYMPHOCYTES 25.6 % (15-50); MCH 26.1 pg (26.0-34.0); MCHC 29.1 g/dL (31.0-37.0); MEAN PLATELET VOLUME 10.6 fL (7.4-10.4); MONOCYTES 12.5 % (2-11); NEUTROPHIL ABS# 3.44 10x3/uL (1.56-6.13); NEUTROPHILS 56.8 % (40-80); PLATELET COUNT 218 10x3/uL (130-400); RBC 3.95 10x6/uL (4.00-5.40); RDW 16.9 % (11.5-14.5); WBC 6.1 10x3/uL (4.8-10.8)
[2020-09-22 08:52] LABS: MCV 89.6 fL (80.0-100.0)
[2020-09-22 08:58] LABS: ALBUMIN 2.4 g/dL (3.4-5.0); ANION GAP 5.5 mmol/L (8-16); BILIRUBIN - TOTAL 0.35 mg/dL (0.2-1.3); CALCIUM 9.6 mg/dL (8.5-10.1); CARBON DIOXIDE 33.5 mmol/L (21.0-32.0); CREATININE - SERUM 0.9 mg/dL (0.6-1.3); PROTEIN - SERUM 7.4 g/dL (6.4-8.2)
[2020-09-22 09:00] VITALS: BP 115/63
[2020-09-22 14:38] VITALS: BP 113/78
--- NOTE | 2020-09-22 16:39 | NUR ---
PATIENT REPEATEDLY REFUSING RESPIRATORY TREATMENTS
[2020-09-22 18:41] VITALS: BP 118/66
[2020-09-22 20:52] VITALS: BP 108/54
[2020-09-23 00:58] VITALS: BP 89/62
[2020-09-23 05:03] VITALS: BP 114/54
--- NOTE | 2020-09-23 06:00 | NUR ---
I have reviewed this patient and I concur with the Shift Assessment completed by the Licensed Practical Nurse today this shift.
[2020-09-23 09:08] VITALS: BP 104/59
--- NOTE | 2020-09-23 12:30 | NUR ---
Nutrition follow-up: Pt receiving a mechanical soft diet with honeyt thick liquids PO intake ~50% of meals; pt refused PEG tube placement Speech path has signed off Pt continues to refuse breathing treatments labs reviewed Wt: 275# Recommend a trial of an appetite stimulant RDN will follow-up: 09/26/30
[2020-09-23 13:03] VITALS: BP 112/68
[2020-09-23 17:01] VITALS: BP 114/73
--- NOTE | 2020-09-23 19:00 | NUR ---
PT LYINB IN LOW MENENDEZ'S POSITION WITH EYES CLOSED AND EASY RESPIRAITONS. O2 IN USE VIA HIGH FLOW NC AT 8L. RIGHT PICC LINE PATENT WITH PROCALAMINE INFUSING AT 50 ML/HR. VICENTE CATHETER DRAINING TO GRAVITY WITH YELLOW URINE IN COLLECTION BAG. WILL MONITOR FOR NEEDS.
[2020-09-23 20:16] VITALS: BP 93/65
--- NOTE | 2020-09-23 21:05 | NUR ---
HS MEDICATIONS GIVEN. FSBS 196 REQUIRING COVERAGE WITH 4 UNITS OF INSULIN PER SLIDING SCALE. WILL CONTINUE TO MONITOR FOR NEEDS.
[2020-09-24 04:00] VITALS: BP 110/68
--- NOTE | 2020-09-24 10:00 | NUR ---
PATIENT RESITUATED IN THE BED. CL IN REACH. WOULD LIKE TO BE OFF THICKENED LIQUIDS. STATED WE WOULD HAVE TO SPEAK WITH SPEECH THERAPY. VOICED UNDERSTANDING STATED LAST TIME SHE SEEN THEM WAS FRIDAY. PAIGE
[2020-09-24 10:01] VITALS: BP 106/56
[2020-09-24 10:33] LABS: HEMATOCRIT 35.5 % (36.0-48.0); HEMOGLOBIN 10.2 g/dL (12-16); LYMPHOCYTES 25.2 % (15-50); MCH 26.3 pg (26.0-34.0); MCHC 28.7 g/dL (31.0-37.0); MCV 91.5 fL (80.0-100.0); MEAN PLATELET VOLUME 11.5 fL (7.4-10.4); NEUTROPHILS 68.4 % (40-80); PLATELET COUNT 162 10x3/uL (130-400); RBC 3.88 10x6/uL (4.00-5.40); RDW 16.6 % (11.5-14.5); WBC 6.5 10x3/uL (4.8-10.8)
[2020-09-24 10:45] LABS: ALBUMIN 2.5 g/dL (3.4-5.0); ANION GAP 5.4 mmol/L (8-16); BILIRUBIN - TOTAL 0.53 mg/dL (0.2-1.3); CALCIUM 9.3 mg/dL (8.5-10.1); CARBON DIOXIDE 35.4 mmol/L (21.0-32.0); CREATININE - SERUM 0.9 mg/dL (0.6-1.3); POTASSIUM - SERUM 3.8 mmol/L (3.5-5.1); PROTEIN - SERUM 7.5 g/dL (6.4-8.2)
[2020-09-24 14:21] VITALS: BP 143/85
[2020-09-24 18:08] VITALS: BP 95/54
--- NOTE | 2020-09-24 19:00 | NUR ---
BEDSIDE REPORT RECEIVED AND CARE OF PT ASSUMED. PT LYING IN SUPINE POSITION WITH EYES CLOSED. RIGHT PICC LINE PATENT WITH PROCALAMINE INFUSING AT 50 ML/HR. VICENTE CATHETER DRAINING TO GRAVITY WITH YELLOW URINE IN COLLECTION BAG. WILL MONITOR FOR NEEDS.
--- NOTE | 2020-09-24 20:30 | NUR ---
PT HAD LARGE INCONTINENT BM...ALL BEDDING AND GOWN CHANGED. PT POSITIONED FOR COMFORT.
--- NOTE | 2020-09-24 20:53 | NUR ---
HS MEDICATIONS GIVEN. FSBS 246 THIS CHECK REQUIRING COVERAGE WITH 8 UNITS OF INSULIN PER SLIDING SCALE. GAVE WARM BLANKET FOR COMFORT.
[2020-09-24 21:11] VITALS: BP 108/68
[2020-09-25 00:39] VITALS: BP 110/73
--- NOTE | 2020-09-25 04:35 | NUR ---
STEPHANY BLOOD FROM PICC LINE ON RIGHT UPPER ARM FOR AM LABS AND DELIVERED TO [facility].
[2020-09-25 04:45] VITALS: BP 115/65
--- NOTE | 2020-09-25 04:50 | NUR ---
PERFORMED JAYNE CARE AND VICENTE CARE.
[2020-09-25 06:51] LABS: ALBUMIN 2.6 g/dL (3.4-5.0); ALKALINE PHOSPHATASE 116 U/L (30-120); ALT (SGPT) 43 U/L (10-68); BILIRUBIN - TOTAL 0.38 mg/dL (0.2-1.3); CALCIUM 9.4 mg/dL (8.5-10.1); CARBON DIOXIDE 37.2 mmol/L (21.0-32.0); CHLORIDE - SERUM 103 mmol/L (98-107); CREATININE - SERUM 0.8 mg/dL (0.6-1.3); SODIUM 141 mmol/L (136-145); UREA NITROGEN 17 mg/dL (7-18); eGFR NON AFRICAN AMERICAN 81 mL/min (90-120)
[2020-09-25 06:54] LABS: CALC OSMOLALITY 282 mosm/kg (275-300); GLUCOSE 105 mg/dL (74-106); POTASSIUM - SERUM 4.4 mmol/L (3.5-5.1)
--- NOTE | 2020-09-25 07:10 | NUR ---
REC'D IN BED AWAKE AND ALERT. RESP EVEN AND UNLABORED WITH NO DISTRESS NOTED. NO C/O NOTED OR VOICED AT THIS TIME. CAN MAKE NEEDS AND WANTS KNOWN. ASSESSMENT COMPLETED. REMAIN ON CONTACT ISOLATION D/T MRSA IN URINE WITH VICENTE CATH IN USE AND DRAINING TO GRAVITY. C/L IN REACH AT BEDSIDE.
[2020-09-25 07:11] LABS: BASOPHILS 0.5 % (0-2); EOSINOPHILS 4.2 % (0-7); HEMATOCRIT 36.2 % (36.0-48.0); HEMOGLOBIN 10.4 g/dL (12-16); IMMATURE GRANULOCYTES 0.2 % (0-5); LYMPHOCYTE ABS# 1.58 10x3/uL (1.18-3.74); LYMPHOCYTES 26.8 % (15-50); MCH 25.9 pg (26.0-34.0); MCHC 28.7 g/dL (31.0-37.0); MCV 90.3 fL (80.0-100.0); MEAN PLATELET VOLUME 12.4 fL (7.4-10.4); MONOCYTES 12.9 % (2-11); NEUTROPHIL ABS# 3.26 10x3/uL (1.56-6.13); NEUTROPHILS 55.4 % (40-80); PLATELET COUNT 170 10x3/uL (130-400); RBC 4.01 10x6/uL (4.00-5.40); WBC 5.9 10x3/uL (4.8-10.8)
[2020-09-25 08:16] VITALS: BP 97/71
[2020-09-25 11:57] VITALS: BP 93/82
--- NOTE | 2020-09-25 12:43 | NUR ---
Nutrition follow-up: Pt continues to receive a consistent CHO mechanical soft diet with honey thick liquids PO intake ~25-50% of meals Pt continues with SOB; refuses to wear BIPAP as ordered +BM ProcalAmine PPN infusing @ 50 ml/hr Labs reviewed; glucose poor to fair control Will continue to provide food choices within diet restrictions and encourage increased po intake Will offer Glucerna Shake with meals RDN will follow-up: 09/27/20
--- NOTE | 2020-09-25 14:23 | NUR ---
PATIENT IN BED. DENIES NEEDS AT THIS TIME. BED LOW POSITION, CALL LIGHT IN REACH. WILL CONTINUE TO MONITOR.
--- NOTE | 2020-09-25 16:53 | NUR ---
OT NOTE: PT COMPLETED SIDE ROLLING TO R SIDE WITH VERBAL CUES. PT COMPLETED BUE AROM EXS TOLERATED. PT COMPLETED FACE AND HAND HYGIENE. PT EXHIBITED POOR AX TOLERANCE. PT IS COOPERATIVE. [phone] VINCENT PIERRE COTA
--- NOTE | 2020-09-25 17:14 | NUR ---
OT NOTE: PT AWAKE AND ALERT; PERFORMED BED MOB WITH MOD ASSIST FOR ROLLING SIDE TO SIDE, BUT RESISTANT TO SIT UP ON EOB. ABLE TO DEMONSTRATED B UE AROM WFLS.. ATTEMPTED SEVERAL UE EXS , HOWEVER, PT VERY WEAK.. FREQ REST BREAKS REQUIRED. PT REMAINS DIFFICULT TO UNDERSTAND DUE TO LOW VOICE..SPEAKS IN A WHISPER. SIMPLE GROOMING TASKS WITH SET UP. RENALDO LOZOYA, OTR/L
[2020-09-25 18:40] VITALS: BP 104/72
--- NOTE | 2020-09-25 19:30 | NUR ---
PT LYING IN BED SLEEPING WITHOUT DISTRESS, AOX4. O2 8L/NC. PICC RIGHT UPPER ARM INFUSING PROCAL @ 50. VICENTE IN PLACE. DENIES NEEDS AT THIS TIME. CL IN REACH
[2020-09-25 20:37] VITALS: BP 100/56
--- NOTE | 2020-09-25 21:30 | NUR ---
FSBS 219, COVERAGE PER SS AND GAVE LANTUS. OFFERED PT HS SNACK, PT REQUESTED AND GIVEN ORANGE POPSICLE. DENIES OTHER NEEDS. CL IN REACH
[2020-09-26 02:01] VITALS: BP 103/67
[2020-09-26 05:49] VITALS: BP 96/62
[2020-09-26 07:55] VITALS: BP 107/70
[2020-09-26 11:48] VITALS: BP 117/63
--- NOTE | 2020-09-26 15:42 | NUR ---
OT NOTE: PT SEEN SEVERAL TIMES IN PM.. INITIALLY PT WAS PROVIDED WITH WASH CLOTH TO WASH FACE AND HANDS WITH ENCOURAGEMENT. SPOKE WITH NURSING EARLIER WHO REPORTED THAT PT WAS ABLE TO FEED HERSELF WITH ENCOURAGEMENT. PERFORMED BED MOB IN ORDER TO CHANGE SHEETS.. PT ABLE TO ROLL WITH MIN ASSIST AND VERBAL CUES, AND ABLE TO MAINTAIN SIDELIEING POSITION WITHOUT ASSIST. PT ALSO ABLE TO SCOOT HIPS OVER WITHOUT ASSIST. PERFORMED SUPINE TO SIT WITH MIN ASSIST. EOB SITTING WITH GOOD BALANCE. UE/LE AROM/STRENGTHENING EXS. PT VERY WEAK AND REQUIRES FREQ REST BREAKS. TOLD PT THAT THIS THERAPIST WOULD COME BACK LATER IN AFTERNOON TO ATTEMPT TO STAND AND TRANSFER AND PT WAS VERY AGREEABLE TO THIS. HOWEVER, UPON RETURNING LATER, PT HAD REMOVED HER 02 AND WAS VERY LETHARGIC. PLACED 02 BACK ON PT AND OBTAINED 02 SATS WHICH WERE AT 88-89%..ENCOURAGED DEEP BREATHING AND GOT SATS BACK UP TO 90-91..NURSING INFORMED. RENALDO LOZOYA, OTR/L
--- NOTE | 2020-09-26 15:51 | NUR ---
OT NOTE: PT COMPLETED SIDE ROLLING WITH SBA. PT COMPLETED EOB SITTING WITH SBA-CGA. PT COMPLETED FACE HYGIENE WITH SETUP. PT IS DOING WELL THIS AM. [phone] THANK YOU,TOMAS HOGUE
[2020-09-26 17:10] VITALS: BP 96/63
--- NOTE | 2020-09-26 20:00 | NUR ---
PT IN LOW FOWLERS SLEEPING WITHOUT DISTRESS. WITHOUT NEEDS. CL IN REACH
[2020-09-26 20:25] VITALS: BP 91/48
--- NOTE | 2020-09-26 21:00 | NUR ---
PT TOOK MEDS WITHOUT DIFFICULTY. FSBS 191, COVERAGE PER SS AND LANTUS GIVEN. PT REFUSED HS SNACK. STATES NOT HUNGRY. DENIES NEEDS. CL IN REACH
[2020-09-27 00:03] VITALS: BP 91/56
[2020-09-27 04:43] VITALS: BP 101/62
[2020-09-27 06:56] LABS: BASOPHILS 0.5 % (0-2); EOSINOPHILS 3.2 % (0-7); HEMATOCRIT 36.2 % (36.0-48.0); HEMOGLOBIN 10.2 g/dL (12-16); IMMATURE GRANULOCYTES 0.2 % (0-5); LYMPHOCYTE ABS# 1.66 10x3/uL (1.18-3.74); LYMPHOCYTES 29.9 % (15-50); MCH 25.6 pg (26.0-34.0); MCHC 28.2 g/dL (31.0-37.0); MCV 90.7 fL (80.0-100.0); MEAN PLATELET VOLUME 11.9 fL (7.4-10.4); MONOCYTES 12.6 % (2-11); NEUTROPHIL ABS# 2.97 10x3/uL (1.56-6.13); NEUTROPHILS 53.6 % (40-80); PLATELET COUNT 199 10x3/uL (130-400); RBC 3.99 10x6/uL (4.00-5.40); RDW 16.5 % (11.5-14.5); WBC 5.6 10x3/uL (4.8-10.8)
[2020-09-27 07:11] LABS: ALBUMIN 2.6 g/dL (3.4-5.0); ALKALINE PHOSPHATASE 117 U/L (30-120); ALT (SGPT) 37 U/L (10-68); BILIRUBIN - TOTAL 0.31 mg/dL (0.2-1.3); CALC OSMOLALITY 281 mosm/kg (275-300); CALCIUM 9.4 mg/dL (8.5-10.1); CHLORIDE - SERUM 99 mmol/L (98-107); CREATININE - SERUM 0.8 mg/dL (0.6-1.3); GLUCOSE 129 mg/dL (74-106); POTASSIUM - SERUM 4.7 mmol/L (3.5-5.1); SODIUM 137 mmol/L (136-145); eGFR NON AFRICAN AMERICAN 81 mL/min (90-120)
[2020-09-27 07:12] LABS: UREA NITROGEN 30 mg/dL (7-18)
--- NOTE | 2020-09-27 07:15 | NUR ---
RECEIVED BEDSIDE REPORT. PT LAYING IN BED EYES CLOSED, EVEN RESPIRATIONS, AWAKENS TO VOICE. PICC LINE TO RIGHT UPPER ARM, PATENT AND INFUSING, BIOPATCH IN PLACE, SWAB CAPS IN USE. O2 SAT 95% ON 8L VIA HFNC. VICENTE IN PLACE, DRAINING TO GRAVITY. EXORIATION UNDER ABD FOLDS AND ON BUTTOCKS. DRY CRACKING GENERALIZED ON BILAT LOWER EXTREMITIES. CONTACT ISOLATION IN PLACE. EDUCATED PT ON CL AND NEEDS, VERBALIZED UNDERSTANDING. BED LOW, CL IN REACH.
[2020-09-27 08:45] VITALS: BP 98/57
--- NOTE | 2020-09-27 10:08 | NUR ---
Nutrition follow-up: Pt sleeping at time of RD visit Receiving a consistent CHO mechanical soft diet with po intake 50-75% of some meals. Pt is filling out menus and kitchen is honoring food choices per diet restrictions. ProcalAmine PPN infusing @ 50 ml/hr Labs reviewed +BM Wt: 275# PO intake is fair to good at meals Recommend discontinuing procalamine PPN RDN will follow-up: 10/02/20
--- NOTE | 2020-09-27 11:15 | NUR ---
ASSISTED PT ON BEDPAN, BM SOFT, TOLERATED WELL. BED LOW, CL IN REACH.
[2020-09-27 12:40] VITALS: BP 96/56
--- NOTE | 2020-09-27 14:57 | NUR ---
OT NOTE: PT VERY LETHARGIC IN AM.. WILL ATTEMPT AGAIN LATER RENALDO LOZOYA, OTR/L
[2020-09-27 16:39] VITALS: BP 96/63
[2020-09-27 19:28] VITALS: BP 87/52
--- NOTE | 2020-09-27 20:00 | NUR ---
PT SITTING UP IN BED WITHOUT DISTRESS, AOX4. DENIES NEEDS AT THIS TIME. CL IN REACH
[2020-09-28 01:51] VITALS: BP 110/57
--- NOTE | 2020-09-28 07:15 | NUR ---
RECEIVED BEDSIDE REPORT. PT LAYING IN BED, A&O X4. PICC TO UPPER ARM PATENT AND INFUSING. EXORIATION UNDER ABD FOLDS. BLISTER ON LOWER BACK. VICENTE IN PLACE DRAINING TO GRAVITY, PATENT, CLEAR YELLOW URINE, STATLOCK IN PLACE. PT ABLE TO AMBULATE WITH ASSIST AND WALKER. EDUCATED ON CL AND NEEDS, VERBALIZED UNDERSTANDING. BED LOW, CL IN REACH.
--- NOTE | 2020-09-28 09:15 | NUR ---
ASSISTED PT WITH WALKER TO THE BR. GAVE BATH AND CHANGED GOWN AND LININS. PT TOLERATED WELL. BED LOW, CL IN REACH.
[2020-09-28 10:00] VITALS: BP 89/57
--- NOTE | 2020-09-28 11:00 | NUR ---
CHANGED DRSG TO RIGHT UPPER ARM PICC, STERILE TECHN USED, ALL LUMINS PATENT AND FLUSH WELL. TOLERATED WELL. BED LOW, CL IN REACH.
[2020-09-28 13:07] VITALS: BP 96/59
--- NOTE | 2020-09-28 13:10 | NUR ---
OT NOTE: ATTEMPTED AM TMT, PT REPORTED THAT HER LEGS WERE HURTING BECAUSE SHE WALKED TO BATHROOM WITH RESULTS TECHNICIAN. WILL VERIFY WITH RESULTS TECHNICIAN BECAUSE PT HAS NOT BEEN GETTING UP WITH THERAPY..SHE WAS RESISTIVE WITH PHYS THERAPY. HOWEVER, SEVERAL DAYS AGO, SHE WAS AGREEABLE TO GET UP WITH OT IN AFTERNOON. HOWEVER, WHEN CHECKED ON PT IN PM, SHE HAD REMOVED HER O2 AND SATS WERE LOW AND SHE WAS VERY LEHTARGIC. PT ALSO VERY LETHARGIC YESTERDAY AND UNABLE TO PARTICIPATE. TODAY, PT STATED THAT SHE WOULD GET UP LATER BUT SHE WAS TOO TIRED RIGHT NOW AND SHE DID NOT SLEEP LAST NIGHT. RENALDO LOZOYA, OTR/L
[2020-09-28 18:20] VITALS: BP 96/54
--- NOTE | 2020-09-28 20:00 | NUR ---
PT SITTNG UP IN BED WITHOUT DISTRESS, AOX4. RIGHT UPPER ARM PICC INFUSING PROCAL @ 50. VICENTE IN PLACE. LYING ON RIGHT SIDE. DENIES NEEDS. CL IN REACH
[2020-09-28 21:14] VITALS: BP 92/60
[2020-09-29 01:57] VITALS: BP 106/65
[2020-09-29 06:04] VITALS: BP 99/58
[2020-09-29 09:05] VITALS: BP 87/56
[2020-09-29 12:51] VITALS: BP 112/62
--- NOTE | 2020-09-29 15:28 | NUR ---
1115-- SPO2- 98% ON 10L/M DECREASE TO 8 1430-- SPO2- 98% ON 8L/M DREASE TO 6L/M
[2020-09-29 17:27] VITALS: BP 107/62
[2020-09-29 21:26] VITALS: BP 112/62
[2020-09-30 06:15] VITALS: BP 113/78
--- NOTE | 2020-09-30 06:48 | NUR ---
I have reviewed this patient and I concur with the Shift Assessment completed by the Licensed Practical Nurse today this shift.
[2020-09-30 08:56] VITALS: BP 100/64
[2020-09-30 14:42] VITALS: BP 85/57
--- NOTE | 2020-09-30 15:22 | NUR ---
PATIENT IN BED RESTING. BED LOW POSITION, CALL LIGHT IN REACH. CONTACT ISOLATION IN PLACE. NASAL CANNULA IN PLACE. WILL CONTINUE TO MONITOR.
[2020-09-30 19:01] VITALS: BP 92/58
[2020-09-30 19:27] LABS: BASOPHILS 0.4 % (0-2); HEMATOCRIT 34.3 % (36.0-48.0); HEMOGLOBIN 9.7 g/dL (12-16); IMMATURE GRANULOCYTES 0.2 % (0-5); LYMPHOCYTE ABS# 1.18 10x3/uL (1.18-3.74); MCH 26.2 pg (26.0-34.0); MCHC 28.3 g/dL (31.0-37.0); MCV 92.7 fL (80.0-100.0); MEAN PLATELET VOLUME 11.4 fL (7.4-10.4); MONOCYTES 12.1 % (2-11); NEUTROPHIL ABS# 3.56 10x3/uL (1.56-6.13); NEUTROPHILS 63.3 % (40-80); PLATELET COUNT 202 10x3/uL (130-400); RDW 16.1 % (11.5-14.5); WBC 5.6 10x3/uL (4.8-10.8)
[2020-09-30 20:00] VITALS: BP 108/65
[2020-09-30 20:07] LABS: ALBUMIN 2.6 g/dL (3.4-5.0); ANION GAP 7.1 mmol/L (8-16); BILIRUBIN - TOTAL 0.32 mg/dL (0.2-1.3); CALCIUM 9.4 mg/dL (8.5-10.1); CARBON DIOXIDE 35.4 mmol/L (21.0-32.0); POTASSIUM - SERUM 4.5 mmol/L (3.5-5.1); PROTEIN - SERUM 6.7 g/dL (6.4-8.2)
[2020-10-01] VITALS: BP 85/51
--- NOTE | 2020-10-01 03:49 | NUR ---
I have reviewed this patient and I concur with the Shift Assessment completed by the Licensed Practical Nurse today this shift.
[2020-10-01 04:00] VITALS: BP 101/61
--- NOTE | 2020-10-01 08:00 | NUR ---
PATIENT IN BED, RESTING. AROUSES TO VOICE. DENIES NEEDS AT THIS TIME. BED LOW POSITION, CALL LIGHT IN REACH. OXYGEN CANNULA IN PLACE. WILL CONTINUE TO MONITOR.
[2020-10-01 09:06] VITALS: BP 95/66
[2020-10-01 11:52] VITALS: BP 93/61
--- NOTE | 2020-10-01 16:00 | NUR ---
PATIENT IN BED. DENIES NEEDS AT THIS TIME. WAITING ON DINNER TO ARRIVE. OXYGEN CANNULA IN PLACE. BED LOW POSITION, CALL LIGHT IN REACH. WILL CONTINUE TO MONITOR.
[2020-10-01 17:18] VITALS: BP 93/72
[2020-10-01 20:00] VITALS: BP 102/47
[2020-10-02 04:00] VITALS: BP 131/76
--- NOTE | 2020-10-02 07:15 | NUR ---
RECEIVED BEDSIDE REPORT. PT SITTING UP IN BED, A&O X4. PICC TO RIGHT UPPER ARM, PATENT AND INFUSING, NO REDNESS OR SWELLING, TEGADERM ADHERED TO SKIN, SWAB CAPS IN USE. EXORIATION TO ABD FOLDS. LOWER BACK SCAB/SORE. O2 SAT 95% ON 7L VIA HFNC AND BIPAP PRN. VICENTE IN PLACE, DRAINING TO GRAVITY, STATLOCK INPLACE. PT ABLE TO AMBULATE TO SIDE OF BED WITH ASSIST. CONTACT ISOLATION IN PLACE. EDUCATED ON CL AND NEEDS, VERBALIZED UNDERSTANDING. BED LOW, CL IN REACH.
[2020-10-02 08:16] VITALS: BP 100/63
[2020-10-02 12:15] VITALS: BP 105/48
--- NOTE | 2020-10-02 12:54 | NUR ---
Nutrition follow-up: Pt eating breakfast at time of RD visit. Pt has eaten 100% of meal. Pt receiving a consistent CHO diet; po intake 50-100% of meals Labs reviewed WT: 275# PO intake continues to be good at most meals RDN will follow-up: 10/09/20
--- NOTE | 2020-10-02 14:30 | NUR ---
ASSISTED PT ONTO BEDPAN, SOFT BM, TOLERATED WELL. BED LOW, CL IN REACH.
--- NOTE | 2020-10-02 15:01 | NUR ---
OT NOTE: PT COMPLETED SUPINE TO SIT. PT REQUIRED MAX A FOR LE MANAGEMENT OFF SIDE OF BED. PT COMPLETED EOB SITTING BALANCE WITH CGA. PT COMPLETED SIT TO STAND WITH MIN-MOD A. PT COMPLETED SIT TO SUPINE WITH MAX A FOR LE MANAGEMENT. PT ABLE TO BRIDGE TO SCOOT UP IN BED AND REPOSITION. [phone] THANK YOU,TOMAS HOGUE
[2020-10-02 16:49] VITALS: BP 103/60
--- NOTE | 2020-10-02 19:30 | NUR ---
PT IN BED, EYES CLOSED, RESP EVEN AND UNLABORED, NO DISTRESS NOTED, CL IN REACH, SR UP X 2.
[2020-10-02 20:00] VITALS: BP 114/72
--- NOTE | 2020-10-02 22:10 | NUR ---
22 G IV CATH PLACED TO LEFT FOREARM X 1, IV FLUIDS STARTED PER MD ORDER AT THIS TIME.
--- NOTE | 2020-10-03 03:52 | NUR ---
I have reviewed this patient and I concur with the Shift Assessment completed by the Licensed Practical Nurse today this shift.
[2020-10-03 04:00] VITALS: BP 122/74
--- NOTE | 2020-10-03 05:15 | NUR ---
I have reviewed this patient and I concur with the Shift Assessment completed by the Licensed Practical Nurse today this shift.
[2020-10-03 05:51] LABS: HEMATOCRIT 34.9 % (36.0-48.0); HEMOGLOBIN 10.1 g/dL (12-16); LYMPHOCYTES 24.3 % (15-50); MCH 26.3 pg (26.0-34.0); MCHC 28.9 g/dL (31.0-37.0); MCV 90.9 fL (80.0-100.0); MEAN PLATELET VOLUME 12.2 fL (7.4-10.4); NEUTROPHILS 62.1 % (40-80); RBC 3.84 10x6/uL (4.00-5.40); RDW 15.2 % (11.5-14.5); WBC 6.7 10x3/uL (4.8-10.8)
[2020-10-03 05:55] LABS: PLATELET COUNT 157 10x3/uL (130-400)
--- NOTE | 2020-10-03 05:59 | MORECARE ---
CASE MANAGEMENT DISCHARGE SUMMARY PATIENT: CAROLYN HO UNIT: [id number] ADM DATE: 09/01/20 AGE: 49 : 74 SEX: F ROOM/BED: D.2202 AUTHOR: JESUS,DOC PHYSICIAN: REFERRING PHYSICIAN: FAITH MORTENSEN MD DATE OF SERVICE: 10/03/20 Discharge Plan Patient Name: CAROLYN HO Facility: [facility]:[place] : 1970 Planned Disposition: Anticipated Discharge Date: Discharge Date: Expected LOS: Initial Reviewer: [email or web address] Initial Review Date: 09/01/2020 Generated: 10/03/20 6:58 am DCP- Discharge Planning Updated by [email or web address]: Lakeisha Alves on 09/14/20 8:[address] CM will assess patient for discharge plan now that she is off vent. CM will continue to follow and assist as needed with discharge planning / needs. DCP- Discharge Planning Updated by [id number]: Lakeisha Alves on 09/13/20 3:[address] CM called Fernando with APS to see if he had any contact information on patient's mother. Fernando looked back through his records and could not find a contact number. He suggested CM call Dr. Mortensen office to see if she had a contact number. DCP- Discharge Planning Updated by [id number]: Lakeisha Alves on 09/13/20 1:[address] CM has called Carmen Ho (Mother) [phone] several times today and has got a busy signal each time today. CM will continue to reach out to family. DCP- Discharge Planning Updated by [id number]: Lakeisha Alves on 09/13/20 1:[address] Late Entry 09/12/20 CM still unable to get in touch with patient's mother. Nursing stated that the patient's roommate Thomas Roger [phone] had called and stated that the patient's dog was sick and he could not take care of it so he was going to take it to the pound. He also stated that he was going to put her stuff out in the yard with a tarp over it. He stated that he doesn't know how to get in touch with any of her family members. CM will continue to try to contact family. DCP- Discharge Planning Updated by [email or web address]: Lakeishamegan Alves on 09/13/20 1:[address] Late Entry 09/11/20 CM attempted to call Carmen Ho [phone] patients mother for discharge planning. CM was not able to get anyone to answer and no voicemail set up. CM will attempt to call back later. DCP- Discharge Planning Updated by [id number]: Lakeisha Joselyn on 09/13/20 1:[address] LATE ENTRY 09/08/20 CM attempted to call Carmen Ho [phone] patients mother for discharge planning. CM was not able to get anyone to answer and no voicemail set up. CM will attempt to call back later. External Providers External Provider: [facility] Next Contact Date: Service Request Date: Service Type: Resolution: Reviewer: Comments: Last DP export: 09/14/20 8:46 Patient Name: CAROLYN HO Page [phone] at 0559 All edits/amendments must be made on the electronic document DICTATION DATE: 10/03/20557 PROCUREMENT MANAGER: CARLA 10/03/20557 RPT#: [id number] DC DATE: STATUS: ADM IN [facility] [address] [place] [address] END OF REPORT
--- NOTE | 2020-10-03 06:05 | MORECARE ---
CASE MANAGEMENT DISCHARGE SUMMARY PATIENT: CAROLYN HO UNIT: [id number] ADM DATE: 09/01/20 AGE: 49 : 74 SEX: F ROOM/BED: D.2202 AUTHOR: JESUS,DOC PHYSICIAN: REFERRING PHYSICIAN: FAITH MORTENSEN MD DATE OF SERVICE: 10/03/20 Discharge Plan Patient Name: CAROLYN HO Facility: [facility]:[place] : 1970 Planned Disposition: Anticipated Discharge Date: Discharge Date: Expected LOS: Initial Reviewer: [email or web address] Initial Review Date: 09/01/2020 Generated: 10/03/20 7:04 am DCP- Discharge Planning Updated by [email or web address]: Citlaly Mcdonald on 10/03/20 5:[address] I HAVE NOT BEEN ABLE TO REACH THE PATIENT'S MOTHER. I WILL ATTEMPT TO CALL STEPHANIE WITH APS TO SEE IF HE HAS ANY SUGGESTIONS I HAVE STARTED THE PROCESS FOR ASSISTED CARE I SENT THE REFERRAL TO [facility] CM TO FOLLOW UP WHEN THE LIASION ARRIVE AT WORK DCP- Discharge Planning Updated by [id number]: Lakeisha Alves on 09/14/20 8:[address] CM will assess patient for discharge plan now that she is off vent. CM will continue to follow and assist as needed with discharge planning / needs. DCP- Discharge Planning Updated by [id number]: Lakeisha Alves on 09/13/20 3:[address] CM called Fernando with APS to see if he had any contact information on patient's mother. Fernando looked back through his records and could not find a contact number. He suggested CM call Dr. Mortensen office to see if she had a contact number. DCP- Discharge Planning Updated by [id number]: Lakeisha Alves on 09/13/20 1:[address] CM has called Carmen Ho (Mother) [phone] several times today and has got a busy signal each time today. CM will continue to reach out to family. DCP- Discharge Planning Updated by [id number]: Lakeisha Alves on 09/13/20 1:[address] Late Entry 09/12/20 CM still unable to get in touch with patient's mother. Nursing stated that the patient's roommate Thomas Roger [phone] had called and stated that the patient's dog was sick and he could not take care of it so he was going to take it to the pound. He also stated that he was going to put her stuff out in the yard with a tarp over it. He stated that he doesn't know how to get in touch with any of her family members. CM will continue to try to contact family. DCP- Discharge Planning Updated by [id number]: Lakeisha Alves on 09/13/20 1:[address] Late Entry 09/11/20 CM attempted to call Carmen Ho [phone] patients mother for discharge planning. CM was not able to get anyone to answer and no voicemail set up. CM will attempt to call back later. DCP- Discharge Planning Updated by [id number]: Lakeisha Alves on 09/13/20 1:[address] LATE ENTRY 09/08/20 CM attempted to call Carmen Ho [phone] patients mother for discharge planning. CM was not able to get anyone to answer and no voicemail set up. CM will attempt to call back later. External Providers External Provider: [facility] Next Contact Date: Service Request Date: Service Type: Resolution: Reviewer: Comments: Last DP export: 10/03/20 4:59 am Patient Name: CAROLYN HO Page [phone] at 0605 All edits/amendments must be made on the electronic document DICTATION DATE: 10/03/20604 UNIFORM ATTENDANT: CARLA 10/03/20604 RPT#: [id number] DC DATE: STATUS: ADM IN [facility] [address] [place] [address] END OF REPORT
[2020-10-03 06:33] LABS: ALBUMIN 2.5 g/dL (3.4-5.0); ANION GAP 8.1 mmol/L (8-16); BILIRUBIN - TOTAL 0.23 mg/dL (0.2-1.3); CALCIUM 9.6 mg/dL (8.5-10.1); CREATININE - SERUM 0.9 mg/dL (0.6-1.3); POTASSIUM - SERUM 4.1 mmol/L (3.5-5.1); PROTEIN - SERUM 7.7 g/dL (6.4-8.2)
[2020-10-03 08:23] VITALS: BP 118/80
--- NOTE | 2020-10-03 09:55 | NUR ---
NOTICED THAT SEVERAL OF PATIENT'S REGLAR MEDS HAD FALLEN OFF HER MAR ON 10/01/19. CHECKED WITH PHARMACY TO CONFIRM THEY WERE NOT DC'D BY PHYSICIAN. PAGED DR. MORTENSEN TO INFORM. WAITING FOR CALL BACK
--- NOTE | 2020-10-03 10:29 | NUR ---
SPOKE WITH MANUELITO. SHE SAID SHE WOULD CONFIRM WITH DR. SOLARES AND MEDS WILL BE RESUMED. WATCHING FOR NEW ORDERS.
[2020-10-03 12:50] VITALS: BP 123/81
--- NOTE | 2020-10-03 15:21 | NUR ---
OT NOTE: PT DOING MUCH BETTER AND VERY COOPERATIVE WITH O.T. PERFORMED SEVERAL SIT TO STAND EXS FROM CHAIR WITH MOD ASSIST TO IMPROVE TRICEP STRENGTH; TRANSFER FROM CHAIR TO BED WITH MOD ASSIST AND USE OF WALKER (VERY SLOW PACE); AROM EXS WHILE ON EOB; SIMPLE GROOMING WITH SET UP; SIT TO SUPINE WITH MAX ASSIST FOR LE MGMT. PT REPORTS THAT SHE WILL STAY UP LONGER TOMORROW BECAUSE IT IS EASIER FOR HER TO BREATH RENALDO LOZOYA, OTR/L [phone]
--- NOTE | 2020-10-03 15:49 | NUR ---
OT NOTE: PT COMPLETED SUPINE TO SIT WITH MAX A. PT COMPLETED SIT TO STAND WITH MOD-MAX A. PT COMPLETED BED TO CHAIR TSF WITH MOD-MAX A. PT DID WELL TODAY. [phone] [facility]
[2020-10-03 16:49] VITALS: BP 122/79
--- NOTE | 2020-10-03 19:30 | NUR ---
PT IN BED, AAO X 3, RESP EVEN AND UNLABORED,NO DISTRESS NOTED, CL IN REACH, SR UP X 2.
[2020-10-03 20:00] VITALS: BP 107/70
--- NOTE | 2020-10-04 01:37 | NUR ---
I have reviewed this patient and I concur with the Shift Assessment completed by the Licensed Practical Nurse today this shift.
[2020-10-04 04:00] VITALS: BP 100/55
[2020-10-04 08:31] VITALS: BP 113/66
--- NOTE | 2020-10-04 08:40 | NUR ---
PT SITTING UP IN BED EATING BREAKFAST. RESP SHALLOW, DOES BECOME SOB WITH EXERTION. O2 @ 6L HI FLOW IN PLACE. DENIES PAIN AT THIS TIME. PICC LINE TO RIGHT UPPER ARM WITH PROCALAMINE @ 50ML/HR INFUSING VIA PUMP. SITE WITHOUT REDNESS OR EDEMA. F/C PATENT TO GRAVITY. DENIES FURTHER NEEDS AT THIS TIME. CL WITHIN REACH. ENCOURAGED TO CALL WITH NEEDS. CONTINUE POC
[2020-10-04 12:48] VITALS: BP 106/67
--- NOTE | 2020-10-04 15:17 | NUR ---
OT NOTE: PT VERY MOTIVATED TO GET UP TODAY. PT STATED THAT SHE WAS GOING TO STAY UP 3-4 HRS TODAY. BED MOB WITH MOD ASSIST FOR SUPINE TO SIT; AMB WITH PT TO BATHROOM WITH MOD ASSIST AND USE OF RW.. ALLOWED PT TIME TO COMPLETE TOILETING..REUQIRED MAX ASSIST WITH TOILET HYGIENE AND SIT TO STAND FROM TOILET, BUT ONLY MIN ASSIST FOR AMB AND TRANSFER TO CHAIR. PT ABLE TO WASH FACE AND HANDS WITH WASH CLOTH, BUT MAX ASSIST WITH BATHING LES AND DONNING SOCKS. PT DOING MUCH BETTER AND MOTIVATED TO IMPROVE. RENALDO LOZOYA, OTR/L [phone]
--- NOTE | 2020-10-04 15:51 | NUR ---
OT NOTE: PT COMPLETED SUPINE TO SIT WITH MIN-MOD A. PT COMPLETED SIT TO STAND WITH MIN A. PT COMPLETED BED TO CHAIR TSF WITH MOD A. PT REQUIRED TOTAL A WITH LB HYGIENE . [phone] THANK YOU,TOMAS HOGUE
[2020-10-04 16:48] VITALS: BP 122/74
--- NOTE | 2020-10-04 18:41 | MORECARE ---
CASE MANAGEMENT DISCHARGE SUMMARY PATIENT: CAROLYN HO UNIT: [id number] ADM DATE: 09/01/20 AGE: 49 : 74 SEX: F ROOM/BED: D.2202 AUTHOR: JESUS,DOC PHYSICIAN: REFERRING PHYSICIAN: FAITH MORTENSEN MD DATE OF SERVICE: 10/04/20 Discharge Plan Patient Name: CAROLYN HO Facility: [facility]:[place] : 1970 Planned Disposition: Anticipated Discharge Date: Discharge Date: Expected LOS: Initial Reviewer: [id number] Initial Review Date: 09/01/2020 Generated: 10/04/20 7:40 pm Comments DCP- Discharge Planning Updated by [email or web address]: Citlaly Mcdonald on 10/04/20 5:[address] [facility]OTH [facility] AND [facility] INTERESTED IN THIS PATIENT DCP- Discharge Planning Updated by [id number]: Citlaly Mcdonald on 10/03/20 5:[address] I HAVE NOT BEEN ABLE TO REACH THE PATIENT'S MOTHER. I WILL ATTEMPT TO CALL STEPHANIE WITH APS TO SEE IF HE HAS ANY SUGGESTIONS I HAVE STARTED THE PROCESS FOR LONG TERM CARE I SENT THE REFERRAL TO [facility] CM TO FOLLOW UP WHEN THE LIASION ARRIVE AT WORK DCP- Discharge Planning Updated by [id number]: Lakeisha Alves on 09/14/20 8:[address] CM will assess patient for discharge plan now that she is off vent. CM will continue to follow and assist as needed with discharge planning / needs. DCP- Discharge Planning Updated by [id number]: Lakeisha Alves on 09/13/20 3:[address] CM called Fernadno with APS to see if he had any contact information on patient's mother. Fernando looked back through his records and could not find a contact number. He suggested CM call Dr. Mortensen office to see if she had a contact number. DCP- Discharge Planning Updated by [id number]: Lakeisha Alves on 09/13/20 1:[address] CM has called Carmen Ho (Mother) [phone] several times today and has got a busy signal each time today. CM will continue to reach out to family. DCP- Discharge Planning Updated by [id number]: Lakeisha Joselyn on 09/13/20 1:[address] Late Entry 09/12/20 CM still unable to get in touch with patient's mother. Nursing stated that the patient's roommate Thomas Roger [phone] had called and stated that the patient's dog was sick and he could not take care of it so he was going to take it to the pound. He also stated that he was going to put her stuff out in the yard with a tarp over it. He stated that he doesn't know how to get in touch with any of her family members. CM will continue to try to contact family. DCP- Discharge Planning Updated by [email or web address]: Lakeisha Alves on 09/13/20 1:[address] Late Entry 09/11/20 CM attempted to call Carmengaldino Ho [phone] patients mother for discharge planning. CM was not able to get anyone to answer and no voicemail set up. CM will attempt to call back later. DCP- Discharge Planning Updated by [id number]: Lakeisha Alves on 09/13/20 1:[address] LATE ENTRY 09/08/20 CM attempted to call Carmen Ho [phone] patients mother for discharge planning. CM was not able to get anyone to answer and no voicemail set up. CM will attempt to call back later. Last DP export: 10/03/20 5:05 am Patient Name: CAROLYN HO Page [phone] at 1841 All edits/amendments must be made on the electronic document DICTATION DATE: 10/04/201839 SHOWER DOORS AND PANELS FABRICATOR: CARLA 10/04/201839 RPT#: [id number] DC DATE: STATUS: ADM IN [facility] [address] [place] [address] END OF REPORT
[2020-10-04 21:21] VITALS: BP 121/74
--- NOTE | 2020-10-05 03:45 | NUR ---
I have reviewed this patient and I concur with the Shift Assessment completed by the Licensed Practical Nurse today this shift.
[2020-10-05 10:26] VITALS: BP 108/74
[2020-10-05 13:14] VITALS: BP 120/71
--- NOTE | 2020-10-05 15:10 | NUR ---
OT NOTE: ATTEMPTED AM TMT, HOWEVER, NURSING AND RT IN ROOM.. RENALDO LOZOYA, OTR/L
[2020-10-05 17:21] VITALS: BP 122/72
[2020-10-05 20:57] VITALS: BP 109/62
[2020-10-06 01:19] VITALS: BP 98/68
[2020-10-06 05:48] VITALS: BP 111/62
--- NOTE | 2020-10-06 08:00 | NUR ---
RECEIVED BEDSIDE REPORT. PT LAYING IN BED A&O X4. PICC LINE TO RIGHT UPPER ARM, PATENT AND INFUSING. 02 SAT 95% ON 7L VIA HFNC. VICENTE IN PLACE, DRAINING TO GRAVITY, STATLOCK IN PLACE. ABD FOLDS EXCORIATED, DRY CRACKING PRESENT ON BILAT LOWER EXTREM. CONTACT ISOLATION IN PLACE. EDUCATED PT ON CL AND NEEDS, VERBALIZED UNDERSTANDING. BED LOW, CL IN REACH.
[2020-10-06 09:48] VITALS: BP 125/57
--- NOTE | 2020-10-06 10:43 | MORECARE ---
CASE MANAGEMENT DISCHARGE SUMMARY PATIENT: CAROLYN HO UNIT: [id number] ADM DATE: 09/01/20 AGE: 49 : 74 SEX: F ROOM/BED: D.2202 AUTHOR: JESUS,DOC PHYSICIAN: REFERRING PHYSICIAN: FAITH MORTENSEN MD DATE OF SERVICE: 10/06/20 Discharge Plan Patient Name: CAROLYN HO Facility: [facility]:[place] : 1970 Planned Disposition: Anticipated Discharge Date: Discharge Date: Expected LOS: Initial Reviewer: [id number] Initial Review Date: 09/01/2020 Generated: 10/06/20 11:42 am DCP- Discharge Planning Updated by [email or web address]: Citlaly Mcdonald on 10/04/20 5:[address] BOTH [facility] AND [facility] ARE INTERESTED IN THIS PATIENT DCP- Discharge Planning Updated by [email or web address]: Citlaly Mcdonald on 10/03/20 5:[address] I HAVE NOT BEEN ABLE TO REACH THE PATIENT'S MOTHER. I WILL ATTEMPT TO CALL STEPHANIE WITH APS TO SEE IF HE HAS ANY SUGGESTIONS I HAVE STARTED THE PROCESS FOR HALF-WAY CARE I SENT THE REFERRAL TO [facility] CM TO FOLLOW UP WHEN THE LIASION ARRIVE AT WORK DCP- Discharge Planning Updated by [id number]: Lakeisha Alves on 09/14/20 8:[address] CM will assess patient for discharge plan now that she is off vent. CM will continue to follow and assist as needed with discharge planning / needs. DCP- Discharge Planning Updated by [email or web address]: Lakeisha Alves on 09/13/20 3:[address] CM called Fernando with APS to see if he had any contact information on patient's mother. Fernando looked back through his records and could not find a contact number. He suggested CM call Dr. Mortensen office to see if she had a contact number. DCP- Discharge Planning Updated by [id number]: Lakeisha Alves on 09/13/20 1:[address] CM has called Carmen Ho (Mother) [phone] several times today and has got a busy signal each time today. CM will continue to reach out to family. DCP- Discharge Planning Updated by [id number]: Lakeisha Joselyn on 09/13/20 1:[address] Late Entry 09/12/20 CM still unable to get in touch with patient's mother. Nursing stated that the patient's roommate Thomas Roger [phone] had called and stated that the patient's dog was sick and he could not take care of it so he was going to take it to the pound. He also stated that he was going to put her stuff out in the yard with a tarp over it. He stated that he doesn't know how to get in touch with any of her family members. CM will continue to try to contact family. DCP- Discharge Planning Updated by [id number]: Lakeisha Alves on 09/13/20 1:[address] Late Entry 09/11/20 CM attempted to call Carmen Ho [phone] patients mother for discharge planning. CM was not able to get anyone to answer and no voicemail set up. CM will attempt to call back later. DCP- Discharge Planning Updated by [id number]: Lakeisha Alves on 09/13/20 1:[address] LATE ENTRY 09/08/20 CM attempted to call Carmen Aleks Ho [phone] patients mother for discharge planning. CM was not able to get anyone to answer and no voicemail set up. CM will attempt to call back later. Last DP export: 10/04/20 5:41 pm Patient Name: CAROLYN HO Page [phone] at 1043 All edits/amendments must be made on the electronic document DICTATION DATE: 10/06/20 1043 PLASMA PROCESSOR: CARLA 10/06/20 1043 RPT#: [id number] DC DATE: STATUS: ADM IN [facility] [address] [place] [address] END OF REPORT
--- NOTE | 2020-10-06 10:52 | MORECARE ---
CASE MANAGEMENT DISCHARGE SUMMARY PATIENT: CAROLYN HO UNIT: [id number] ADM DATE: 09/01/20 AGE: 49 : 74 SEX: F ROOM/BED: D.2202 AUTHOR: JESUS,DOC PHYSICIAN: REFERRING PHYSICIAN: FAITH MORTENSEN MD DATE OF SERVICE: 10/06/20 Discharge Plan Patient Name: CAROLYN HO Facility: [facility]:[place] : 1970 Planned Disposition: Anticipated Discharge Date: Discharge Date: Expected LOS: Initial Reviewer: [email or web address] Initial Review Date: 09/01/2020 Generated: 10/06/20 11:52 am Comments DCP- Discharge Planning Updated by [id number]: Citlaly Mcdonald on 10/06/20 9:[address] Patient is [facility]. I and other staff has tried to explain to her that she needs this and she is unable to care for her self. I have reached out to Fernando her APS worker to see if he can talk some sense to her DCP- Discharge Planning Updated by [id number]: Citlaly Mcdonald on 10/04/20 5:[address] [facility]OTH [facility] AND [facility] INTERESTED IN THIS PATIENT DCP- Discharge Planning Updated by [id number]: Citlaly Mcdonald on 10/03/20 5:[address] I HAVE NOT BEEN ABLE TO REACH THE PATIENT'S MOTHER. I WILL ATTEMPT TO CALL STEPHANIE WITH APS TO SEE IF HE HAS ANY SUGGESTIONS I HAVE STARTED THE PROCESS FOR PENITENTIARY CARE I SENT THE REFERRAL TO [facility] CM TO FOLLOW UP WHEN THE LIASION ARRIVE AT WORK DCP- Discharge Planning Updated by [id number]: Lakeisha Alves on 09/14/20 8:[address] CM will assess patient for discharge plan now that she is off vent. CM will continue to follow and assist as needed with discharge planning / needs. DCP- Discharge Planning Updated by [id number]: Lakeisha Alves on 09/13/20 3:[address] CM called Fernando with APS to see if he had any contact information on patient's mother. Fernando looked back through his records and could not find a contact number. He suggested CM call Dr. Mortensen office to see if she had a contact number. DCP- Discharge Planning Updated by [email or web address]: Lakeisha Alves on 09/13/20 1:[address] CM has called Carmen Ho (Mother) [phone] several times today and has got a busy signal each time today. CM will continue to reach out to family. DCP- Discharge Planning Updated by [id number]: Lakeisha Alves on 09/13/20 1:[address] Late Entry 09/12/20 CM still unable to get in touch with patient's mother. Nursing stated that the patient's roommate Thomas Roger [phone] had called and stated that the patient's dog was sick and he could not take care of it so he was going to take it to the pound. He also stated that he was going to put her stuff out in the yard with a tarp over it. He stated that he doesn't know how to get in touch with any of her family members. CM will continue to try to contact family. DCP- Discharge Planning Updated by [id number]: Lakeisha Alves on 09/13/20 1:[address] Late Entry 09/11/20 CM attempted to call Carmen Ho [phone] patients mother for discharge planning. CM was not able to get anyone to answer and no voicemail set up. CM will attempt to call back later. DCP- Discharge Planning Updated by [id number]: Lakeisha Alves on 09/13/20 1:[address] LATE ENTRY 09/08/20 CM attempted to call Carmen Ho [phone] patients mother for discharge planning. CM was not able to get anyone to answer and no voicemail set up. CM will attempt to call back later. Last DP export: 10/06/20 9:43 am Patient Name: CAROLYN HO Page [phone] at 1052 All edits/amendments must be made on the electronic document DICTATION DATE: 10/06/20 1052 RESORT KEEPER: CARLA 10/06/20 1052 RPT#: [id number] DC DATE: STATUS: ADM IN [facility] [address] [place] [address] END OF REPORT
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
[2020-10-06 12:45] VITALS: BP 118/70
--- NOTE | 2020-10-06 14:21 | NUR ---
OT NOTE: PT REQUIRED MARIN/OTR ASSIST FOR INCREASED SAFETY AND DECREASED FALL RISK. PT STATED SHE WANTS TO D/C HOME. LIFESTYLE DIRECTOR NOTIFIED. PT REQUIRED MIN A FOR SUPINE TO SIT . PT REQUIRED MIN A FOR SIT TO STAND. PT REQUIRED BED TO TOILET TSF WITH CGA. PT REQUIRED TOTAL A FOR TOILETING HYGIENE. PT EXHIBITED DECREASED AX TOLERANCE AND ENDURANCE. [phone] THANK YOU,TOMAS HOGUE
--- NOTE | 2020-10-06 14:41 | MORECARE ---
CASE MANAGEMENT DISCHARGE SUMMARY PATIENT: CAROLYN HO UNIT: [id number] ADM DATE: 09/01/20 AGE: 49 : 74 SEX: F ROOM/BED: D.2202 AUTHOR: JESUS,DOC PHYSICIAN: REFERRING PHYSICIAN: FAITH MORTENSEN MD DATE OF SERVICE: 10/06/20 Discharge Plan Patient Name: CAROLYN HO Facility: [facility]:[place] : 1970 Planned Disposition: Anticipated Discharge Date: Discharge Date: Expected LOS: Initial Reviewer: [email or web address] Initial Review Date: 09/01/2020 Generated: 10/06/20 3:41 pm Comments DCP- Discharge Planning Updated by [email or web address]: Citlaly Mcdonald on 10/06/20 1:[address] Samantha with [facility] has called and stated that they will accept her, but will need a completed NIA. The patient at this time is not agreeable for the shelter. I have asked her care team to help encourage her & reached out again with Fernando with APS. DCP- Discharge Planning Updated by [id number]: Citlaly Mcdonald on 10/06/20 9:[address] Patient is refusing long term care. I and other staff has tried to explain to her that she needs this and she is unable to care for her self. I have reached out to Fernando her APS worker to see if he can talk some sense to her DCP- Discharge Planning Updated by [id number]: Citlaly Mcdonald on 10/04/20 5:[address] BOTH [facility] [facility] INTERESTED IN THIS PATIENT DCP- Discharge Planning Updated by [id number]: Citlaly Mcdonald on 10/03/20 5:[address] I HAVE NOT BEEN ABLE TO REACH THE PATIENT'S MOTHER. I WILL ATTEMPT TO CALL STEPHANIE WITH APS TO SEE IF HE HAS ANY SUGGESTIONS I HAVE STARTED THE PROCESS FOR CUSTODIAL CARE I SENT THE REFERRAL TO [facility] CM TO FOLLOW UP WHEN THE LIASION ARRIVE AT WORK DCP- Discharge Planning Updated by [id number]: Lakeisha Alves on 09/14/20 8:[address] CM will assess patient for discharge plan now that she is off vent. CM will continue to follow and assist as needed with discharge planning / needs. DCP- Discharge Planning Updated by [id number]: Lakeisha Alves on 09/13/20 3:[address] CM called Fernando with APS to see if he had any contact information on patient's mother. Fernando looked back through his records and could not find a contact number. He suggested CM call Dr. Mortensen office to see if she had a contact number. DCP- Discharge Planning Updated by [id number]: Lakeisha Alves on 09/13/20 1:[address] CM has called Carmen Ho (Mother) [phone] several times today and has got a busy signal each time today. CM will continue to reach out to family. DCP- Discharge Planning Updated by [id number]: Lakeisha Alves on 09/13/20 1:[address] Late Entry 09/12/20 CM still unable to get in touch with patient's mother. Nursing stated that the patient's roommate Thomas Roger [phone] had called and stated that the patient's dog was sick and he could not take care of it so he was going to take it to the pound. He also stated that he was going to put her stuff out in the yard with a tarp over it. He stated that he doesn't know how to get in touch with any of her family members. CM will continue to try to contact family. DCP- Discharge Planning Updated by [id number]: Lakeisha Alves on 09/13/20 1:[address] Late Entry 09/11/20 CM attempted to call Carmen Ho [phone] patients mother for discharge planning. CM was not able to get anyone to answer and no voicemail set up. CM will attempt to call back later. DCP- Discharge Planning Updated by [id number]: Lakeisha Alves on 09/13/20 1:[address] LATE ENTRY 09/08/20 CM attempted to call Carmen Ho [phone] patients mother for discharge planning. CM was not able to get anyone to answer and no voicemail set up. CM will attempt to call back later. Last DP export: 10/06/20 9:52 am Patient Name: CAROLYN HO Page [id number] at 1441 All edits/amendments must be made on the electronic document DICTATION DATE: 10/06/201440 ROAD TESTER: CARLA 10/06/201440 RPT#: [id number] DC DATE: STATUS: ADM IN [facility] [address] [place] [address] END OF REPORT
--- NOTE | 2020-10-06 15:00 | NUR ---
ASSISTED PT FROM CHAIR BACK TO BED, TOLERATED WELL. BED LOW, CL IN REACH.
[2020-10-06 15:12] LABS: FUNGUS MYCOLOGY CULTURE Final report (())
[2020-10-06 16:37] VITALS: BP 131/78
[2020-10-06 20:25] VITALS: BP 102/78
--- NOTE | 2020-10-06 21:00 | NUR ---
WATCHING TV QUIETLY. RESP EVEN AND UNALBORED. NO DISTRESS NOTED. PICC LINE TO TOÑO WITHOUT REDNESS OR EDEMA NOTED. PATIENT COMPLAINS OF THERAPY GETTING HER UP IN CARE AT 11 THIS AM AND LEAVING HER TILL 4PM. STATES IM SORE ALL OVER NOW.CL IN REACH.
--- NOTE | 2020-10-07 03:00 | NUR ---
I have reviewed this patient and I concur with the Shift Assessment completed by the Licensed Practical Nurse today this shift.
[2020-10-07 05:42] VITALS: BP 103/67
--- NOTE | 2020-10-07 08:06 | NUR ---
RESTING IN BED, NO DISTRESS NOTED, EYES CLOSED, CONT TO MONITOR
[2020-10-07 08:45] VITALS: BP 107/61
[2020-10-07 13:17] VITALS: BP 110/64
[2020-10-07 17:58] VITALS: BP 104/68
[2020-10-07 20:00] VITALS: BP 106/63
--- NOTE | 2020-10-08 03:59 | NUR ---
I have reviewed this patient and I concur with the Shift Assessment completed by the Licensed Practical Nurse today this shift.
[2020-10-08 04:00] VITALS: BP 106/56
--- NOTE | 2020-10-08 08:04 | NUR ---
RESTING IN BED, NO DISTRESS NOTED, IV INFUSING PER PICC, EYES CLOSED, CONT TO MONITOR
[2020-10-08 11:35] VITALS: BP 91/53
[2020-10-08 15:09] VITALS: BP 99/63
[2020-10-08 18:00] VITALS: BP 110/62
[2020-10-08 20:00] VITALS: BP 93/53
--- NOTE | 2020-10-08 21:00 | NUR ---
SITTING UP IN BED.RESP EVEN AND UNALBORED. O2 2 7L PER HIGHFLOW. BIPAP AT NITE.PICC LINE INTACT TO TOÑO WITHOUT REDNESS OR EDEMA NOTED. CONTINUES TO COMPLAIN OF SORE THROAT.NO OTHER COMPLAITNS VOICED. CL IN REACH
--- NOTE | 2020-10-08 23:17 | NUR ---
I have reviewed this patient and I concur with the Shift Assessment completed by the Licensed Practical Nurse today this shift.
[2020-10-09] VITALS (7 sets, daily range): BP systolic 97–110; BP diastolic 52–72
[2020-10-09 06:18] LABS: ALBUMIN 2.3 g/dL (3.4-5.0); ANION GAP 7.7 mmol/L (8-16); BILIRUBIN - TOTAL 0.36 mg/dL (0.2-1.3); CALCIUM 9.7 mg/dL (8.5-10.1); CARBON DIOXIDE 31.5 mmol/L (21.0-32.0); CREATININE - SERUM 0.9 mg/dL (0.6-1.3); POTASSIUM - SERUM 4.2 mmol/L (3.5-5.1); PROTEIN - SERUM 7.2 g/dL (6.4-8.2)
[2020-10-09 07:18] LABS: BASOPHILS 0.2 % (0-2); EOSINOPHILS 1.9 % (0-7); HEMATOCRIT 32.6 % (36.0-48.0); HEMOGLOBIN 9.5 g/dL (12-16); IMMATURE GRANULOCYTES 0.2 % (0-5); LYMPHOCYTE ABS# 0.85 10x3/uL (1.18-3.74); MCH 26.1 pg (26.0-34.0); MCHC 29.1 g/dL (31.0-37.0); MCV 89.6 fL (80.0-100.0); MEAN PLATELET VOLUME 11.9 fL (7.4-10.4); MONOCYTES 8.5 % (2-11); NEUTROPHIL ABS# 3.36 10x3/uL (1.56-6.13); NEUTROPHILS 71.2 % (40-80); RBC 3.64 10x6/uL (4.00-5.40); RDW 15.7 % (11.5-14.5); WBC 4.7 10x3/uL (4.8-10.8)
[2020-10-09 07:19] LABS: PLATELET COUNT 215 10x3/uL (130-400)
--- NOTE | 2020-10-09 09:00 | MORECARE ---
CASE MANAGEMENT DISCHARGE SUMMARY PATIENT: CAROLYN HO UNIT: [id number] ADM DATE: 09/01/20 AGE: 50 : 74 SEX: F ROOM/BED: D.2202 AUTHOR: JESUS,DOC PHYSICIAN: REFERRING PHYSICIAN: FAITH MORTENSEN MD DATE OF SERVICE: 10/09/20 Discharge Plan Patient Name: CAROLYN HO Facility: [facility]:[place] : 1970 Planned Disposition: Anticipated Discharge Date: Discharge Date: Expected LOS: Initial Reviewer: [email or web address] Initial Review Date: 09/01/2020 Generated: 10/09/20 9:59 am Comments DCP- Discharge Planning Updated by [id number]: Citlaly Mcdonald on 10/06/20 1:[address] Samantha with [facility] has called and stated that they will accept her, but will need a completed NIA. The patient at this time is not agreeable for the half-way. I have asked her care team to help encourage her & reached out again with Fernando with APS. DCP- Discharge Planning Updated by [id number]: Citlaly Mcdonald on 10/06/20 9:[address] Patient is refusing correction care. I and other staff has tried to explain to her that she needs this and she is unable to care for her self. I have reached out to Fernanod her APS worker to see if he can talk some sense to her DCP- Discharge Planning Updated by [id number]: Citlaly Mcdonald on 10/04/20 5:[address] BOTH [facility] AND [facility] INTERESTED IN THIS PATIENT DCP- Discharge Planning Updated by [email or web address]: Citlaly Mcdonald on 10/03/20 5:[address] I HAVE NOT BEEN ABLE TO REACH THE PATIENT'S MOTHER. I WILL ATTEMPT TO CALL STEPHANIE WITH APS TO SEE IF HE HAS ANY SUGGESTIONS I HAVE STARTED THE PROCESS FOR CUSTODIAL CARE I SENT THE REFERRAL TO [facility] CM TO FOLLOW UP WHEN THE LIASION ARRIVE AT WORK DCP- Discharge Planning Updated by [id number]: Lakeisha Alves on 09/14/20 8:[address] CM will assess patient for discharge plan now that she is off vent. CM will continue to follow and assist as needed with discharge planning / needs. DCP- Discharge Planning Updated by [email or web address]: Lakeisha Alves on 09/13/20 3:[address] CM called Fernando with APS to see if he had any contact information on patient's mother. Fernando looked back through his records and could not find a contact number. He suggested CM call Dr. Mortensen office to see if she had a contact number. DCP- Discharge Planning Updated by [id number]: Lakeisha Alves on 09/13/20 1:[address] CM has called Carmen Ho (Mother) [phone] several times today and has got a busy signal each time today. CM will continue to reach out to family. DCP- Discharge Planning Updated by [id number]: Lakeisha Alves on 09/13/20 1:[address] Late Entry 09/12/20 CM still unable to get in touch with patient's mother. Nursing stated that the patient's roommate Thomas Roger [phone] had called and stated that the patient's dog was sick and he could not take care of it so he was going to take it to the pound. He also stated that he was going to put her stuff out in the yard with a tarp over it. He stated that he doesn't know how to get in touch with any of her family members. CM will continue to try to contact family. DCP- Discharge Planning Updated by [id number]: Lakeisha Alves on 09/13/20 1:[address] Late Entry 09/11/20 CM attempted to call Carmen Ho [phone] patients mother for discharge planning. CM was not able to get anyone to answer and no voicemail set up. CM will attempt to call back later. DCP- Discharge Planning Updated by [id number]: Lakeisha Alves on 09/13/20 1:[address] LATE ENTRY 09/08/20 CM attempted to call Carmen Ho [phone] patients mother for discharge planning. CM was not able to get anyone to answer and no voicemail set up. CM will attempt to call back later. Last DP export: 10/06/20 1:41 pm Patient Name: CAROLYN HO Page [id number] at 0900 All edits/amendments must be made on the electronic document DICTATION DATE: 10/09/20858 SENIOR ENVIRONMENTAL TECHNICIAN: CARLA 10/09/20858 RPT#: [id number] DC DATE: STATUS: ADM IN [facility] [address] [place] [address] END OF REPORT
--- NOTE | 2020-10-09 09:00 | NUR ---
PATIENT IN BED. DENIES NEEDS AT THIS TIME. BED LOW PSOITION, CALL LIGHT IN REACH. OXYGEN CANNULA IN PLACE. WILL CONTINUE TO MONITOR.
--- NOTE | 2020-10-09 09:07 | MORECARE ---
CASE MANAGEMENT DISCHARGE SUMMARY PATIENT: CAROLYN HO UNIT: [id number] ADM DATE: 09/01/20 AGE: 50 : 74 SEX: F ROOM/BED: D.2202 AUTHOR: ANGEL LEE PHYSICIAN: REFERRING PHYSICIAN: FAITH MORTENSEN MD DATE OF SERVICE: 10/09/20 Discharge Plan Patient Name: CAROLYN HO Facility: [facility]:[place] : 1970 Planned Disposition: Anticipated Discharge Date: Discharge Date: Expected LOS: Initial Reviewer: [email or web address] Initial Review Date: 09/01/2020 Generated: 10/09/20 10:06 am Comments DCP- Discharge Planning Updated by [id number]: Citlaly Mcdonald on 10/09/20 8:[address] I CALLED JED ( [phone]) PATIENTS MOTHER TO SPEAK WITH HER AND DID NOT GET AN ANSWER I LEFT A MESSAGE FOR HER TO CALL ME BACK DCP- Discharge Planning Updated by [id number]: Citlaly Mcdonald on 10/09/20 8:[address] MET WITH PATIENT ABOUT DISCHARGE PLANNING. SHE STATED THAT SHE DOES NOT WANT TO GO TO A GROUP HOME. I TRIED TO EXPLAINED TO HER THAT SHE IS UNABLE TO CARE FOR HERSELF. SHE THEY PROCEEDS TO TELL ME THAT SHE WAS PUT IN A CAGE IN A TRAILER? SHE IS NOT MAKE SENSE ( BUT IN THE PAST WE THOUGHT SHE DOESN'T MADE SENSE BUT WHAT SHE SAYS ENDS UP BEING THE TRUTH) I ASKED FOR HER MOTHER'S NUMBER ( [phone] ) SHE SAID THAT SHE WAS STAYING WITH THOMAS OR WITH THOMAS'S TRAILER? I AM CONFUSED TO WHAT AND WHERE SHE IS TALKING ABOUT. I WILL TRY TO SEPAK WITH HER MOTHER NOW THAT I HAVE HER NUMBER. DCP- Discharge Planning Updated by [id number]: Citlaly Mcdonald on 10/06/20 1:[address] Samantha with [facility] has called and stated that they will accept her, but will need a completed NIA. The patient at this time is not agreeable for the group home. I have asked her care team to help encourage her & reached out again with Fernando with APS. DCP- Discharge Planning Updated by [id number]: Citlaly Mcdonald on 10/06/20 9:[address] Patient is refusing [facility] care. I and other staff has tried to explain to her that she needs this and she is unable to care for her self. I have reached out to Fernando her APS worker to see if he can talk some sense to her DCP- Discharge Planning Updated by [id number]: Citlaly Mcdonald on 10/04/20 5:[address] BOTH [facility] AND [facility] INTERESTED IN THIS PATIENT DCP- Discharge Planning Updated by [id number]: Citlaly Mcdonald on 10/03/20 5:[address] I HAVE NOT BEEN ABLE TO REACH THE PATIENT'S MOTHER. I WILL ATTEMPT TO CALL STEPHANIE WITH APS TO SEE IF HE HAS ANY SUGGESTIONS I HAVE STARTED THE PROCESS FOR PENITENTIARY CARE I SENT THE REFERRAL TO [facility] CM TO FOLLOW UP WHEN THE LIASION ARRIVE AT WORK DCP- Discharge Planning Updated by [id number]: Lakeisha Alves on 09/14/20 8:[address] CM will assess patient for discharge plan now that she is off vent. CM will continue to follow and assist as needed with discharge planning / needs. DCP- Discharge Planning Updated by [id number]: Lakeisha Alves on 09/13/20 3:[address] CM called Fernando with APS to see if he had any contact information on patient's mother. Fernando looked back through his records and could not find a contact number. He suggested CM call Dr. Mortensen office to see if she had a contact number. DCP- Discharge Planning Updated by [id number]: Lakeisha Alves on 09/13/20 1:[address] CM has called Carmen Ho (Mother) [phone] several times today and has got a busy signal each time today. CM will continue to reach out to family. DCP- Discharge Planning Updated by [id number]: Lakeisha Alves on 09/13/20 1:[address] Late Entry 09/12/20 CM still unable to get in touch with patient's mother. Nursing stated that the patient's roommate Thomas Roger [phone] had called and stated that the patient's dog was sick and he could not take care of it so he was going to take it to the pound. He also stated that he was going to put her stuff out in the yard with a tarp over it. He stated that he doesn't know how to get in touch with any of her family members. CM will continue to try to contact family. DCP- Discharge Planning Updated by [id number]: Lakeisha Byrner on 09/13/20 1:[address] Late Entry 09/11/20 CM attempted to call Carmen Ho [phone] patients mother for discharge planning. CM was not able to get anyone to answer and no voicemail set up. CM will attempt to call back later. DCP- Discharge Planning Updated by [id number]: Lakeisha Joselyn on 09/13/20 1:[address] LATE ENTRY 09/08/20 CM attempted to call Carmen Ho [phone] patients mother for discharge planning. CM was not able to get anyone to answer and no voicemail set up. CM will attempt to call back later. Last DP export: 10/09/20 8:00 a Patient Name: CAROLYN HO Page [phone] at 0907 All edits/amendments must be made on the electronic document DICTATION DATE: 10/09/20905 RESORT MANAGER: CARLA 10/09/20905 RPT#: [id number] DC DATE: STATUS: ADM IN [facility] [address] [place] [address] END OF REPORT
--- NOTE | 2020-10-09 13:14 | NUR ---
Nutrition follow-up: Pt receiving a consistent CHO diet mechanical soft thin liquids Pt reports fair to good po intake at this time Labs reviewed; glucose under fair to good control Wt: 275# Will continue to provide food choices and honor food preferences within diet restrictions. Follow-up: 10/13/20
--- NOTE | 2020-10-09 13:20 | NUR ---
DR FOLEY CAME BY TO SEE PATIENT AND IS ON ISOLATION, HE SAID SHE WILL NEED TO FOLLOW UP WITH HIM ON AN OUTPATIENT BASIS
--- NOTE | 2020-10-09 14:33 | NUR ---
OT NOTE: ASSISTED PT WITH BED MOB WITH VERY MINIMAL ASSIST TO GET TO EOB. SIT TO STAND WITH WALKER AND MOD ASSIST; STEPS TO CHAIR WITH MIN ASSIST. REQUIRED REST BREAK AND THEN ABLE TO TAKE A FEW MORE STEPS TO TOILET. PT UNABLE TO HAVE A BM. BACK TO CHAIR WITH MOD ASSIST. TRANSFERRED BACK TO BED WITH MOD ASSIST FOR SIT TO STAND AND MIN ASSIST FOR SIT TO SUPINE. PT HAD NOT EATEN ANY LUNCH.. SHE STATED THAT HER THROAT WAS HURTING AND HAD BEEN HURTING FOR DAYS, HOWEVER, THIS HAS NEVER BEEN MENTIONED TO ME BY PT. PT TELLS THERAPIST THAT SHE ISNT GOING TO HALFWAY.. STATES THAT ITS THE HOSPITAL AND THERAPYS FAULT FOR NOT GETTING HER WALKING LIKE SHE WAS BEFORE. PT STATING THAT SHE CAN DO EVERYTHING EXCEPT WALK. REMINDED PT THAT SHE IS REQUIRING EXTENSIVE ASSIST WITH TOILET HYGIENE, BATHING, LE DRESSING, ETC.. PT STATES THAT IS BECAUSE THE HOSPITAL IS NOT HELPING HER GET BETTER.. AND THAT THEY JUST WANT TO PUT HER IN A HALFWAY. EXPLAINED TO PT THAT WE WORK ON ALL OF THIS DAILY, BUT SHE IS NOT READY TO RETURN HOME AT THIS TIME, AND THAT SHE WOULD BENEFIT FROM INCREASED AMOUNT OF THERAPY AT SNF SO THAT SHE MAY BE ABLE TO GO HOME. PT COMPLETELY RESISTANT ABOUT GOING. EXPLAINED TO PT THAT SHE COULD IMPROVE STRENGTH BY MOVING IN BED.. ROLLING SIDE TO SIDE AND EXS IN BED. ALSO EXPLAINED THAT SHE IS ABLE TO SIT UP ON EOB WITH VERY MINIMAL ASSIST, AND THAT SHE COULD PRACTICE THIS ON HER OWN..ENCOURAGED HER TO START INITITATING MORE THINGS ON HER OWN TO INCREASE ADL INDEP. RENALDO LOZOYA, OTR/L
--- NOTE | 2020-10-09 16:29 | NUR ---
OT NOTE: PT REQUIRED SBA FOR SUPINE TO SIT. PT REQUIRED MIN A FOR BED TO TOILET ADL MOB WITH RW. PT COMPLETED TOILETING WITH MAX A FOR HYGIENE. PT COMPLETED TOILET TO CHAIR TSF WITH MIN A. [phone] THANK YOU,TOMAS HOGUE
--- NOTE | 2020-10-10 02:57 | NUR ---
1900 ASSUMED CARE OF PT FROM OFFGOING NURSE. PT FOUND TO BE LYING IN BED WITH NO S/SX OF DISTRESS. BED LOW AND LOCKED, CALL LIGHT IN REACH. 2029 FAMILY CALLED WITH COMPLAINTS OF PT WAITING TO BE PUT ON BEDPAN. EXPLAINED TO CALLER THAT THE RN AND PCT WERE OCCUPIED AT THE TIME THAT THE PT CALLED, BUT WERE HEADING TO ATTEND TO HER NEEDS AT THIS TIME. 0230 PT REQUESTS TO BE PUT BACK ON BEDPAN WITH LIMITED RESULTS.
[2020-10-10 05:33] VITALS: BP 87/58
[2020-10-10 09:38] VITALS: BP 99/72
[2020-10-10 11:00] VITALS: BP 100/56
--- NOTE | 2020-10-10 12:22 | NUR ---
PATIENT IN BED. BIPAP IN PLACE. BED LOW POSITION, DENIES NEEDS AT THIS TIME. CALL LIGHT IN REACH. WILL CONTINUE TO MONITOR.
[2020-10-10 17:02] VITALS: BP 120/73
--- NOTE | 2020-10-10 18:30 | NUR ---
PATIENT YELLING OUT THAT SHE IS BURNING UP. ENTERED ROOM, PATIENT COVERED IN MULTIPLE BLANKETS. TOOK BLANKETS OFF, TURNED AIR TEMP COOLER WITH HIGHER FLOW. GOT FLOOR FAN, AND ICED GROIN AND ARMPITS. SAT IN ROOM WITH PATIENT ON SIDE OF THE BED. PATIENT EXPERIENCED NAUSEA WITH SOME YELLOW VOMITING. ADMINISTERED ZOFRAN PER ORDERS. PATIENT STATES NO MORE NAUSEA, AND THAT THE HOT FLASH HAS ENDED. OXYGEN CANNULA IN PLACE, SAT PATIENT BACK IN BED AT 90 DEGREE ANGLE WITH FAN BLOWING DIRECTLY ON. STATED SHE DID NOT WANT TO EAT. BED LOW POSITION, CALL LIGHT IN REACH, WILL CONTINUE TO MONITOR.
[2020-10-10 20:00] VITALS: BP 120/79
[2020-10-11] VITALS: BP 95/49
--- NOTE | 2020-10-11 01:24 | NUR ---
PATIENT LYING SEMI FOWLERS AAOX4, RESP EVEN AND UNLABORED, NO S/S OF DISTRESS, PATIENT STATES SHE IS N/V, MEDICATIONS ADMINISTERED AND TOLERATED WITHOUT COMPLICATIONS, NO FURTHER NEEDS AT THIS TIME, MATTY ALMANZAR
--- NOTE | 2020-10-11 01:41 | NUR ---
I have reviewed this patient and I concur with the Shift Assessment completed by the Licensed Practical Nurse today this shift.
[2020-10-11 04:00] VITALS: BP 96/61
--- NOTE | 2020-10-11 06:53 | MORECARE ---
CASE MANAGEMENT DISCHARGE SUMMARY PATIENT: CAROLYN HO UNIT: [id number] ADM DATE: 09/01/20 AGE: 50 : 74 SEX: F ROOM/BED: D.2202 AUTHOR: JESUS,DOC PHYSICIAN: REFERRING PHYSICIAN: FAITH MORTENSEN MD DATE OF SERVICE: 10/11/20 Discharge Plan Patient Name: CAROLYN HO Facility: [facility]:[place] : 1970 Planned Disposition: Anticipated Discharge Date: Discharge Date: Expected LOS: Initial Reviewer: [email or web address] Initial Review Date: 09/01/2020 Generated: 10/11/20 7:52 am Comments DCP- Discharge Planning Updated by [id number]: Citlaly Mcdonald on 10/11/20 5:[address] LATE ENTRY 10/10/20 @ [address] SOLARES ABOUT PATIENT, ASKED HIM TO SPEAK WITH HER ABOUT DETENTION CARE DCP- Discharge Planning Updated by [id number]: Citlaly Mcdonald on 10/09/20 8:[address] I CALLED JED ( [phone]) PATIENTS MOTHER TO SPEAK WITH HER AND DID NOT GET AN ANSWER I LEFT A MESSAGE FOR HER TO CALL ME BACK DCP- Discharge Planning Updated by [email or web address]: Citlaly Mcdonald on 10/09/20 8:[address] MET WITH PATIENT ABOUT DISCHARGE PLANNING. SHE STATED THAT SHE DOES NOT WANT TO GO TO A JAIL. I TRIED TO EXPLAINED TO HER THAT SHE IS UNABLE TO CARE FOR HERSELF. SHE THEY PROCEEDS TO TELL ME THAT SHE WAS PUT IN A CAGE IN A TRAILER? SHE IS NOT MAKE SENSE ( BUT IN THE PAST WE THOUGHT SHE DOESN'T MADE SENSE BUT WHAT SHE SAYS ENDS UP BEING THE TRUTH) I ASKED FOR HER MOTHER'S NUMBER ( [phone] ) SHE SAID THAT SHE WAS STAYING WITH THOMAS OR WITH THOMAS'S TRAILER? I AM CONFUSED TO WHAT AND WHERE SHE IS TALKING ABOUT. I WILL TRY TO SEPAK WITH HER MOTHER NOW THAT I HAVE HER NUMBER. DCP- Discharge Planning Updated by [id number]: Citlaly Mcdonald on 10/06/20 1:[address] Samantha with [facility] has called and stated that they will accept her, but will need a completed NIA. The patient at this time is not agreeable for the fci. I have asked her care team to help encourage her & reached out again with Fernando with APS. DCP- Discharge Planning Updated by [email or web address]: Citlaly Mcdonald on 10/06/20 9:[address] Patient is refusing jail care. I and other staff has tried to explain to her that she needs this and she is unable to care for her self. I have reached out to Fernando her APS worker to see if he can talk some sense to her DCP- Discharge Planning Updated by [id number]: Citlaly Mcdonald on 10/04/20 5:[address] [facility]OTH [facility] INTERESTED IN THIS PATIENT DCP- Discharge Planning Updated by [id number]: Citlaly Mcdonald on 10/03/20 5:[address] I HAVE NOT BEEN ABLE TO REACH THE PATIENT'S MOTHER. I WILL ATTEMPT TO CALL STEPHANIE WITH APS TO SEE IF HE HAS ANY SUGGESTIONS I HAVE STARTED THE PROCESS FOR INTERMEDIATE CARE I SENT THE REFERRAL TO [facility] CM TO FOLLOW UP WHEN THE LIASION ARRIVE AT WORK DCP- Discharge Planning Updated by [id number]: Lakeisha Alves on 09/14/20 8:[address] CM will assess patient for discharge plan now that she is off vent. CM will continue to follow and assist as needed with discharge planning / needs. DCP- Discharge Planning Updated by [id number]: Lakeisha Alves on 09/13/20 3:[address] CM called Fernando with APS to see if he had any contact information on patient's mother. Fernando looked back through his records and could not find a contact number. He suggested CM call Dr. Mortensen office to see if she had a contact number. DCP- Discharge Planning Updated by [email or web address]: Lakeisha Alves on 09/13/20 1:[address] CM has called Carmen Ho (Mother) [phone] several times today and has got a busy signal each time today. CM will continue to reach out to family. DCP- Discharge Planning Updated by [id number]: Lakeisha Alves on 09/13/20 1:[address] Late Entry 09/12/20 CM still unable to get in touch with patient's mother. Nursing stated that the patient's roommate Thomas Roger [phone] had called and stated that the patient's dog was sick and he could not take care of it so he was going to take it to the pound. He also stated that he was going to put her stuff out in the yard with a tarp over it. He stated that he doesn't know how to get in touch with any of her family members. CM will continue to try to contact family. DCP- Discharge Planning Updated by [id number]: Lakeisha Alves on 09/13/20 1:[address] Late Entry 09/11/20 CM attempted to call Carmen Ho [phone] patients mother for discharge planning. CM was not able to get anyone to answer and no voicemail set up. CM will attempt to call back later. DCP- Discharge Planning Updated by [id number]: Lakeisha Alves on 09/13/20 1:[address] LATE ENTRY 09/08/20 CM attempted to call Carmen Ho [phone] patients mother for discharge planning. CM was not able to get anyone to answer and no voicemail set up. CM will attempt to call back later. Last DP export: 10/09/20 8:07 a Patient Name: CAROLYN HO Page 13073 at 0653 All edits/amendments must be made on the electronic document DICTATION DATE: 10/11/20652 MANUFACTURING ENGINEER ASSEMBLY: CARLA 10/11/20652 RPT#: [id number] DC DATE: STATUS: ADM IN [facility] [address] [place] [address] END OF REPORT
--- NOTE | 2020-10-11 08:03 | NUR ---
RESTING IN BED, NO DISTRESS NOTED, O2 PER NC, PICC LINE AND VICENTE IN PLACE, EYES CLOSED
[2020-10-11 09:41] VITALS: BP 98/60
[2020-10-11 13:08] VITALS: BP 118/68
--- NOTE | 2020-10-11 14:33 | NUR ---
OT NOTE: D/W IDT MEMBERS.. PT SEEN FOR TMT THIS PM. CO TX WITH P.T. PT ABLE TO PERFORM BED MOB WITH MIN ASSIST. PT HAS BEEN AMB BACK AND FORTH TO BATHROOM WITH O.T DAILY, HOWEVER, TODAY, PT TOOK A FEW STEPS AND STATED THAT SHE HAD TO SIT BACK DOWN.. STATED THAT SHE WAS SICK AND COULDNT BREATH. PT ASSISTED BACK TO EOB. PT THEN STATED THAT SHE HAD TO GO TO BATHROOM.. EXPLAINED TO PT THAT SHE WOULD HAVE TO USE A BEDPAN BECAUSE SHE WOULD NOT BE ABLE TO WALK TO BATHROOM IF SHE WASNT ABLE TO TAKE A FEW STEPS. PT HAS PREVIOUSLY BEEN ABLE TO GET FROM SIT TO SUPINE WITH LITTLE TO NO ASSIST.. TODAY SHE REQUIRED MOD ASSIST. PLACED PT ON BED J[place]NSON AND PROVIDED WITH CALL LIGHT. RENALDO LOZOYA, OTR/L [phone]
--- NOTE | 2020-10-11 14:53 | MORECARE ---
CASE MANAGEMENT DISCHARGE SUMMARY PATIENT: MARY HO UNIT: [id number] ADM DATE: 09/01/20 AGE: 50 : 74 SEX: F ROOM/BED: D.2202 AUTHOR: JESUS,DOC PHYSICIAN: REFERRING PHYSICIAN: FAITH MORTENSEN MD DATE OF SERVICE: 10/11/20 Discharge Plan Patient Name: MARY HO Facility: [facility]:[place] : 1970 Planned Disposition: Anticipated Discharge Date: Discharge Date: Expected LOS: Initial Reviewer: [email or web address] Initial Review Date: 09/01/2020 Generated: 10/11/20 3:52 pm Comments DCP- Discharge Planning Updated by [id number]: Citlaly Mcdonald on 10/11/20 1:[address] I spoke with Mary's mother ( [phone]) trying to see if she had any recommendations or help with Mary. She was not helpful at all and said that she usually doesn't know much of anything. She did not know what to tell me. I called Fernando with APS and he stated that I needed to call and open another case with APS. I will call APS DCP- Discharge Planning Updated by [id number]: Citlaly Mcdonald on 10/11/20 5:[address] LATE ENTRY 10/10/20 @ [address] SOLARES ABOUT PATIENT, ASKED HIM TO SPEAK WITH HER ABOUT SHELTER CARE DCP- Discharge Planning Updated by [email or web address]: Citlaly Mcdonald on 10/09/20 8:[address] I CALLED JED ( [phone]) PATIENTS MOTHER TO SPEAK WITH HER AND DID NOT GET AN ANSWER I LEFT A MESSAGE FOR HER TO CALL ME BACK DCP- Discharge Planning Updated by [id number]: Citlaly Mcdonald on 10/09/20 8:[address] MET WITH PATIENT ABOUT DISCHARGE PLANNING. SHE STATED THAT SHE DOES NOT WANT TO GO TO A HALF-WAY. I TRIED TO EXPLAINED TO HER THAT SHE IS UNABLE TO CARE FOR HERSELF. SHE THEY PROCEEDS TO TELL ME THAT SHE WAS PUT IN A CAGE IN A TRAILER? SHE IS NOT MAKE SENSE ( BUT IN THE PAST WE THOUGHT SHE DOESN'T MADE SENSE BUT WHAT SHE SAYS ENDS UP BEING THE TRUTH) I ASKED FOR HER MOTHER'S NUMBER ( [phone] ) SHE SAID THAT SHE WAS STAYING WITH THOMAS OR WITH THOMAS'S TRAILER? I AM CONFUSED TO WHAT AND WHERE SHE IS TALKING ABOUT. I WILL TRY TO SEPAK WITH HER MOTHER NOW THAT I HAVE HER NUMBER. DCP- Discharge Planning Updated by [id number]: Citlaly Tamara on 10/06/20 1:[address] Samantha with [facility] has called and stated that they will accept her, but will need a completed NIA. The patient at this time is not agreeable for the chcf. I have asked her care team to help encourage her & reached out again with Fernando with APS. DCP- Discharge Planning Updated by [email or web address]: Citlaly Tamara on 10/06/20 9:[address] Patient is refusing skilled nursing care. I and other staff has tried to explain to her that she needs this and she is unable to care for her self. I have reached out to Fernando her APS worker to see if he can talk some sense to her DCP- Discharge Planning Updated by [id number]: Citlaly Tamara on 10/04/20 5:[address] [facility] INTERESTED IN THIS PATIENT DCP- Discharge Planning Updated by [id number]: Citlaly Mcdonald on 10/03/20 5:[address] I HAVE NOT BEEN ABLE TO REACH THE PATIENT'S MOTHER. I WILL ATTEMPT TO CALL STEPHANIE WITH APS TO SEE IF HE HAS ANY SUGGESTIONS I HAVE STARTED THE PROCESS FOR RESIDENTIAL CARE I SENT THE REFERRAL TO [facility] CM TO FOLLOW UP WHEN THE LIASION ARRIVE AT WORK DCP- Discharge Planning Updated by [id number]: Lakeisha Alves on 09/14/20 8:[address] CM will assess patient for discharge plan now that she is off vent. CM will continue to follow and assist as needed with discharge planning / needs. DCP- Discharge Planning Updated by [id number]: Lakeisha Alves on 09/13/20 3:[address] CM called Fernando with APS to see if he had any contact information on patient's mother. Fernando looked back through his records and could not find a contact number. He suggested CM call Dr. Mortensen office to see if she had a contact number. DCP- Discharge Planning Updated by [id number]: Lakeisha Alves on 09/13/20 1:[address] CM has called Carmen Ho (Mother) [phone] several times today and has got a busy signal each time today. CM will continue to reach out to family. DCP- Discharge Planning Updated by [id number]: Lakeisha Alves on 09/13/20 1:[address] Late Entry 09/12/20 CM still unable to get in touch with patient's mother. Nursing stated that the patient's roommate Thomas Roger [phone] had called and stated that the patient's dog was sick and he could not take care of it so he was going to take it to the pound. He also stated that he was going to put her stuff out in the yard with a tarp over it. He stated that he doesn't know how to get in touch with any of her family members. CM will continue to try to contact family. DCP- Discharge Planning Updated by [id number]: Lakeisha Alves on 09/13/20 1:[address] Late Entry 09/11/20 CM attempted to call Carmen Ho [phone] patients mother for discharge planning. CM was not able to get anyone to answer and no voicemail set up. CM will attempt to call back later. DCP- Discharge Planning Updated by [id number]: Lakeisha Alves on 09/13/20 1:[address] LATE ENTRY 09/08/20 CM attempted to call Carmen Ho [phone] patients mother for discharge planning. CM was not able to get anyone to answer and no voicemail set up. CM will attempt to call back later. Last DP export: 10/11/20 5:53 a Patient Name: MARY HO Page [phone] at 1453 All edits/amendments must be made on the electronic document DICTATION DATE: 10/11/201451 CANDY DECORATOR: CARLA 10/11/20 145 RPT#: [id number] DC DATE: STATUS: ADM IN [facility] [address] [place] [address] END OF REPORT
[2020-10-11 16:41] VITALS: BP 94/56
[2020-10-11 20:00] VITALS: BP 95/55
--- NOTE | 2020-10-11 21:15 | NUR ---
PT REFEUSED BIPAP AT THIS TIME. A/O XR RR EVEN AND UNLABORED. WILL CONTINUE TO MONITOR.
[2020-10-12 04:00] VITALS: BP 95/53
[2020-10-12 09:14] VITALS: BP 113/71
--- NOTE | 2020-10-12 09:45 | NUR ---
ALERT AND ORIENTED. LUNGS DIMINISHED BILATERALL. HEART SOUNDS S1 AND S2 HEARD IN ALL CUBA. BOWEL SOUNDS ACTIVE X 4. TOÑO PICC PATENT WITHOUT REDNESS. DENIES NEEDS. BED LOW. CALL HANKINS AND PERSONAL ITEMS IN REACH. WILL CONTINUE TO MONITOR.
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
--- NOTE | 2020-10-12 11:39 | NUR ---
PATIENT TEMP 101.7. PRN TYLENOL GIVEN.
--- NOTE | 2020-10-12 12:24 | NUR ---
TEMP 99.0 AFTER PRN TYLENOL.
[2020-10-12 12:51] VITALS: BP 91/53
--- NOTE | 2020-10-12 13:01 | NUR ---
RESTING IN BED. DENIES NEEDS WILL CONTINUE TO MONITOR.
--- NOTE | 2020-10-12 13:09 | NUR ---
OT NOTE: PT PERFORMED BETTER TODAY. SHE PERFORMED BED MOB INCLUDING SUPINE TO SIT WITH VERY MINIMAL ASSIST; AMB TO BATHROOM WITH WALKER AND MIN ASSIST X 2 FOR SAFETY, SHE DID NOT DO WELL YESTERDAY. TOILET TRANSFER WITH MIN ASSIST; MAX ASSIST WITH TOILET HYGIENE; MAX ASSIST WITH DONNING SOCKS AND SET UP TO TAHIR SHOES. SIMPLE GROOMING WITH SET UP/MIN ASSIST. PT WANTING TO SIT UP IN CHAIR TODAY. RENALDO LOZOYA, OTR/L [phone]
--- NOTE | 2020-10-12 14:02 | NUR ---
MD MINE SURVEYOR PAGED TO SEE IF PATIENT NEEDS DAILY LAB WORK DRAWN. WAITING CALL BACK.
--- NOTE | 2020-10-12 14:19 | NUR ---
VICENTE CLAMPED FOR UACS.
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
[2020-10-12 15:01] LABS: BASOPHILS 0.2 % (0-2); EOSINOPHILS 0.1 % (0-7); HEMATOCRIT 34.8 % (36.0-48.0); HEMOGLOBIN 10.5 g/dL (12-16); IMMATURE GRANULOCYTES 0.2 % (0-5); LYMPHOCYTE ABS# 0.83 10x3/uL (1.18-3.74); LYMPHOCYTES 8.3 % (15-50); MCH 26.3 pg (26.0-34.0); MCHC 30.2 g/dL (31.0-37.0); MCV 87.2 fL (80.0-100.0); MEAN PLATELET VOLUME 11.1 fL (7.4-10.4); MONOCYTES 5.5 % (2-11); NEUTROPHIL ABS# 8.52 10x3/uL (1.56-6.13); NEUTROPHILS 85.7 % (40-80); PLATELET COUNT 167 10x3/uL (130-400); RBC 3.99 10x6/uL (4.00-5.40); RDW 15.3 % (11.5-14.5)
--- NOTE | 2020-10-12 15:08 | NUR ---
URINE COLLECTED AND TAKEN TO LAB.
[2020-10-12 15:16] LABS: NITRITE NEGATIVE (NEGATIVE)
[2020-10-12 15:17] LABS: BILIRUBIN NEGATIVE (NEGATIVE); KETONE NEGATIVE (NEGATIVE); UROBILINOGEN NORMAL mg/dL (< 2)
[2020-10-12 15:26] LABS: BACTERIA MODERATE HPF (NONE SEEN); SQUAMOUS EPITHELIAL 0-5 HPF (0-4)
--- NOTE | 2020-10-12 16:18 | NUR ---
INCREASED HFNC TO 7LPM PT SPO2 93% ON DEPARTURE. HR 125 NURSING NOTIFIED AND IS AWARE
[2020-10-12 16:47] VITALS: BP 110/73
[2020-10-12 21:36] VITALS: BP 83/51
[2020-10-13 01:59] VITALS: BP 80/48
--- NOTE | 2020-10-13 04:48 | NUR ---
I have reviewed this patient and I concur with the Shift Assessment completed by the Licensed Practical Nurse today this shift.
[2020-10-13 05:56] VITALS: BP 88/50
--- NOTE | 2020-10-13 09:15 | NUR ---
OT NOTE: (DOS 10/12/20) PT COMPLETED SUPINE TO SIT WITH MOD A. PT COMPLETED SIT TO STAND WITH MIN-MOD A. PT COMPLETED ADL MOB WITH RW WITH MOD A. PT REQUIRED TOTAL A WITH LB HYGIENE TASKS AND TOILETING. [phone] THANK YOU,TOMAS HOGUE
[2020-10-13 09:49] VITALS: BP 94/47
--- NOTE | 2020-10-13 12:39 | NUR ---
Nutrition Follow-up: Diet: Diabetic Mech Soft with thin Liquids PO intake: ~75% x last 3 meals recorded (10/09/20) Last BM: 10/05/20 (8 days). Wt: 275# (09/15/20), no new weight Meds noted: remeron, lantus, SSI, lasix, ProcalAmine@50 = 294cal and 35gms protein Labs noted: POC Glu 223(H) Recommend discontinue ProcalAmine if PO intake remains at least 75% of meals. RD follow-up 10/18/20.
[2020-10-13 12:55] VITALS: BP 131/63
--- NOTE | 2020-10-13 13:25 | NUR ---
PATIENT UP IN CHAIR. DENIES NEEDS AT THIS TIME. OXYGEN CANNULA IN PLACE. CALL LIGHT IN REACH. WILL CONTINUE TO MONITOR.
--- NOTE | 2020-10-13 14:42 | NUR ---
OT NOTE: (AM) PT STATED THAT SHE WAS NOT CLEANED IN A TIMELY MANNER LAST NIGHT. REPORTED PT CONCERNS TO NURSING. PT COMPLETED SUPINE TO SIT WITH MIN A. PT COMPLETED SIT TO STAND WITH CGA-MIN A. PT COMPLETED COMPLETED ADL MOB WITH CGA TO TOILET. PT REQUIRED TOTAL A WITH TOILET HYGIENE TASKS. (PM) PT COMPLETED SIT TO STAND WITH MIN A. PT REQUIRED TOTAL A TO DOFF SOCKS. PT COMPLETED BED MOB WITH WITH TOTAL A FOR POSITIONING. PT ABLE TO SIDE ROLL WITH MIN A. [phone] THANK YOU,TOMAS HOGUE
[2020-10-13 17:11] VITALS: BP 99/55
[2020-10-13 22:04] VITALS: BP 130/58
--- NOTE | 2020-10-14 04:44 | NUR ---
PT REFUSED AM VITALS.
--- NOTE | 2020-10-14 07:30 | NUR ---
RESTING IN BED WITH EYES CLOSED. IV LOCATED TO RIGHT UPPER ARM CURRENTLY RUNNING PROCAL @ 50ML. CURRENTLY ON 7L HIFLO. JULES PRESENT. NO CURRENT S/S OF DISTRESS AT THIS TIME, WILL CONT TO MONITOR.
[2020-10-14 09:12] VITALS: BP 138/79
[2020-10-14 12:43] VITALS: BP 87/59
--- NOTE | 2020-10-14 14:30 | NUR ---
CVL DRESSING CHANGED.
[2020-10-14 16:03] VITALS: BP 134/81; BP 90/51
[2020-10-14 20:11] VITALS: BP 74/42
[2020-10-15] VITALS (7 sets, daily range): BP systolic 79–113; BP diastolic 39–61
--- NOTE | 2020-10-15 02:18 | NUR ---
PT ON BIPAP AT TIME. SHE WAS EXPRESS HAVING SHORT BREATH. WILL CONT TO MONITOR.
--- NOTE | 2020-10-15 03:00 | NUR ---
I have reviewed this patient and I concur with the Shift Assessment completed by the Licensed Practical Nurse today this shift.
--- NOTE | 2020-10-15 07:47 | NUR ---
PT IN BED WITH EYES CLOSED UPON ENTERING. BREATHING EVEN AND NONLABORED, NO S/S OF DISTRESS NOTED AT THIS TIME. BED IN LOWEST POSITION, BED RAILS X2, CALL LIGHT WITHIN REACH. CONTACT MARIS, RANDAL VICENTE, JOSEF BLOOD SUGARS, RIGHT UPPER ARM PICC LINE WITH NS @ 50. 7L HF O2. CPAP @ NIGHT. WAITING FOR PLACEMENT.
--- NOTE | 2020-10-15 12:02 | NUR ---
ADMINISTERED 10 UNITS INSULIN PER SLIDING SCALE FOR SUGAR OF 228. RESTING IN BED, DENIES ANY NEEDS CURRENTLY.
--- NOTE | 2020-10-15 14:15 | NUR ---
ADMINISTERED MEDICATION, NO DIFFICULTIES. HUNG NEW PROCAL, TOLERATING WELL. RESTING COMFORTABLY IN BED. DENIES ANY NEEDS AT THIS TIME.
--- NOTE | 2020-10-15 15:59 | NUR ---
I have reviewed this patient and I concur with the Shift Assessment completed by the Licensed Practical Nurse today this shift.
--- NOTE | 2020-10-15 16:42 | NUR ---
ADMINISTERED 8 UNITS INSULING PER SLIDING SCALE FOR SUGAR OF 231. APPEARS THAT PT HAS PULLED PICC LINE TO THE UPPER RIGHT ARM OUT OF PLACE. WILL CALL AND CONFIRM PLACEMENT. RESTING IN BED. REFUSED MEDICATION. DENIES ANY NEEDS.
--- NOTE | 2020-10-15 18:33 | NUR ---
ATTEMPTED TO CONTACT ATTENDING IN RELATION TO PICC LINE PLACEMENT. UNABLE TO GIVE IV MEDICATIONS AT THIS TIME UNTIL PLACEMENT IS CONFIRMED. HAVE EXPLAINED THIS TO THE PATIENT.
[2020-10-16] VITALS: BP 98/55
--- NOTE | 2020-10-16 01:54 | NUR ---
ALERT AND ABLE TO VOICE NEEDS AND WANT STO STAFF. C/O N/V , WILL TELL STAFF THAT SHE IS HAVING N/V AND PROSEAD TO COUGH UNTILL SHE STARTS TO GAG RESULTING IN VOMITING SMALL AMOUNT. CLEAR /YELLOW. ABOUT 90ML. RESTING A THIS TIME HAS REFUSED SOME MEDS THIS SHIFT STATED THAT THEY WOULD MAKE HER SICK.
[2020-10-16 04:00] VITALS: BP 84/41
[2020-10-16 09:37] VITALS: BP 116/54
[2020-10-16 13:29] VITALS: BP 107/61
--- NOTE | 2020-10-16 15:21 | NUR ---
CALLED TO ROOM AND PATIENT STATES SHE HAS HAD CHEST PAIN FOR 2 DAYS AND HER ZOFRAN HELPS WITH IT, VITAL SIGNS, 97.7, 78/45, 87, 95% STATES PAIN AT 10/10. TYLENOL GIVEN. DR MORTENSEN PAGED AND WILL MEDICATE WITH ZOFRAN WHEN TIME APPROPRIATE.
--- NOTE | 2020-10-16 15:22 | NUR ---
OT NOTE: PT ON BIPAP EARLIER THIS AM.. REFUSED TMT WHEN CHECKED ON HER LATER IN THE AM. RENALDO LOZOYA, OTR/L
[2020-10-16 17:44] VITALS: BP 66/39
--- NOTE | 2020-10-16 19:00 | NUR ---
REPORT GIVEN BY DAY SHIFT NURSE.
--- NOTE | 2020-10-16 19:45 | NUR ---
PT CALLED TO SAY SHE POOPED IN THE BED. CLEANED UP AND ASKED TO CALL NEXT TIME SHE NEEDS TO GO.
[2020-10-16 20:00] VITALS: BP 96/55
--- NOTE | 2020-10-16 20:45 | NUR ---
PT ASSESSMENT COMPLETED. SHE HAS MULTIPLE REQUEST WHICH WERE HANDLED.
--- NOTE | 2020-10-16 22:00 | NUR ---
MEDS GIVEN FOR NOW. PT REFUSED ORAL MOUTH WASH. SHE ALSO REFUSED ROBITUSSIN
--- NOTE | 2020-10-16 22:42 | NUR ---
PT NOW ASKING FOR ROBITUSSIN. GIVEN PO
--- NOTE | 2020-10-17 | NUR ---
RESTING QUIETLY WITH HER BIPAP ON.
[2020-10-17 04:00] VITALS: BP 101/51
--- NOTE | 2020-10-17 04:30 | NUR ---
PT CALLED FOR A BEDPAN. SHE WAS PLACED ON A BEDPAN. ONCE SHE WAS ON THE BEDPAN SHE STARTED MAKING NOISES. I ASKED WHAT WAS THE MATTER. SHE TOLD ME TO SHUT UP AND DON'T ASK HER ANY QUESTIONS.
--- NOTE | 2020-10-17 04:45 | NUR ---
WENT TO ANSWER PT CALL LIGHT. WHEN I GOT TO THE ROOM SHE STARTED SCREAMING. I ASKED HER IF SHE WAS ALREADY OFF THE BEDPAN AND SHE FINALLY TOLD ME YES. SHE STARTED SCREAMING AGAIN SAYING I ASKED TOO MANY QUESTIONS AND ORDERED ME OUT OF THE ROOM. SHE TALKED TO THE TECH ABOUT ME AND TOLD HER THAT SHE DIDN'T WANT ME IN THE ROOM.
--- NOTE | 2020-10-17 06:00 | NUR ---
PT IS REFUSING ALL MEDS AND FINGER STICK FOR BLOOD SUGAR.
[2020-10-17 09:14] VITALS: BP 98/50
[2020-10-17 13:06] VITALS: BP 124/64
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
--- NOTE | 2020-10-17 17:00 | NUR ---
PT COMPLAINING OF SEVERE PAIN IN AREA OF VICENTE CATH. RECEIVED ORDER TO REMOVE IT FROM DR. SOLARES. TOLERATED REMOVAL WELL. JAYNE CARE PREFORMED AND SKIN BARRIER CREAM APPLIED TO JAYNE AREA. TOLERATED WELL. BED IN LOWEST POSITION, LOCKED, SIDE RAILS UP X2. CALL LIGHT WITHIN REACH. NEEDS ANTICIPATED AND MET. INFORMED THE RN ASSIGNED TO HER TODAY OF THESE EVENTS.
[2020-10-17 18:41] VITALS: BP 120/60
[2020-10-17 20:00] VITALS: BP 85/41
--- NOTE | 2020-10-17 20:00 | NUR ---
ALERT RESTING IN BED, DENIES PAIN OR NEEDS AT THIS TIME, SEE SHIFT ASSESSMENT, CALL LIGHT IN REACH
[2020-10-18] VITALS: BP 89/43
[2020-10-18 04:00] VITALS: BP 81/50
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
--- NOTE | 2020-10-18 07:43 | NUR ---
RESTING IN BED, EYES CLOSED, NO DISTRESS NOTED, CONT TO MONITOR
[2020-10-18 08:44] VITALS: BP 89/47
[2020-10-18 13:03] VITALS: BP 87/53
--- NOTE | 2020-10-18 13:46 | NUR ---
Nutrition follow-up: Pt receiving a consistent CHO mechanical soft diet with honey thick liquids PO intake has been poor over the last several days. Pt has c/o N with V to nurses. Labs reviewed; glucose under fair to good control at this time Wt: 276# Pt receiving Ensure with meals due to poor po intake at this time Recommend a trial of an appetite stimulant to see if it will improve appetite RDN will follow-up: 10/23/20
[2020-10-18 16:53] VITALS: BP 110/55
--- NOTE | 2020-10-18 17:44 | NUR ---
OT NOTE: PT COMPLETED BED MOB WITH SBA. PT COMPLETED EOB SITTING WITH SBA. PT COMPLETED SIT TO STAND WITH SBA. PT COMPLETED ADL MOB WITH RW WITH SBA. PT COMPLETED SIMPLE UB HYGIENE TASKS WITH SET UP AT EOB. PT DID WELL. PT EXHIBITED INCREASED FUNCTIONAL INDEPENDENCE WITH BED MOB AND ADL MOBILITY. [phone] THANK YOU,TOMAS HOGUE
--- NOTE | 2020-10-18 17:50 | NUR ---
OT NOTE: PT ABLE TO PERFORM ALL BED MOB INCLUDING SUPINE TO SIT AND SIT TO SUPINE WITHOUT ASSIST TODAY. PERFORMED SIT TO STAND WITH SBA AND USE OF WALKER; CONT TO REQUIRE EXTENSIVE ASSIST TO TAHIR SOCKS. AMB TO AND FROM BATHROOM WITH CGA; MAX ASSIST FOR TOILET HYGIENE. ENCOURAGED PT TO SIT UP ON EOB FREQ THROUGHOUT THE DAY, SINCE SHE IS NOW ABLE TO PERFORM THIS WITHOUT ASSIST. PT DID NOT WANT TO SIT UP IN CHAIR DUE TO BACK PAIN. RENALDO LOZOYA, OTR/L
[2020-10-18 20:00] VITALS: BP 80/41
--- NOTE | 2020-10-18 23:30 | NUR ---
I have reviewed this patient and I concur with the Shift Assessment completed by the Licensed Practical Nurse today this shift.
[2020-10-19] VITALS: BP 91/49
[2020-10-19 04:00] VITALS: BP 99/59
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
--- NOTE | 2020-10-19 07:34 | NUR ---
PT IS RESTING IN BED WITH EYES CLOSED. RESPIRATIONS ARE EVEN AND UNLABORED. PT IS EASILY AROUSED WITH VERBAL STIMULATION AND ANSWERS ALL QUESTIONS APPROPRIATELY UPON AROUSAL. PT REPORTS COUGH BUT DENIES PRESENCE OF DYSPNEA/SOB/DIZZINESS AT THIS TIME. PT WITHOUT IV ACCESS. O2 VIA NC @ 5.5L. PT DENIES PRESENCE OF PAIN/N/V AT THIS TIME. OCNTACT ISOLATION PRECAUTIONS IN PLACE AND FOLLOWED. FALL PRECAUTIONS IN PLACE. BED IS IN THE LOWEST POSITION. CALL LIGHT AND BEDSIDE TABLE ARE WITHIN REACH. SIDE RAILS X 2. PT DENIES FURTHER NEEDS. WILL CONT TO MONITOR.
[2020-10-19 08:56] VITALS: BP 87/52
--- NOTE | 2020-10-19 10:18 | NUR ---
PT ENCOURAGED TO TCDB AND REPOSITION IN BED. PT VERBALIZES UNDERSTANDING AND DENIES FURTHER NEEDS. BED IS IN THE LOWEST POSITION. CALL LIGHT AND BEDSIDE TABLE ARE WITHIN REACH. SIDE RAILS X 2. WILL CONT TO MELANI.
[2020-10-19 12:29] VITALS: BP 84/50
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
--- NOTE | 2020-10-19 14:44 | NUR ---
OT NOTE: REFUSED IN AM DUE TO REPORTED BACK PAIN RENALDO LOZOYA, OTR/L
--- NOTE | 2020-10-19 15:53 | NUR ---
OT NOTE: PT COMPLETED BED MOB TASKS WITH MIN A. PT STATED THAT SHE CAN NOT GET OUT OF BED OR TO TOILET BECAUSE HER L WRIST IS BROKEN. PT STATED THAT SHE HAD A FALL BEFORE COMING TO [facility]. NOTIFIED NURSING. [phone] THANK YOU,TOMAS HOGUE
[2020-10-19 16:40] VITALS: BP 96/63
[2020-10-19 20:00] VITALS: BP 122/65
--- NOTE | 2020-10-20 02:09 | NUR ---
I have reviewed this patient and I concur with the Shift Assessment completed by the Licensed Practical Nurse today this shift.
[2020-10-20 04:00] VITALS: BP 74/39
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
--- NOTE | 2020-10-20 08:30 | NUR ---
PT RESTING QUIETLY IN BED. BREAKFAST TRAY TAKEN INTO PT. PT VOICES "I ONLY WANT MY CEREAL THIS MORNING." ASSISTED PT WITH OPENING PACKAGES. O2 @ 4L NC IN PLACE. DENIES PAIN AT THIS TIME. PT THEN VOICES THAT SHE HAS URINATED. PT BEDDING CHANGED AT THIS TIME, WITH PERICARE PROVIDED DUE TO INCONTINENCE OF URINE. PT HOB RAISED FOR PT TO EAT BREAKFAST. MORNING MEDICATIONS ADMINISTERED AT THIS TIME. DENIES FURTHER NEEDS. CL WITHIN REACH. ENCOURAGED TO CALL WITH NEEDS. CONTINUE POC
[2020-10-20 09:25] VITALS: BP 87/52
[2020-10-20 13:32] VITALS: BP 111/58
--- NOTE | 2020-10-20 14:59 | NUR ---
OT NOTE: (AM) PT COMPLETED SUPINE TO SIT WITH SBA. PT COMPLETED SIT TO STAND WITH CGA. PT COMPLETED ADL MOB WITH RW REQUIRED CGA. PT COMPLETED TOILETING WITH SBA. PT REQUIRED TOTAL A WITH TOILET HYGIENE. PT REQUIRED TOTAL A WITH DOFF SOCKS. (PM) PT COMPLETED SUPINE TO SIT WITH SBA. PT COMPLETED EOB SITTING WITH SBA. [phone]
[2020-10-20 15:44] LABS: SARS-CoV-2 ANTIGEN NEGATIVE- SARS-COV-2 (NEGATIVE)
--- NOTE | 2020-10-20 19:00 | NUR ---
PATIENT ALERT AND ORIENTED. ASSESSMENT PERFORMED. DENIES FURTHER NEEDS AT THIS TIME. CALL LIGHT CLOSE. CPOC.
[2020-10-20 20:39] VITALS: BP 98/45
[2020-10-21 01:06] VITALS: BP 91/56
--- NOTE | 2020-10-21 01:34 | NUR ---
ADMINISTERED SCHEDULED MARISOL. PATIENT STATES "I DONT WANT TO WEAR MY BIPAP BECAUSE I KEEP SPITTING UP." STRESSED IMPORTANCE OF BIPAP, PATIENT REFUSED. WEARING O2 CANNULA AT 4L. CPOC.
[2020-10-21 05:28] VITALS: BP 103/62
--- NOTE | 2020-10-21 08:11 | NUR ---
RESTING IN BED, NO DISTRESS NOTED, EYES CLOSED, CONT TO MONITOR SUGARS AND AWAITING PLACEMEN
[2020-10-21 08:20] VITALS: BP 129/76
[2020-10-21 12:24] LABS: BASOPHILS 0.1 % (0-2); EOSINOPHILS 0.9 % (0-7); HEMATOCRIT 31.7 % (36.0-48.0); HEMOGLOBIN 9.5 g/dL (12-16); IMMATURE GRANULOCYTES 3.1 % (0-5); LYMPHOCYTE ABS# 1.02 10x3/uL (1.18-3.74); LYMPHOCYTES 13.3 % (15-50); MCH 25.5 pg (26.0-34.0); MCV 85.2 fL (80.0-100.0); MEAN PLATELET VOLUME 10.4 fL (7.4-10.4); NEUTROPHIL ABS# 5.01 10x3/uL (1.56-6.13); NEUTROPHILS 65.6 % (40-80); RBC 3.72 10x6/uL (4.00-5.40); RDW 16.3 % (11.5-14.5); WBC 7.7 10x3/uL (4.8-10.8)
[2020-10-21 12:30] LABS: ALBUMIN 2.5 g/dL (3.4-5.0); ANION GAP 8.2 mmol/L (8-16); BILIRUBIN - TOTAL 0.26 mg/dL (0.2-1.3); CALCIUM 9.3 mg/dL (8.5-10.1); CARBON DIOXIDE 31.4 mmol/L (21.0-32.0); POTASSIUM - SERUM 4.6 mmol/L (3.5-5.1); PROTEIN - SERUM 7.2 g/dL (6.4-8.2)
[2020-10-21 12:33] LABS: PLATELET COUNT 285 10x3/uL (130-400)
[2020-10-21 13:37] VITALS: BP 101/59
[2020-10-21 16:59] VITALS: BP 102/62
--- NOTE | 2020-10-21 19:10 | NUR ---
RECEIVED REPORT, ASSUMED CARE, BREATHING EVEN UNLABORED, CALL LIGHT IN REACH, BED LOWEST POSITION, NO S/S OF DISTRESS NOTED, IV PATENT, O2 4L NC, ENCOURAGED PT TO NOTIFY STAFF OF ANY NEEDS
[2020-10-21 19:51] VITALS: BP 96/74
[2020-10-22 01:19] VITALS: BP 110/73
--- NOTE | 2020-10-22 01:50 | NUR ---
I have reviewed this patient and I concur with the Shift Assessment completed by the Licensed Practical Nurse today this shift.
[2020-10-22 06:53] VITALS: BP 138/76
[2020-10-22 08:35] VITALS: BP 106/58
[2020-10-22 13:12] VITALS: BP 99/59
--- NOTE | 2020-10-22 17:37 | NUR ---
C/O NAUSEA THIS PM, MEDICATED WITH ZOFRAN, CARAFATE AND PROTONIX, REFUSED COREG AND ROBITUSSIN
[2020-10-22 20:00] VITALS: BP 139/63
[2020-10-23] VITALS: BP 117/61
[2020-10-23 04:00] VITALS: BP 115/69
--- NOTE | 2020-10-23 04:30 | NUR ---
WHEN WASH TEST CHECKER WENT TO CHANGE PT BRIEF SHE REFUSED, STATED SHE ONLY PEED ONCE AND ITS A WASTE TO CHANGE THE BRIEF NOW. EDUCATED PT ON IMPORTANCE TO HAVE A DRY BRIEF. STILL RERFUSED
--- NOTE | 2020-10-23 04:53 | NUR ---
I have reviewed this patient and I concur with the Shift Assessment completed by the Licensed Practical Nurse today this shift.
[2020-10-23 08:00] VITALS: BP 97/59
[2020-10-23 11:05] VITALS: BP 93/51
--- NOTE | 2020-10-23 12:45 | NUR ---
Nutrition follow-up: Pt receiving a consistent CHO diet with Ensure TID; pt with poor po intake due to nausea with some vomiting. Pt is drinking Ensure. Labs reviewed; glucose under fair control most of the time Wt: 275# Meds: Remeron +BM Pt is currently not meeting estimated energy needs with po intake. Will order 48 hour calorie count RDN follow-up: 10/25/20
[2020-10-23 15:51] VITALS: BP 99/55
--- NOTE | 2020-10-23 18:42 | NUR ---
ASSITED PT TO BSC, PATIENT HAD LARGE LOOSE YELLOW STOOL. GOT DIZZY A FEW TIMES WHILE SITTING UP AND HAD A HOT FLASH. STATES SHE FEELS BETTER, GOT PT BACK IN BED, CL IN REACH. CONTINUE WITH PLAN OF CARE
[2020-10-23 20:00] VITALS: BP 135/82
--- NOTE | 2020-10-24 00:29 | NUR ---
I have reviewed this patient and I concur with the Shift Assessment completed by the Licensed Practical Nurse today this shift.
--- NOTE | 2020-10-24 01:03 | NUR ---
PATIENT ON CL, C/O BACK PAIN, READJUSTED PT PILLOW AND LOWERED HOB, PT REQUESTED PAIN MEDICATION, ADMINISTERED PRN TYLENOL. NO OTHER NEEDS AT THIS TIME, CONTINUE WITH PLAN OF CARE
[2020-10-24 04:00] VITALS: BP 95/57
--- NOTE | 2020-10-24 05:24 | NUR ---
PATIENT TEMP THIS MORNING IS 101.1, ADMINISTERED PRN MEDICATION WELL SCHEDULED MEDICATION, NO OTHER NEEDS AT THIS TIME. CONTINUE WITH PLAN OF CARE
--- NOTE | 2020-10-24 06:10 | NUR ---
RECHECKED T TEMP AND PT IS 99.8 WILL CONTINUE TO MONITOR
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
--- NOTE | 2020-10-24 07:49 | NUR ---
PT ASSESSED AT 0740. SHALLOW BREATHS TAKEN AND RUNNING TEMP OF 100.1 LUNG SOUNDS BILAT EXP WHEEZES NOTED. ENCOURAGED TO PERFORM INCENTIVE SPIROMETRY AND PULLS 500CC. ENCOURAGED PT TO DEEP BREATH AND COUGH BUT WEAK COUGH. CALL LIGHT IN REACH
[2020-10-24 08:04] VITALS: BP 87/42
--- NOTE | 2020-10-24 09:38 | NUR ---
PT ENCOURAGED TO USE INCENTIVE SPIROMETRY AGAIN. ONLY ABLE TO PULL 250CC WITH SHALLOW BREATHS
--- NOTE | 2020-10-24 10:01 | NUR ---
PT SAT ON SIDE OF BED WITH ASSIST X 2 WITH THERARY X COUPLE MIN. ASSISTED TO LAY DOWN. CALL LIGHT IN REACH
[2020-10-24 11:57] VITALS: BP 85/47
--- NOTE | 2020-10-24 12:14 | NUR ---
TEMP 100.1 TYLENOL GIVEN ORDERED. INCENTIVE SPIROMETRY DONE WITH 500CC THIS TIME X 5 PULLS. CALL LIGHT IN REACH
--- NOTE | 2020-10-24 13:27 | NUR ---
CALORIE COUNT FOR 10/23/20 kcal protein Breakfast 350 20 Lunch 350 20 Dinner 350 20 Total 1050 kcal 60 gm protein Pt only drank her Ensure; did not eat much if anything else on the tray. Pt continues with poor po intake. May need to consider starting nutrition support. Will continue to provide food choices and honor food preferences. Recommend pt be re-evaluated by speech pathologist for diet upgrade to regular consistency. RDN will follow-up: 10/26/20
--- NOTE | 2020-10-24 15:10 | NUR ---
OT NOTE: PT REQUIRED ASSIST OF TECH FOR INCREASED SAFETY AND MOBILITY. PT REQUIRED CUES FOR INCREASED PARTICIPATION. PT STATED SHE WAS HAVING " HOT FLASHES." NOTIFIED NURSING. NURSING CAME TO PT BEDSIDE. PT REQUIRED MOD A X2 FOR SUPINE TO SIT. PT REQUIRED CGA FOR SITTING BALANCE. PT COMPLETED SIT TO STAND WITH MIN A X2. [phone] THANK YOU,TOMAS HOGUE
[2020-10-24 16:25] VITALS: BP 86/56
--- NOTE | 2020-10-24 19:12 | NUR ---
PATIENT ASLEEP IN BED, NO S/S OF DISTRESS, EASILY AWAKENED. WHEEZING HEARD IN UPPER LOBES, PT IS INCONTINENT OF BOWEL AND BLADDER WHEN IN DEEP SLEEP. NC AT 4L. CONTINUE WITH PLAN OF CARE
[2020-10-24 20:00] VITALS: BP 106/58
--- NOTE | 2020-10-24 22:23 | NUR ---
PATIENT ASLEEP IN BED, EVEN RISE AND FALL OF CHEST. NO S/S OF DISTRESS, CL IN REACH. CONTINUE WITH PLAN OF CARE
--- NOTE | 2020-10-25 01:55 | NUR ---
I have reviewed this patient and I concur with the Shift Assessment completed by the Licensed Practical Nurse today this shift.
[2020-10-25 04:00] VITALS: BP 103/39
--- NOTE | 2020-10-25 05:55 | NUR ---
ADMINISTERED SCHEDULED MEDS, PLACED PT ON BED JOHNSON AND SHE FELT VERY WARM, ASKED GSE MECHANIC WHAT PT TEMP WAS AND WAS TOLD PT TEMP WAS IN NORMAL RANGE, ASKED HER TO RETAKE TEMP. GSE MECHANIC USED ORAL THERMOMETER AND PT TEMP SHOWED 102.9, TEMPORAL SHOWED 100. CALLED LAB FOR CULTURES TO BE TAKEN WELL MORNING LAB WORK. WILL ADMINISTER PRN TYLENOL FOR FEVER. CONTINUE WITH PLAN OF CARE
[2020-10-25 07:10] LABS: BASOPHILS 0 % (0-2); EOSINOPHILS 0 % (0-7); HEMATOCRIT 32.1 % (36.0-48.0); HEMOGLOBIN 9.6 g/dL (12-16); IMMATURE GRANULOCYTES 0.2 % (0-5); LYMPHOCYTE ABS# 1.23 10x3/uL (1.18-3.74); LYMPHOCYTES 19.3 % (15-50); MCH 25.5 pg (26.0-34.0); MCHC 29.9 g/dL (31.0-37.0); MCV 85.1 fL (80.0-100.0); MEAN PLATELET VOLUME 9.8 fL (7.4-10.4); MONOCYTES 1.9 % (2-11); NEUTROPHILS 78.6 % (40-80); RBC 3.77 10x6/uL (4.00-5.40); RDW 16.6 % (11.5-14.5); WBC 6.4 10x3/uL (4.8-10.8)
[2020-10-25 07:15] LABS: PLATELET COUNT 194 10x3/uL (130-400)
[2020-10-25 07:30] LABS: ALBUMIN 2.3 g/dL (3.4-5.0); ANION GAP 10.1 mmol/L (8-16); BILIRUBIN - TOTAL 0.3 mg/dL (0.2-1.3); CALCIUM 8.3 mg/dL (8.5-10.1); CARBON DIOXIDE 30.4 mmol/L (21.0-32.0); CREATININE - SERUM 1.7 mg/dL (0.6-1.3); POTASSIUM - SERUM 4.5 mmol/L (3.5-5.1); PROTEIN - SERUM 7.3 g/dL (6.4-8.2)
[2020-10-25 08:37] VITALS: BP 74/42
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
--- NOTE | 2020-10-25 10:14 | NUR ---
RESTING IN BED, NO DISTRESS NOTED, REFUSED BREAKFAST, CONT TO MONITOR SUGARS, O2PER NC AT4
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
[2020-10-25 12:29] VITALS: BP 68/37
--- NOTE | 2020-10-25 13:42 | NUR ---
Nutrition follow-up: Pt refusing meals today. Receiving a consistent CHO mechanical soft diet; Ensure TID Labs reviewed Wt: 275# PO intake poor; calorie count reveals pt is only drinking some Ensure. Recommend starting an appetite stimulant if physician agrees. RDN follow-up: 10/27/20
[2020-10-25 15:42] VITALS: BP 96/51
--- NOTE | 2020-10-25 16:51 | NUR ---
OT NOTE: (AM) PT COMPLETED BED MOB WITH MIN A. PT COMPLETED SIT TO STAND WITH MIN A. PT COMPLETED BED TO CHAIR TSF WITH MIN A. PT COMPLETED UE AROM AXS WITH FUNCTIONAL TASKS. (PM) PT COMPLETED CHAIR TO BED TSF WITH MIN A. PT REQUIRED MOD A FOR SIT TO SUPINE . PT COMPLETED WALKER MANAGEMENT WITH CGA. [phone];[phone] THANK YOU,TOMAS HOGUE
--- NOTE | 2020-10-25 19:32 | NUR ---
PATIENT LAYING IN BED WITH SOILED SHEETS, REFUSED TO BE CHANGED AND STATED " I'M TOO SICK TO TURN ABD BE CHAB=NGED" PT O2 LEVEL AT 88-89% ON 4L. TURNED PT UP TO 6 AND STILL SAT AT 89-90% CALLED RT AND SPOKE TO WU. STATED HE WAS COMING UP. CONTINUE WITH PLAN OF CARE
[2020-10-25 23:05] VITALS: BP 93/57
--- NOTE | 2020-10-26 01:33 | NUR ---
PATIENT TEMP IS 103 ADMINISTERED PRN TYLENOL FOR FEVER, OBTAINED URINE BY IN AND OUT CATH, ONLY ABLE TO GET ABOUT 35CC OF URINE FOR CUTURE AND UA, PT VERY DEHYDRATED LIPS ARE VERY DRY AND PATIENT IS NOT DRINKING MUCH. 22G IV T LEFT BREAST 1 STICK STARTED NS AT 50ML/HR UNTIL ORDERS RECEIVED FROM DOCTOR. CONTINUE WITH PLAN OF CARE. MONITOR PT TEMP
[2020-10-26 02:08] LABS: BILIRUBIN NEGATIVE (NEGATIVE); KETONE NEGATIVE (NEGATIVE); NITRITE NEGATIVE (NEGATIVE); UROBILINOGEN NORMAL mg/dL (< 2)
[2020-10-26 02:09] LABS: AMORPHOUS SEDIMENT >1+ LPF (NONE SEEN); BACTERIA MODERATE HPF (NONE SEEN); SQUAMOUS EPITHELIAL 0-5 HPF (0-4); WHITE CELLS - URINE 0-5 HPF (0-4)
[2020-10-26 02:32] VITALS: BP 95/59
--- NOTE | 2020-10-26 02:36 | NUR ---
RECHECKED PT TEMPERATURE USING TEMPORAL AND PT TEMP IS 98.4. PATIENT IS RESTING, EVEN RISE AND FALL OF CHEST. FLUIDS RUNNING AT 50ML/HR. CONTINUE WITH PLAN OF CARE
[2020-10-26 06:02] VITALS: BP 89/52
[2020-10-26 07:45] VITALS: BP 80/46
--- NOTE | 2020-10-26 08:20 | NUR ---
PT RESTING IN BED WITH EYES CLOSED. RESP SHALLOW, NON PRODUCTIVE COUGH NOTED. EASILY AROUSES TO NAME BEING CALLED. RATES PAIN 3/10 AT THIS TIME. O2 @ 5.5L NC IN PLACE. IV TO LEFT BREAST WITH NS @ 75ML/HR INFUSING VIA PUMP. SITE WITHOUT REDNESS OR EDEMA. PT AM MEDICATIONS ADMINISTERED AT THIS TIME. TEMP OF 101.2 TREATED AT THIS TIME. DENIES FURTHER NEEDS AT THIS TIME. CL WITHIN REACH. ENCOURAGED TO CALL WITH NEEDS. CONTINUE POC
[2020-10-26 12:49] VITALS: BP 81/46
--- NOTE | 2020-10-26 13:15 | NUR ---
Nutrition follow-up: Pt with 103 temperature 10/25/20 Pt continues to not eat or drink much due to feeling bad Labs reviewed Wt: 275# IV fluids started @ 50 ml/hr Recommend starting ProcalAmine PPN @ 75 ml/hr for short term nutrition support May need to consider PEG tube placement and TF started if pt continues to refuse to eat. RDN follow-up: 10/30/20
[2020-10-26 15:31] VITALS: BP 80/42
--- NOTE | 2020-10-26 15:37 | NUR ---
OT NOTE: UPON ENTERING PT WAS NOT RESPONDING TO VERBAL CUES. NURSING NOTIFIED. NURSING ASSESSED. PT COMPLETED BED MOB WITH ISSA Briones. PT COMPLETED SELF FEEDING TASKS WITH SET UP AND EXTENSIVE CUES. [phone] THANK YOU,TOMAS HOGUE
[2020-10-26 20:00] VITALS: BP 108/48
[2020-10-27] VITALS: BP 94/49
[2020-10-27 04:00] VITALS: BP 98/55
--- NOTE | 2020-10-27 07:08 | NUR ---
ALERT AND ABLE TO VOICE NEEDS AND WANTS TO STAFF. USING CALL LIGHT. FOR BEDPAN AND OTHER WANTS. NO NEEDS CALL LIGHT AND WATER IN REACH. CALLING STAFF TO ROOM MULTABLE TIMES TO ROOM. REFUSED AM RENEE
--- NOTE | 2020-10-27 08:15 | NUR ---
PT RESTING IN BED. O2 @ 6L NC IN PLACE. IV TO LEFT BREAST NS @ 20ML/HR INFUSING VIA PUMP. SITE WITHOUT REDNESS OR EDEMA. ASSISTED WITH BED JOHNSON, VOIDED 250ML OF YELLOW URINE. DENIES FURTHER NEEDS AT THIS TIME. CL WITHIN REACH. ENCOURAGED TO CALL WITH NEEDS. CONTINUE POC
[2020-10-27 09:10] VITALS: BP 84/53
[2020-10-27 11:11] LABS: ACID FAST CULTURE Negative (()); ACID FAST SMEAR Negative (())
[2020-10-27 11:44] VITALS: BP 90/56
--- NOTE | 2020-10-27 14:50 | NUR ---
OT NOTE: OT ADAMENTLY REFUSED THERAPY TODAY STATING THAT SHE WAS TOO NAUSEATED AND HAD BEEN THROWING UP ALL NIGHT SO SHE DID NOT SLEEP RENALDO LOZOYA, OTR/L
[2020-10-27 16:40] VITALS: BP 81/55
[2020-10-27 21:06] VITALS: BP 90/50
[2020-10-28 02:32] VITALS: BP 88/43
--- NOTE | 2020-10-28 02:35 | NUR ---
ALERT ND ABLE TO VOICE NEEDS AND WANTS TO STAFF. SPOKE WITH RESPIRATORY AT START OF SHIFT. PATIENT REFUSED BIPAP WHEN THEY CAME BY FRIST BUT DID PUT IT ON SECOUNED TIME HAS BEEN LEAVING IT ON. WHEN GIVEN MED SHE SAID TAKE THIS OFF EDUCATED PATIENT THAT SHE NNEDED IT ON SO SHE COULD BREATH BETTER AND ASK IF SHE WOULD PUT IT BACK ON SHE SAID YES AND BIPAP WAS PUT BACK IN PLACE. RESTING WITH NO NEEDS AT THIS TIME. NPO PER ORDERS CALL LIGHT IN REACH.
[2020-10-28 06:05] VITALS: BP 92/61
--- NOTE | 2020-10-28 09:00 | NUR ---
WENT TO GET PATIENT FOR GASTRIC EMPTYING SCAN. PATIENT STATED SHE WAS HAVING CHEST PAIN AND DID NOT WANT TO EAT THE OATMEAL FOR THE NUC MED GASTRIC EMPTYING SCAN. INFORMED NURSE, CHLOE, THAT PATIENT WAS HAVING CHEST PAIN AND WOULD TRY AGAIN TOMORROW IN A.M.
--- NOTE | 2020-10-28 09:09 | NUR ---
PT REFUSED TO GO WITH NUCLEAR MED FOR GASTRIC EMPTYING SCAN BECAUSE SHE CLAIMS SHE IS UNABLE TO GET UP AND TRANFER TO WHEELCHAIR AND STATES, "I CAN'T EAT THAT OATMEAL STUFF." NUCLEAR MED SAID SHE WILL DISCUSS IF ANOTHER FOOD OPTION IS AVAILABLE AND WILL TRY FOR GASTRIC SCAN TOMORROW. SITUATED PT BACK IN BED, REQUESTING A DRINK AND FOOD. WILL PROVIDE. DENIES GHAZAL OTHER NEEDS AT THIS TIME.
[2020-10-28 10:00] VITALS: BP 92/64
--- NOTE | 2020-10-28 10:12 | NUR ---
AAOX4 UPON ENETERING. ADMINISTERED MORNING MEDICATION WITH NO DIFFICULTIES. PROVIDED SNACK. RESTING COMFORTABLY. DENIES ANY NEEDS AT THIS TIME. BED IS IN LOWEST POSITION, BED RAILS X2, CALL LIGHT WITHIN REACH.
--- NOTE | 2020-10-28 11:45 | NUR ---
ASSISTED PT ON AND OFF OF BED JOHNSON, 250 ML OUT. ASSESSED BLOOD SUGAR, 94. NO INSULIN PER SLIDING SCALE. RESTING COMFORTABLY. DENIES ANY NEEDS AT THIS TIME.
--- NOTE | 2020-10-28 14:11 | NUR ---
PT UP RIGHT IN BED UPON ENETERING. ADMINISTERED MEDICATIONS. DENIES ANY NEEDS AT THIS TIME.
--- NOTE | 2020-10-28 14:49 | NUR ---
I have reviewed this patient and I concur with the Shift Assessment completed by the Licensed Practical Nurse today this shift.
[2020-10-28 17:37] VITALS: BP 97/58
--- NOTE | 2020-10-28 18:15 | NUR ---
VASHTI IV ABX. HELPED PT ON/OFF OF BED JOHNSON. URINATED 100 ML. SITUATED COMFORTABLY IN BED. DENIES ANY NEEDS AT THIS TIME. WILL CONTINUE POC.
--- NOTE | 2020-10-28 19:00 | NUR ---
BEDSIDE REPORT RECIEVED AND CARE OF PT ASSUMED. PT LYING IN LOW MENENDEZ'S POSITION WATCHING TV. IV TO LEFT BREAST PATENT WITH NS INFUSING AT KVO. O2 IN USE AT 5L VIA NC. CONTACT ISOLATION IN PLACE PER ORDER.
[2020-10-28 21:18] VITALS: BP 93/57
--- NOTE | 2020-10-28 21:24 | NUR ---
HS MEDICATIONS GIVEN TO INCLUDE TYLENOL PO AND ZOFRAN PO PER PRN ORDERS. FSBS 112 THIS CHECK REQUIRING NO COVERAGE PER SLIDING SCALE.
[2020-10-29 02:01] VITALS: BP 80/57
[2020-10-29 04:56] LABS: BASOPHILS 0.2 % (0-2); EOSINOPHILS 0.2 % (0-7); HEMATOCRIT 28.9 % (36.0-48.0); HEMOGLOBIN 8.6 g/dL (12-16); IMMATURE GRANULOCYTES 0.2 % (0-5); LYMPHOCYTE ABS# 0.78 10x3/uL (1.18-3.74); LYMPHOCYTES 17.5 % (15-50); MCH 25.1 pg (26.0-34.0); MCHC 29.8 g/dL (31.0-37.0); MCV 84.3 fL (80.0-100.0); MEAN PLATELET VOLUME 10.9 fL (7.4-10.4); MONOCYTES 6.3 % (2-11); NEUTROPHIL ABS# 3.36 10x3/uL (1.56-6.13); NEUTROPHILS 75.6 % (40-80); PLATELET COUNT 184 10x3/uL (130-400); RBC 3.43 10x6/uL (4.00-5.40); RDW 16.4 % (11.5-14.5); WBC 4.5 10x3/uL (4.8-10.8)
[2020-10-29 05:17] LABS: ALBUMIN 2.2 g/dL (3.4-5.0); ANION GAP 8.2 mmol/L (8-16); BILIRUBIN - TOTAL 0.52 mg/dL (0.2-1.3); CALCIUM 8.4 mg/dL (8.5-10.1); CARBON DIOXIDE 30.4 mmol/L (21.0-32.0); CREATININE - SERUM 1.8 mg/dL (0.6-1.3); POTASSIUM - SERUM 4.6 mmol/L (3.5-5.1); PROTEIN - SERUM 7.1 g/dL (6.4-8.2)
[2020-10-29 06:12] VITALS: BP 108/66
--- NOTE | 2020-10-29 08:52 | NUR ---
IR CAME TO GET PT FOR EMPTYING SCAN. PT REFUSING TO GO BECAUSE, "AIN'T NOTHING WRONG ME WITH ME." IR HAS LEFT. WILL CANCEL PROCEDURE. THIS IS THE SECOND TIME THE PATIENT HAS REFUSED THIS SCAN.
--- NOTE | 2020-10-29 08:56 | NUR ---
WENT TO GET PATIENT FOR NM GASTRIC EMPTYING SCAN. PATIENT FLAT OUT REFUSED. WHEN NURSE, CHLOE, ASKED THE PATIENT WHY SHE REFUSED, PATIENT STATED BECAUSE THERE WAS NOTHING WRONG WITH HER. NURSE CHLOE SAID TO CANCEL EXAM AND NOT TO RESCHEDULE.
[2020-10-29 09:20] VITALS: BP 87/54
--- NOTE | 2020-10-29 09:53 | NUR ---
RESTING IN BED WITH EYES CLOSED, BREATHING EVEN AND NON LABORED. NO S/S OF DISTRESS NOTED AT THIS TIME. EASILY AROUSES TO VOICE. ADMINISTERED MORNING MEDICATION, NO DIFFICULTIES. POSITIONED COMFORTABLY. DENIES ANY NEEDS. BED IN LOWEST POSITION, BED RAILS X2, CALL LIGHT WITHIN REACH. WILL CONTINUE POC.
--- NOTE | 2020-10-29 11:11 | NUR ---
PT RESTING IN BED WITH EYES CLOSED, EASILY AROUSES TO VOICE. NO INSULIN, SUGAR OF 110. DENIES ANY NEEDS AT THIS TIME.
[2020-10-29 13:38] VITALS: BP 81/54
--- NOTE | 2020-10-29 16:49 | NUR ---
PT RESTING SUPINE IN BED, ADMINISTERED MEDS, NO DIFFICULTIES. SUGAR 110, NO INSULIN PER SLIDING SCALE. RECIEVED TRAY FOR PT WHILE IN ROOM, SAT TRAY UP. DENIES ANY NEEDS AT THIS TIME. WILL CONTINUE POC.
[2020-10-29 17:13] VITALS: BP 100/51
--- NOTE | 2020-10-29 19:00 | NUR ---
BEDSIDE REPORT RECEIVED AND CARE OF PT ASSUMED. PT LYING IN LOW MENENDEZ'S POSITION WITH EYES CLOSED. O2 IN USE AT 5L VIA NC. IV TO LEFT BREAST PATENT WITH NS INFUSING AT KVO. WILL MONITOR FOR NEEDS.
--- NOTE | 2020-10-29 20:59 | NUR ---
HS MEDICATIONS GIVEN TO INCLUDE TYLENOL AND ZOFRAN PER PT REQUEST FOR PAIN AND NAUSEA. FSBS 127 THIS CHECK REQUIRING NO COVERAGE PER SLIDING SCALE.
[2020-10-29 21:11] VITALS: BP 97/58
[2020-10-30 01:20] VITALS: BP 99/56
[2020-10-30 06:32] VITALS: BP 111/60
--- NOTE | 2020-10-30 07:15 | NUR ---
REC'D IN BED WITH EYES CLOSED EASILY TO AROUSED WHEN NAME IS CALLED. RESP EVEN AND UNLABORED WITH NO DISTRESS NOTED. HAS O2 IN USE @ 5 L/M VIA NC AND ALSO USE BIPAP. ASSESSMENT COMPLETED. C/L IN REACH AT BEDSIDE.
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
[2020-10-30 08:49] VITALS: BP 95/61
[2020-10-30 12:05] VITALS: BP 91/59
--- NOTE | 2020-10-30 12:22 | NUR ---
OT NOTE: PT COOPERTIVE THIS AM. AGREEABLE TO GET UP TO EOB REQUIRING MOD ASSIST. EOB SITTING WITH GOOD BALANCE. ABLE TO PERFORM FACE WASHING AND BRUSHING TEETH WHILE SITTING ON EOB. TRANSFERRED TO TOILET WITH MIN/MOD ASSIST. TOILET HYGIENE WITH MAX ASSIST. MAX ASSIST WITH DONNING SOCKS. MAX ASSIST TO TAHIR AND DOFF PULL UP. BACK TO BED WITH MIN ASSIST; ROLLING SIDE TO SIDE WITH MOD ASSIST; MOD ASSIST TO SCOOT UP IN BED. RENALDO LOZOYA, OTR/L [phone]
--- NOTE | 2020-10-30 13:11 | NUR ---
Nutrition Reassessment/Follow-up: Poor PO intake reported over the weekend. Refused GES. Denies N/V this AM. Awaiting placement. Diet: Diabetic, Mech Soft, Ensure TID Wt: 275# (09/15) Labs noted (10/29): Glu 107, Ca 8.4, Alb 2.2 Meds noted: Lasix, KDur, Lantus, Humulin, Carafate, Protonix, Zofran, Florajen, oncology mouthwash, electrolyte protocol -Nutrition needs unchanged. -Encourage PO intake and honor food preferences within diet restrictions. -MD may consider nutrition support if PO intake remains poor even after N/V resolved. -Need new wt. -RD will follow up within 4 days.
--- NOTE | 2020-10-30 16:38 | NUR ---
OT NOTE: PT COMPLETED BED MOB WITH SBA AND EXTENSIVE CUES. PT COMPLETED FACE AND HAND HYGIENE WITH SETUP. PT COMPLETED SELF FEEDING WITH SETUP. [phone] THANK YOU,TOMAS HOGUE
[2020-10-30 18:05] VITALS: BP 83/52
--- NOTE | 2020-10-30 19:30 | NUR ---
RECEIVED BEDSIDE REPORT. PT LAYING IN BED, A&O X4. PIV TO LEFT CHEST, PATENT AND INFUSING, NO REDNESS OR SWELLING. DRY-CRACKING TO BILAT HEELS. O2 SAT 97% ON 5L VIA NC. PT ON BEDREST, TOTAL CARE. EDUCATED ON CL AND NEEDS, VERBALIZED UNDERSTANDING. BED LOW, ALARM ON, CL IN REACH. WILL CONTINUE TO MONITOR.
[2020-10-30 20:48] VITALS: BP 107/69
--- NOTE | 2020-10-30 23:18 | NUR ---
PLACED BIPAP ON PT, 50% O2. PT TOLERATED WELL. BED LOW, CL IN REACH.
--- NOTE | 2020-10-31 01:07 | NUR ---
ASSISTED PT WITH FULL LININ AND GOWN CHANGE. PT STOOD BY SIDE OF BED, TOLERATED WELL. BED LOW, CL IN REACH.
--- NOTE | 2020-10-31 02:14 | NUR ---
PT LAYING IN BED EYES CLOSED, EVEN RESPIRATIONS. BED LOW, CL IN REACH. WILL CONTINUE TO MONITOR.
[2020-10-31 04:00] VITALS: BP 105/48
--- NOTE | 2020-10-31 06:02 | NUR ---
PT C/O HEADACHE, PROVIDED MEDS PER ORDER, TOLERATED WELL. BED LOW, CL IN REACH.
--- NOTE | 2020-10-31 07:15 | NUR ---
REC'D IN BED WITH EYES CLOSED EASILY TO NAME. RESP EVEN AND UNLABORED WITH NO DISTRESS NOTED. CAN EXPRESS NEEDS AND WANTS. NO C/O NOTED OR VOICED. HAS O2 IN USE VIA N/C @ 5 L/M. ASSESSMENT COMPLETED. C/L IN REACH AT BEDSIDE.
[2020-10-31 08:43] VITALS: BP 98/56
--- NOTE | 2020-10-31 12:42 | NUR ---
I AGREE WITH THE ASSESSMENT COMPLETED BY THE INPATIENT CODER
[2020-10-31 13:13] VITALS: BP 111/67
[2020-10-31] MEDS ORDERED: OMNICEF300 MG PO (14:02)
[2020-10-31 15:07] LABS: SARS-CoV-2 ANTIGEN POSITIVE- SARS-COV-2 (NEGATIVE)
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
--- NOTE | 2020-10-31 15:52 | NUR ---
PT WAS TRANSFERED TO ROOM 2140 AT THIS TIME FOR + COVID RESULTS WITH N95 MASK IN USE. WITH [place] PERSONAL BELONGS. DR. BREWSTER GIVE ORDERS TO TRANSFER. C/L IN REACH AT BEDSIDE.
--- NOTE | 2020-10-31 15:54 | NUR ---
ARRIVE TO ROOM VIA BED FROM [facility]. ALERT AND ORIENTED X4. PLAN FOR DC TODAY TO [facility]. COVID TEST RESULT POSITIVE. DISCHARGE CANCELLED. DENIES ANY NEEDS AT THIS TIME. CONTINUE PLAN OF CARE AND SAFETY PRECAUTIONS.
[2020-10-31 16:09] VITALS: BP 98/44
--- NOTE | 2020-10-31 16:23 | NUR ---
OT NOTE: PT IS FATIGUED. PT COMPLETED SUPINE TO SIT WITH MIN A. PT COMPLETED SIT TO STAND WITH MIN A. PT COMPLETED TOILETING TASKS WITH TOTAL A FOR HYGIENE. PT COMPLETED HAND HYGIENE WITH SETUP. [id number] THANK YOU,TOMAS HOGUE
--- NOTE | 2020-10-31 16:35 | NUR ---
OT NOTE: PT WAS ACTUALLY DOING BETTER TODAY. BED MOB TO INCLUDE SUPINE TO SIT, ROLLING, AND SIT TO SUPINE WITH SBA; AMB TO TOILET WITH CGA AND USE OF WALKER; TRANSFER TO REGULAR TOILET WITH CGA. MAX ASSIST FOR TOILET HYGIENE AND MOD ASSIST FOR CLOTHING MGMT (PULLING UP BRIEFS)...PT CONTINUES WITH LIMITED FOOD INTAKE. HEATED UP HER HAMBURGER, BUT SHE ONLY ATE A BITE OF IT. NURSING IN TO PERFORM COVID TEST PRIOR TO DC TO [facility].. PT NOW COVID +. RENALDO LOZOYA, OTR/L
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
--- NOTE | 2020-10-31 21:20 | NUR ---
REPORT RECEIVED, WILL CONT POC. PT UP IN BED A&O. NO S/S OF DISTRESS OBSERVED. RR EVEN AND UNLABORED ON 4L HF. PT DENIES NEEDS AT THIS TIME. CALL LIGHT IN REACH, BED LOCKED AND LOWERED. ASSESSMENT COMPLETED AT THIS TIME. WILL CONT TO MONITOR.
[2020-10-31 22:45] VITALS: BP 111/59
[2020-11-01 05:27] VITALS: BP 101/60
[2020-11-01 07:51] VITALS: BP 107/67
[2020-11-01 11:27] VITALS: BP 95/64
[2020-11-01 15:56] VITALS: BP 104/67
--- NOTE | 2020-11-01 15:59 | NUR ---
OT NOTE: PT EXHIBITED INCREASED ACTIVITY TOLERANCE. PT COMPLETED SUPINE TO SIT AT EOB WITH SBA-CGA. PT COMPLETED BED TO BSC TSF WITH CGA. PT COMPLETED SIT TO STAND WITH SBA. PT COMPLETED LB HYGIENE WITH MAX A FOR BM. PT COMPLETED SIDE ROLLING AND BRIDGING WITH SBA. 1130-12 THANK YOU,TOMAS HOGUE
--- NOTE | 2020-11-01 17:19 | NUR ---
OT NOTE: PT DOING WELL. REPORTS THAT SHE HAS BEEN UP SEVERAL TIMES TODAY TO THE BS COMMODE. PT RELUCTANT TO GET UP AGAIN FOR THERAPY BUT FINALLY AGREED. BED MOB WITH SBA; SIT TO STAND EXS X 4 TRIALS WITH CGA TO IMPROVE STRENGTH AND ENDURANCE. TOILET TRANSFER (BSC) WITH CGA; REQUIRED ASSIST WITH DOFFING AND DONNING PULL UP. CONT TO REQUIRE ASSIST FOR GOOD TOILET HYGIENE. BACK TO BED WITH SBA.. PT ALSO ABLE TO SCOOT UP IN BED WITHOUT ASSIST. RENALDO LOZOYA, OTR/L [phone]
--- NOTE | 2020-11-01 19:30 | NUR ---
PT IN BED, AAO X 3, RESP EVEN AND UNLABORED, NO DISTRESS NOTED, CL IN REACH, SR UP X 2.
[2020-11-01 20:00] VITALS: BP 102/66
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
[2020-11-02 04:00] VITALS: BP 109/67
--- NOTE | 2020-11-02 05:00 | NUR ---
PT REFUSED AM LAB AT THIS TIME.
--- NOTE | 2020-11-02 07:40 | NUR ---
LYING IN BED WITH EYES CLOSED, RESPIRATIONS SLOW/DEEP/EVEN, ROUSES EASILY WITH VERBAL STIMULUS, T/R FREQ FOR C/C, CONT OF B/B WITH ASSIST TO BSC AD RENEE, DENIES PAIN AT THIS TIME, CALL LIGHT/PHONE/WATER WITHIN REACH, NO S/S OF ACUTE DISTRESS OBSERVED.
[2020-11-02 08:49] VITALS: BP 99/65
[2020-11-02 12:00] LABS: ALBUMIN 2.3 g/dL (3.4-5.0); ANION GAP 8.8 mmol/L (8-16); BILIRUBIN - TOTAL 0.33 mg/dL (0.2-1.3); CALCIUM 9.2 mg/dL (8.5-10.1); CARBON DIOXIDE 31.5 mmol/L (21.0-32.0); CREATININE - SERUM 1.1 mg/dL (0.6-1.3); POTASSIUM - SERUM 4.3 mmol/L (3.5-5.1); PROTEIN - SERUM 7.7 g/dL (6.4-8.2)
[2020-11-02 12:46] VITALS: BP 104/68
[2020-11-02 15:42] VITALS: BP 124/84
--- NOTE | 2020-11-02 15:43 | NUR ---
OT NOTE: PT REQUIRED MIN A FOR SUPINE TO SIT. PT COMPLETED BED TO BSC TSF WITH CGA. PT REQUIRED TOTAL A WITH LB HYGIENE FOR BM. PT STATED SHE IS STARTING TO FEEL STRONGER. [id number] THANK YOU,TOMAS HOGUE
--- NOTE | 2020-11-02 18:00 | NUR ---
STARTED COVID PLASMA, 181 KERRI WELL, NO S/S OF ACUTE DISTRESS OBSERVED.
--- NOTE | 2020-11-02 21:30 | NUR ---
REPORT RECEIVED, WILL CONT POC. PT A&O, UP IN BED WATCHING TV. RR EVEN AND UNLABORED ON 10 HF. NO S/S OF DISTRESS NOTED. DENIES NEEDS AT THIS TIME. CALL LIGHT IN REACH, BED LOCKED AND LOWERED. ASSESSMENT COMPLETED AT THIS TIME. WILL CONT TO MONITOR.
[2020-11-02 21:49] VITALS: BP 113/53
[2020-11-03 00:39] VITALS: BP 99/53
[2020-11-03 05:31] VITALS: BP 110/67
--- NOTE | 2020-11-03 07:40 | NUR ---
LYING IN BED WITH EYES CLOSED, RESPIRATIONS SLOW/DEEP/EVEN, ROUSES EASILY WITH VERBAL STIMULUS BUT SHUTS EYES TO GO BACK TO SLEEP IMMEDIATELY, ASSIST TO T/R FREQ FOR C/C BUT REFUSES OFTEN, IS VERY DEMANDING WITH STAFF BORDERING ON BEING RUDE, CONT OF B/B WITH USE OF BEDPAN AND INCONT PADS, DENIES PAIN/OTHER DISCOMFORT AT THIS TIME, CALL LIGHT/PHONE/WATER WITHIN REACH, NO S/S OF ACUTE DISTRESS OBSERVED.
--- NOTE | 2020-11-03 10:39 | NUR ---
OT NOTE: PT IN BED RESTING. NOTED THAT PTS 02 SATS WERE LOW THIS AM AND 02 HAD TO BE INCREASED. PT ABLE TO PERFORM BED MOB AND SUPINE TO SIT WITHOUT ASSIST. ABLE TO PERFORM FEEDING AND SIMPLE GROOMING WITH SET UP..PT DID NOT WANT TO SIT UP IN CHAIR BUT AGREED TO SIT UP ON EOB FOR A BIT. SHE IS ABLE TO RETURN TO SUPINE POSITION WITH OUT ASSIST. RENLADO LOZOYA, OTR/L [phone]
[2020-11-03 10:42] VITALS: BP 113/58
--- NOTE | 2020-11-03 13:33 | NUR ---
Nutrition Follow-up: Pt in droplet isolation; covid-19+. Nursing reports pt eating <50% of her meals and wants to sleep. Diet: Diabetic, Mech Soft, Ensure TID Wt: 275# (09/15) Labs reviewed Meds noted: Decadron, Humulin, Lantus, Remeron, Carafate, Protonix, oncology mouthwash, Lasix, KDur, zinc sulfate, vit B1, vit C, vit D, electrolyte protocol -Encourage PO intake and honor food preferences within diet restrictions. -Need new wt. -RD will follow up within 3-4 days.
[2020-11-03 20:00] VITALS: BP 122/78
[2020-11-04] VITALS: BP 139/74
[2020-11-04 04:00] VITALS: BP 131/67
[2020-11-04 07:34] LABS: BASOPHILS 0.1 % (0-2); EOSINOPHILS 0 % (0-7); HEMATOCRIT 32.5 % (36.0-48.0); HEMOGLOBIN 9.6 g/dL (12-16); IMMATURE GRANULOCYTES 0.4 % (0-5); LYMPHOCYTE ABS# 1.02 10x3/uL (1.18-3.74); LYMPHOCYTES 13.7 % (15-50); MCH 24.7 pg (26.0-34.0); MCHC 29.5 g/dL (31.0-37.0); MCV 83.5 fL (80.0-100.0); MEAN PLATELET VOLUME 10.6 fL (7.4-10.4); MONOCYTES 11.2 % (2-11); NEUTROPHIL ABS# 5.54 10x3/uL (1.56-6.13); NEUTROPHILS 74.6 % (40-80); RBC 3.89 10x6/uL (4.00-5.40); RDW 16.7 % (11.5-14.5); WBC 7.4 10x3/uL (4.8-10.8)
[2020-11-04 07:39] LABS: PLATELET COUNT 372 10x3/uL (130-400)
[2020-11-04 07:48] LABS: ALBUMIN 2.4 g/dL (3.4-5.0); ANION GAP 11.6 mmol/L (8-16); BILIRUBIN - TOTAL 0.25 mg/dL (0.2-1.3); CALCIUM 9.6 mg/dL (8.5-10.1); CARBON DIOXIDE 30.3 mmol/L (21.0-32.0); CREATININE - SERUM 1.1 mg/dL (0.6-1.3); POTASSIUM - SERUM 4.9 mmol/L (3.5-5.1); PROTEIN - SERUM 7.8 g/dL (6.4-8.2)
[2020-11-04 08:00] VITALS: BP 130/69
[2020-11-04 11:30] VITALS: BP 134/71
--- NOTE | 2020-11-04 14:20 | NUR ---
I have reviewed this patient and I concur with the Shift Assessment completed by the Licensed Practical Nurse today this shift.
[2020-11-04 15:00] VITALS: BP 131/68
--- NOTE | 2020-11-04 16:30 | NUR ---
PATIENT LYING SEMI FOWLERS AAOX4, RESP EVEN AND NON LABORED, NO S/S OF DISTRESS, MEDICATIONS ADMINISTERED WITHOUT COMPLICATIONS, NO FURTHER NEEDS AT THIS TIME, CLIR, BLP
[2020-11-04 20:30] VITALS: BP 153/71
[2020-11-05 00:30] VITALS: BP 152/78
[2020-11-05 04:30] VITALS: BP 145/68
[2020-11-05 06:40] LABS: ALBUMIN 2.5 g/dL (3.4-5.0); ANION GAP 7.9 mmol/L (8-16); BILIRUBIN - TOTAL 0.24 mg/dL (0.2-1.3); CALCIUM 9.7 mg/dL (8.5-10.1); CARBON DIOXIDE 34.5 mmol/L (21.0-32.0); POTASSIUM - SERUM 4.4 mmol/L (3.5-5.1); PROTEIN - SERUM 7.6 g/dL (6.4-8.2)
--- NOTE | 2020-11-05 07:20 | NUR ---
RECIEVE REPORT. ALERT AND ORIENTED X4. SITTING UP IN BED. DENIES ANY NEEDS. CONTINUE PLAN OF CARE AND SAFETY PRECAUTIONS.
[2020-11-05 10:11] VITALS: BP 138/62
[2020-11-05 15:17] VITALS: BP 131/76
--- NOTE | 2020-11-05 16:00 | NUR ---
ALERT AND ORIENTED X4. SITTING UP IN BED. ASSIST TO BEDSIDE COMMODE AND BACK TO BED. DEMANDS GLUCERNA AND BOX OF TOMATO SOUP. CALL DOWN TO KITCHEN PER PATIENT REQUEST. DENIES ANY OTHER NEEDS. CONTINUE PLAN OF CARE AND SAFETY PRECAUTIONS.
--- NOTE | 2020-11-05 19:10 | NUR ---
REPORT RECEIVED, PT CARE ASSUMED. PT SITTING UP IN BED, AAOX4, WATCHING TV. OFFERED ASSIST TO BSC, PT REFUSED, STATED "I'VE GOT A BRIEF ON, I'LL JUST PEE IN IT AND YOU CAN CHANGE ME LATER." REINFORCED THE NEED FOR AMBULATION AND THE RISKS OF SITTING IN URINE, PT STILL DECLINED. REQUESTED GLUCERNA POURED OVER ICE, PROVIDED. DENIES ANY OTHER NEEDS AT THIS TIME. BED IN LOWEST, SRX2, CALL LIGHT WITHIN REACH. CPOC.
[2020-11-05 21:15] VITALS: BP 119/73
--- NOTE | 2020-11-05 21:21 | NUR ---
FSBS 492; PT STATES, "I NEED TO BE CHANGED." EXPLAINED TO PT THAT THIS NURSE OFFERED ASSIST TO BSC EARLIER, SHE REFUSED. PT THEN STATED, "NO YOU DIDN'T, NO ONE HAS. I HAVEN'T BEEN TREATED RIGHT SINCE I'VE BEEN ON THIS SIDE." ATTEMPTED TO ADMINISTER PM MEDS, INCLUDING INSULIN AND LANTUS. PT REFUSED, EXPLAINED HER NEED FOR INSULIN AT THIS TIME, PT BEGAN CUSSING AND STATED, "NO, GET THE FUCK OUT OF MY ROOM." CHARGE NURSE AND DOMESTIC HELPER NOTIFIED.
--- NOTE | 2020-11-06 00:15 | NUR ---
PT SPOKE WITH REGULATORY COMPLIANCE OFFICER. AGREED TO TAKE MEDICATION AND INSULIN. PT COMPLIENT WITH THIS NURSE. ALL NEEDS MET AT THIS TIME. DENIES ANY FURTHER NEEDS AT THIS TIME. PT ON BIAP AT 50%, WILL CPOC.
[2020-11-06 05:00] VITALS: BP 115/64
[2020-11-06 06:34] LABS: ALBUMIN 2.7 g/dL (3.4-5.0); BILIRUBIN - TOTAL 0.22 mg/dL (0.2-1.3); CARBON DIOXIDE 32.4 mmol/L (21.0-32.0); POTASSIUM - SERUM 4.4 mmol/L (3.5-5.1)
--- NOTE | 2020-11-06 07:20 | NUR ---
RECIEVE REPORT. RESTING IN BED WITH EYES CLOSED. NO SIGNS OF DISTRESS. CONTINUE PLAN OF CARE AND SAFETY PRECAUTIONS.
[2020-11-06 08:13] VITALS: BP 116/61
[2020-11-06 12:19] VITALS: BP 124/70
--- NOTE | 2020-11-06 14:40 | NUR ---
ALERT AND ORIENTED X4. FAMILY COMES TO FRONT ENTERANCE ASKING TO BRING CHECK UP TO SIGN TO GET CASHED. INFORM PATIENT AND FAMILY CHECK IS NOT ALLOWED TO ENTER ROOM DUE TO COVID ISOLATION. PATIENT THEN AMBULATES WITH WALKER INTO BIGGS DEMANDING HER CHECK BE BROUGHT UP TO FLOOR TO SIGN. PATIENT STATES, "I WILL WALK STAIGHT UP OUT OF THIS PLACE SPREADING THE COVID. I AM NOT GOING BACK IN MY ROOM." EDUCATE ON HOSPITAL POLICY NOT ABLE TO BRING PAPERS IN AND OUT OF ROOMS DUE TO COVID. PATIENT STARTS YELLING. "I WILL WALK OUT OF HERE." NOTIFY GUN FERTILIZER. YOUSUF GUN FERTILIZER ARRIVES TO ESCORT BACK TO ROOM.
--- NOTE | 2020-11-06 14:49 | NUR ---
ANOTHER FAMILY MEMBER ARRIVE TO ER TRYING TO GET CHECK SIGNED. FAMILY MEMBER STATES, "IT HAS TO BE SIGNED BEFORE 3:00."
--- NOTE | 2020-11-06 16:04 | NUR ---
OT NOTE: PT COMPLETED BED TO BSC TSF WITH SBA-SPV. PT COMPLETED TOILETING WITH SBA-SPV. PT COMPLETED DYNAMIC STANDING WITH SBA-CGA. PT COMPLETED BUE AROM WITH FUNCTIONAL HYGIENE TASKS. PT EXHIBITED SELF LIMITING BEHAVIORS. PT REQUIRED VERBAL CUES FOR INCREAED PARTICIPATION. NURSING NOTIFIED THAT PT IS INCONSISTENT IN FUNCTIONAL PERFORMANCE. PT STATED SHE IS UNABLE TO WIPE SELF...AFTER CUES PT WAS ABLE TO COMPLETE TASK WITH SBA-SPV. [id number] THANK YOU,TOMAS HOGUE
[2020-11-06 16:09] VITALS: BP 137/75
--- NOTE | 2020-11-06 16:35 | NUR ---
ALERT AND ORIENTED X4. AMBULATE BACK TO BED WITH WALKER. DENIES ANY OTHER NEEDS. CONTINUE PLAN OF CARE AND SAFETY PRECAUTIONS.
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
--- NOTE | 2020-11-06 19:00 | NUR ---
LYING IN BED W/CALL HANKINS ON AWAKE, ALERT, ORIENTED. PT WANTS HER FEET COVERED--DONE. NO OTHER NEEDS VOICED AT THIS TIME. RESP EVEN AND UNLABORED W/02 IN PROGRESS/ORDER, NO DISTRESS NOTED.
[2020-11-06 20:00] VITALS: BP 118/82
--- NOTE | 2020-11-06 21:48 | NUR ---
MEDS ADMINISTERED/ORDER, PT HAS NO IV AT THIS TIME, ATTEMPTED X'S 2 STICKS W/O SUCCESS.
--- NOTE | 2020-11-06 23:30 | NUR ---
IV RESTARTED TO LEFT BREAST W/24GA X'S 2 STICKS, PT TOLERATED ALL WELL.
[2020-11-07] VITALS (7 sets, daily range): BP systolic 110–136; BP diastolic 60–76
--- NOTE | 2020-11-07 04:27 | NUR ---
I have reviewed this patient and I concur with the Shift Assessment completed by the Licensed Practical Nurse today this shift.
--- NOTE | 2020-11-07 07:20 | NUR ---
RECIEVE REPORT. RESTING IN BED WITH EYES CLOSED. 10L HFNC. NO SIGNS OF DISTRESS. CONTINUE PLAN OF CARE AND SAFETY PRECAUTIONS.
--- NOTE | 2020-11-07 10:20 | NUR ---
ALERT AND ORIENTED X 4. SITTING UP IN BED. CALLS STAFF IN DUE TO SOILED LINENS. AMBULATES WITH WALKER TO BEDSIDE COMMODE. LINEN CHANGE COMPLETE. DENIES ANY OTHER NEEDS. CONTINUE PLAN OF CARE AND SAFETY PRECAUTIONS.
[2020-11-07 10:53] LABS: BASOPHILS 0.1 % (0-2); EOSINOPHILS 0.6 % (0-7); HEMATOCRIT 32.9 % (36.0-48.0); HEMOGLOBIN 9.7 g/dL (12-16); IMMATURE GRANULOCYTES 0.3 % (0-5); LYMPHOCYTE ABS# 1.69 10x3/uL (1.18-3.74); LYMPHOCYTES 18.3 % (15-50); MCH 24.7 pg (26.0-34.0); MCHC 29.5 g/dL (31.0-37.0); MCV 83.7 fL (80.0-100.0); MEAN PLATELET VOLUME 10.8 fL (7.4-10.4); MONOCYTES 14.7 % (2-11); NEUTROPHIL ABS# 6.09 10x3/uL (1.56-6.13); PLATELET COUNT 338 10x3/uL (130-400); RBC 3.93 10x6/uL (4.00-5.40); RDW 17.1 % (11.5-14.5); WBC 9.2 10x3/uL (4.8-10.8)
[2020-11-07 11:24] LABS: ALBUMIN 2.6 g/dL (3.4-5.0); BILIRUBIN - TOTAL 0.23 mg/dL (0.2-1.3); CALCIUM 9.1 mg/dL (8.5-10.1); CARBON DIOXIDE 32.5 mmol/L (21.0-32.0); POTASSIUM - SERUM 4.5 mmol/L (3.5-5.1); PROTEIN - SERUM 7.2 g/dL (6.4-8.2)
--- NOTE | 2020-11-07 13:29 | NUR ---
Nutrition Reassessment/Follow-up: Pt in droplet isolation; covid-19+. PO intake seems to be improving but still fluctuating; ate 0-100% of meals yesterday. Diet: Consistent Carb, Mech Soft, Ensure TID Wt: 275# (09/15) Labs noted: Glu 194, Alb 2.6 Meds noted: Lantus, Humulin, Decadron, Florajen, Carafate, Protonix, Remeron, oncology mouthwash, Lasix, KDur, zinc sulfate, vit B1, vit C, vit D, electrolyte protocol -Nutrition needs unchanged. -Encourage PO intake and honor food preferences within diet restrictions. -Need new wt. -RD will follow up within 3 days.
--- NOTE | 2020-11-07 13:49 | NUR ---
ALERT AND ORIENTED X4. CALLS KNIFE EDGER ASKING FOR ASSISTANCE TO COMMODE. [facility] APPROVED OOB WITH WALKER. PATIENT HANGS UP. WHEN ENTERING ROOM PATIENT ON PHONE SAYING, "I CALL BUT NO ONE WILL COME HELP ME OR CLEAN MY BED. I HAVE SO MUCH GOING ON RIGHT NOW WITH [employer] AND MY BANK." EXPLAIN TO PATIENT BED HAS BEEN CHANGED MORE THAN ONCE TODAY. PATIENT THEN TELL PERSON PHONE, "OH SHE WANTS TO SAY I'VE BEEN CHANGED BUT THAT'S WHY I'M WET RIGHT." ASK PATIENT, "DO YOU WANT HELP WHILE SOMEONE IS IN HERE? YOU HAVE BEEN UP WALKING WITH WALKER, WHY DIDN'T YOU GET UP TO USE BEDSIDE COMMODE? PATIENT THEN STARTS YELLING, "GET OUT!! GET OUT!! DON'T COME BACK IN HERE!"
--- NOTE | 2020-11-07 16:58 | NUR ---
ALERT AND ORIENTED X4. FSBS 448. [address]BHARANY DELGADO.
--- NOTE | 2020-11-08 02:26 | NUR ---
PATIENT SITTING IN BED AAOX4, RESP EVEN AND NON LABORED, NO S/S OF DISTRESS, MEDICATIONS ADMINISTERED WITHOUT COMPLICATIONS, BANDADE APPLIED TO MIDDLE BACK LACERATION THAT IS HEALING WELL, NO FURTHER NEEDS AT THIS TIME, MATTY ALMANZAR
--- NOTE | 2020-11-08 03:52 | NUR ---
I have reviewed this patient and I concur with the Shift Assessment completed by the Licensed Practical Nurse today this shift.
[2020-11-08 03:57] VITALS: BP 102/56
--- NOTE | 2020-11-08 07:50 | NUR ---
LYING IN BED, AWAKE/ALERT/ORIENTED, T/R SELF AD RENEE, CONT OF B/B WITH USE OF INCONT PADS FOR ACCIDENTS AND ASSIST TO BSC AD RENEE, DENIES PAIN/OTHER DISCOMFORT AT THIS TIME, CALL LIGHT/PHONE/WATER WITHIN REACH, NO S/S OF ACUTE DISTRESS OBSERVED.
[2020-11-08 08:40] VITALS: BP 125/70
--- NOTE | 2020-11-08 12:15 | NUR ---
FSBS 408, GAVE 20 UNITS PER SS AND PAGED DR. MORTENSEN AND LEFT MESSAGE
[2020-11-08 12:43] VITALS: BP 109/60
--- NOTE | 2020-11-08 13:20 | NUR ---
PAGED DR. MORTENSEN FOR 2ND TIME AND LEFT MESSAGE
[2020-11-08 15:54] VITALS: BP 125/79
--- NOTE | 2020-11-08 16:54 | NUR ---
PAGED DR. MORTENSEN FOR 3RD TIME AND LEFT MESSAGE, FSBS THIS CHECK IS [phone]
--- NOTE | 2020-11-08 17:06 | NUR ---
DR. MORTENSEN ORDERED HIGHLY RESISTANT SS AND TO INCREASE PM LANTUS BY 40 UNITS, READ BACK AND CONFIRMED CORRECT.
[2020-11-08 20:00] VITALS: BP 131/72
[2020-11-09] VITALS: BP 121/64
--- NOTE | 2020-11-09 02:23 | NUR ---
I have reviewed this patient and I concur with the Shift Assessment completed by the Licensed Practical Nurse today this shift.
[2020-11-09 08:00] VITALS: BP 122/66
[2020-11-09 11:00] VITALS: BP 120/69
[2020-11-09 11:40] LABS: BASOPHILS 0 % (0-2); EOSINOPHILS 0.1 % (0-7); HEMATOCRIT 33.5 % (36.0-48.0); HEMOGLOBIN 10.1 g/dL (12-16); IMMATURE GRANULOCYTES 0.3 % (0-5); LYMPHOCYTES 8.8 % (15-50); MCH 25.1 pg (26.0-34.0); MCHC 30.1 g/dL (31.0-37.0); MCV 83.3 fL (80.0-100.0); MEAN PLATELET VOLUME 10.8 fL (7.4-10.4); MONOCYTES 4.4 % (2-11); NEUTROPHIL ABS# 11.81 10x3/uL (1.56-6.13); NEUTROPHILS 86.4 % (40-80); PLATELET COUNT 296 10x3/uL (130-400); RBC 4.02 10x6/uL (4.00-5.40); RDW 16.8 % (11.5-14.5); WBC 13.7 10x3/uL (4.8-10.8)
[2020-11-09 11:54] LABS: ALBUMIN 2.6 g/dL (3.4-5.0); ANION GAP 6.6 mmol/L (8-16); BILIRUBIN - TOTAL 0.27 mg/dL (0.2-1.3); CALCIUM 8.3 mg/dL (8.5-10.1); CARBON DIOXIDE 32.2 mmol/L (21.0-32.0); POTASSIUM - SERUM 4.8 mmol/L (3.5-5.1); PROTEIN - SERUM 7.4 g/dL (6.4-8.2)
[2020-11-09 15:00] VITALS: BP 123/67
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
[2020-11-09 21:00] VITALS: BP 125/62
--- NOTE | 2020-11-09 23:46 | NUR ---
PT HELPED BACK TO BED AFTER BOWEL MOVEMENT ON BEDSIDE COMMODE. PT BS 434 TREATED WITH SS INSULIN AND WILL RECHECK IN THE MORNING. PT EDUCATION DONE ON DIABETES, PT VERBALIZED UNDERSTANDING. PT GIVEN ICE WATER AND BUTT PASTE APPLIED WITH BREIF. ROOM WAS CLEANED UP AND ORGANIZED WITH EVERYTHING IN REACH. PADS ON BED WERE CHANGED AT THIS TIME. PT PHONE PLACED ON MOLASSES COLORING OPERATOR. NO FURTHER NEEDS AT THIS TIME. WILL CONTINUE TO MONITOR,
[2020-11-10 07:57] VITALS: BP 112/55
--- NOTE | 2020-11-10 10:57 | NUR ---
Nutrition Follow-up: Diet: Diabetic [facility] Soft + Ensure TID PO intake: 50-100% x last 5 meals recorded Last BM: 11/10/20. Wt: 275# (09/15/20) Meds noted: lantus, SSI, lasix, kdur, remeron, probiotics Labs noted: POC Glu 434(H)- 11/09, POC Glu 108(WNL)-11/10 Recommendations: -Continue current diet and oral nutrition supplements, encourage PO intake -Needs new weight as medically feasible -RD will follow-up 11/14/20
[2020-11-10 11:33] VITALS: BP 109/69
[2020-11-10 19:59] VITALS: BP 115/51
[2020-11-11 04:32] VITALS: BP 128/82
--- NOTE | 2020-11-11 04:55 | NUR ---
PT HAD MULTIPLE EPISODES OF VOMITING DURING THE NIGHT. PT STATES SHE HAD "2 HELPINGS OF FISH, MILK, AND TOMATO JUICE" AND HAD BLAMED THAT EARLIER IN THE NIGHT. PT NOW STATES IT WAS A REACTION TO THE CCP THAT SHE HAD RECIEVED EARLIER YESTERDAY. NO S/S OF AN ADVSERES REACTION NOTED. PT ASKING FOR MEDS DESPITE VOMITING. DENIES ABD CRAMPING. INCONT CARE PROVIDED X2. CALL LIGHT IN REACH. BIPAP LEFT OFF DURING THE NIGHT DUE TO N/V.
--- NOTE | 2020-11-11 06:34 | NUR ---
PT UNABLE TO TOLERATE PO MEDS AT THIS TIME. PROVDIDED SC GLUCAGON PER HYPOGLYCEMIC PROTOCOL FOR FSBS OF 65.
--- NOTE | 2020-11-11 07:15 | NUR ---
RECEIVE SHIFT REPORT. RESTING IN BED WITH EYES CLOSED. TOMBSTONE ERECTOR REPORTS VOMITING. ON 6L HFNC. CALL LIGHT IN REACH. WILL CONTINUE POC AND SAFETY PRECAUTIONS.
[2020-11-11 07:19] VITALS: BP 122/86
[2020-11-11 11:36] VITALS: BP 152/76
[2020-11-11 16:58] VITALS: BP 136/78
[2020-11-11 20:49] VITALS: BP 153/82
--- NOTE | 2020-11-11 21:24 | NUR ---
PT REFUSED PM MEDICATION R/T NAUSEA. PROVIDED PRN MEDICATION PER REQUEST. NO S/S OF DISTRESS OBSERVED. CL IN REACH. INCONT CARE PROVIDED. WILL CPOC .
[2020-11-12 00:58] VITALS: BP 147/95
--- NOTE | 2020-11-12 07:20 | NUR ---
RECIEVE REPORT. RESTING IN BED WITH EYES CLOSED. NO SIGNS OF DISTRESS. CONTINUE PLAN OF CARE AND SAFETY PRECAUTIONS.
[2020-11-12 07:51] VITALS: BP 125/81
[2020-11-12 11:30] VITALS: BP 168/72
[2020-11-12 16:00] VITALS: BP 178/83
[2020-11-12 21:11] VITALS: BP 142/91
--- NOTE | 2020-11-13 04:00 | NUR ---
PT C/O OF CONSTANT NAUSEA. REFUSING PO MEDS, NO S/S OF DISTRESS OBSERVED. CL IN REACH. WILL CPOC.
[2020-11-13 06:21] VITALS: BP 94/59
[2020-11-13 08:47] VITALS: BP 106/66
[2020-11-13 13:10] VITALS: BP 122/70
[2020-11-13 16:12] VITALS: BP 121/72
[2020-11-13 19:37] VITALS: BP 99/66
--- NOTE | 2020-11-13 22:00 | NUR ---
REPORT RECEIVED, WILL CONT POC. PT A&O, UP IN BED WATCHING TV. NO S/S OF DISTRESS OBSERVED. RR EVEN AND UNLABORED ON 6L HF. PT DENIES NEEDS AT THIS TIME. BED LOCKED AND LOWERED, CL IN REACH. ASSESSMENT COMPLETED AT THIS TIME. WILL CONT TO MONITOR.
[2020-11-13 22:29] VITALS: BP 99/52
[2020-11-14 05:09] LABS: ALBUMIN 2.4 g/dL (3.4-5.0); ANION GAP 4.9 mmol/L (8-16); BILIRUBIN - TOTAL 0.47 mg/dL (0.2-1.3); CALCIUM 8.5 mg/dL (8.5-10.1); CARBON DIOXIDE 32.5 mmol/L (21.0-32.0); MAGNESIUM - SERUM 2.4 mg/dL (1.8-2.4); PHOSPHOROUS 3.4 mg/dL (2.5-4.9); POTASSIUM - SERUM 4.4 mmol/L (3.5-5.1); PROTEIN - SERUM 6.8 g/dL (6.4-8.2)
[2020-11-14 05:11] VITALS: BP 96/68
[2020-11-14 05:13] LABS: BASOPHILS 0.1 % (0-2); EOSINOPHILS 0.2 % (0-7); HEMATOCRIT 34.9 % (36.0-48.0); HEMOGLOBIN 10.5 g/dL (12-16); IMMATURE GRANULOCYTES 0.2 % (0-5); LYMPHOCYTE ABS# 2.27 10x3/uL (1.18-3.74); MCH 25.3 pg (26.0-34.0); MCHC 30.1 g/dL (31.0-37.0); MCV 84.1 fL (80.0-100.0); MONOCYTES 10.7 % (2-11); NEUTROPHIL ABS# 10.34 10x3/uL (1.56-6.13); NEUTROPHILS 72.8 % (40-80); RBC 4.15 10x6/uL (4.00-5.40); RDW 16.9 % (11.5-14.5); WBC 14.2 10x3/uL (4.8-10.8)
[2020-11-14 05:14] LABS: PLATELET COUNT 159 10x3/uL (130-400)
[2020-11-14 07:41] VITALS: BP 104/62
--- NOTE | 2020-11-14 08:11 | NUR ---
Nutrition Reassessment/Follow-up: Noted pt c/o nausea yesterday morning; received Phenergan but none given since then. Noted pork chops ordered last night. Diet: Diabetic, Mech Soft, Ensure TID No new wt Labs noted: Glu 95, Alb 2.4, Amylase 124 Meds noted: Lantus, Humulin, Decadron, Remeron, Phenergan, Carafate, Protonix, Lasix, KDur, zinc sulfate, vit B1, vit C, vit D -Nutrition needs unchanged. -Encourage PO intake and honor food preferences within diet restrictions. -Need new wt. -RD will follow up within 3 days.
--- NOTE | 2020-11-14 08:16 | NUR ---
AM ROUNDING DONE WITH PATIENT HAVING NO NEEDS. ON 6L HIGH FLOW. LEFT CHEST PIV SEEN WITH SALINE LOCK. ON EP, LABS ARE GOOD. WILL MONITOR.
--- NOTE | 2020-11-14 08:30 | NUR ---
LYING IN BED WITH EYES CLOSED, RESPIRATIONS SLOW/SHALLOW/LABORED, ROUSES EASILY WITH VERBAL STIMULUS, T/R SELF AD RENEE, CONT OF B/B WITH BSC WITH ASSIST AD RENEE, DENIES PAIN/OTHER DISCOMFORT AT THIS TIME, CALL LIGHT/PHONE/WATER WITHIN REACH, NO S/S OF ACUTE DISTRESS OBSERVED.
[2020-11-14 11:45] VITALS: BP 127/84
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
[2020-11-14 16:54] VITALS: BP 126/67
[2020-11-14 23:11] VITALS: BP 124/55
[2020-11-15 05:24] VITALS: BP 133/88
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
--- NOTE | 2020-11-15 07:40 | NUR ---
LYING IN BED WITH EYES CLOSED, RESPIRATIONS SLOW/DEEP/UNEVEN, ROUSES EASILY WITH VERBAL STIMULUS, T/R SELF AD RENEE, CONT OF B/B WITH ASSIST TO BSC AD RENEE, DENIES PAIN/OTHER DISCOMFORT AT THIS TIME, CALL LIGHT/PHONE/WATER WITHIN REACH, NO S/S OF ACUTE DISTRESS OBSERVED.
[2020-11-15 08:00] VITALS: BP 131/82
--- NOTE | 2020-11-15 10:10 | NUR ---
SPOKE WITH PT ABOUT GETTING UP TO CHAIR AT BEDSIDE AND SUGGESTED SHE SIT UP AND EAT LUNCH WHILE IN THE CHAIR, SHE AGREED TO DO SO.
--- NOTE | 2020-11-15 11:38 | NUR ---
PT STATES EMPHATICALLY THAT SHE IS NOT GOING TO SIT UP IN THE CHAIR BECAUSE SHE IS COLD, I OFFERED TO TURN THE HEAT UP AND SHE CONTINUED TO REFUSE.
[2020-11-15 12:00] VITALS: BP 136/84
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
[2020-11-15 15:00] VITALS: BP 130/80
--- NOTE | 2020-11-15 21:40 | NUR ---
REPORT RECEIVED, WILL CONT TO MONITOR. PT A&O, LAYING IN BED WATCHING TV. NO S/S OF DISTRESS OBSERVED. RR EVEN AND UNLABORED ON 6L. PATIENT DENIES NEEDS AT THIS TIME. BED LOCKED AND LOWERED, CL IN REACH. ASSESSMENT COMPLETED AT THIS TIME. WILL CONT TO MONITOR.
[2020-11-15 22:11] VITALS: BP 155/76
[2020-11-16 05:07] VITALS: BP 118/65
--- NOTE | 2020-11-16 07:38 | NUR ---
AM ROUNDING DONE WITH PATIENT IN DROPLET ISOLATIO FOR COVID +. UP WITH ASSIST PER REPORT, BSC IS THERE FOR USE. ON 6 LITERS HIGH FLOW OXYGEN. BIPAP IN ROOM FOR HS USE. LEFT BREAST PIV SEEN SALINE LOCK. ON EP, NO LABS ORDERED., NEEDING STOOL SAMPLE AND WILL PLACE HAT FOR SPECIME COLLECTION.
--- NOTE | 2020-11-16 08:01 | NUR ---
PATIENT IS INCONT. IN BRIEF. WHITE CHUXS CHANGED TO DRY ONES AND NEW BRIEFS, PATIENT UP TO BSC TO VOID AND HAVE BM, NO SEPERATION OF THEM. WILL TRY AGAIN.
[2020-11-16 08:42] VITALS: BP 128/64
[2020-11-16 11:18] VITALS: BP 110/73
[2020-11-16 15:51] VITALS: BP 114/67
[2020-11-16 20:00] VITALS: BP 122/68
--- NOTE | 2020-11-16 20:45 | NUR ---
REPORT RECEIVED, WILL CONT POC. A&O, UP IN BED WATCHING TV. NO S/S OF DISTRESSED OBSERVED. RR EVEN AND UNLABORED ON 6HF. PT DENIES NEEDS AT THIS TIME. BED LOCKED AND LOWERED, CL IN REACH. ASSESSMENT COMPLETED AT THIS TIME. WILL CONT TO MONITOR.
[2020-11-17 04:35] VITALS: BP 133/61
[2020-11-17 05:30] LABS: BASOPHILS 0 % (0-2); EOSINOPHILS 0.2 % (0-7); HEMATOCRIT 31.4 % (36.0-48.0); HEMOGLOBIN 9.5 g/dL (12-16); IMMATURE GRANULOCYTES 0.4 % (0-5); LYMPHOCYTE ABS# 2.95 10x3/uL (1.18-3.74); LYMPHOCYTES 18.5 % (15-50); MCH 25.5 pg (26.0-34.0); MCHC 30.3 g/dL (31.0-37.0); MCV 84.2 fL (80.0-100.0); MEAN PLATELET VOLUME 11.2 fL (7.4-10.4); MONOCYTES 8.8 % (2-11); NEUTROPHIL ABS# 11.48 10x3/uL (1.56-6.13); NEUTROPHILS 72.1 % (40-80); PLATELET COUNT 134 10x3/uL (130-400); RBC 3.73 10x6/uL (4.00-5.40); RDW 17.2 % (11.5-14.5); WBC 15.9 10x3/uL (4.8-10.8)
[2020-11-17 05:38] LABS: ALBUMIN 2.5 g/dL (3.4-5.0); ANION GAP 10.2 mmol/L (8-16); BILIRUBIN - TOTAL 0.18 mg/dL (0.2-1.3); CALCIUM 8.9 mg/dL (8.5-10.1); CARBON DIOXIDE 31.1 mmol/L (21.0-32.0); CREATININE - SERUM 0.9 mg/dL (0.6-1.3); POTASSIUM - SERUM 4.3 mmol/L (3.5-5.1); PROTEIN - SERUM 6.6 g/dL (6.4-8.2)
[2020-11-17 07:42] VITALS: BP 117/64
--- NOTE | 2020-11-17 07:50 | NUR ---
LYING IN BED WITH EYES CLOSED, RESPIRATIONS SLOW/SHALLOW/UNEVEN, ROUSES EASILY WITH VERBAL STIMULUS, T/R SELF AD RENEE WITH ENCOURAGEMENT, CONT OF B/B WITH INCONT EPISODES, PERICARE PROVIDED WITH DAILY BATH AND PRN, CALL LIGHT/PHONE/WATER WITHIN REACH, NO S/S OF ACUTE DISTRESS OBSERVED.
--- NOTE | 2020-11-17 08:27 | NUR ---
Nutrition Follow-up: Noted nausea resolved. No recent PO intake recorded but noted pt requested extra portions of meat & dressing yesterday. Diet: Diabetic No new wt; last wt: 275# (09/15) Last BM: 11/15 Labs noted: Glu 46, Alb 2.5 Meds noted: Decadron, Lantus, Humulin, Lasix, KDur, Carafate, Protonix, Remeron, zinc sulfate, vit B1, vit C, vit D -Encourage PO intake and honor food preferences within diet restrictions. -Need new wt. -RD will follow up within 5-7 days if pt still admitted.
[2020-11-17 15:51] VITALS: BP 130/80
[2020-11-17 21:00] VITALS: BP 138/61
--- NOTE | 2020-11-18 04:22 | NUR ---
NO VOICED C/O OR CONCERNS DURING THE NIGHT. REFUSING COUGH SYRUP STATING SHE NO LONGER NEEDS IT. BIPAP REDUCED TO 30% BY RT. PT TOLERATING WELL. CL IN REACH. WILL CTM.
[2020-11-18 04:51] VITALS: BP 141/65
[2020-11-18 08:40] VITALS: BP 113/80
--- NOTE | 2020-11-18 10:24 | NUR ---
PT ALERT AND ORIENTED, UP TO BEDSIDE COMMODE. CHANGED LINNENS, GOWNS, AND PLACED NEW PULL UP ON. TOOK ALL MEDICATIONS WITHOUT COMPLICATIONS. NO COMPLAINTS OR CONCERNS AT THIS TIME. CL IN REACH, SRX2.
[2020-11-18 11:44] VITALS: BP 157/77
--- NOTE | 2020-11-18 12:20 | NUR ---
PT AWAKE AND ORIENTED, SITTING IN BED EATING LUNCH AND SPEAKING IWTH MOTHER ON THE PHONE. 1 MODERATELY SIZED B.M. NO COMPLAINTS OR CONCERNS AT THIS TIME. CL INR EACH,S RX1
[2020-11-18 16:01] VITALS: BP 136/67
[2020-11-18 20:30] VITALS: BP 140/83
--- NOTE | 2020-11-18 22:14 | NUR ---
APPLIED BIPAP AT THIS TIME KERRI APPLICATION WELL
[2020-11-19] VITALS (7 sets, daily range): BP systolic 119–139; BP diastolic 54–78
--- NOTE | 2020-11-19 02:27 | NUR ---
PT RESTING QUIETLY IN BED. RR EVEN AND UNLABORED. NO S/S OF DISTRESS OBSERVED. DENIES NEEDS AT THIS TIME. CL IN REACH. WILL CTM.
--- NOTE | 2020-11-19 08:34 | NUR ---
SPOKE WITH DR. ACEVEDO AND NAHED ABOUT ISOLATION, CLEARED TO D/C ISOLATION.
--- NOTE | 2020-11-19 18:24 | NUR ---
PT ALERT AND ORIENTED. LYING IN BED WATCHING T/V. LINNENS CHANGED, NEW PULL UPS PLACED ON. NO COMPLAINTS OR CONCERNS AT THIS TIME. CL IN REACH, SRX2.
--- NOTE | 2020-11-19 22:51 | NUR ---
APLLIED BIPAP PT TOLERATED WELL
[2020-11-20 08:00] VITALS: BP 138/92
[2020-11-20 11:00] VITALS: BP 121/75
[2020-11-20 14:40] VITALS: BP 130/76
--- NOTE | 2020-11-20 15:12 | NUR ---
Nutrition Reassessment/Follow-up: Pt in droplet isolation. Eating well. Noted plans for d/c soon. Diet: Diabetic PO intake: 100% x 6 meals (11/18-11/19) No new wt; last wt: 275# (09/15) Labs noted: Glu 230 Meds noted: Remeron, Carafate, Protonix, Lantus, Lasix, KDur, Humulin, Decadron, zinc sulfate, vit B1, vit C, vit D -Nutrition needs unchanged; no new wt available. -RD will follow up within 7 days if pt still admitted.
--- NOTE | 2020-11-20 15:38 | NUR ---
PT AWAKE AND ORIENTED, IN GOOD MOOD AND EXCITED TO D/C TOMORROW. NO COMPLAINTS OR CONCERNS AT THIS TIME. CL IN REACH, SRX2.
--- NOTE | 2020-11-20 15:46 | NUR ---
I have reviewed this patient and I concur with the Shift Assessment completed by the Licensed Practical Nurse today this shift.
--- NOTE | 2020-11-20 17:31 | NUR ---
PT AWAKE AND ORIENTED, LYIGN IN BED EATING SUPPER WIHTOUT NOTED OR REPORTED COPLICATIONS. LINNENS CHANGED, BRIEF CHANGED. NO COMPLAITNS OR CONCERNS AT THIS TIME. CL IN REACH,SRX2.
[2020-11-20 20:19] VITALS: BP 128/94
[2020-11-20 22:39] VITALS: BP 123/60
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
--- NOTE | 2020-11-21 06:35 | NUR ---
I have reviewed this patient and I concur with the Shift Assessment completed by the Licensed Practical Nurse today this shift.
--- NOTE | 2020-11-21 07:00 | NUR ---
PT RECEIVED LYING ON RIGHT SIDE IN BED WITH HOB RAISED. O2 IN PLACE VIA NC. PT RR EVEN NON LABORED. PT [email or web address], PLEASANT AND DENIES ANY NEEDS AT THIS TIME. CLWR.
[2020-11-21 09:29] VITALS: BP 141/80
--- NOTE | 2020-11-21 11:13 | NUR ---
PAGE INTO DR SOLARES TO SEE IF MEDICATION LIST IS COMPLETE SO WE CAN DISCHARGE HER. AWAITING CALL BACK.
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
[2020-11-21] MEDS ORDERED: VENTOLIN HFA [SP8 GM INH (11:34)
[2020-11-21] MEDS ORDERED: COREG6.25 MG PO (11:34)
[2020-11-21] MEDS ORDERED: LANTUS INS100 UNITS/ SC (11:34)
[2020-11-21] MEDS ORDERED: REMERON15 MG PO (11:34)
[2020-11-21] MEDS ORDERED: ASPIRIN EC81 MG PO (11:34)
[2020-11-21] MEDS ORDERED: K-DUR20 MEQ PO (11:34)
[2020-11-21] MEDS ORDERED: SINGULAIR10 MG PO (11:34)
[2020-11-21] MEDS ORDERED: LEXAPRO10 MG PO (11:34)
[2020-11-21] MEDS ORDERED: ENTRESTO 24 MG1 EACH PO (11:34)
[2020-11-21] MEDS ORDERED: PROTONIX40 MG PO (11:34)
[2020-11-21] MEDS ORDERED: LASIX20 MG PO (11:34)
[2020-11-21] MEDS ORDERED: MUCINEX600 MG PO (11:34)
[2020-11-21] MEDS ORDERED: ONDANSETRON HCL8 MG PO (11:35)
[2020-11-21] MEDS ORDERED: VITAMIN D325 MC1 PO (11:35)
[2020-11-21] MEDS ORDERED: ATROVENT 0.02%2.5 ML UPD (11:35)
[2020-11-21] MEDS ORDERED: DULERA 200 MCG8.8 GM INH (11:35)
[2020-11-21] MEDS ORDERED: CARAFATE1 G PO (11:35)
[2020-11-21] MEDS ORDERED: NYSTATIN15 GM TOPICAL (11:35)
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
[2020-11-21 13:02] VITALS: BP 144/72
--- NOTE | 2020-11-21 13:20 | NUR ---
PT LYING IN BED TALKING ON CELLPHONE AT THIS TIME. RR EVEN NON LABORED WITH O2 IN PLACE VIA NC. NO NEEDS VOICED. CLWR.
--- NOTE | 2020-11-21 15:34 | NUR ---
REPORT GIVEN TO TOYA AT [facility] AT THIS TIME.
--- NOTE | 2020-11-21 16:15 | NUR ---
PT WHEELED TO [facility] AT THIS TIME WITH ALL BELONGINGS AND HALFWAY EMPLOYEE. PT ON PORTABLE O2 PER NC ON D/C. NO DISTRESS NOTED ON DEPARTURE.
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
== END 2020-11-21 16:24 | DRG 291 ==
LOC: D.ER 01:41 → D.ICU 04:25 → D.EDHOLD 04:25 → D.MS 04:25 → D.ICU 15:00 → D.MS 09-15 15:38 → D.M2 10-31 15:41
PROVIDERS: Family Medicine; Internal Medicine Pulmonary Disease; Legal Medicine; ADMIT Emergency Medicine; ATTEND Emergency Medicine
PROC: 5A1955Z Respiratory Ventilation, Greater than 96 Consecutive Hours (ICD-10-PCS; principal; 2020-09-01)
PROC: 0BH17EZ Insertion of Endotracheal Airway into Trachea, Via Natural or Artificial Opening (ICD-10-PCS; 2020-09-01)
PROC: 0B9F8ZX Drainage of Right Lower Lung Lobe, Via Natural or Artificial Opening Endoscopic, Diagnostic (ICD-10-PCS; 2020-09-08)
PROC: XW13325 Transfusion of Convalescent Plasma (Nonautologous) into Peripheral Vein, Percutaneous Approach, New Technology Group 5 (ICD-10-PCS; 2020-11-02)
PROC: XW033E5 Introduction of Remdesivir Anti-infective into Peripheral Vein, Percutaneous Approach, New Technology Group 5 (ICD-10-PCS; 2020-11-02)
DX: I13.0 Hypertensive heart and chronic kidney disease with heart failure and stage 1 through stage 4 chronic kidney disease, or unspecified chronic kidney disease (principal); J96.22 Acute and chronic respiratory failure with hypercapnia; I50.23 Acute on chronic systolic (congestive) heart failure; U07.1 COVID-19; J96.21 Acute and chronic respiratory failure with hypoxia; J12.82 Pneumonia due to coronavirus disease 2019; J44.1 Chronic obstructive pulmonary disease with (acute) exacerbation; Z68.42 Body mass index [BMI] 45.0-49.9, adult; J98.11 Atelectasis; N39.0 Urinary tract infection, site not specified; J95.851 Ventilator associated pneumonia; E87.6 Hypokalemia; N63.20 Unspecified lump in the left breast, unspecified quadrant; K21.9 Gastro-esophageal reflux disease without esophagitis; I25.10 Atherosclerotic heart disease of native coronary artery without angina pectoris; E66.01 Morbid (severe) obesity due to excess calories; F41.8 Other specified anxiety disorders; F31.9 Bipolar disorder, unspecified; Z91.19 Patient's noncompliance with other medical treatment and regimen; Z79.4 Long term (current) use of insulin; M19.90 Unspecified osteoarthritis, unspecified site; D72.829 Elevated white blood cell count, unspecified; E11.22 Type 2 diabetes mellitus with diabetic chronic kidney disease; I27.21 Secondary pulmonary arterial hypertension; G47.33 Obstructive sleep apnea (adult) (pediatric); N18.9 Chronic kidney disease, unspecified; R41.83 Borderline intellectual functioning; R53.81 Other malaise

== ENCOUNTER → 2021-03-05 23:45 | Outpatient (CLI) | payer MEDICAID ==
[2020-09-02 11:31] VITALS: BMI 46.4
[~2021-03-05 23:45] MED LIST changes: +ASPIRIN EC81 MG PO; +ATROVENT 0.02%2.5 ML UPD; +CARAFATE1 G PO; +DULERA 200 MCG8.8 GM INH; +NYSTATIN15 GM TOPICAL; +ONDANSETRON HCL8 MG PO; +VENTOLIN HFA [SP8 GM INH; +VITAMIN D325 MC1 PO
[2021-03-06 00:46] LABS: BILIRUBIN NEGATIVE (NEGATIVE); KETONE NEGATIVE (NEGATIVE); NITRITE NEGATIVE (NEGATIVE); UROBILINOGEN NORMAL mg/dL (< 2)
[2021-03-06 00:47] LABS: BACTERIA FEW HPF (NONE SEEN); SQUAMOUS EPITHELIAL 0-5 HPF (0-4)
== END | disposition home or self-care (01) ==
LOC: D.LABREF 23:45
PROVIDERS: ATTEND Family Medicine
DX: R31.9 Hematuria, unspecified (principal)